=== PATIENT | female | born 1950 | race Caucasian/White ===

== ENCOUNTER → 2016-11-25 | Outpatient (CLI) | payer MEDICARE, MEDICAID ==
[~2016-11-25] MED LIST: /METO25TAB PO; /ONDA4TA OR; /OXYB10XLT PO; /PANT40TA PO; ATEN25TA PO; ATOR1TAB19 PO; BACIDCA OR; BACT800T5 PO; CALC600T7 PO; CARA1TAB2 PO; CARV3.12 PO; CHOL4PKT OR; CIPR500T3 PO; DEPA250T2 PO; DEPA500T2 PO; DIVA250T7 PO; DOXY150C PO; DRIS50002 PO; FERR325T69 PO; FLAG500T PO; FOLI1TAB2 PO; FOLI1TAB86 PO; FURO20TA2 PO; LASI20TA PO; LEVO50TA4 PO; LEVO75TA4 PO; METO100T PO; METO50TA2 PO; OXYB5SYP PO; OXYB5TA PO; PARO10TA10 PO; PAXI10TA2 PO; PRIL20CA PO; PROBCAP4 PO; SENO8.6T9 PO; SIMV80TA PO; TYLE650T30 PO; TYLE650T35 PO; ZETI10TA21 PO; levothyroxine sodium OR
== END | disposition home or self-care (01) ==
LOC: M LAB 11:39
PROVIDERS: ATTEND Physician Assistant Medical
DX: G40.909 Epilepsy, unspecified, not intractable, without status epilepticus (principal)

== ENCOUNTER → 2016-12-16 | Outpatient (CLI) | payer MEDICARE, MEDICAID ==
[~2016-12-16] MED LIST changes: +AMPI50CA PO; +VITATAB11 PO
--- NOTE | 2016-12-16 13:08 | REP ---
Clinical: Hydronephrosis. Technique: PA and lateral. Comparison: 06/05/2016. Findings: Mediastinum and cardiac silhouette are within normal limits and stable. Lung loyola demonstrate chronic stable changes primarily involving the right base. No acute consolidation, effusion, or pneumothorax. Skeletal structures are intact. Ureteral stents noted. Impression: Stable chronic changes. No acute cardiopulmonary process. Signed by Santana Minor MD 12/16/2016 01:00 P
[2016-12-16 13:43] LABS: MEAN CORPUSCULAR HEMOGLOBIN 35.2 pg (27.0-33.0); MEAN CORPUSCULAR HGB CONC 33.1 g/dl (32.0-36.5); MEAN CORPUSCULAR VOLUME 106.3 fl (80.0-96.0); RED CELL DISTRIBUTION WIDTH 12.4 % (11.5-14.5); WHITE BLOOD COUNT 5.8 K/mm3 (4.0-10.0)
[2016-12-16 13:49] LABS: INR 0.96
[2016-12-16 14:12] LABS: CALCIUM LEVEL 9.4 MG/DL (8.8-10.2); CREATININE FOR GFR 1.05 MG/DL (0.55-1.02); GLOMERULAR FILTRATION RATE 55.7 (>45); POTASSIUM SERUM 4.6 MEQ/L (3.5-5.1)
--- NOTE | 2016-12-16 16:57 | ECGEPIP ---
Stationary ECG Study [facility] Test Date: 2016-12-16 Pat Name: ERNIE COLBERT Department: Room: - Gender: F Quarter Doper: : 1950 Requested By: Norah COYNE Order Number: [id number] Reading MD: Anrde Sandhu Measurements Intervals [place] Rate: 64 P: 42 CT: 170 QRS: 28 QRSD: 90 T: 6 QT: 411 QTc: 424 Interpretive Statements Normal sinus rhythm at 64 bpm Somewhat low voltages Subtle nonspecific ST/T-wave abnormalities Not significant change from 06/05/16 Electronically Signed On 12-16-2016 16:57:15 EST by Andre Sandhu
== END ==
LOC: M LAB 11:57
PROVIDERS: ATTEND Nurse Practitioner Women's Health
DX: Z01.818 Encounter for other preprocedural examination (principal); N13.39 Other hydronephrosis; Z79.899 Other long term (current) drug therapy

== ENCOUNTER → 2016-12-24 | Day surgery (SDC) | payer MEDICARE, MEDICAID ==
[~2016-12-24] VITALS: Ht 149.9 cm; Wt 66.2 kg
[~2016-12-24] MED LIST changes: +CONRAY-60 60% 50ML VIAL (Q9961) As Ordered ONE; +CONRAY-60 60% 50ML VIAL (Q9961) XX ONE; +GENTAMICIN 100 MG in APPROPRIATE DILUENT 1 EA IV ONE; +LIDOCAINE 2% INJ 100 MG/5 ML SDV (FOR ANES.) As Ordered ONE; +LR 1,000 ML IV SCH; +MIDAZOLAM INJ 2 MG/2 ML VIAL (J2250) As Ordered ONE; +ONDANSETRON 4MG/2ML VIAL (J2405) As Ordered ONE; +ONDANSETRON 4MG/2ML VIAL (J2405) IV PRN; +PROPOFOL 200 MG/20 ML VIAL As Ordered ONE; +VANCOMYCIN 1000 MG/20 ML VIAL (J3370) As Ordered ONE; +VANCOMYCIN HCL 1,000 MG, VIAL MATE ADAPTER 1 EACH in D5W 250 ML IV ONE; +ePHEDrine SULFATE 25 MG/5 ML(5MG/ML) SYRINGE As Ordered ONE; +fentaNYL 100 MCG/2 ML INJECTION (J3010) As Ordered ONE
[2016-12-24 10:40] VITALS: BP 131/62
--- NOTE | 2016-12-24 14:29 | REP ---
RETROGRADE PYELOGRAM: 12/24/2016. Comparison: 09/25/2016. Clinical history: Bilateral hydronephrosis. Horseshoe kidney. Findings: Single image from C-arm fluoroscopy provided to Dr. Allred of the Urology division. Double pigtail stent is seen on each side with the proximal coil over the renal pelvis and the distal coil in the bladder. The cystoscope is also seen in the bladder in the midline. No other findings. Fluoroscopy time: 19 seconds. Signed by Jos Ontiveros MD 12/24/2016 05:39 P
--- NOTE | 2016-12-25 05:34 | RO ---
DATE OF PROCEDURE: 12/24/2016 PREOPERATIVE DIAGNOSES: Bilateral hydronephrosis and a horseshoe kidney. POSTOPERATIVE DIAGNOSES: Bilateral hydronephrosis and a horseshoe kidney. SURGERY PERFORMED: Cystoscopy, plus double J stent exchanges, 6-Malaysian [place] Cook. SURGEON: Kam Allred MD GRANTS OFFICER: ANESTHESIA: General. FINDINGS: Bilateral hydronephrosis and a horseshoe kidney. COMPLICATIONS: None. ESTIMATED BLOOD LOSS: N/A. HISTORY OF PRESENT ILLNESS: This is a 66-year-old female patient with a horseshoe kidney and bilateral hydronephrosis. She has bilateral kidney pain. For this reason, she has double J stents, which are exchanged every 6 months. For this reason, she has consented for a cystoscopy plus bilateral double J stent exchanges 6-Malaysian [place] Cook. PROCEDURE DESCRIPTION: In a patient under general anesthesia in supine modified low lithotomy position after prepping and draping the area of concern, which included the entire genitalia and abdomen, we introduced a cystoscope, 30-degree lens under videoendoscopic guidance. The urethra and bladder neck were totally normal. The bladder had no tumors and had bilateral stents in good position. We grabbed the left double J stent and pulled it out of the body of the patient. We then introduced a guidewire up to the kidney and then through the guidewire we actually placed a new double J stent in the right side. We then preceded to grab with endoscopic forceps the left double J stent and pulled it out of the body of the patient, and then introduced a guidewire again up to the left kidney and then introduced a new double J stent 6-Malaysian [place] Cook without any complications. Once the stent was in good position, we took the guidewire out. We could see the curl in the kidney and the curl in the bladder. Bilaterally. We then emptied the bladder and took the cystoscope out. PLAN: The patient will go home with antibiotic, Tylenol for pain and followup at [facility] [place] in about 3-4 weeks to reschedule every 3 months a cystoscopy, plus bilateral double J stent exchange.
== END | disposition home or self-care (01) ==
LOC: M SDC 07:00
PROVIDERS: ATTEND Urology
DX: N13.30 Unspecified hydronephrosis (principal); 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, fused and horseshoe kidney; Z46.6 Encounter for fitting and adjustment of urinary device; I10 Essential (primary) hypertension; Z79.899 Other long term (current) drug therapy; E03.9 Hypothyroidism, unspecified; F32.9 Major depressive disorder, single episode, unspecified; E78.5 Hyperlipidemia, unspecified
CPT/HCPCS: 52332; 74420; C2617; J0690; J1580; J2250; J2405; J3010; J3370; Q9961

== ENCOUNTER → 2017-02-18 | Outpatient (CLI) | payer MEDICARE, MEDICAID ==
[~2017-02-18] MED LIST changes: -CONRAY-60 60% 50ML VIAL (Q9961) As Ordered ONE; -CONRAY-60 60% 50ML VIAL (Q9961) XX ONE; -GENTAMICIN 100 MG in APPROPRIATE DILUENT 1 EA IV ONE; -LIDOCAINE 2% INJ 100 MG/5 ML SDV (FOR ANES.) As Ordered ONE; -LR 1,000 ML IV SCH; -MIDAZOLAM INJ 2 MG/2 ML VIAL (J2250) As Ordered ONE; -ONDANSETRON 4MG/2ML VIAL (J2405) As Ordered ONE; -ONDANSETRON 4MG/2ML VIAL (J2405) IV PRN; -PROPOFOL 200 MG/20 ML VIAL As Ordered ONE; -VANCOMYCIN 1000 MG/20 ML VIAL (J3370) As Ordered ONE; -VANCOMYCIN HCL 1,000 MG, VIAL MATE ADAPTER 1 EACH in D5W 250 ML IV ONE; -ePHEDrine SULFATE 25 MG/5 ML(5MG/ML) SYRINGE As Ordered ONE; -fentaNYL 100 MCG/2 ML INJECTION (J3010) As Ordered ONE
--- NOTE | 2017-02-18 09:11 | REPMRS ---
Patient History The patient states she has not had a clinical breast exam in over a year. Patient is postmenopausal and is nulliparous. Family history of prostate cancer in father and breast cancer in mother at age 50 or over. Digital Woman Screen Mammo: February 18, 2017 - Exam #: [id number] Bilateral CC and MLO view(s) were taken. Technologist: Elsy Keith, Technologist Prior study comparison: December 25, 2011, bilateral bilat screen digital mammo, performed at [facility] ([facility]). December 14, 2010, screening mammogram, performed at [facility] ([facility]). November 28, 2009, bilateral screening mammogram, performed at [facility] ([facility]). FINDINGS: The breast tissue is almost entirely fat. There has been no change in the appearance of the mammogram from the prior studies. There is no interval development of dominant mass, architectural distortion, or clustered microcalcification typical of malignancy. ASSESSMENT: BI-RADS/ACR category 1 mammogram. Negative. Recommendation Routine screening mammogram of both breasts in 1 year (for women over age 40). This mammogram was interpreted with the aid of an FDA-approved computer-aided dectection system. Electronically Signed By: Bart Ghotra MD 02/18/17 [id number]
--- NOTE | 2017-02-19 11:24 | DEXA ---
AP SPINE L1 - L4 1.167 -0.2 1.2 LT FEMUR TOTAL 0.874 -1.1 0.2 RT FEMUR TOTAL 0.830 -1.4 -0.2 TOTAL BODY TOTAL OTHER DUAL FEMUR FRAX* ASSESSMENT Risk factors: None. 10 year probability of fracture Major osteoporotic fracture 9.9 % Hip fracture 1.4 % COMMENTS: Normal bone densitometry of the spine. There is low bone density of the hips. The density of the spine has increased 0.5% since 11/28/2009. The density of the left hip has decreased 5.7% since 11/28/2009. The density of the right hip has decreased 3.5% since 11/28/2009. FOLLOW-UP: Recommendation for the next bone density exam: 2 years. HUSSEIN
== END ==
LOC: M WHC 07:26
PROVIDERS: ATTEND Family Medicine
DX: Z12.31 Encounter for screening mammogram for malignant neoplasm of breast (principal); Z13.820 Encounter for screening for osteoporosis; Z13.828 Encounter for screening for other musculoskeletal disorder; M85.80 Other specified disorders of bone density and structure, unspecified site; Z78.0 Asymptomatic menopausal state; Z80.3 Family history of malignant neoplasm of breast
CPT/HCPCS: 77080; G0202

== ENCOUNTER → 2017-03-17 | Outpatient (REF) | payer MEDICARE, MEDICAID ==
[~2017-03-17] MED LIST changes: +DEPA250T32 PO
== END ==
LOC: M LAB REF 17:03
PROVIDERS: ATTEND Internal Medicine Nephrology
DX: R82.71 Bacteriuria (principal)

== ENCOUNTER → 2017-04-01 | Outpatient (REF) | payer MEDICARE, MEDICAID ==
[~2017-04-01] MED LIST changes: +CIPR250T3 PO
== END ==
LOC: M SMT 12:48
PROVIDERS: ATTEND Nurse Practitioner Women's Health
DX: N39.0 Urinary tract infection, site not specified (principal)

== ENCOUNTER → 2017-04-02 | Day surgery (SDC) | payer MEDICAID, MEDICARE ==
[~2017-04-02] VITALS: Ht 149.9 cm; Wt 69.9 kg
[~2017-04-02] MED LIST changes: +CONRAY-60 60% 50ML VIAL (Q9961) As Ordered ONE; +KETOROLAC 60 MG/2 ML VIAL (J1885) As Ordered ONE; +LIDOCAINE 2% INJ 100 MG/5 ML SDV (FOR ANES.) As Ordered ONE; +LR 1,000 ML IV ONE; +LR 1,000 ML IV SCH; +MIDAZOLAM INJ 2 MG/2 ML VIAL (J2250) As Ordered ONE; +ONDANSETRON 4MG/2ML VIAL (J2405) As Ordered ONE; +ONDANSETRON 4MG/2ML VIAL (J2405) IV PRN; +PROPOFOL 200 MG/20 ML VIAL As Ordered ONE; +dexameTHASONE 4 MG/ML 1ML VIAL (J1100) As Ordered ONE; +ePHEDrine SULFATE 25 MG/5 ML(5MG/ML) SYRINGE As Ordered ONE; +fentaNYL 100 MCG/2 ML INJECTION (J3010) As Ordered ONE; +fentaNYL 100 MCG/2 ML INJECTION (J3010) IV PRN
--- NOTE | 2017-04-02 14:21 | REP ---
KUB ABDOMEN USING C-ARM: A C-arm view of the abdomen demonstrates bilateral ureteral stents. Proximal ends are coiled in the region of the kidneys and the distal ends are coiled in the region of the urinary bladder. 5 seconds of fluoroscopy time utilized. Signed by Huseyin Whiting MD 04/03/2017 07:04 P
[2017-04-02 15:35] VITALS: BP 134/75
--- NOTE | 2017-04-03 08:05 | RO ---
DATE OF PROCEDURE: 04/02/2017 PREPROCEDURE DIAGNOSIS: Horseshoe kidney, bilateral hydronephrosis. POSTPROCEDURE DIAGNOSIS: Horseshoe kidney, bilateral hydronephrosis. FINDINGS: Horseshoe kidney, bilateral hydronephrosis. PROCEDURE: Cystoscopy, plus bilateral double J stent exchange, 6-Yemeni [place] Cook. SURGEON: Kam Allred MD LPN PER DIEM: None. ANESTHESIA: General. COMPLICATIONS: None. ESTIMATED BLOOD LOSS: N/A. HISTORY OF THE PRESENT ILLNESS: This is a 67-year-old female patient that has bilateral hydronephrosis and a horseshoe kidney. For this reason she has consented for cystoscopy, plus bilateral double J stent exchange, 6-Yemeni [place] Cook. DESCRIPTION OF PROCEDURE: With the patient under general anesthesia in supine modified low lithotomy position, after prepping and draping the area of concern, which included the entire genitalia and abdomen, we introducing a 21-Yemeni cystoscopewith a 30-degree lens under videoendoscopic guidance. The urethra and bladder neck were totally normal. The bladder had no tumors, no stones, or no foreign objects. It had both double J stents in good position. With and endoscopic forcep we started by pulling out the left double J stent and then introduced a guidewire up to the kidney on the left side. We passed a new double J stent 6-Yemeni [place] Cook up to the kidney following the guidewire on the left side. Once it was in good position, we took the guidewire out, we could see the curl in the kidney and the curl in the bladder. We then grabbed another endoscopic forcep and grabbed the right double J stent and pulled it out of the body of the patient. We then passed a guidewire up to the right collecting system. When then passed a new double J stent 6-Yemeni [place] Cook stent following the guidewire. When it was in good position, we took the guidewire out, you could see the curl in the kidney and curl in the bladder. We then went up into the bladder and took the cystoscope out. PLAN: The patient will go home today with antibiotic and pain medication. She will followup in about 3 weeks at [facility] [place].
== END | disposition home or self-care (01) ==
LOC: M SDC 10:10
PROVIDERS: ATTEND Urology
DX: 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, fused and horseshoe kidney (principal); N13.30 Unspecified hydronephrosis; I12.9 Hypertensive chronic kidney disease with stage 1 through stage 4 chronic kidney disease, or unspecified chronic kidney disease; I50.9 Heart failure, unspecified; I25.2 Old myocardial infarction; N18.3 Chronic kidney disease, stage 3 (moderate); E78.00 Pure hypercholesterolemia, unspecified; E03.9 Hypothyroidism, unspecified; F32.9 Major depressive disorder, single episode, unspecified; R56.9 Unspecified convulsions; R82.71 Bacteriuria; Z88.8 Allergy status to other drugs, medicaments and biological substances; Z91.011 Allergy to milk products; Z91.018 Allergy to other foods; Z79.899 Other long term (current) drug therapy; Z79.2 Long term (current) use of antibiotics
CPT/HCPCS: 52332; 74420; C1726; C2617; J0690; J1100; J1885; J2250; J2405; J3010; Q9961

== ENCOUNTER → 2017-04-10 | Outpatient (CLI) | payer MEDICARE, MEDICAID ==
[~2017-04-10] MED LIST changes: -CONRAY-60 60% 50ML VIAL (Q9961) As Ordered ONE; -KETOROLAC 60 MG/2 ML VIAL (J1885) As Ordered ONE; -LIDOCAINE 2% INJ 100 MG/5 ML SDV (FOR ANES.) As Ordered ONE; -LR 1,000 ML IV ONE; -LR 1,000 ML IV SCH; -MIDAZOLAM INJ 2 MG/2 ML VIAL (J2250) As Ordered ONE; -ONDANSETRON 4MG/2ML VIAL (J2405) As Ordered ONE; -ONDANSETRON 4MG/2ML VIAL (J2405) IV PRN; -PROPOFOL 200 MG/20 ML VIAL As Ordered ONE; -dexameTHASONE 4 MG/ML 1ML VIAL (J1100) As Ordered ONE; -ePHEDrine SULFATE 25 MG/5 ML(5MG/ML) SYRINGE As Ordered ONE; -fentaNYL 100 MCG/2 ML INJECTION (J3010) As Ordered ONE; -fentaNYL 100 MCG/2 ML INJECTION (J3010) IV PRN
[2017-04-10 11:32] LABS: BASO # 0.1 K/mm3 (0.0-0.2); BASO % 1.1 % (0.0-1.0); EOS # 0.5 K/mm3 (0.0-0.50); EOS % 8.3 % (0.0-3.0); LARGE UNSTAINED CELL # 0.1 K/mm3 (0.0-0.4); LARGE UNSTAINED CELL % 1.9 % (0.0-4.0); LYMPH # 1.5 K/mm3 (1.5-4.5); LYMPH % 24.6 % (24.0-44.0); MEAN CORPUSCULAR HEMOGLOBIN 35.6 pg (27.0-33.0); MEAN CORPUSCULAR HGB CONC 33.5 g/dl (32.0-36.5); MEAN CORPUSCULAR VOLUME 106.3 fl (80.0-96.0); MONO # 0.4 K/mm3 (0.0-0.8); MONO % 7.3 % (0.0-5.0); NEUTROPHILS # 3.2 K/mm3 (1.8-7.7); NEUTROPHILS % 56.8 % (36.0-66.0); PLATELET COUNT, AUTOMATED 246 k/mm3 (150-450); RED CELL DISTRIBUTION WIDTH 12.5 % (11.5-14.5); WHITE BLOOD COUNT 5.7 K/mm3 (4.0-10.0)
== END ==
LOC: M LAB 10:47
PROVIDERS: ATTEND Physician Assistant Medical
DX: Z51.81 Encounter for therapeutic drug level monitoring (principal); Z79.899 Other long term (current) drug therapy; G40.909 Epilepsy, unspecified, not intractable, without status epilepticus

== ENCOUNTER → 2017-05-30 | Outpatient (REF) | payer MEDICARE ==
[~2017-05-30] MED LIST changes: +AMPI500C9 PO; -AMPI50CA PO; -FOLI1TAB2 PO; +FOLI1TAB4 PO; -OXYB5TA PO; +OXYB5TAB10 PO; +PAXI10TA12 PO; -PAXI10TA2 PO
== END ==
LOC: M SMT 13:24
PROVIDERS: ATTEND Nurse Practitioner Women's Health
DX: Z01.818 Encounter for other preprocedural examination (principal); N13.39 Other hydronephrosis; 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, fused and horseshoe kidney; Z79.899 Other long term (current) drug therapy

== ENCOUNTER → 2017-06-16 | Outpatient (CLI) | payer MEDICARE, OTHER ==
[2017-06-16 10:59] LABS: MEAN CORPUSCULAR HEMOGLOBIN 35.1 pg (27.0-33.0); MEAN CORPUSCULAR HGB CONC 32.8 g/dl (32.0-36.5); MEAN CORPUSCULAR VOLUME 107.2 fl (80.0-96.0); RED CELL DISTRIBUTION WIDTH 12.3 % (11.5-14.5); WHITE BLOOD COUNT 6.3 K/mm3 (4.0-10.0)
[2017-06-16 11:08] LABS: INR 0.9
[2017-06-16 11:23] LABS: CALCIUM LEVEL 9.7 MG/DL (8.8-10.2); GLOMERULAR FILTRATION RATE 58.7 (>45); POTASSIUM SERUM 4.6 MEQ/L (3.5-5.1)
--- NOTE | 2017-06-16 12:01 | REP ---
Chest x-ray: Two views. History: Preprocedural exam. Comparison chest x-ray: December 16, 2016. Findings: Pigtail ureteral stents are noted in place at the bottom edge of the imaging field of view in both kidneys. There is a surgical clip in the right perihilar region with post thoracotomy changes on the right as seen on the prior chest x-ray study. The lungs are well inflated and remain otherwise clear. The heart is not enlarged. Pulmonary vasculature is not increased. No pleural effusion or infiltrate is seen. No bony destructive lesion seen. Impression: Post thoracotomy pleuroparenchymal fibrosis changes on the right. Surgical clip right hilus. Otherwise no acute disease. Ureteral stents noted in place incidentally. Signed by Brooks Ghotra MD 06/16/2017 02:11 P
--- NOTE | 2017-06-16 20:47 | ECGEPIP ---
Stationary ECG Study [facility] Test Date: 2017-06-16 Pat Name: ERNIE COLBERT Department: Room: - Gender: F Force Variation Equipment Tender: ESAU : 1950 Requested By: Norah COYNE Order Number: [id number] Reading MD: Abdullahi Trevino Measurements Intervals [place] Rate: 58 P: 41 LA: 157 QRS: 30 QRSD: 88 T: 3 QT: 414 QTc: 409 Interpretive Statements SINUS BRADYCARDIA ST DEVIATION AND MODERATE T-WAVE ABNORMALITY, CONSIDER ANTERIOR ISCHEMIA SUBTLE ANTERIOR WALL T WAVE ABNORMALITIES ARE NEW SINCE 12/16/16 Electronically Signed On 06-16-2017 20:47:39 EDT by Abdullahi Trevino
== END ==
LOC: M LAB 10:30
PROVIDERS: ATTEND Nurse Practitioner Women's Health
DX: Z01.818 Encounter for other preprocedural examination (principal); N13.39 Other hydronephrosis; R00.1 Bradycardia, unspecified; R94.31 Abnormal electrocardiogram [ECG] [EKG]

== ENCOUNTER → 2017-07-18 | Outpatient (REF) | payer MEDICARE, MEDICAID ==
[2017-07-18 13:49] LABS: FERRITIN 788 NG/ML (8-252); PERCENT SATURATION 59.4 % (13.2-45.0); TOTAL IRON BINDING CAPACITY 229 UG/DL (250-450)
[2017-07-18 14:49] LABS: VITAMIN B12 LEVEL 502 PG/ML
[2017-07-18 14:51] LABS: FOLATE > 24.0 NG/ML
== END ==
LOC: M LAB REF 12:50
PROVIDERS: ATTEND Internal Medicine Nephrology
DX: D53.1 Other megaloblastic anemias, not elsewhere classified (principal)

== ENCOUNTER 2017-07-23 05:45 | Day surgery (SDC) | payer MEDICARE, MEDICAID ==
[~2017-07-23] VITALS: Ht 149.9 cm; Wt 71.2 kg
[2017-07-23] MEDS ORDERED: LR 1,000 ML IV ONE (06:00)
[2017-07-23] MEDS ORDERED: PROPOFOL 200 MG/20 ML VIAL As Ordered ONE (07:16)
[2017-07-23] MEDS ORDERED: MIDAZOLAM INJ 2 MG/2 ML VIAL (J2250) As Ordered ONE (07:16)
[2017-07-23] MEDS ORDERED: LIDOCAINE 2% INJ 100 MG/5 ML SDV (FOR ANES.) As Ordered ONE (07:16)
[2017-07-23] MEDS ORDERED: fentaNYL 100 MCG/2 ML INJECTION (J3010) As Ordered ONE (07:16)
[2017-07-23] MEDS ORDERED: CONRAY-60 60% 50ML VIAL (Q9961) As Ordered ONE (07:20)
[2017-07-23] MEDS ORDERED: LIDOCAINE 2% 5ML JELLY UROJET As Ordered ONE (07:42)
[2017-07-23 08:30] VITALS: BP 136/62
--- NOTE | 2017-07-23 08:31 | REP ---
Retrograde pyelogram: Two views. History: Bilateral hydronephrosis. 10 seconds of fluoroscopy time is reported. Findings: A sequence of two last image hold fluoroscopic spot radiographs of the abdomen document bilateral ureteral stents. Signed by Brooks Ghotra MD 07/23/2017 09:09 A
[2017-07-23] MEDS ORDERED: TYLE650T35 PO (09:59)
[2017-07-23] MEDS ORDERED: CIPR500T3 PO (09:59)
--- NOTE | 2017-07-24 07:20 | RO ---
DATE OF PROCEDURE: 07/23/2017 PREOPERATIVE DIAGNOSIS: Bilateral hydronephrosis in a horseshoe kidney. POSTOPERATIVE DIAGNOSIS: Bilateral hydronephrosis in a horseshoe kidney. SURGERY PERFORMED: Cystoscopy, plus bilateral JJ-stent exchanges 6 [place] Cook. SURGEON: Dr. Kam lAlred VOCATIONAL TRAINER: ANESTHESIA: General. FINDINGS: Same. ESTIMATED BLOOD LOSS: None. COMPLICATIONS: None. HISTORY OF PRESENT ILLNESS: This is a 67-year-old female patient that has a horseshoe kidney and bilateral hydronephrosis. For this reason, she has consented for cystoscopy, plus bilateral JJ-stent exchange. PROCEDURE DESCRIPTION: In a patient in supine modified low lithotomy position under general anesthesia after prepping and draping the area of concern which included the entire genitalia and abdomen, we introduced a #21 Kyrgyz cystoscope with a 30 degrees lens under video endoscopic guidance. The urethra and bladder neck were totally normal. The bladder had two JJ-stents in good position. With the endoscopic forceps, we grabbed the left JJ-stent out and then placed a guidewire up to the kidney. Following the guidewire, we replaced the stent with a 6 [place] Cook stent. Once that was in good position, we took the guidewire out. We could see the curl in the kidney and the curl in the bladder. We then proceeded to grab another endoscopic forceps and pull the right JJ-stent out of the body of the patient. We then proceeded to pass a guidewire up to the right portion of the horseshoe kidney and then once it was in good position we passed a stent following the guidewire. Once the stent was in good position we took the guidewire out. We could see the curl in the kidney and the curl in the bladder. We then emptied the bladder and took the cystoscope out. PLAN: The patient will go home with Tylenol for pain and antibiotic for one week. Followup at [facility] [place] in about one month to reschedule cystoscopy and bilateral double JJ-stent exchanges.
== END 2017-07-23 08:35 | disposition home or self-care (01) ==
LOC: M SDC 05:45
PROVIDERS: ATTEND Urology
DX: N13.30 Unspecified hydronephrosis (principal); 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, fused and horseshoe kidney; H40.9 Unspecified glaucoma; E03.9 Hypothyroidism, unspecified; I11.0 Hypertensive heart disease with heart failure; G40.909 Epilepsy, unspecified, not intractable, without status epilepticus; I25.2 Old myocardial infarction; E78.2 Mixed hyperlipidemia; D64.9 Anemia, unspecified; E66.3 Overweight; Z68.31 Body mass index [BMI] 31.0-31.9, adult; F41.9 Anxiety disorder, unspecified; E73.9 Lactose intolerance, unspecified; I25.10 Atherosclerotic heart disease of native coronary artery without angina pectoris; I50.42 Chronic combined systolic (congestive) and diastolic (congestive) heart failure; R94.31 Abnormal electrocardiogram [ECG] [EKG]; Z96.1 Presence of intraocular lens; Z90.710 Acquired absence of both cervix and uterus; Z88.4 Allergy status to anesthetic agent; Z88.8 Allergy status to other drugs, medicaments and biological substances; Z91.018 Allergy to other foods; Z79.899 Other long term (current) drug therapy
CPT/HCPCS: 52332; 74420; C1769; C2617; J0690; J2250; J3010; Q9961

== ENCOUNTER → 2017-09-16 | Outpatient (REF) | payer MEDICARE | LOC: M SMT 14:33 | PROVIDERS: ATTEND Nurse Practitioner Women's Health | DX: Z01.818 Encounter for other preprocedural examination (principal); 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, fused and horseshoe kidney; N13.39 Other hydronephrosis; Z79.899 Other long term (current) drug therapy | CPT/HCPCS: 81001; 87086; G0463 ==

== ENCOUNTER → 2017-10-11 | Outpatient (CLI) | payer MEDICARE, MEDICAID ==
[2017-10-11 11:11] LABS: MEAN CORPUSCULAR HEMOGLOBIN 35.2 pg (27.0-33.0); MEAN CORPUSCULAR HGB CONC 33.5 g/dl (32.0-36.5); MEAN CORPUSCULAR VOLUME 105.2 fl (80.0-96.0); PLATELET COUNT, AUTOMATED 326 10^3/uL (150-450); RED CELL DISTRIBUTION WIDTH 12.6 % (11.5-14.5); WHITE BLOOD COUNT 5.7 10^3/uL (4.0-10.0)
[2017-10-11 11:18] LABS: INR 0.84
[2017-10-11 11:24] LABS: CALCIUM LEVEL 9.8 MG/DL (8.8-10.2); CREATININE FOR GFR 1.17 MG/DL (0.55-1.02); POTASSIUM SERUM 4.5 MEQ/L (3.5-5.1)
--- NOTE | 2017-10-11 12:07 | REP ---
REASON: History of hydronephrosis. COMPARISON: 06/16/2017. Cardiomediastinal silhouette is unchanged. There is cardiomegaly. There is interstitial fibrotic change with basilar predominance, right greater than left status quo. No acute patchy parenchymal opacities or pleural effusions have developed. There is no change in the osseous structures. The upper portions of bilateral double J stent catheters are again noted status quo. IMPRESSION: Stable appearing chronic changes as described above. Signed by Anand Das DO 10/11/2017 11:18 A
--- NOTE | 2017-10-14 01:12 | ECGEPIP ---
Stationary ECG Study [facility] Test Date: 2017-10-11 Pat Name: ERNIE COLBERT Department: Room: - Gender: F Clinical Manager Home Care: LAWRENCE : 1950 Requested By: Norah COYNE Order Number: [id number] Reading MD: Randell Campa Measurements Intervals [place] Rate: 68 P: 59 MD: 157 QRS: 54 QRSD: 90 T: 22 QT: 386 QTc: 411 Interpretive Statements SINUS RHYTHM Compared to the last 3 tracings, no significant changes Electronically Signed On 10-14-2017 1:11:55 EST by Randell Campa
== END ==
LOC: M LAB 10:13
PROVIDERS: ATTEND Nurse Practitioner Women's Health
DX: Z01.818 Encounter for other preprocedural examination (principal); N13.39 Other hydronephrosis; 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, fused and horseshoe kidney; I51.7 Cardiomegaly; J98.4 Other disorders of lung; R56.9 Unspecified convulsions; Z51.81 Encounter for therapeutic drug level monitoring; Z79.899 Other long term (current) drug therapy

== ENCOUNTER → 2017-10-11 | Outpatient (CLI) | payer MEDICARE, MEDICAID ==
[2017-10-11 11:07] LABS: BASO # 0.1 10^3/uL (0.0-0.2); BASO % 1.4 % (0.0-1.0); EOS # 0.4 10^3/uL (0.0-0.50); EOS % 6.2 % (0.0-3.0); IMMATURE GRANULOCYTE % 0.9 % (0-0); LYMPH # 1.1 10^3/uL (1.5-4.5); LYMPH % 19.3 % (24.0-44.0); MEAN CORPUSCULAR HEMOGLOBIN 35.1 pg (27.0-33.0); MEAN CORPUSCULAR HGB CONC 33.2 g/dl (32.0-36.5); MEAN CORPUSCULAR VOLUME 105.4 fl (80.0-96.0); MONO # 0.5 10^3/uL (0.0-0.8); MONO % 8.8 % (0.0-5.0); NEUTROPHILS # 3.7 10^3/uL (1.8-7.7); NEUTROPHILS % 63.4 % (36.0-66.0); PLATELET COUNT, AUTOMATED 340 10^3/uL (150-450); RED CELL DISTRIBUTION WIDTH 12.7 % (11.5-14.5); WHITE BLOOD COUNT 5.8 10^3/uL (4.0-10.0)
== END ==
LOC: M LAB 10:19
PROVIDERS: ATTEND Physician Assistant Medical
DX: R56.9 Unspecified convulsions (principal); Z51.81 Encounter for therapeutic drug level monitoring; Z79.899 Other long term (current) drug therapy

== ENCOUNTER 2017-10-15 10:54 | Day surgery (SDC) | payer MEDICARE, MEDICAID ==
[~2017-10-15] VITALS: Ht 149.9 cm; Wt 76.6 kg
[2017-10-15] MEDS ORDERED: LR 1,000 ML IV ONE (11:00)
[2017-10-15] MEDS ORDERED: PROPOFOL 200 MG/20 ML VIAL As Ordered ONE ×2 (13:26→14:17)
[2017-10-15] MEDS ORDERED: MIDAZOLAM INJ 2 MG/2 ML VIAL (J2250) As Ordered ONE (13:26)
[2017-10-15] MEDS ORDERED: fentaNYL 100 MCG/2 ML INJECTION (J3010) As Ordered ONE (13:33)
[2017-10-15] MEDS ORDERED: CONRAY-60 60% 50ML VIAL (Q9961) As Ordered ONE (13:50)
[2017-10-15] MEDS ORDERED: PHENYLEPHRINE INJ 10MG/ML VIAL (J2370) As Ordered ONE (14:15)
[2017-10-15] MEDS ORDERED: BACT800T5 PO (14:38)
[2017-10-15 15:00] VITALS: BP 128/86
--- NOTE | 2017-10-15 15:07 | REP ---
C-ARM VIEWS ABDOMEN/PELVIS: Two C-arm views are performed of the abdomen/pelvis. There are bilateral ureteral stents visualized. Proximal ends are coiled in the region of the kidneys and the distal ends are coiled in the region of the urinary bladder. 6 seconds fluoroscopy time utilized. Signed by Huseyin Whiting MD 10/16/2017 09:15 A
--- NOTE | 2017-10-15 16:03 | RO ---
DATE OF PROCEDURE: 10/15/2017 PREPROCEDURE DIAGNOSIS: Bilateral hydronephrosis and a horseshoe kidney. POSTPROCEDURE DIAGNOSIS: Bilateral hydronephrosis and a horseshoe kidney. FINDINGS: Bilateral hydronephrosis and a horseshoe kidney. OPERATIVE PROCEDURE: Cystoscopy, plus bilateral double J stent exchanges, #6-Tajik [place] Cook. SURGEON: Dr. Kam Allred ROOF PLUMBER: None. ANESTHESIA: Monitored anesthesia care (MAC).. COMPLICATIONS: None. ESTIMATED BLOOD LOSS: Minimal. HISTORY OF THE PRESENT ILLNESS: This is a 67-year-old female patient with bilateral hydronephrosis and a horseshoe kidney. She just wants bilateral stent exchange every 3 months. For this reason she has consented for a cystoscopy, plus bilateral stent exchanges, #6-Tajik Peg[place] Cook. DESCRIPTION OF PROCEDURE: With the patient under general anesthesia in supine modified low lithotomy position, after prepping and draping the area of concern, which included the entire genitalia and abdomen, we introduced a #22-Tajik cystoscope with a 30 degrees lens under videoscopic guidance. The urethral meatus and bladder neck were totally normal. The bladder had no tumors, no stones. It had bilateral double J stents in good positions. With the endoscopic forceps we grabbed the right double J stent and pulled it out of the body of the patient. We loaded a guidewire up to the kidney and loaded a new stent, #6-Tajik [place] Cook. Once the stent was in good position, we took the guidewire out. We could see the curl in the kidney and the curl in the bladder. We then proceeded to grab with endoscopic forceps, the left double J stent and pulled it out of the body of the patient. We passed a guidewire up to the kidney and then passed through this guidewire another new double J stent, #6-Tajik [place] Cook. Once the stent was in good position, we took the guidewire out. We could see the stent in good position, a curl in the kidney and a curl in the bladder. We then emptied the bladder and took the cystoscope out.
== END 2017-10-15 15:22 | disposition home or self-care (01) ==
LOC: M SDC 10:54
PROVIDERS: ATTEND Urology
DX: N13.30 Unspecified hydronephrosis (principal); 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, fused and horseshoe kidney; I13.0 Hypertensive heart and chronic kidney disease with heart failure and stage 1 through stage 4 chronic kidney disease, or unspecified chronic kidney disease; I50.9 Heart failure, unspecified; H40.9 Unspecified glaucoma; N25.81 Secondary hyperparathyroidism of renal origin; G40.909 Epilepsy, unspecified, not intractable, without status epilepticus; F32.9 Major depressive disorder, single episode, unspecified; E03.9 Hypothyroidism, unspecified; E78.5 Hyperlipidemia, unspecified; I25.2 Old myocardial infarction; D64.9 Anemia, unspecified; N17.9 Acute kidney failure, unspecified; Z88.8 Allergy status to other drugs, medicaments and biological substances; Z91.018 Allergy to other foods; Z79.899 Other long term (current) drug therapy
CPT/HCPCS: 52332; 74420; C1758; C1769; C2617; J0690; J2250; J2370; J3010; Q9961

== ENCOUNTER → 2017-10-24 | Outpatient (CLI) | payer MEDICARE, MEDICAID ==
--- NOTE | 2017-10-24 14:03 | REP ---
CT ABDOMEN AND PELVIS WITHOUT IV OR ORAL CONTRAST: HISTORY: Lobulated, fused/horseshoe kidney. Hydronephrosis. Comparison CT study December 26, 2015. FINDINGS: Digital geospatial program management officer radiograph demonstrates the presence of bilateral ureteral stents. The bowel gas pattern is normal. The lung bases are clear on axial CT images. There are granulomatous calcifications scattered in the spleen and in the liver. No focal hepatic mass lesion is seen. No pancreatic abnormality is seen. No adrenal abnormality is noted. A horseshoe kidney anomaly is confirmed with moderate right-sided hydronephrosis present despite the presence of well-positioned bilateral ureteral double pigtail stents. There are four to five visible intrarenal calculi in the right renal moiety, the largest of which measures 9 mm. This is in the lower pole. No ureteral stone is seen along the course of the stent on either side. No left-sided hydronephrosis is seen. There is considerable atrophy of the left renal moiety's cortex however. The findings are actually similar to the appearance on the December 26, 2015 study. Hydronephrosis today is a little more prominent. There is some mural thickening in the renal pelvis on the right which may reflect chronic pyelitis. No bladder calculus is seen. No renal or retroperitoneal mass is observed. No pelvic mass or adenopathy is seen. The patient is status post hysterectomy. No abdominal wall defect is seen. No evidence of bony abnormality. IMPRESSION: Double pigtail ureteral stents in place. Moderate right-sided hydronephrosis is present despite the presence of the ureteral stent. Intrarenal nephrolithiasis is noted on the right. Atrophy of the left renal moiety is again seen. Signed by Brooks Ghotra MD 10/24/2017 03:58 P
== END ==
LOC: M RAD 12:53
PROVIDERS: ATTEND Nurse Practitioner Women's Health
DX: 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, fused and horseshoe kidney (principal); N13.39 Other hydronephrosis

== ENCOUNTER → 2017-11-05 | Outpatient (CLI) | payer MEDICARE, MEDICAID ==
[2017-11-05 20:37] LABS: ANION GAP 7 MEQ/L (8-16); BLOOD UREA NITROGEN 26 MG/DL (7-18); CALCIUM LEVEL 9.7 MG/DL (8.8-10.2); CARBON DIOXIDE LEVEL 29 MEQ/L (21-32); CHLORIDE LEVEL 106 MEQ/L (98-107); CREATININE FOR GFR 1.45 MG/DL (0.55-1.02); GLOMERULAR FILTRATION RATE 38.2 (>45); GLUCOSE, FASTING 76 MG/DL (80-110); SODIUM LEVEL 142 MEQ/L (136-145)
[2017-11-05 20:49] LABS: POTASSIUM SERUM 5.2 MEQ/L (3.5-5.1)
== END ==
LOC: M SMT 13:32
DX: N13.39 Other hydronephrosis (principal)
CPT/HCPCS: 80048

== ENCOUNTER → 2018-01-05 | Outpatient (CLI) | payer MEDICARE, MEDICAID ==
[2018-01-05 13:55] LABS: HEMATOCRIT 39.1 % (36.0-47.0); HEMOGLOBIN 12.7 g/dl (12.0-16.0); MEAN CORPUSCULAR HEMOGLOBIN 34.6 pg (27.0-33.0); MEAN CORPUSCULAR HGB CONC 32.5 g/dl (32.0-36.5); MEAN CORPUSCULAR VOLUME 106.5 fl (80.0-96.0); PLATELET COUNT, AUTOMATED 309 10^3/uL (150-450); RED BLOOD COUNT 3.67 10^6/uL (4.00-5.40); RED CELL DISTRIBUTION WIDTH 13.3 % (11.5-14.5)
[2018-01-05 14:03] LABS: APPEARANCE, URINE TURBID (CLEAR); BACTERIA, URINE AUTO 2+ (NEGATIVE); BILIRUBIN, URINE AUTO NEGATIVE (NEGATIVE); BLOOD, URINE BLOOD 2+ (NEGATIVE); COLOR, URINE AMBER (YELLOW); GLUCOSE, URINE (UA) AUTO NEGATIVE (NEGATIVE); KETONE, URINE AUTO NEGATIVE (NEGATIVE); LEUKOCYTE ESTERASE, URINE AUTO 3+ (NEGATIVE); MUCUS, URINE SMALL (NEGATIVE); NITRITE, URINE AUTO NEGATIVE (NEGATIVE); PROTEIN, URINE AUTO 2+ mg/dL (NEGATIVE); RBC, URINE AUTO 66 /HPF (0-3); SPECIFIC GRAVITY URINE AUTO 1.012 (1.002-1.035); SQUAMOUS EPITHELIAL CELL UR AU 3 /HPF (0-6); UROBILINOGEN, URINE AUTO 0.2 mg/dL (0.0-2.0); WBC, URINE AUTO TNTC /HPF (0-3)
[2018-01-05 14:12] LABS: PARTIAL THROMBOPLASTIN TIME 32.4 SECONDS (26.8-37.9); PROTHROMBIN TIME 13.3 SECONDS (12.4-14.5)
[2018-01-05 14:22] LABS: ANION GAP 7 MEQ/L (8-16); BLOOD UREA NITROGEN 22 MG/DL (7-18); CARBON DIOXIDE LEVEL 29 MEQ/L (21-32); CHLORIDE LEVEL 106 MEQ/L (98-107); CREATININE FOR GFR 1.21 MG/DL (0.55-1.30); GLOMERULAR FILTRATION RATE 47.1 (>45); GLUCOSE, FASTING 94 MG/DL (70-100); POTASSIUM SERUM 4.7 MEQ/L (3.5-5.1); SODIUM LEVEL 142 MEQ/L (136-145)
== END ==
LOC: M LAB 12:48
DX: Z01.818 Encounter for other preprocedural examination (principal); N13.39 Other hydronephrosis; 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, fused and horseshoe kidney; Z79.899 Other long term (current) drug therapy
CPT/HCPCS: 80048

== ENCOUNTER → 2018-01-30 | Outpatient (REF) | payer MEDICARE, MEDICAID | LOC: M SMT 16:50 | DX: N39.0 Urinary tract infection, site not specified (principal) | CPT/HCPCS: 87186 ==

== ENCOUNTER → 2018-03-09 | Outpatient (CLI) | payer MEDICARE, MEDICAID ==
[2018-03-09 14:19] LABS: ALBUMIN 3.7 GM/DL (3.2-5.2); ALBUMIN/GLOBULIN RATIO 0.95 (1.00-1.93); ALKALINE PHOSPHATASE 68 U/L (45-117); ALT/SGPT 22 U/L (12-78); AST/SGOT 13 U/L (7-37); BILIRUBIN,DIRECT < 0.1 MG/DL (0.0-0.2); BILIRUBIN,TOTAL 0.4 MG/DL (0.2-1.0); CHOLESTEROL LEVEL 218 MG/DL (<200); HDL CHOLESTEROL 40 MG/DL (>40); NON-HDL-C 178 MG/DL; TOTAL PROTEIN 7.6 GM/DL (6.4-8.2); TRIGLYCERIDES LEVEL 230 MG/DL (<150)
== END ==
LOC: M LAB 12:55
DX: E78.2 Mixed hyperlipidemia (principal)
CPT/HCPCS: 80076

== ENCOUNTER → 2018-03-13 | Outpatient (CLI) | payer MEDICARE, MEDICAID | LOC: M WHC 12:18 | DX: Z12.31 Encounter for screening mammogram for malignant neoplasm of breast (principal); N95.1 Menopausal and female climacteric states; M81.0 Age-related osteoporosis without current pathological fracture | CPT/HCPCS: 77067 ==

== ENCOUNTER → 2018-04-30 | Outpatient (CLI) | payer MEDICARE, MEDICAID ==
[2018-04-30 13:13] LABS: HEMATOCRIT 38.8 % (36.0-47.0); HEMOGLOBIN 12.8 g/dl (12.0-15.5); MEAN CORPUSCULAR HEMOGLOBIN 34.8 pg (27.0-33.0); MEAN CORPUSCULAR VOLUME 105.4 fl (80.0-96.0); PLATELET COUNT, AUTOMATED 254 10^3/uL (150-450); RED BLOOD COUNT 3.68 10^6/uL (4.00-5.40)
[2018-04-30 13:26] LABS: INR 0.95; PROTHROMBIN TIME 12.8 SECONDS (12.1-14.4)
[2018-04-30 13:45] LABS: ANION GAP 8 MEQ/L (8-16); BLOOD UREA NITROGEN 26 MG/DL (7-18); CALCIUM LEVEL 9.1 MG/DL (8.8-10.2); CARBON DIOXIDE LEVEL 28 MEQ/L (21-32); CHLORIDE LEVEL 107 MEQ/L (98-107); GLOMERULAR FILTRATION RATE 47.4 (>45); GLUCOSE, FASTING 98 MG/DL (70-100); POTASSIUM SERUM 4.4 MEQ/L (3.5-5.1); SODIUM LEVEL 143 MEQ/L (136-145)
[2018-04-30 13:46] LABS: APPEARANCE, URINE CLOUDY (CLEAR); BACTERIA, URINE AUTO 1+ (NEGATIVE); BILIRUBIN, URINE AUTO NEGATIVE (NEGATIVE); BLOOD, URINE BLOOD 2+ (NEGATIVE); COLOR, URINE YELLOW (YELLOW); GLUCOSE, URINE (UA) AUTO NEGATIVE (NEGATIVE); KETONE, URINE AUTO NEGATIVE (NEGATIVE); LEUKOCYTE ESTERASE, URINE AUTO 3+ (NEGATIVE); MUCUS, URINE SMALL (NEGATIVE); NITRITE, URINE AUTO NEGATIVE (NEGATIVE); PROTEIN, URINE AUTO 2+ mg/dL (NEGATIVE); RBC, URINE AUTO 70 /HPF (0-3); SPECIFIC GRAVITY URINE AUTO 1.012 (1.002-1.035); SQUAMOUS EPITHELIAL CELL UR AU 1 /HPF (0-6); UROBILINOGEN, URINE AUTO 0.2 mg/dL (0.0-2.0); WBC, URINE AUTO 125 /HPF (0-3)
== END ==
LOC: M LAB 12:23
DX: N13.39 Other hydronephrosis (principal); I51.7 Cardiomegaly; Z79.899 Other long term (current) drug therapy
CPT/HCPCS: 71046

== ENCOUNTER → 2018-05-10 | Outpatient (CLI) | payer MEDICARE, MEDICAID | LOC: M LAB 12:46 | DX: N39.0 Urinary tract infection, site not specified (principal) | CPT/HCPCS: 36415 ==

== ENCOUNTER 2018-05-12 14:26 | Day surgery (SDC) | payer MEDICARE, MEDICAID ==
[2018-05-12] MEDS ORDERED: LR 1,000 ML IV ×6 (14:45→19:15)
[2018-05-12] MEDS ORDERED: LIDOCAINE 1% MDV 20ML VIAL SQ ×3 (14:45)
[2018-05-12] MEDS ORDERED: fentaNYL 100 MCG/2 ML INJECTION (J3010) As Ordered ×3 (18:02)
[2018-05-12] MEDS ORDERED: PROPOFOL 200 MG/20 ML VIAL As Ordered ×3 (18:02)
[2018-05-12] MEDS ORDERED: dexameTHASONE 4 MG/ML 1ML VIAL (J1100) As Ordered ×3 (18:02)
[2018-05-12] MEDS ORDERED: MIDAZOLAM INJ 2 MG/2 ML VIAL (J2250) As Ordered ×3 (18:02)
[2018-05-12] MEDS ORDERED: ONDANSETRON 4MG/2ML VIAL (J2405) As Ordered ×3 (18:02)
[2018-05-12] MEDS ORDERED: KETOROLAC 60 MG/2 ML VIAL (J1885) As Ordered ×3 (18:02)
[2018-05-12] MEDS ORDERED: METOCLOPRAMIDE INJ 10MG/2ML VIAL (J2765) As Ordered ×3 (18:03)
[2018-05-12] MEDS: GENTAMICIN 100 MG in APPROPRIATE DILUENT 1 EA IV ×3 (18:17)
[2018-05-12] MEDS: CONRAY-60 60% 50ML VIAL (Q9961) As Ordered ×3 (18:45)
[2018-05-12] MEDS ORDERED: fentaNYL 100 MCG/2 ML INJECTION (J3010) IV ×3 (19:15)
[2018-05-12] MEDS ORDERED: ONDANSETRON 4MG/2ML VIAL (J2405) IV ×3 (19:15)
[2018-05-12] MEDS ORDERED: METOCLOPRAMIDE INJ 10MG/2ML VIAL (J2765) IV ×3 (19:15)
[2018-05-12] MEDS ORDERED: ACETAMINOPHEN 650MG ER TAB (TYLENOL ARTHRITIS) PO ×3 (19:15)
[2018-05-12] MEDS ORDERED: PERCOCET 5MG/325MG TAB PO ×3 (19:15)
== END 2018-05-12 20:13 | disposition home or self-care (01) ==
LOC: M SDC 14:26
DX: N13.30 Unspecified hydronephrosis (principal); 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, fused and horseshoe kidney; I12.9 Hypertensive chronic kidney disease with stage 1 through stage 4 chronic kidney disease, or unspecified chronic kidney disease; E78.5 Hyperlipidemia, unspecified; E03.9 Hypothyroidism, unspecified; K21.9 Gastro-esophageal reflux disease without esophagitis; F32.9 Major depressive disorder, single episode, unspecified; Z88.8 Allergy status to other drugs, medicaments and biological substances; N18.9 Chronic kidney disease, unspecified; Z79.899 Other long term (current) drug therapy
CPT/HCPCS: 52332

== ENCOUNTER → 2018-08-12 | Outpatient (CLI) | payer MEDICARE, MEDICAID ==
[2018-08-12 14:33] LABS: HEMATOCRIT 39.1 % (36.0-47.0); HEMOGLOBIN 12.9 g/dl (12.0-15.5); MEAN CORPUSCULAR HEMOGLOBIN 34.9 pg (27.0-33.0); MEAN CORPUSCULAR VOLUME 105.7 fl (80.0-96.0); PLATELET COUNT, AUTOMATED 311 10^3/uL (150-450); RED CELL DISTRIBUTION WIDTH 12.9 % (11.5-14.5); WHITE BLOOD COUNT 7.1 10^3/uL (4.0-10.0)
[2018-08-12 14:43] LABS: INR 0.92; PROTHROMBIN TIME 12.5 SECONDS (12.1-14.4)
[2018-08-12 14:44] LABS: PARTIAL THROMBOPLASTIN TIME 32.9 SECONDS (25.4-37.6)
[2018-08-12 14:56] LABS: ANION GAP 8 MEQ/L (8-16); BLOOD UREA NITROGEN 29 MG/DL (7-18); CARBON DIOXIDE LEVEL 28 MEQ/L (21-32); CHLORIDE LEVEL 108 MEQ/L (98-107); CREATININE FOR GFR 1.36 MG/DL (0.55-1.30); GLUCOSE, FASTING 91 MG/DL (70-100); POTASSIUM SERUM 4.6 MEQ/L (3.5-5.1); SODIUM LEVEL 144 MEQ/L (136-145)
[2018-08-12 15:48] LABS: APPEARANCE, URINE CLOUDY (CLEAR); BACTERIA, URINE AUTO 2+ (NEGATIVE); BILIRUBIN, URINE AUTO NEGATIVE (NEGATIVE); BLOOD, URINE BLOOD 2+ (NEGATIVE); COLOR, URINE AMBER (YELLOW); GLUCOSE, URINE (UA) AUTO NEGATIVE (NEGATIVE); KETONE, URINE AUTO NEGATIVE (NEGATIVE); LEUKOCYTE ESTERASE, URINE AUTO 3+ (NEGATIVE); MUCUS, URINE SMALL (NEGATIVE); NITRITE, URINE AUTO NEGATIVE (NEGATIVE); PROTEIN, URINE AUTO 2+ mg/dL (NEGATIVE); RBC, URINE AUTO TNTC /HPF (0-3); SPECIFIC GRAVITY URINE AUTO 1.012 (1.002-1.035); SQUAMOUS EPITHELIAL CELL UR AU 5 /HPF (0-6); TRIPLE PHOSPHATE CRYSTALS MODERATE; UROBILINOGEN, URINE AUTO 0.2 mg/dL (0.0-2.0); WBC, URINE AUTO 11 /HPF (0-3)
== END ==
LOC: M LAB 13:39
DX: Z01.818 Encounter for other preprocedural examination (principal); N13.39 Other hydronephrosis; Z79.899 Other long term (current) drug therapy
CPT/HCPCS: 80048

== ENCOUNTER 2018-08-19 08:30 | Day surgery (SDC) | payer MEDICARE, MEDICAID ==
[2018-08-19] MEDS: LR 1,000 ML IV (09:22)
[2018-08-19] MEDS ORDERED: MIDAZOLAM INJ 2 MG/2 ML VIAL (J2250) As Ordered (09:27)
[2018-08-19] MEDS ORDERED: fentaNYL 100 MCG/2 ML INJECTION (J3010) As Ordered (09:27)
[2018-08-19] MEDS ORDERED: PROPOFOL 200 MG/20 ML VIAL As Ordered (09:27)
[2018-08-19] MEDS ORDERED: LIDOCAINE 2% INJ 100 MG/5 ML SDV (FOR ANES.) As Ordered (09:27)
[2018-08-19] MEDS ORDERED: dexameTHASONE 4 MG/ML 1ML VIAL (J1100) As Ordered (09:27)
[2018-08-19] MEDS: CONRAY-60 60% 50ML VIAL (Q9961) As Ordered (10:56)
[2018-08-19] MEDS ORDERED: PERCOCET 5MG/325MG TAB PO (11:15)
[2018-08-19] MEDS ORDERED: LR 1,000 ML IV (11:15)
[2018-08-19] MEDS ORDERED: METOCLOPRAMIDE INJ 10MG/2ML VIAL (J2765) IV (11:15)
[2018-08-19] MEDS ORDERED: ONDANSETRON 4MG/2ML VIAL (J2405) IV (11:15)
[2018-08-19] MEDS ORDERED: fentaNYL 100 MCG/2 ML INJECTION (J3010) IV (11:15)
[2018-08-19] MEDS ORDERED: MEPERIDINE INJ 25 MG/ML VIAL (J2175) IV (11:15)
[2018-08-19] MEDS ORDERED: CIPROFLOXACIN 500 MG TAB PO (18:00)
== END 2018-08-19 12:36 | disposition home or self-care (01) ==
LOC: M SDC 08:30
DX: N13.39 Other hydronephrosis (principal); I25.2 Old myocardial infarction; I12.9 Hypertensive chronic kidney disease with stage 1 through stage 4 chronic kidney disease, or unspecified chronic kidney disease; E78.5 Hyperlipidemia, unspecified; E03.9 Hypothyroidism, unspecified; F32.9 Major depressive disorder, single episode, unspecified; N18.4 Chronic kidney disease, stage 4 (severe); D64.9 Anemia, unspecified; K21.9 Gastro-esophageal reflux disease without esophagitis; Z79.899 Other long term (current) drug therapy
CPT/HCPCS: 52332

== ENCOUNTER → 2018-10-19 | Outpatient (REF) | payer MEDICARE, MEDICAID ==
[~2018-10-19] MED LIST changes: +ACET1TAB55 PO; +ATOR40TA75 PO; -DRIS50002 PO; +DRIS50003 PO; +FOLI1TAB11 PO; -FOLI1TAB4 PO; +MACR100C43 PO; +PARO5TAB PO; +PROBCAP14 PO
[2018-10-19 13:34] LABS: APPEARANCE, URINE CLOUDY (CLEAR); BACTERIA, URINE AUTO 1+ (NEGATIVE); BILIRUBIN, URINE AUTO NEGATIVE (NEGATIVE); BLOOD, URINE BLOOD 2+ (NEGATIVE); COLOR, URINE YELLOW (YELLOW); GLUCOSE, URINE (UA) AUTO NEGATIVE (NEGATIVE); KETONE, URINE AUTO NEGATIVE (NEGATIVE); LEUKOCYTE ESTERASE, URINE AUTO 3+ (NEGATIVE); MUCUS, URINE SMALL (NEGATIVE); NITRITE, URINE AUTO NEGATIVE (NEGATIVE); PROTEIN, URINE AUTO 2+ mg/dL (NEGATIVE); RBC, URINE AUTO 117 /HPF (0-3); SPECIFIC GRAVITY URINE AUTO 1.012 (1.002-1.035); SQUAMOUS EPITHELIAL CELL UR AU 9 /HPF (0-6); UROBILINOGEN, URINE AUTO 0.2 mg/dL (0.0-2.0); WBC, URINE AUTO TNTC /HPF (0-3)
== END ==
LOC: M SMT 13:10
PROVIDERS: ATTEND Nurse Practitioner Women's Health
DX: Z01.818 Encounter for other preprocedural examination (principal); N13.39 Other hydronephrosis; 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, fused and horseshoe kidney
CPT/HCPCS: 81001; 87086; G0463

== ENCOUNTER 2018-10-21 20:02 | Emergency (ER) | payer MEDICARE, MEDICAID | END 2018-10-21 21:55 | disposition home or self-care (01) | LOC: M ED 20:02 | DX: M79.661 Pain in right lower leg (principal); 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, fused and horseshoe kidney; Z88.8 Allergy status to other drugs, medicaments and biological substances; Z91.018 Allergy to other foods; Z91.011 Allergy to milk products; Z88.4 Allergy status to anesthetic agent; Z79.899 Other long term (current) drug therapy | CPT/HCPCS: 93971 ==

== ENCOUNTER → 2018-10-22 | Outpatient (REF) | payer MEDICARE, MEDICAID ==
[2018-10-22 13:33] LABS: AMORPHOUS SEDIMENT SMALL (NEGATIVE); APPEARANCE, URINE CLOUDY (CLEAR); BACTERIA, URINE AUTO NEGATIVE (NEGATIVE); BILIRUBIN, URINE AUTO NEGATIVE (NEGATIVE); BLOOD, URINE BLOOD 2+ (NEGATIVE); COLOR, URINE AMBER (YELLOW); GLUCOSE, URINE (UA) AUTO NEGATIVE (NEGATIVE); KETONE, URINE AUTO NEGATIVE (NEGATIVE); LEUKOCYTE ESTERASE, URINE AUTO 3+ (NEGATIVE); MUCUS, URINE SMALL (NEGATIVE); NITRITE, URINE AUTO NEGATIVE (NEGATIVE); PROTEIN, URINE AUTO 2+ mg/dL (NEGATIVE); RBC, URINE AUTO 74 /HPF (0-3); SPECIFIC GRAVITY URINE AUTO 1.014 (1.002-1.035); SQUAMOUS EPITHELIAL CELL UR AU 0 /HPF (0-6); UROBILINOGEN, URINE AUTO 0.2 mg/dL (0.0-2.0); WBC, URINE AUTO TNTC /HPF (0-3)
== END ==
LOC: M SMT 13:09
PROVIDERS: ATTEND Urology
DX: R30.0 Dysuria (principal)

== ENCOUNTER → 2018-11-27 | Outpatient (CLI) | payer MEDICARE ==
[~2018-11-27] MED LIST changes: +CIPR-250 PO; +FERR32TA PO; +PARO10TA3 PO
--- NOTE | 2018-11-27 10:19 | REP ---
Chest two views HISTORY: Preop Comparison: 04/30/2018 A diffuse increase in interstitial markings is present in the lungs consistent with chronic interstitial fibrosis. The cardiac silhouette is enlarged. The pulmonary vasculature is normal in appearance. The bony structure is intact. Calcification is present inferior to the right coracoid process. This may represent ligamentous or tendon calcification IMPRESSION: 1. Chronic interstitial fibrosis. 2. Cardiomegaly. Electronically Signed by Juan Scruggs MD 11/27/2018 10:11 A
[2018-11-27 11:52] LABS: HEMATOCRIT 39.9 % (36.0-47.0); HEMOGLOBIN 12.9 g/dl (12.0-15.5); MEAN CORPUSCULAR HEMOGLOBIN 35.5 pg (27.0-33.0); MEAN CORPUSCULAR HGB CONC 32.3 g/dl (32.0-36.5); MEAN CORPUSCULAR VOLUME 109.9 fl (80.0-96.0); PLATELET COUNT, AUTOMATED 338 10^3/uL (150-450); RED BLOOD COUNT 3.63 10^6/uL (4.00-5.40); WHITE BLOOD COUNT 8.2 10^3/uL (4.0-10.0)
[2018-11-27 12:00] LABS: CALCIUM LEVEL 9.5 MG/DL (8.8-10.2); CREATININE FOR GFR 1.19 MG/DL (0.55-1.30); GLOMERULAR FILTRATION RATE 47.9 (>45); POTASSIUM SERUM 4.3 MEQ/L (3.5-5.1)
[2018-11-27 12:02] LABS: INR 0.96; PROTHROMBIN TIME 12.9 SECONDS (12.1-14.4)
[2018-11-27 12:03] LABS: PARTIAL THROMBOPLASTIN TIME 30.8 SECONDS (25.4-37.6)
== END ==
LOC: M SMT 09:37
PROVIDERS: ATTEND Nurse Practitioner Women's Health
DX: Z01.818 Encounter for other preprocedural examination (principal); J84.10 Pulmonary fibrosis, unspecified; I51.7 Cardiomegaly; N13.39 Other hydronephrosis; R56.9 Unspecified convulsions; Z51.81 Encounter for therapeutic drug level monitoring

== ENCOUNTER → 2018-11-27 | Outpatient (CLI) | payer MEDICARE | LOC: M SMT 09:33 | PROVIDERS: ATTEND Physician Assistant Medical | DX: R56.9 Unspecified convulsions (principal); Z51.81 Encounter for therapeutic drug level monitoring ==

== ENCOUNTER 2018-12-02 08:17 | Day surgery (SDC) | payer MEDICARE, MEDICAID ==
[~2018-12-02] VITALS: Ht 147.3 cm; Wt 68.0 kg
[~2018-12-02 08:17] MED LIST changes: +LIDOCAINE 1% MDV 20ML VIAL SQ PRN
[2018-12-02] MEDS ORDERED: PROPOFOL 200 MG/20 ML VIAL As Ordered ONE (08:55)
[2018-12-02] MEDS ORDERED: ROCURONIUM BROMIDE 50 MG/5 ML VIAL As Ordered ONE (08:55)
[2018-12-02] MEDS ORDERED: ONDANSETRON 4MG/2ML VIAL (J2405) As Ordered ONE (08:55)
[2018-12-02] MEDS ORDERED: LIDOCAINE 2% INJ 100 MG/5 ML SDV (FOR ANES.) As Ordered ONE (08:55)
[2018-12-02] MEDS ORDERED: dexameTHASONE 4 MG/ML 1ML VIAL (J1100) As Ordered ONE (08:56)
[2018-12-02] MEDS ORDERED: fentaNYL 250 MCG/5 ML INJECTION (J3010) As Ordered ONE (08:56)
[2018-12-02] MEDS ORDERED: MIDAZOLAM INJ 2 MG/2 ML VIAL (J2250) As Ordered ONE (08:57)
[2018-12-02] MEDS ORDERED: LR 1,000 ML IV ONE (09:00)
[2018-12-02] MEDS ORDERED: ceFAZolin 2 GM/D5W 50 ML IV BAG (J0690 PER 500MG) As Ordered ONE (09:09)
[2018-12-02] MEDS ORDERED: CONRAY-60 60% 50ML VIAL (Q9961) As Ordered ONE (09:17)
[2018-12-02] MEDS ORDERED: LIDOCAINE 2% 5ML JELLY UROJET As Ordered ONE (10:21)
[2018-12-02] MEDS ORDERED: PHENYLephrine HCL 500 MCG/5 ML (100MCG/ML) SYRINGE (J2370) As Ordered ONE (10:59)
[2018-12-02] MEDS ORDERED: ePHEDrine SULFATE 25 MG/5 ML(5MG/ML) SYRINGE As Ordered ONE (10:59)
[2018-12-02 11:20] VITALS: BP 113/59
--- NOTE | 2018-12-02 14:15 | REP ---
C-ARM VIEWS DURING RETROGRADE PYELOGRAM AND PLACEMENT OF BILATERAL URETERAL STENTS: Four C-arm views are performed. Contrast partially opacifies both pelvicaliceal systems. There are bilateral ureteral stents placed, proximal ends are coiled in the renal pelvis bilaterally, and the distal ends are coiled in the urinary bladder. 39 seconds of fluoroscopy time is utilized. Electronically Signed by Huseyin Whiting MD 12/03/2018 10:43 A
--- NOTE | 2018-12-02 15:07 | RO ---
DATE OF PROCEDURE: 12/02/2018 PREPROCEDURE DIAGNOSIS: Bilateral hydronephrosis POSTPROCEDURE DIAGNOSIS: Bilateral hydronephrosis. PROCEDURE: Cystoscopy, bilateral ureteral stent exchange, bilateral retrograde pyelogram with intraoperative interpretation of images. SURGEON: Lance Daniel MD TRAVEL PT: None. ANESTHESIA: MAC. OPERATIVE INDICATIONS: This is a 68-year-old female with bilateral hydronephrosis managed with chronic renal stenting. She was brought to the operating room today for routine stent exchange. DESCRIPTION OF PROCEDURE: The patient was brought to the operating room where MAC anesthesia was administered. Prophylactic antibiotics were infused. She was then placed in the dorsal lithotomy position and prepped and draped in the usual sterile fashion. A rigid cystoscope was then inserted through the urethral meatus and advanced to the bladder. The previously placed right ureteral stent was then grasped and withdrawal until the distal end was seen protruding through the urethral meatus. I then advanced the wire up the stent and then withdrew the stent completely leaving the wire in place. I then advanced an open ended ureteral catheter over the wire into the right collecting system. The wire was then removed leaving the ureteral catheter in place. A retrograde pyelogram was then performed and was notable for mild to moderate right hydronephrosis and extravasation. I then advanced the wire back up the right collecting system and then removed the ureteral catheter. I then utilized the wire to advance a #6 Qatari x 22-32 cm JJ ureteral stent up the right collecting system. The wire was then removed and there were adequate curls of the stent in the right ureteral pelvis and in the bladder. I then withdrew the previously placed left ureteral stent until the distal end was seen protruding through the urethral meatus. I then advanced a wire up the left collecting system and then removed the stent leaving the wire in place. I then advanced an open ended ureteral catheter over the wire up into the left collecting system. The wire was then removed and the ureteral catheter was utilized to shoot a retrograde pyelogram. It was notable for moderate to severe left hydronephrosis with no extravasation. I then advanced the wire back up into the ureteral catheter and into the left collecting system. The ureteral catheter was then removed leaving the wire in place. I then utilized the wire to advance a #6 Qatari x 22-32 cm JJ ureteral stent up into the left collecting system. The wire was then removed and there were adequate curls of the stent in the left renal pelvis and in the bladder. At this point, the bladder was emptied of all fluids. This marked conclusion of the procedure. The patient was then taken out of dorsal lithotomy position, awakened from anesthesia and transported to the recovery room in stable condition. ESTIMATED BLOOD LOSS: 5 mL. COMPLICATIONS: None. SPECIMENS: None. PLAN: The patient will followup in the clinic in 2 to 3 months to be set up for the next stent exchange 3 to 4 months from now. HUSSEIN
== END 2018-12-02 12:15 | disposition home or self-care (01) ==
LOC: M SDC 08:17
PROVIDERS: ATTEND Urology
DX: N13.30 Unspecified hydronephrosis (principal); I13.0 Hypertensive heart and chronic kidney disease with heart failure and stage 1 through stage 4 chronic kidney disease, or unspecified chronic kidney disease; E03.9 Hypothyroidism, unspecified; H40.9 Unspecified glaucoma; N18.4 Chronic kidney disease, stage 4 (severe); 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, fused and horseshoe kidney; I25.2 Old myocardial infarction; I50.9 Heart failure, unspecified; E78.00 Pure hypercholesterolemia, unspecified; K21.9 Gastro-esophageal reflux disease without esophagitis; D64.9 Anemia, unspecified; G40.909 Epilepsy, unspecified, not intractable, without status epilepticus; E73.9 Lactose intolerance, unspecified; Z88.4 Allergy status to anesthetic agent; Z88.8 Allergy status to other drugs, medicaments and biological substances; Z91.018 Allergy to other foods; Z79.899 Other long term (current) drug therapy; Z90.710 Acquired absence of both cervix and uterus; Z78.0 Asymptomatic menopausal state; Z87.442 Personal history of urinary calculi; Z87.440 Personal history of urinary (tract) infections
CPT/HCPCS: 52332; 74420; C1769; C2617; J0690; J1100; J2250; J2370; J2405; J3010; Q9961

== ENCOUNTER → 2019-02-01 | Outpatient (CLI) | payer MEDICARE, MEDICAID ==
[~2019-02-01] MED LIST changes: -/METO25TAB PO; -/ONDA4TA OR; -/OXYB10XLT PO; -/PANT40TA PO; +DITR1TAB PO; -LIDOCAINE 1% MDV 20ML VIAL SQ PRN; +METO1TAB87 PO; +ONDA-1 OR; +PROT1TAB2 PO
[2019-02-01 13:03] LABS: HEMATOCRIT 35.5 % (36.0-47.0); HEMOGLOBIN 11.4 g/dl (12.0-15.5); MEAN CORPUSCULAR HEMOGLOBIN 35.2 pg (27.0-33.0); MEAN CORPUSCULAR HGB CONC 32.1 g/dl (32.0-36.5); MEAN CORPUSCULAR VOLUME 109.6 fl (80.0-96.0); PLATELET COUNT, AUTOMATED 361 10^3/uL (150-450); RED BLOOD COUNT 3.24 10^6/uL (4.00-5.40); WHITE BLOOD COUNT 8.7 10^3/uL (4.0-10.0)
[2019-02-01 13:16] LABS: APPEARANCE, URINE TURBID (CLEAR); BACTERIA, URINE AUTO 2+ (NEGATIVE); BILIRUBIN, URINE AUTO NEGATIVE (NEGATIVE); BLOOD, URINE BLOOD 1+ (NEGATIVE); COLOR, URINE YELLOW (YELLOW); GLUCOSE, URINE (UA) AUTO NEGATIVE (NEGATIVE); INR 1.05; KETONE, URINE AUTO NEGATIVE (NEGATIVE); LEUKOCYTE ESTERASE, URINE AUTO 3+ (NEGATIVE); NITRITE, URINE AUTO POSITIVE (NEGATIVE); PROTEIN, URINE AUTO 2+ mg/dL (NEGATIVE); PROTHROMBIN TIME 13.8 SECONDS (12.1-14.4); RBC, URINE AUTO 147 /HPF (0-3); SQUAMOUS EPITHELIAL CELL UR AU 0 /HPF (0-6); UROBILINOGEN, URINE AUTO 0.2 mg/dL (0.0-2.0); WBC, URINE AUTO TNTC /HPF (0-3)
[2019-02-01 13:17] LABS: PARTIAL THROMBOPLASTIN TIME 32.7 SECONDS (25.4-37.6)
[2019-02-01 13:55] LABS: CALCIUM LEVEL 9.4 MG/DL (8.8-10.2); CREATININE FOR GFR 1.23 MG/DL (0.55-1.30); GLOMERULAR FILTRATION RATE 46.1 (>45); POTASSIUM SERUM 4.5 MEQ/L (3.5-5.1)
== END ==
LOC: M LAB 12:35
PROVIDERS: ATTEND Nurse Practitioner Women's Health
DX: Z01.818 Encounter for other preprocedural examination (principal); N39.0 Urinary tract infection, site not specified; N13.39 Other hydronephrosis; 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, fused and horseshoe kidney

== ENCOUNTER → 2019-02-10 | Outpatient (REF) | payer MEDICARE, MEDICAID ==
[~2019-02-10] MED LIST changes: +APAP325T4 PO
== END ==
LOC: M SMT 13:59
PROVIDERS: ATTEND Nurse Practitioner Women's Health
DX: N39.0 Urinary tract infection, site not specified (principal)

== ENCOUNTER 2019-02-26 08:46 | Day surgery (SDC) | payer MEDICARE, MEDICAID ==
[~2019-02-26] VITALS: Ht 149.9 cm; Wt 70.3 kg
[~2019-02-26 08:46] MED LIST changes: +LR 1,000 ML IV ONE
[2019-02-26] MEDS ORDERED: PROPOFOL 200 MG/20 ML VIAL As Ordered ONE ×2 (10:16→11:16)
[2019-02-26] MEDS ORDERED: fentaNYL 250 MCG/5 ML INJECTION (J3010) As Ordered ONE (10:16)
[2019-02-26] MEDS ORDERED: LIDOCAINE 2% INJ 100 MG/5 ML SDV (FOR ANES.) As Ordered ONE (10:16)
[2019-02-26] MEDS ORDERED: MIDAZOLAM INJ 2 MG/2 ML VIAL (J2250) As Ordered ONE (10:16)
[2019-02-26] MEDS ORDERED: dexameTHASONE 4 MG/ML 1ML VIAL (J1100) As Ordered ONE (10:17)
[2019-02-26] MEDS ORDERED: ONDANSETRON 4MG/2ML VIAL (J2405) As Ordered ONE (10:17)
[2019-02-26] MEDS ORDERED: CONRAY-60 60% 50ML VIAL (Q9961) As Ordered ONE (10:44)
[2019-02-26] MEDS ORDERED: LIDOCAINE 2% 5ML JELLY UROJET As Ordered ONE (11:33)
[2019-02-26] MEDS ORDERED: ePHEDrine SULFATE 25 MG/5 ML(5MG/ML) SYRINGE As Ordered ONE (11:48)
--- NOTE | 2019-02-26 12:37 | REP ---
C-ARM VIEWS DURING URETERAL STENT PLACEMENT: Three C-arm views are performed. There is placement of bilateral ureteral stents with proximal ends coiled in the renal pelvis bilaterally and the distal ends coiled in the urinary bladder. Contrast opacifies the pelvicaliceal systems bilaterally which are mildly dilated. 33 seconds fluoroscopy time utilized. Electronically Signed by Huseyin Whiting MD 03/01/2019 01:34 P
[2019-02-26 13:25] VITALS: BP 136/62
--- NOTE | 2019-03-02 07:59 | RO ---
DATE OF PROCEDURE: 02/26/2019 PREPROCEDURE DIAGNOSIS: Bilateral hydronephrosis. POSTPROCEDURE DIAGNOSIS: Bilateral hydronephrosis. PROCEDURE: Cystoscopy, bilateral retrograde pyelogram with intraoperative interpretation of images, bilateral ureteral stent exchange. SURGEON: Dr. Lance Daniel BOOTH MANAGER: None. ANESTHESIA: MAC. OPERATIVE INDICATIONS: This is a 68-year-old female with bilateral hydronephrosis which has been managed with chronic ureteral stenting. She is here today for routine stent exchange. DESCRIPTION OF PROCEDURE: The patient was brought to the operating room where MAC anesthesia was administered. Prophylactic antibiotics were infused. She was then placed in dorsal lithotomy position, prepped and draped in the usual sterile fashion. A rigid cystoscope was inserted into the urethral meatus and advanced into the bladder. Both ureteral stents were seen. The right ureteral stent was then grasped and was drawn until the distal end was seen protruded from the urethral meatus. I again advanced a wire up the right ureteral stent and then removed the stent. A ureteral catheter was then advanced over the wire into the right collecting system. The wire was then removed and a retrograde pyelogram was performed. It was notable for moderate right hydronephrosis. No extravasation. We then advanced a wire back up and removed the ureteral catheter. We then utilized the wire to advance a #6-Malawian x 22-32 cm JJ ureteral stent up into the right collecting system. We then removed the wire and there was adequate curl to the stent in the right renal pelvis and in the bladder. Next the left ureteral stent was then grasped and withdrawn until the distal end was seen protruding. We advanced a wire up the left ureteral stent and then removed the stent. We then advanced an open ended ureteral catheter over the wire into the left collecting system. The wire was removed and we then shot a retrograde pyelogram. It was notable for moderate left hydronephrosis with no extravasation. The wire was then advanced back up the ureteral catheter and then the ureteral catheter was removed. The wire was then utilized to advance a #6-Malawian x 22-32 cm JJ ureteral stent up to the left collecting system. The wire was then removed and there was adequate curl to the stent in the left renal pelvis and in the bladder. The bladder was emptied of all fluids. This marked the conclusion of the procedure. The patient was then taken out of dorsal lithotomy position, awakened from anesthesia and transported to the recovery room in stable condition. ESTIMATED BLOOD LOSS: 0 mL. COMPLICATIONS: None. SPECIMENS: None. PLAN: The patient will followup in the clinic in approximately 2 months to get her set up for her next stent exchange.
== END 2019-02-26 13:30 | disposition home or self-care (01) ==
LOC: M SDC 08:46
PROVIDERS: ATTEND Urology
DX: N13.30 Unspecified hydronephrosis (principal); I10 Essential (primary) hypertension; I25.2 Old myocardial infarction; E78.00 Pure hypercholesterolemia, unspecified; K21.9 Gastro-esophageal reflux disease without esophagitis; Z79.899 Other long term (current) drug therapy; Z88.8 Allergy status to other drugs, medicaments and biological substances
CPT/HCPCS: 52332; 74420; C1769; C2617; J0690; J1100; J2250; J2405; J3010; Q9961

== ENCOUNTER → 2019-03-24 | Outpatient (CLI) | payer MEDICARE, MEDICAID ==
[~2019-03-24] MED LIST changes: -LR 1,000 ML IV ONE
--- NOTE | 2019-03-24 16:11 | REPMRS ---
Patient History The patient states she had a clinical breast exam in 03/2019. Patient is postmenopausal and is nulliparous. Family history of breast cancer at age 50 or over in mother, prostate cancer at age 50 or over in father. 3D TOMOSYNTHESIS WAS PERFORMED. Digital Woman Screen Mammo: March 24, 2019 - Exam #: [id number] Bilateral CC and MLO view(s) were taken. Technologist: Yenni Tovar Technologist Prior study comparison: March 13, 2018, digital woman screen mammo performed at [facility] to [facility]. February 18, 2017, digital woman screen mammo performed at [facility] to [facility]. FINDINGS: There are scattered fibroglandular densities. There has been no change in the appearance of the mammogram from the prior studies. There is a mild amount of residual fibroglandular tissue which is fairly symmetric. There is no interval development of dominant mass, architectural distortion, or clustered microcalcification suggestive of malignancy. Assessment: BI-RADS/ACR category 1 mammogram. Negative Mammogram. Recommendation Routine screening mammogram in 1 year (for women over age 40). This mammogram was interpreted with the aid of an FDA-approved computer-aided dectection system. Electronically Signed By: Huseyin Whiting MD 03/24/19 [id number]
== END ==
LOC: M WHC 14:22
PROVIDERS: ATTEND Nurse Practitioner
DX: Z12.31 Encounter for screening mammogram for malignant neoplasm of breast (principal); Z78.0 Asymptomatic menopausal state; Z80.3 Family history of malignant neoplasm of breast

== ENCOUNTER → 2019-05-17 | Outpatient (CLI) | payer MEDICARE, MEDICAID ==
[~2019-05-17] MED LIST changes: +B COCAP4 PO; +CEFD1CAP8 PO
--- NOTE | 2019-05-17 13:31 | REP ---
Chest x-ray: Two views. History: Hydronephrosis. Comparison study November 27, 2018. Findings: There is a surgical clip in the right hilar region and post thoracotomy changes are noted in the right rib cage. There is no evidence of infiltrate or pleural effusion. Heart is not enlarged. Pulmonary vasculature is not increased. Impression: Post thoracotomy changes on the right. Otherwise no acute disease. Electronically Signed by Brooks Ghotra MD 05/17/2019 01:23 P
[2019-05-17 13:42] LABS: HEMATOCRIT 36.6 % (36.0-47.0); HEMOGLOBIN 11.8 g/dl (12.0-15.5); MEAN CORPUSCULAR HEMOGLOBIN 34.2 pg (27.0-33.0); MEAN CORPUSCULAR HGB CONC 32.2 g/dl (32.0-36.5); MEAN CORPUSCULAR VOLUME 106.1 fl (80.0-96.0); PLATELET COUNT, AUTOMATED 284 10^3/uL (150-450); RED BLOOD COUNT 3.45 10^6/uL (4.00-5.40); WHITE BLOOD COUNT 8.4 10^3/uL (4.0-10.0)
[2019-05-17 13:52] LABS: INR 0.97; PROTHROMBIN TIME 12.6 SECONDS (11.8-14.0)
[2019-05-17 13:53] LABS: PARTIAL THROMBOPLASTIN TIME 28.4 SECONDS (25.0-38.4)
[2019-05-17 13:59] LABS: AMORPHOUS SEDIMENT SMALL (NEGATIVE); APPEARANCE, URINE TURBID (CLEAR); BACTERIA, URINE AUTO 3+ (NEGATIVE); BILIRUBIN, URINE AUTO NEGATIVE (NEGATIVE); BLOOD, URINE BLOOD 1+ (NEGATIVE); COLOR, URINE AMBER (YELLOW); GLUCOSE, URINE (UA) AUTO NEGATIVE (NEGATIVE); KETONE, URINE AUTO NEGATIVE (NEGATIVE); LEUKOCYTE ESTERASE, URINE AUTO 3+ (NEGATIVE); NITRITE, URINE AUTO POSITIVE (NEGATIVE); PROTEIN, URINE AUTO 2+ mg/dL (NEGATIVE); RBC, URINE AUTO 99 /HPF (0-3); SQUAMOUS EPITHELIAL CELL UR AU 11 /HPF (0-6); UROBILINOGEN, URINE AUTO 0.2 mg/dL (0.0-2.0); WBC, URINE AUTO TNTC /HPF (0-3)
[2019-05-17 14:00] LABS: CALCIUM LEVEL 9.7 MG/DL (8.8-10.2); CREATININE FOR GFR 1.3 MG/DL (0.55-1.30); GLOMERULAR FILTRATION RATE 43.1 (>39); POTASSIUM SERUM 4.3 MEQ/L (3.5-5.1)
--- NOTE | 2019-05-17 18:19 | ECGEPIP ---
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
== END ==
LOC: M LAB 12:31
PROVIDERS: ATTEND Nurse Practitioner Women's Health
DX: Z01.818 Encounter for other preprocedural examination (principal); N13.39 Other hydronephrosis; N39.0 Urinary tract infection, site not specified; R30.0 Dysuria; Z79.01 Long term (current) use of anticoagulants

== ENCOUNTER 2019-05-26 06:42 | Day surgery (SDC) | payer MEDICARE, MEDICAID ==
[~2019-05-26] VITALS: Ht 147.3 cm; Wt 68.0 kg
[~2019-05-26 06:42] MED LIST changes: +LIDOCAINE 1% MDV 20ML VIAL SQ PRN; +LR 1,000 ML IV ONE
[2019-05-26] MEDS ORDERED: PROPOFOL 200 MG/20 ML VIAL As Ordered ONE (07:07)
[2019-05-26] MEDS ORDERED: LIDOCAINE 2% INJ 100 MG/5 ML SDV (FOR ANES.) As Ordered ONE (07:08)
[2019-05-26] MEDS ORDERED: ONDANSETRON 4MG/2ML VIAL (J2405) As Ordered ONE (07:09)
[2019-05-26] MEDS ORDERED: dexameTHASONE 4 MG/ML 1ML VIAL (J1100) As Ordered ONE (07:09)
[2019-05-26] MEDS ORDERED: fentaNYL 100 MCG/2 ML INJECTION (J3010) As Ordered ONE (07:11)
[2019-05-26] MEDS ORDERED: MIDAZOLAM INJ 2 MG/2 ML VIAL (J2250) As Ordered ONE (07:11)
[2019-05-26] MEDS ORDERED: CONRAY-60 60% 50ML VIAL (Q9961) As Ordered ONE (08:10)
[2019-05-26] MEDS ORDERED: LIDOCAINE 2% 5ML JELLY UROJET As Ordered ONE (08:24)
[2019-05-26] MEDS ORDERED: ePHEDrine SULFATE 25 MG/5 ML(5MG/ML) SYRINGE As Ordered ONE (08:47)
--- NOTE | 2019-05-26 09:03 | ROOPDOC ---
[facility] Report Of Operation Report of Operation DATE OF PROCEDURE: 05/26/19 PREPROCEDURE DIAGNOSIS: Bilateral hydronephrosis. POSTPROCEDURE DIAGNOSIS: Bilateral hydronephrosis. PROCEDURE: Cystoscopy, bilateral retrograde pyelogram with intraoperative interpretation of images, bilateral ureteral stent exchange. SURGEON: Dr. Malorie Malcolm END PACKER: None. ANESTHESIA: MAC. OPERATIVE INDICATIONS: This is a 69-year-old female with bilateral hydronephrosis which has been managed with chronic ureteral stenting. She is here today for routine stent exchange. DESCRIPTION OF PROCEDURE: The patient was brought to the operating room where MAC anesthesia was administered. Prophylactic antibiotics were infused. She w as then placed in dorsal lithotomy position, prepped and draped in the usual sterile fashion. A rigid cystoscope was inserted into the urethral meatus and advanced into the bladder. Both ureteral stents were seen. The right ureteral stent was then grasped and was drawn until the distal end was seen protruded from the urethral meatus. I then advanced a wire up the right ureteral stent and then removed the stent. A clear sheath was then advanced over the wire into the right collecting system. The wire was then removed and a retrograde pyelogram was performed. It was notable for mild right hydronephrosis with no extravasation. I then advanced 6 Greek x 22cm Resonance stent up the sheath into the right collecting system. Using the pusher, the sheath was then removed and there were adequate curls to the stent in the right renal pelvis and in the bladder. Next the left ureteral stent was then grasped and withdrawn until the distal end was seen protruding. I then advanced a wire up the left ureteral dorian nt and then removed the stent. I then advanced a clear sheath over the wire into the left collecting system. The wire was removed and I then shot a retrograde pyelogram. It was notable for moderate left hydronephrosis with no extravasation. A 6 Greek x 22cm Resonance stent was then advanced up the sheath and the pusher was used to advance it into the renal pelvis. The sheath was then removed and there were adequate curls to the stent in the left renal pelvis and in the bladder. The bladder was emptied of all fluids. This marked the conclusion of the procedure. The patient was then taken out of dorsal lithotomy position, awakened from anesthesia and transported to the recovery room in stable condition. ESTIMATED BLOOD LOSS: 0 mL. COMPLICATIONS: None. SPECIMENS: None. PLAN: I will get a renal US in 3 months and have the patient follow up in clinic at that time. If there is no hydronephrosis seen on the US, then we will keep the Resonance stents in longer. We will see if they can be kept in for a year before a change is required. MALORIE MALCOLM MD May 26, 2019 09:03
--- NOTE | 2019-05-26 09:20 | REP ---
C-ARM VIEWS ABDOMEN: Three C-arm views of the abdomen are performed. There are bilateral ureteral stents. Proximal ends are coiled in each renal pelvis respectively, both pelvicaliceal systems partially opacified with contrast. The distal ends are coiled within the urinary bladder. 32 seconds fluoroscopy time utilized. Electronically Signed by Huseyin Whiting MD 05/26/2019 10:11 A
[2019-05-26 09:45] VITALS: BP 137/63
== END 2019-05-26 10:04 | disposition home or self-care (01) ==
LOC: M SDC 06:42
PROVIDERS: ATTEND Urology
DX: Z46.6 Encounter for fitting and adjustment of urinary device (principal); 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, fused and horseshoe kidney; I10 Essential (primary) hypertension; E78.5 Hyperlipidemia, unspecified; E03.9 Hypothyroidism, unspecified; K21.9 Gastro-esophageal reflux disease without esophagitis; D64.9 Anemia, unspecified; Z79.899 Other long term (current) drug therapy; F32.9 Major depressive disorder, single episode, unspecified; I25.2 Old myocardial infarction; I50.9 Heart failure, unspecified; Z88.8 Allergy status to other drugs, medicaments and biological substances; G40.909 Epilepsy, unspecified, not intractable, without status epilepticus
CPT/HCPCS: 52332; 74420; C1769; C2625; J0690; J1100; J2250; J2405; J3010; Q9961

== ENCOUNTER → 2019-06-01 | Outpatient (REF) | payer MEDICARE, MEDICAID ==
[~2019-06-01] MED LIST changes: -LIDOCAINE 1% MDV 20ML VIAL SQ PRN; -LR 1,000 ML IV ONE
== END ==
LOC: M LAB REF 17:19
PROVIDERS: ATTEND Internal Medicine Nephrology
DX: R82.71 Bacteriuria (principal)

== ENCOUNTER → 2019-08-17 | Outpatient (CLI) | payer MEDICARE, MEDICAID ==
--- NOTE | 2019-08-17 18:52 | REP ---
Clinical: Hydronephrosis. Technique: Real time reynolds scale and color evaluation using curved array transducer. Comparison: 04/30/2013. 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 The right moiety measures 12.3 x 5.8 x 5.3 cm and demonstrates moderate/severe hydronephrosis along with cortical thinning and 1.3 cm mid pole nonobstructing calculus. Right ureteral stent noted. The left moiety measures 8.3 x 4.3 x 4.1 cm and demonstrates moderate hydronephrosis without nephrolithiasis. Left ureteral stent noted. Bladder demonstrates mild trabeculation and distal aspect of the left ureteral stent in satisfactory position. Impression: 1. Known horseshoe kidney with relatively stable moderate/severe hydronephrosis. 2. 1.3 cm nonobstructing right renal calculus cannot be excluded. Electronically Signed by Santana Minor MD 08/17/2019 06:44 P
== END ==
LOC: M RAD 09:51
PROVIDERS: ATTEND Urology
DX: N13.39 Other hydronephrosis (principal); 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, fused and horseshoe kidney

== ENCOUNTER → 2019-08-18 | Outpatient (CLI) | payer MEDICARE, MEDICAID | LOC: M LAB 12:28 | PROVIDERS: ATTEND Physician Assistant Medical | DX: R56.9 Unspecified convulsions (principal) ==

== ENCOUNTER → 2019-08-27 | Outpatient (CLI) | payer MEDICARE ==
[2019-08-27 13:42] LABS: HEMATOCRIT 35.7 % (36.0-47.0); HEMOGLOBIN 11.4 g/dl (12.0-15.5); MEAN CORPUSCULAR HEMOGLOBIN 35.1 pg (27.0-33.0); MEAN CORPUSCULAR HGB CONC 31.9 g/dl (32.0-36.5); MEAN CORPUSCULAR VOLUME 109.8 fl (80.0-96.0); PLATELET COUNT, AUTOMATED 302 10^3/uL (150-450); RED BLOOD COUNT 3.25 10^6/uL (4.00-5.40); WHITE BLOOD COUNT 6.9 10^3/uL (4.0-10.0)
[2019-08-27 13:54] LABS: INR 1.05; PROTHROMBIN TIME 13.4 SECONDS (11.8-14.0)
[2019-08-27 13:55] LABS: PARTIAL THROMBOPLASTIN TIME 31.8 SECONDS (25.0-38.4)
[2019-08-27 13:57] LABS: CALCIUM LEVEL 9.7 MG/DL (8.8-10.2); CREATININE FOR GFR 1.45 MG/DL (0.55-1.30); POTASSIUM SERUM 4.6 MEQ/L (3.5-5.1)
== END ==
LOC: M LAB 12:31
PROVIDERS: ATTEND Nurse Practitioner Women's Health
DX: Z01.818 Encounter for other preprocedural examination (principal); N13.39 Other hydronephrosis

== ENCOUNTER → 2019-09-08 | Outpatient (REF) | payer MEDICARE ==
[2019-09-08 12:29] LABS: AMORPHOUS SEDIMENT SMALL (NEGATIVE); APPEARANCE, URINE CLOUDY (CLEAR); BACTERIA, URINE AUTO 2+ (NEGATIVE); BILIRUBIN, URINE AUTO NEGATIVE (NEGATIVE); BLOOD, URINE BLOOD 2+ (NEGATIVE); COLOR, URINE YELLOW (YELLOW); GLUCOSE, URINE (UA) AUTO NEGATIVE (NEGATIVE); KETONE, URINE AUTO NEGATIVE (NEGATIVE); LEUKOCYTE ESTERASE, URINE AUTO 3+ (NEGATIVE); MUCUS, URINE SMALL (NEGATIVE); NITRITE, URINE AUTO NEGATIVE (NEGATIVE); PROTEIN, URINE AUTO 2+ mg/dL (NEGATIVE); RBC, URINE AUTO 95 /HPF (0-3); RENAL EPITHELIAL CELLS 2 /HPF; SPECIFIC GRAVITY URINE AUTO 1.011 (1.002-1.035); SQUAMOUS EPITHELIAL CELL UR AU 1 /HPF (0-6); UROBILINOGEN, URINE AUTO 0.2 mg/dL (0.0-2.0); WBC, URINE AUTO TNTC /HPF (0-3)
== END ==
LOC: M LAB REF 12:03
PROVIDERS: ATTEND Nurse Practitioner Women's Health
DX: N13.39 Other hydronephrosis (principal); Z01.818 Encounter for other preprocedural examination

== ENCOUNTER 2019-09-10 10:15 | Day surgery (SDC) | payer MEDICARE, MEDICAID ==
[~2019-09-10] VITALS: Ht 147.3 cm; Wt 68.0 kg
[~2019-09-10 10:15] MED LIST changes: +LR 1,000 ML IV ONE; +LevoFLOXacin IV 500 MG in IV 1 EA IV ONE
[2019-09-10] MEDS ORDERED: CIPR250T3 PO (11:17)
[2019-09-10] MEDS ORDERED: PROPOFOL 200 MG/20 ML VIAL As Ordered ONE (13:18)
[2019-09-10] MEDS ORDERED: dexameTHASONE 4 MG/ML 1ML VIAL (J1100) As Ordered ONE (13:19)
[2019-09-10] MEDS ORDERED: LIDOCAINE 2% INJ 100 MG/5 ML SDV (FOR ANES.) As Ordered ONE (13:19)
[2019-09-10] MEDS ORDERED: fentaNYL 100 MCG/2 ML INJECTION (J3010) As Ordered ONE (13:19)
[2019-09-10] MEDS ORDERED: ONDANSETRON 4MG/2ML VIAL (J2405) As Ordered ONE (13:19)
[2019-09-10] MEDS ORDERED: CONRAY-60 60% 50ML VIAL (Q9961) As Ordered ONE (13:59)
[2019-09-10] MEDS ORDERED: LIDOCAINE 2% 5ML JELLY UROJET As Ordered ONE (14:31)
[2019-09-10] MEDS ORDERED: ONDANSETRON 4MG/2ML VIAL (J2405) IV PRN (15:00)
[2019-09-10] MEDS ORDERED: oxyCODONE 5MG TAB PO PRN (15:00)
[2019-09-10] MEDS ORDERED: METOCLOPRAMIDE INJ 10MG/2ML VIAL (J2765) IV PRN (15:00)
[2019-09-10] MEDS ORDERED: fentaNYL 100 MCG/2 ML INJECTION (J3010) IV PRN (15:00)
[2019-09-10] MEDS ORDERED: LR 1,000 ML IV SCH (15:00)
--- NOTE | 2019-09-10 15:13 | REP ---
Retrograde pyelogram: Two views. History: Bilateral hydronephrosis. Horseshoe kidney. 31 seconds of fluoroscopy time is reported. Findings: A sequence of two last image hold fluoroscopically obtained spot radiographs of the abdomen document bilateral ureteral stent placement and hydronephrosis with renal collecting system opacification. Electronically Signed by Brooks Ghotra MD 09/10/2019 05:19 P
[2019-09-10] MEDS ORDERED: ACETAMINOPHEN TAB 650MG DOSE (2X325MG) PO PRN (15:30)
[2019-09-10 17:00] VITALS: BP 138/81
--- NOTE | 2019-09-10 18:09 | RO ---
DATE OF PROCEDURE: 09/10/2019 PREPROCEDURE DIAGNOSIS: Bilateral hydronephrosis. POSTPROCEDURE DIAGNOSIS: Bilateral hydronephrosis. PROCEDURE: Cystoscopy, right ureteroscopy, bilateral ureteral stent exchange, bilateral retrograde pyelograms with intraoperative interpretation of images. SURGEON: Dr. Lance Daniel ELECTROMECHANISMS DESIGN DRAFTER: None. ANESTHESIA: Monitored anesthesia care (MAC). OPERATIVE INDICATIONS: This is a 69-year-old female with bilateral hydronephrosis, managed with chronic ureteral stenting. Of note, she had bilateral Resonance ureteral stents placed 3 months ago. A followup renal ultrasound done recently was notable for bilateral moderate to severe hydronephrosis indicating that the Resonance stents were not adequately draining the kidneys. It was therefore recommended she be brought to the operating room today for stent exchange. DESCRIPTION OF PROCEDURE: The patient was brought to the operating room and monitored anesthesia care (MAC) anesthesia was administered. Prophylactic antibiotics were infused. She was then placed in the dorsal lithotomy position and prepped and draped in the usual sterile fashion. A rigid cystoscope was then inserted into the urethral meatus and advanced to the bladder. Once inside the bladder, the two previously placed Resonance stents were seen. Of note, there were calcifications on the distal ends of both stents. Those calcifications were removed and then both stents were removed. At this point, I advanced a wire up the left collecting system. I then advanced a #5-Tanzanian open-ended ureteral catheter up the left collecting system. The wire was removed. A retrograde pyelogram was performed; it was notable for severe left hydronephrosis, no extravasation. I then advanced the wire back up the left collecting system. I removed the ureteral catheter and then utilized the wire to advance a #7-Tanzanian x 22 cm black silicone stent into the left collecting system. The wire was removed, and there were adequate curls of the stent in the left renal pelvis and in the bladder. I then attempted to advance a wire up the right collecting system, but it would not go up the distal ureter. I therefore went up the distal ureter with a short semirigid ureteroscope and within the distal ureter, a moderately narrow stricture was seen. I was able to advance the wire through the stricture and into the right renal pelvis. I then advanced the scope up through the stricture and that passively dilated the stricture. I then removed the short semirigid ureteroscope and advanced a #5-Tanzanian open-ended ureteral catheter into the right collecting system. The wire was removed, and a retrograde pyelogram was performed. It was notable for severe right hydronephrosis, no extravasation. I then removed the ureteral catheter and then utilized the wire to advance a #7-Frech x 22 cm black silicone stent into the right collecting system. The wire was removed, and there were adequate curls of the stent in the right renal pelvis and in the bladder. The bladder was emptied of all fluids, and this marked the conclusion of the procedure. The patient was taken out of the dorsal lithotomy position, awakened from anesthesia, and transported to the recovery room in stable condition. Estimated blood loss: 5 mL. Complications: None. Specimens: None. PLAN: The patient will followup in the clinic in approximately 3 months. Will get a renal ultrasound at that time to see if the stents are adequately draining both kidneys. If they are, we will keep the stents in longer. If they are not, we will have to change the stents out. HUSSEIN
== END 2019-09-10 17:10 | disposition home or self-care (01) ==
LOC: M SDC 10:15
PROVIDERS: ATTEND Urology
DX: N13.30 Unspecified hydronephrosis (principal); I10 Essential (primary) hypertension; I25.10 Atherosclerotic heart disease of native coronary artery without angina pectoris; E03.9 Hypothyroidism, unspecified; E78.5 Hyperlipidemia, unspecified; F32.9 Major depressive disorder, single episode, unspecified; D64.9 Anemia, unspecified; Z79.899 Other long term (current) drug therapy
CPT/HCPCS: 52332; 74420; C1769; C2617; J1100; J1956; J2405; J3010; Q9961

== ENCOUNTER → 2019-12-08 | Outpatient (CLI) | payer MEDICARE, MEDICAID ==
[~2019-12-08] MED LIST changes: -LR 1,000 ML IV ONE; -LevoFLOXacin IV 500 MG in IV 1 EA IV ONE
--- NOTE | 2019-12-09 14:27 | REP ---
Clinical: Stent placement. Follow up hydronephrosis. Comparison: 08/17/2019. Technique: Real time reynolds scale and color evaluation using curved array transducer. Findings: Congenital horseshoe kidney again noted. The right moiety measures 12.6 x 5.8 x 5.5 cm and demonstrates mild/moderate hydronephrosis which appears improved. A right ureteral stent is in satisfactory position. Multiple renal calculi and gravel identified with stones measuring up to 12 x 9 x 12 mm. The left moiety measures 8.9 x 4.2 x 5.0 cm, appears mildly atrophic and without hydronephrosis. A left ureteral stent is in satisfactory position. Incidental mid pole simple cyst measures 1.6 cm diameter. The bladder is essentially unchanged in appearance with stents noted. Impression: 1. Bilateral ureteral stents in satisfactory position. 2. Decreased improved level of hydronephrosis to the right moiety with no residual hydronephrosis in the left moiety. Right renal calculi up to 12 mm noted. Simple left renal cyst again identified. Electronically Signed by Santana Minor MD 12/09/2019 02:19 P
== END ==
LOC: M RAD 10:21
PROVIDERS: ATTEND Urology
DX: N13.39 Other hydronephrosis (principal)

== ENCOUNTER 2020-02-18 12:24 | Inpatient (IN) | payer MEDICARE, MEDICAID ==
[~2020-02-18] VITALS: Ht 147.3 cm; Wt 61.8 kg
[2020-02-18] MEDS ORDERED: OXYB10TA23 PO (12:45)
[2020-02-18 13:34] LABS: BILIRUBIN, URINE MANUAL NEGATIVE (NEGATIVE); GLUCOSE, URINE (UA) MANUAL NEGATIVE (NEGATIVE); KETONE, URINE MANUAL NEGATIVE (NEGATIVE); UROBILINOGEN, URINE MANUAL NORMAL (NORMAL)
[2020-02-18 13:35] LABS: BACTERIA, URINE LARGE AMOUNT; MUCUS, URINE LARGE AMOUNT (NEGATIVE); RBC, URINE TNTC /hpf (0-3); SQUAMOUS EPITHELIAL CELL URINE SMALL AMOUNT /hpf (SMALL AMT)
[2020-02-18] MEDS: NS 1,000 ML IV SCH ×2 (14:15→20:35)
--- NOTE | 2020-02-18 15:30 | REP ---
CHEST, TWO VIEWS: Two views of the chest are performed and compared to a prior study of 05/17/2019. There is mild bibasilar fibrotic change without acute infiltrate. There is mild cardiomegaly. The mediastinal silhouette is unchanged. There are mild degenerative changes of the spine. IMPRESSION: Mild cardiomegaly. No acute infiltrate. Electronically Signed by Huseyin Whiting MD 02/18/2020 04:53 P
[2020-02-18 15:32] LABS: BASO # 0.1 10^3/uL (0.0-0.2); BASO % 0.7 % (0.0-1.0); EOS # 0.3 10^3/uL (0.0-0.5); EOS % 2.5 % (0.0-3.0); HEMATOCRIT 36.9 % (36.0-47.0); HEMOGLOBIN 12.3 g/dl (12.0-15.5); LYMPH # 1.2 10^3/uL (1.5-5.0); LYMPH % 9.9 % (24.0-44.0); MEAN CORPUSCULAR HEMOGLOBIN 34.7 pg (27.0-33.0); MEAN CORPUSCULAR HGB CONC 33.3 g/dl (32.0-36.5); MEAN CORPUSCULAR VOLUME 104.2 fl (80.0-96.0); MONO # 1.5 10^3/uL (0.0-0.8); MONO % 12.6 % (0.0-5.0); NEUTROPHILS # 8.6 10^3/uL (1.5-8.5); NEUTROPHILS % 70.5 % (36.0-66.0); PLATELET COUNT, AUTOMATED 382 10^3/uL (150-450); RED BLOOD COUNT 3.54 10^6/uL (4.00-5.40); WHITE BLOOD COUNT 12.2 10^3/uL (4.0-10.0)
[2020-02-18 15:44] LABS: INR 1.05; PROTHROMBIN TIME 13.4 SECONDS (11.8-14.0)
[2020-02-18 15:45] LABS: PARTIAL THROMBOPLASTIN TIME 32.1 SECONDS (25.0-38.4)
[2020-02-18 16:06] LABS: ALBUMIN 2.5 GM/DL (3.2-5.2); ALT/SGPT 10 U/L (12-78); BILIRUBIN,DIRECT 0.1 MG/DL (0.0-0.2); BILIRUBIN,TOTAL 0.3 MG/DL (0.2-1.0); BLOOD UREA NITROGEN 88 MG/DL (7-18); CALCIUM LEVEL 9.6 MG/DL (8.8-10.2); CARBON DIOXIDE LEVEL 21 MEQ/L (21-32); CHLORIDE LEVEL 105 MEQ/L (98-107); CK-MB VALUE MASS < 1.0 NG/ML (<3.6); CPK CREATINE PHOSPHOKINASE 35 U/L (26-192); CREATININE FOR GFR 2.41 MG/DL (0.55-1.30); GLOMERULAR FILTRATION RATE 21.1 (>39); GLUCOSE, FASTING 106 MG/DL (70-100); LIPASE 258 U/L (73-393); MB/CK RELATIVE INDEX 2.86 (< OR =4); POTASSIUM SERUM 4.2 MEQ/L (3.5-5.1); SODIUM LEVEL 135 MEQ/L (136-145); TOTAL PROTEIN 7.4 GM/DL (6.4-8.2); TROPONIN I < 0.02 NG/ML (< 0.10); VALPROIC ACID (DEPAKOTE) 62.9 UG/ML (50.0-100.0)
--- NOTE | 2020-02-18 17:33 | HPEPDOC ---
[facility] Medical History & Physical Date of Admission Feb 18, 2020 Date of Service: Feb 18, 2020 Attending Physician: MILES CASANOVA MD History and Physical CHIEF COMPLAINT: Sent by PCP for orthostatic hypotension HISTORY OF PRESENT ILLNESS: 69-year-old female with past medical history of coronary artery disease, NH, congestive heart failure with reduced ejection fraction, chronic kidney disease and hypothyroidism presents from primary care physician's office due to dehydration and orthostatic hypotension. Patient reports diarrhea and dry heaving for the past 2-3 days along with feeling cold a nd weakness. She presented to her primary care physician and was found to be dehydrated with positive orthostatics. In the ER, patient's orthostatics are negative, found to have acute kidney injury on blood work. She denies any shortness of breath, chest pain, abdominal pain or headache. She does report increased urinary frequency and burning with urination, has history of UTIs. 10 point review of system is negative except for above PAST MEDICAL HISTORY: 1. Congestive heart failure. 2. Chronic kidney disease. 3. NH. 4. Hyperlipidemia. 5. Hypothyroidism PAST SURGICAL HISTORY: 1. Ureteral stents. SOCIAL HISTORY: Never smoker. Denies alcohol use. Denies drug use FAMILY HISTORY: Positive for heart disease ALLERGIES: Please see below. HOME MEDICATIONS: Please see below. PHYSICAL EXAMINATION: VITAL SIGNS: Please see below. GENERAL: Frail HEENT: Normocephalic, atraumatic, moist mucous membranes NECK: Supple CARDIOVASCULAR EXAMINATION: S1, S2 RESPIRATORY EXAMINATION: Scattered rhonchi, no wheezing ABDOMINAL EXAMINATION: Soft, nontender, nondistended, positive bowel sounds EXTREMITIES: Range of motion intact SKIN: No rash NEUROLOGICAL EXAMINATION: Alert and oriented 3, no focal deficits PSYCHIATRIC EXAMINATION: Calm and cooperative LABORATORY DATA: See below. IMAGING: Chest x-ray without acute pathology MICROBIOLOGY: Please see below. ASSESSMENT: 69-year-old female with multiple medical comorbidities, is being admitted for GI distress and acute kidney injury. PLAN: 1. Acute on chronic kidney disease. Likely due to GI loss and decreased oral intake, continue IV hydration, no need for extensive workup at this time, we'll monitor. 2. UTI. Continue ceftriaxone, previous cultures have grown sensitive Klebsiella, will check C. difficile because of diarrhea and patient has history of C. difficile. 3. Congestive heart failure. Previous echo showing ejection fraction of 30%, clinically dry, will monitor with gentle IV hydration, continue Coreg with hold parameters. 4. Coronary artery disease. Continue O2 medical management 5. Hypothyroidism. Continue levothyroxine DVT prophylaxis: Heparin. GI prophylaxis: Not needed Vital Signs Vital Signs Date Time Temp Pulse Resp B/P (MAP) Pulse Ox O2 Delivery O2 Flow Rate FiO2 02/18/20 13:24 Room Air 02/18/20 13:21 80 110/58 (75) 82 107/56 (73) 86 103/58 (73) 02/18/20 12:47 96.4 17 97 Laboratory Data Labs 24H Laboratory Tests 2 02/18/20 13:21: Urine Color (MICHELLE) AMBERH, Urine Appearance (MICHELLE) TURBIDH, Urine pH (MICHELLE) 9.0, Urine Specific Jasper (MICHELLE) 1.005, Urine Protein 3+H, Bedside Urine Glucose (UA) NEGATIVE, Bedside Urine Ketones (LAB) NEGATIVE, Bedside Urine Blood POSITIVEH, Bedside Urine Nitrite (LAB) NEGATIVE, Bedside Urine Bilirubin (LAB) NEGATIVE, Bedside Urine Urobilinogen (LAB) NORMAL, Bedside Urine Leukocyte Esterase (L POSITIVEH, Urine Sediment Examination UNSPUN, Urine RBC TNTCH, Urine WBC TNTCH, Urine Squamous Epithelial Cells SMALL AMOUNT, Urine Bacteria LARGE AMOUNTH, Urine Hyaline Casts , Urine Mucus LARGE AMOUNTH 02/18/20 15:19: Immature Granulocyte % (Auto) 3.8H, Neutrophils (%) (Auto) 70.5H, Lymphocytes (%) (Auto) 9.9L, Monocytes (%) (Auto) 12.6H, Eosinophils (%) (Auto) 2.5, Basophils (%) (Auto) 0.7, Neutrophils # (Auto) 8.6H, Lymphocytes # (Auto) 1.2L, Monocytes # (Auto) 1.5H, Eosinophils # (Auto) 0.3, Basophils # (Auto) 0.1, Nucleated Red Blood Cells % (auto) 0.0, Prothrombin Time 13.4, Prothromb Time In ternational Ratio 1.05, Activated Partial Thromboplast Time 32.1, Anion Gap 9, Glomerular Filtration Rate 21.1L, Calcium Level 9.6, Total Bilirubin 0.3, Direct Bilirubin 0.1, Aspartate Amino Transf (AST/SGOT) 13, Alanine Aminotransferase (ALT/SGPT) 10L, Alkaline Phosphatase 67, Total Creatine Kinase 35, Creatine Kinase MB < 1.0, Creatine Kinase MB Relative Index 2.86, Troponin I < 0.02, Total Protein 7.4, Albumin 2.5L, Albumin/Globulin Ratio 0.51L, Lipase 258, Thyroid Stimulating Hormone (TSH) 1.730, Free Thyroxine 1.30, Valproic Acid (Depakene) Level 62.9 CBC/BMP Laboratory Tests 02/18/20 15:19 Microbiology Microbiology 02/18/20 Urine Culture, Received Pending Home Medications Scheduled Atorvastatin Calcium (Atorvastatin Calcium) 40 Mg Tab, 80 MG PO DAILY Carvedilol (Carvedilol) 3.125 Mg Tab, 3.125 MG PO BID Divalproex Sodium (Depakote ER) 250 Mg Tab, 250 MG PO BID Ferrous Gluconate (Ferrous Gluconate) 324 Mg Tab, 324 MG PO DAILY Folic Acid (Folic Acid) 1 Mg Tab, 1 MG PO DAILY Levothyroxine Sodium (Levothyroxine Sodium) 75 Mcg Tab, 75 MCG PO DAILY Paroxetine HCl (Paroxetine) 10 Mg Tab, 10 MG PO DAILY Vitamin B Complex Vit C No.3 (B Complex with Vitamin C) 1 Each Capsule, 1 CAP PO DAILY Scheduled PRN Acetaminophen (Acetaminophen) 325 Mg Tablet, 650 MG PO Q4-6HP PRN for PAIN OR FEVER Miscellaneous Medications Oxybutynin Chloride (Oxybutynin Chloride ER) 10 Mg Tab.er.24 Allergies Coded Allergies: chocolate flavor (Verified Allergy, Severe, CONGESTION AND DIFFICULTY BREATHING, 02/18/20) benzocaine (Verified Allergy, Unknown, 02/18/20) carbamazepine (Verified Allergy, Unknown, 02/18/20) phenytoin (Verified Allergy, Unknown, 02/18/20) phenobarbital (Verified Adverse Reaction, Intermediate, knocks her out, 02/18/20) lactose (Verified Adverse Reaction, Mild, GI UPSET, 02/18/20) A-FIB/CHADSVASC A-FIB History Current/History of A-Fib/PAF?: No MILES CASANOVA MD Feb 18, 2020 17:33
[2020-02-18] MEDS ORDERED: ATOR80TA59 PO (17:50)
[2020-02-18] MEDS ORDERED: DEPA250T2 PO (17:57)
[2020-02-18] MEDS ORDERED: cefTRIAXone SOD 1 GM in D5W MINI-BAG PLUS 50 ML IV ONE (18:00)
[2020-02-18] MEDS ORDERED: cefTRIAXone SOD 1 GM in D5W MINI-BAG PLUS 50 ML IV SCH (18:00)
[2020-02-18] MEDS ORDERED: ACETAMINOPHEN TAB 650MG DOSE (2X325MG) PO PRN (18:30)
[2020-02-18 20:30] VITALS: BP 133/89
[2020-02-18] MEDS: CARVedilol 3.125 MG TAB PO SCH (20:34)
[2020-02-18] MEDS: ATORVASTATIN 20 MG TAB PO SCH (20:34)
[2020-02-18] MEDS: DIVALPROEX 250MG *ER* TAB PO SCH (20:35)
[2020-02-18] MEDS: HEPARIN SOD (PORCINE) 5000UNITS/ML VIAL (J1644 PER 1000UNITS) SC SCH (20:35)
--- NOTE | 2020-02-19 00:54 | ECGEPIP ---
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
[2020-02-19 06:00] VITALS: BP 116/54
[2020-02-19] MEDS: LEVOTHYROXINE 75MCG TABLET (0.075MG) PO SCH (06:15)
[2020-02-19 06:39] LABS: HEMATOCRIT 32.1 % (36.0-47.0); HEMOGLOBIN 10.6 g/dl (12.0-15.5); MEAN CORPUSCULAR VOLUME 105.9 fl (80.0-96.0); PLATELET COUNT, AUTOMATED 320 10^3/uL (150-450); RED BLOOD COUNT 3.03 10^6/uL (4.00-5.40); WHITE BLOOD COUNT 9.2 10^3/uL (4.0-10.0)
[2020-02-19 06:43] LABS: BILIRUBIN,TOTAL 0.2 MG/DL (0.2-1.0); CALCIUM LEVEL 8.8 MG/DL (8.8-10.2); CREATININE FOR GFR 2.28 MG/DL (0.55-1.30); GLOMERULAR FILTRATION RATE 22.5 (>39); MAGNESIUM LEVEL 2.1 MG/DL (1.8-2.4); POTASSIUM SERUM 4.2 MEQ/L (3.5-5.1)
[2020-02-19] MEDS: HEPARIN SOD (PORCINE) 5000UNITS/ML VIAL (J1644 PER 1000UNITS) SC SCH ×2 (09:33→20:36)
[2020-02-19] MEDS: LR 1,000 ML IV SCH (09:34)
[2020-02-19] MEDS: DIVALPROEX 250MG *ER* TAB PO SCH ×2 (09:34→20:35)
[2020-02-19] MEDS: FOLIC ACID 1 MG TAB PO SCH (09:34)
[2020-02-19] MEDS: PARoxetine 10MG TABLET PO SCH (09:34)
[2020-02-19] MEDS: oxyBUTYnin *DITROPAN XL* 5 MG TABCR PO SCH (09:34)
[2020-02-19] MEDS: VITAMIN B COMPLEX/VIT C CAP PO SCH (09:34)
[2020-02-19] MEDS: FERROUS GLUCONATE 324 MG TAB PO SCH (09:34)
[2020-02-19] MEDS: CARVedilol 3.125 MG TAB PO SCH ×2 (09:38→20:38)
[2020-02-19 14:00] VITALS: BP 113/55
--- NOTE | 2020-02-19 17:59 | IPNPDOC ---
Date Seen The patient was seen on 02/19/20. Progress Note SUBJECTIVE: 69-year-old female with past medical history of coronary artery disease, [place], congestive heart failure with reduced ejection fraction, chronic kidney disease and hypothyroidism is currently admitted for acute kidney injury and UTI. Patient is seen in the morning, asymptomatic, reports significant improvement overnight, no complaints at this time. Patient denies any shortness of breath, chest pain, nausea, vomiting, abdominal pain, diarrhea or constipation. Patient does have decreased urine output since hospitalization, although it is improved this morning. 10 point review of system is negative except for above PHYSICAL EXAMINATION: VITAL SIGNS: Please see below. GENERAL: Frail HEENT: Normocephalic, atraumatic, moist mucous membranes NECK: Supple CARDIOVASCULAR EXAMINATION: S1, S2 RESPIRATORY EXAMINATION: Scattered rhonchi, no wheezing ABDOMINAL EXAMINATION: Soft, nontender, nondistended, positive bowel sounds EXTREMITIES: Range of motion intact SKIN: No rash NEUROLOGICAL EXAMINATION: Alert and oriented 3, no focal deficits PSYCHIATRIC EXAMINATION: Calm and cooperative ASSESSMENT: 69-year-old female with multiple medical comorbidities, is being admitted for GI distress and acute kidney injury. PLAN: 1. Acute on chronic kidney disease. Likely due to GI loss and decreased oral intake, continue IV hydration, switched to normal saline to lactated Ringer because of developing hyperchloremic acidosis. 2. UTI. Continue ceftriaxone, cultures pending, GI panel pending. 3. Congestive heart failure. Previous echo showing ejection fraction of 30%, will monitor with gentle IV hydration, decreased rate of IV fluids to 60 mL per hour, continue Coreg with hold parameters. 4. Coronary artery disease. Continue O2 medical management 5. Hypothyroidism. Continue levothyroxine 6. Seizure disorder. Continue Depakote DVT prophylaxis: Heparin. GI prophylaxis: Not needed VS, I&O, 24H, Fishbone Vital Signs/I&O Vital Signs Date Time Temp Pulse Resp B/P (MAP) Pulse Ox O2 Delivery O2 Flow Rate FiO2 02/19/20 14:00 97.9 69 15 113/55 (74) 95 Room Air I&O- Last 24 Hours up to 6 AM 02/19/20 05:59 Intake Total 1140 ml Output Total 305 ml Balance 835 ml Laboratory Data 24H LABS Laboratory Tests 2 02/19/20 06:00: Nucleated Red Blood Cells % (auto) 0.0, Anion Gap 9, Glomerular Filtration Rate 22.5L, Calcium Level 8.8, Magnesium Level 2.1, Total Bilirubin 0.2, Aspartate Amino Transf (AST/SGOT) 11, Alanine Aminotransferase (ALT/SGPT) 9L, Alkaline Phosphatase 55, Total Protein 6.0L, Albumin 2.0L, Albumin/Globulin Ratio 0.50L CBC/BMP Laboratory Tests 02/19/20 06:00 Microbiology Microbiology 02/18/20 Respiratory Virus Panel (PCR) ([facility]) - Final, Complete 02/18/20 Urine Culture, Received Pending MILES CASANOVA MD Feb 19, 2020 17:59
[2020-02-19] MEDS: cefTRIAXone SOD 1 GM in D5W MINI-BAG PLUS 50 ML IV SCH (18:14)
[2020-02-19] MEDS: ATORVASTATIN 20 MG TAB PO SCH (20:35)
[2020-02-19 22:00] VITALS: BP 120/55
[2020-02-20] MEDS: LR 1,000 ML IV SCH (02:53)
[2020-02-20] MEDS: LEVOTHYROXINE 75MCG TABLET (0.075MG) PO SCH (05:27)
[2020-02-20 06:00] VITALS: BP 104/58
[2020-02-20 06:18] LABS: HEMATOCRIT 30.2 % (36.0-47.0); HEMOGLOBIN 9.7 g/dl (12.0-15.5); MEAN CORPUSCULAR HEMOGLOBIN 34.3 pg (27.0-33.0); MEAN CORPUSCULAR HGB CONC 32.1 g/dl (32.0-36.5); MEAN CORPUSCULAR VOLUME 106.7 fl (80.0-96.0); PLATELET COUNT, AUTOMATED 288 10^3/uL (150-450); RED BLOOD COUNT 2.83 10^6/uL (4.00-5.40); WHITE BLOOD COUNT 9.1 10^3/uL (4.0-10.0)
[2020-02-20 06:37] LABS: CALCIUM LEVEL 9.1 MG/DL (8.8-10.2); CREATININE FOR GFR 2.44 MG/DL (0.55-1.30); GLOMERULAR FILTRATION RATE 20.8 (>39); POTASSIUM SERUM 3.8 MEQ/L (3.5-5.1)
[2020-02-20] MEDS: CARVedilol 3.125 MG TAB PO SCH ×2 (09:00→20:58)
[2020-02-20] MEDS: FERROUS GLUCONATE 324 MG TAB PO SCH (09:01)
[2020-02-20] MEDS: FOLIC ACID 1 MG TAB PO SCH (09:01)
[2020-02-20] MEDS: PARoxetine 10MG TABLET PO SCH (09:01)
[2020-02-20] MEDS: oxyBUTYnin *DITROPAN XL* 5 MG TABCR PO SCH (09:01)
[2020-02-20] MEDS: DIVALPROEX 250MG *ER* TAB PO SCH ×2 (09:01→20:57)
[2020-02-20] MEDS: HEPARIN SOD (PORCINE) 5000UNITS/ML VIAL (J1644 PER 1000UNITS) SC SCH ×2 (09:02→20:57)
[2020-02-20] MEDS: VITAMIN B COMPLEX/VIT C CAP PO SCH (09:05)
[2020-02-20 09:10] VITALS: BP 98/62
[2020-02-20 10:35] VITALS: BP 98/58
[2020-02-20 14:00] VITALS: BP 137/68
--- NOTE | 2020-02-20 16:48 | IPNPDOC ---
Date Seen The patient was seen on 02/20/20. Progress Note SUBJECTIVE: 69-year-old female with past medical history of coronary artery disease, [place], congestive heart failure with reduced ejection fraction, chronic kidney disease and hypothyroidism is currently admitted for acute kidney injury and UTI. Patient is seen in the morning, asymptomatic, without complaints, no acute events overnight. Patient denies any shortness of breath, chest pain, nausea, vomiting, abdominal pain, diarrhea or constipation. 10 point review of system is negative except for above PHYSICAL EXAMINATION: VITAL SIGNS: Please see below. GENERAL: Frail HEENT: Normocephalic, atraumatic, moist mucous membranes NECK: Supple CARDIOVASCULAR EXAMINATION: S1, S2 RESPIRATORY EXAMINATION: Scattered rhonchi, no wheezing ABDOMINAL EXAMINATION: Soft, nontender, nondistended, positive bowel sounds EXTREMITIES: Range of motion intact SKIN: No rash NEUROLOGICAL EXAMINATION: Alert and oriented 3, no focal deficits PSYCHIATRIC EXAMINATION: Calm and cooperative ASSESSMENT: 69-year-old female with multiple medical comorbidities, is being admitted for GI distress and acute kidney injury. PLAN: 1. Acute on chronic kidney disease. Likely due to GI loss and decreased oral intake, treated w/ gentle IV hydration, creatinine remains unchanged, clinically euvolemic, hold off on fur ther hydration for now, will monitor renal function & clinical progression and treat accordingly. 2. UTI. Continue ceftriaxone, urine cultures grew corynebacterium, GI panel pending. 3. Congestive heart failure. Previous echo showing ejection fraction of 30%, IV fluids discontinued, will monitor for need of diuresis, continue Coreg with hold parameters. 4. Coronary artery disease. Continue O2 medical management 5. Hypothyroidism. Continue levothyroxine 6. Seizure disorder. Continue Depakote DVT prophylaxis: Heparin. GI prophylaxis: Not needed VS, I&O, 24H, Fishbone Vital Signs/I&O Vital Signs Date Time Temp Pulse Resp B/P (MAP) Pulse Ox O2 Delivery O2 Flow Rate FiO2 02/20/20 14:00 97.5 75 15 137/68 (91) 98 Room Air I&O- Last 24 Hours up to 6 AM 02/20/20 06:00 Intake Total 1420 ml Output Total 1750 ml Balance -330 ml Laboratory Data 24H LABS Laboratory Tests 2 02/20/20 05:49: Nucleated Red Blood Cells % (auto) 0.0, Anion Gap 9, Glomerular Filtration Rate 20.8L, Calcium Level 9.1 CBC/BMP Laboratory Tests 02/20/20 05:49 Microbiology Microbiology 02/18/20 Respiratory Virus Panel (PCR) ([facility]) - Final, Complete 02/18/20 Urine Culture - Final, Complete Corynebacterium Species MILES CASANOVA MD Feb 20, 2020 16:48
[2020-02-20] MEDS: cefTRIAXone SOD 1 GM in D5W MINI-BAG PLUS 50 ML IV SCH (18:11)
[2020-02-20] MEDS: ATORVASTATIN 20 MG TAB PO SCH (20:57)
[2020-02-20 22:00] VITALS: BP 129/59
[2020-02-21] MEDS: LEVOTHYROXINE 75MCG TABLET (0.075MG) PO SCH (05:38)
[2020-02-21 06:00] VITALS: BP 103/49
[2020-02-21 06:12] LABS: HEMATOCRIT 29.8 % (36.0-47.0); HEMOGLOBIN 9.6 g/dl (12.0-15.5); MEAN CORPUSCULAR HEMOGLOBIN 34.4 pg (27.0-33.0); MEAN CORPUSCULAR HGB CONC 32.2 g/dl (32.0-36.5); MEAN CORPUSCULAR VOLUME 106.8 fl (80.0-96.0); PLATELET COUNT, AUTOMATED 276 10^3/uL (150-450); RED BLOOD COUNT 2.79 10^6/uL (4.00-5.40); WHITE BLOOD COUNT 8.5 10^3/uL (4.0-10.0)
[2020-02-21 06:28] LABS: CALCIUM LEVEL 9.2 MG/DL (8.8-10.2); CREATININE FOR GFR 2.44 MG/DL (0.55-1.30); GLOMERULAR FILTRATION RATE 20.8 (>39); POTASSIUM SERUM 4.1 MEQ/L (3.5-5.1)
[2020-02-21] MEDS: oxyBUTYnin *DITROPAN XL* 5 MG TABCR PO SCH (09:41)
[2020-02-21] MEDS: FERROUS GLUCONATE 324 MG TAB PO SCH (09:41)
[2020-02-21] MEDS: HEPARIN SOD (PORCINE) 5000UNITS/ML VIAL (J1644 PER 1000UNITS) SC SCH ×2 (09:41→21:35)
[2020-02-21] MEDS: PARoxetine 10MG TABLET PO SCH (09:41)
[2020-02-21] MEDS: FOLIC ACID 1 MG TAB PO SCH (09:41)
[2020-02-21] MEDS: VITAMIN B COMPLEX/VIT C CAP PO SCH (09:41)
[2020-02-21] MEDS: DIVALPROEX 250MG *ER* TAB PO SCH ×2 (09:41→21:34)
[2020-02-21] MEDS: CARVedilol 3.125 MG TAB PO SCH ×2 (09:48→21:35)
[2020-02-21] MEDS: FUROSEMIDE 40MG/4ML VIAL (J1940) IV SCH ×2 (11:33→17:58)
[2020-02-21 14:00] VITALS: BP 116/63
[2020-02-21] MEDS: cefTRIAXone SOD 1 GM in D5W MINI-BAG PLUS 50 ML IV SCH (17:59)
--- NOTE | 2020-02-21 18:21 | IPNPDOC ---
Text Note Date of Service The patient was seen on 02/21/20. NOTE SUBJECTIVE: 69-year-old female with past medical history of coronary artery d isease, [place], congestive heart failure with reduced ejection fraction, chronic kidney disease and hypothyroidism is currently admitted for acute kidney injury and UTI. Patient seen and examined this morning at bedside, continues to be asymptomatic endorsing no complaints with no acute events overnight. Presently denies any fever, chills, chest pain, difficulty breathing, nausea, vomiting, abdominal pain. PHYSICAL EXAMINATION: VITAL SIGNS: Please see below. GENERAL: Elderly-appearing female in no acute distress HEENT: Normocephalic, atraumatic, moist mucous membranes NECK: Supple CARDIOVASCULAR EXAMINATION: RRR, normal S1 and S2. Soft, 3/6 holosystolic murmur, no gallops, rubs. RESPIRATORY EXAMINATION: Clear to auscultation bilaterally. No wheezes, crackles, rhonchi. ABDOMINAL EXAMINATION: Soft, nontender, nondistended, positive bowel sounds EXTREMITIES: No lower extremity swelling or edema. SKIN: No rash NEUROLOGICAL EXAMINATION: Alert and oriented 3, no focal deficits PSYCHIATRIC EXAMINATION: Calm and cooperative ASSESSMENT: 69-year-old female with multiple medical comorbidities, is being admitted for GI distress and acute kidney injury. PLAN: 1. Acute on chronic renal failure. Likely due to GI loss and decreased oral intake, treated w/ gentle IV hydration, however creatinine remains unchanged, clinically euvolemic, will attempt to gently diurese patient to see if that improves her creatinine. If no improvement, may consider nephrology consult tomorrow. 2. UTI. Continue ceftriaxone, urine cultures grew corynebacterium, sensitivities pending. 3. Congestive heart failure. Previous echo showing EF of 30%, IV fluids discontinued, will gently diurese patient starting today, continue Coreg with hold parameters. 4. Coronary artery disease. Continue O2 medical management 5. Hypothyroidism. Continue levothyroxine 6. Seizure disorder. Continue Depakote DVT prophylaxis: Heparin. VS,Fishbone, I+O VS, Fishbone, I+O Laboratory Tests 02/21/20 05:39 Vital Signs Date Time Temp Pulse Resp B/P (MAP) Pulse Ox O2 Delivery O2 Flow Rate FiO2 02/21/20 14:00 97.7 70 20 116/63 (80) 95 Room Air I&O- Last 24 Hours up to 6 AM 02/21/20 06:00 Intake Total 805 ml Output Total 2350 ml Balance -1545 ml GME ATTESTATION GME ATTESTATION My faculty preceptor for this patient encounter was physically present during the encounter and was fully available. All aspects of the patient interview, examination, medical decision making process, and medical care plan development were reviewed and approved by the faculty preceptor. The faculty preceptor is aware and concurs with the plan as stated in the body of this note and will attest to such by his/her cosignature. JANNA KEN DO Feb 21, 2020 18:21
[2020-02-21] MEDS: ATORVASTATIN 20 MG TAB PO SCH (21:35)
[2020-02-21 22:00] VITALS: BP 118/67
[2020-02-22] MEDS: LEVOTHYROXINE 75MCG TABLET (0.075MG) PO SCH (05:35)
[2020-02-22 06:00] VITALS: BP 106/62
[2020-02-22 08:12] LABS: CALCIUM LEVEL 9.1 MG/DL (8.8-10.2); CREATININE FOR GFR 2.51 MG/DL (0.55-1.30); GLOMERULAR FILTRATION RATE 20.2 (>39); POTASSIUM SERUM 3.8 MEQ/L (3.5-5.1)
[2020-02-22] MEDS: HEPARIN SOD (PORCINE) 5000UNITS/ML VIAL (J1644 PER 1000UNITS) SC SCH ×2 (10:15→20:25)
[2020-02-22] MEDS: FUROSEMIDE 40MG/4ML VIAL (J1940) IV SCH ×2 (10:15→17:58)
[2020-02-22] MEDS: FOLIC ACID 1 MG TAB PO SCH (10:16)
[2020-02-22] MEDS: oxyBUTYnin *DITROPAN XL* 5 MG TABCR PO SCH (10:16)
[2020-02-22] MEDS: DIVALPROEX 250MG *ER* TAB PO SCH ×2 (10:16→20:25)
[2020-02-22] MEDS: FERROUS GLUCONATE 324 MG TAB PO SCH (10:16)
[2020-02-22] MEDS: PARoxetine 10MG TABLET PO SCH (10:16)
[2020-02-22] MEDS: CARVedilol 3.125 MG TAB PO SCH ×2 (10:18→20:24)
[2020-02-22] MEDS: VITAMIN B COMPLEX/VIT C CAP PO SCH (10:19)
[2020-02-22 10:36] LABS: AMORPHOUS SEDIMENT LARGE (NEGATIVE); APPEARANCE, URINE TURBID (CLEAR); BACTERIA, URINE AUTO 3+ (NEGATIVE); BILIRUBIN, URINE AUTO NEGATIVE (NEGATIVE); BLOOD, URINE BLOOD 2+ (NEGATIVE); COLOR, URINE YELLOW (YELLOW); GLUCOSE, URINE (UA) AUTO NEGATIVE (NEGATIVE); KETONE, URINE AUTO NEGATIVE (NEGATIVE); LEUKOCYTE ESTERASE, URINE AUTO 2+ (NEGATIVE); MUCUS, URINE LARGE (NEGATIVE); NITRITE, URINE AUTO NEGATIVE (NEGATIVE); PROTEIN, URINE AUTO 3+ mg/dL (NEGATIVE); RBC, URINE AUTO 140 /HPF (0-3); SQUAMOUS EPITHELIAL CELL UR AU 3 /HPF (0-6); UROBILINOGEN, URINE AUTO 0.2 mg/dL (0.0-2.0); WBC, URINE AUTO TNTC /HPF (0-3)
[2020-02-22] MEDS: DOCUSATE SODIUM 100 MG CAP PO SCH ×2 (13:57→20:24)
[2020-02-22 14:00] VITALS: BP 108/61
--- NOTE | 2020-02-22 15:23 | IPNPDOC ---
Text Note Date of Service The patient was seen on 02/22/20. NOTE SUBJECTIVE: 69-year-old female with past medical history of coronary artery d isease, [place], congestive heart failure with reduced ejection fraction, chronic kidney disease and hypothyroidism is currently admitted for acute kidney injury and UTI. Patient seen and examined this morning at bedside, continues to be asymptomatic endorsing no complaints and with no acute events overnight. Presently denies any fever, chills, chest pain, difficulty breathing, nausea, vomiting, abdominal pain. PHYSICAL EXAMINATION: VITAL SIGNS: Please see below. GENERAL: Elderly-appearing female in no acute distress HEENT: Normocephalic, atraumatic, moist mucous membranes NECK: Supple CARDIOVASCULAR EXAMINATION: RRR, normal S1 and S2. Soft, 3/6 holosystolic murmur, no gallops, rubs. RESPIRATORY EXAMINATION: Clear to auscultation bilaterally. No wheezes, crackles, rhonchi. ABDOMINAL EXAMINATION: Soft, nontender, nondistended, positive bowel sounds EXTREMITIES: No lower extremity swelling or edema. SKIN: No rash NEUROLOGICAL EXAMINATION: Alert and oriented 3, no focal deficits PSYCHIATRIC EXAMINATION: Calm and cooperative ASSESSMENT: 69-year-old female with multiple medical comorbidities, is being admitted for GI distress and acute kidney injury. PLAN: 1. Acute on chronic renal failure. Initially thought to be 2/2 GI losses and decreased PO intake and was hydrated without improvement in creatinine. Diuresed starting yesterday without improvement in his creatinine, but did demonstrate beginnings of reversal in metabolic acidosis as bicarb levels trend upward, will continue with gentle diuresis to see if patient improves. Will also order renal US, repeat UA as patient demonstrated proteinuria on initial UA. 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 May consider urology consult depending on results of ultrasound. 2. UTI. Continue Rocephin, urine cultures grew >100k CFU of corynebacterium. 3. Congestive heart failure. Previous echo showing EF of 30%, IV fluids discontinued, will gently diurese patient starting today, continue Coreg with hold parameters. 4. Coronary artery disease. Stable. Continue atorvastatin. 5. Hypothyroidism. Continue Synthroid 6. Seizure disorder. Continue Depakote DVT prophylaxis: Heparin. VS,Fishbone, I+O VS, Fishbone, I+O Laboratory Tests 02/22/20 07:37 Vital Signs Date Time Temp Pulse Resp B/P (MAP) Pulse Ox O2 Delivery O2 Flow Rate FiO2 02/22/20 14:00 98.3 68 14 108/61 (77) 97 Room Air I&O- Last 24 Hours up to 6 AM 02/22/20 06:00 Intake Total 970 ml Output Total 1050 ml Balance -80 ml GME ATTESTATION GME ATTESTATION My faculty preceptor for this patient encounter was physically present during the encounter and was fully available. All aspects of the patient interview, examination, medical decision making process, and medical care plan development were reviewed and approved by the faculty preceptor. The faculty preceptor is aware and concurs with the plan as stated in the body of this note and will attest to such by his/her cosignature. ATTENDING NOTE I have independently interviewed and examined the patient at the bedside, and agree with the aforementioned management plans and physical findings as documented by my Resident Physician. JANNA KEN DO Feb 22, 2020 15:23 LATRICE HANCOCK MD Feb 24, 2020 12:52
[2020-02-22] MEDS: cefTRIAXone SOD 1 GM in D5W MINI-BAG PLUS 50 ML IV SCH (17:58)
[2020-02-22] MEDS: ATORVASTATIN 20 MG TAB PO SCH (20:24)
[2020-02-22 22:00] VITALS: BP 119/61
--- NOTE | 2020-02-23 05:00 | REP ---
Clinical: Acute renal insufficiency. Technique: Real time reynolds scale and color evaluation using curved array transducer. Findings: The bilateral kidneys are normal in reniform shape and demonstrate generalized increased parenchymal echo texture along with scattered bilateral echogenic foci with shadowing consistent with nephrolithiasis. No evidence for hydronephrosis. No obvious renal cystic or mass lesion identified. The bladder is under distended but demonstrates presumed bilateral ureteral stents as well as possible shadowing bladder calculi. Impression: Bilateral nephrolithiasis without obvious hydronephrosis. Underlying chronic medical renal disease. Presumed ureteral stents extending into the bladder along with suspected bladder calculi. Electronically Signed by Santana Minor MD 02/23/2020 04:51 A
[2020-02-23] MEDS: LEVOTHYROXINE 75MCG TABLET (0.075MG) PO SCH (05:34)
[2020-02-23 06:00] VITALS: BP 101/54
[2020-02-23 06:38] LABS: BASO # 0.1 10^3/uL (0.0-0.2); BASO % 0.8 % (0.0-1.0); EOS # 0.4 10^3/uL (0.0-0.5); EOS % 3.5 % (0.0-3.0); HEMATOCRIT 33.5 % (36.0-47.0); HEMOGLOBIN 10.7 g/dl (12.0-15.5); LYMPH % 9.6 % (24.0-44.0); MEAN CORPUSCULAR HEMOGLOBIN 34.1 pg (27.0-33.0); MEAN CORPUSCULAR HGB CONC 31.9 g/dl (32.0-36.5); MEAN CORPUSCULAR VOLUME 106.7 fl (80.0-96.0); MONO # 1.9 10^3/uL (0.0-0.8); MONO % 17.7 % (0.0-5.0); NEUTROPHILS # 7.1 10^3/uL (1.5-8.5); NEUTROPHILS % 65.8 % (36.0-66.0); PLATELET COUNT, AUTOMATED 292 10^3/uL (150-450); RED BLOOD COUNT 3.14 10^6/uL (4.00-5.40); WHITE BLOOD COUNT 10.8 10^3/uL (4.0-10.0)
[2020-02-23 07:05] LABS: CALCIUM LEVEL 9.9 MG/DL (8.8-10.2); CREATININE FOR GFR 2.84 MG/DL (0.55-1.30); GLOMERULAR FILTRATION RATE 17.5 (>39); POTASSIUM SERUM 3.8 MEQ/L (3.5-5.1)
[2020-02-23] MEDS: DOCUSATE SODIUM 100 MG CAP PO SCH (09:00)
[2020-02-23] MEDS: FOLIC ACID 1 MG TAB PO SCH (09:47)
[2020-02-23] MEDS: PARoxetine 10MG TABLET PO SCH (09:47)
[2020-02-23] MEDS: DIVALPROEX 250MG *ER* TAB PO SCH ×2 (09:47→20:27)
[2020-02-23] MEDS: FERROUS GLUCONATE 324 MG TAB PO SCH (09:47)
[2020-02-23] MEDS: oxyBUTYnin *DITROPAN XL* 5 MG TABCR PO SCH (09:47)
[2020-02-23] MEDS: VITAMIN B COMPLEX/VIT C CAP PO SCH (09:47)
[2020-02-23] MEDS: HEPARIN SOD (PORCINE) 5000UNITS/ML VIAL (J1644 PER 1000UNITS) SC SCH ×2 (09:48→20:27)
[2020-02-23] MEDS: CARVedilol 3.125 MG TAB PO SCH ×2 (09:48→20:26)
[2020-02-23] MEDS ORDERED: NS 1,000 ML IV SCH (10:15)
[2020-02-23] MEDS ORDERED: NS 500 ML IV ONE (10:45)
--- NOTE | 2020-02-23 12:46 | CR ---
DATE OF CONSULTATION: 02/23/2020 REQUESTING PHYSICIAN: Dr. Ellyn Cornell CONSULTING PHYSICIAN: Dr. Drummond REASON FOR CONSULTATION: Management of acute renal failure superimposed on chronic kidney disease. CHIEF COMPLAINT: Patient presented to the hospital on 02/18/2020 with hypotension. HISTORY OF PRESENT ILLNESS: Mildred Blake is a 69-year-old female with past medical history of chronic kidney disease, stage III, with a baseline creatinine of around 1.4 as of August 2019, known to have horseshoe kidney with bilateral ureteral stents, history of congestive heart failure with reduced ejection fraction, multiple other comorbidities as mentioned below. She initially presented the hospital with orthostatic hypotension on 02/18/2020. She was admitted under the hospitalist service with a urinary tract infection and acute kidney injury superimposed on chronic kidney disease. Her creatinine on admission was 2.4. She was being managed by the hospitalist service. However, her renal function continues to get worse. Her creatinine has bumped up to 2.8. So, nephrology service consult was requested. I saw and evaluated the patient today morning at the bedside. She is well-known to myself because she follows up with me in the nephrology clinic. Patient reports that she is feeling very thirsty and dry. She was getting IV diuretics, which were just stopped today morning. She is otherwise afebrile and hemodynamically stable, and she is being treated with intravenous (IV) antibiotics for urinary tract infection (UTI). PAST MEDICAL HISTORY: Past medical history of chronic kidney disease, stage III, best baseline creatinine of around 1.4, chronic systolic congestive heart failure, hyperlipidemia, hypothyroidism, history of myocardial infarction ([place]) in the past. PAST SURGICAL HISTORY: Status post bilateral ureteral stent exchange multiple times in the past. ALLERGIES: She is allergic to BENZOCAINE, CARBAMAZEPINE, CHOCOLATE FLAVOR LACTOSE, PHENOBARBITAL and PHENYTOIN. FAMILY HISTORY: No significant family history of end-stage renal disease. SOCIAL HISTORY: The patient lives at home. She has one cat. She denies any illicit drug abuse or alcohol abuse. REVIEW OF SYSTEMS: Constitutional: She denies any fevers or chills. Eyes: She denies any blurry vision, double vision. ENT: She reports a dry mouth and feeling thirsty. Cardiovascular: She denies any chest pain or palpitation. Respiratory: She denies any shortness of breath. Gastrointestinal: She denies any nausea, vomiting. Genitourinary: She denies any dysuria or hematuria. Musculoskeletal: She denies any muscle aches and pains. Skin: She denies any rashes or ulcers. Central nervous system (CATTLE DRIVER): She denies any strokes or seizures. Hematology/Oncology: She denies any easy bleeding or bruising. All other review of systems is negative. PHYSICAL EXAMINATION: General: Patient is awake, alert, oriented times three, laying in bed. Vital Signs: Temperature is 96.8 degrees Fahrenheit, fundi blood pressure 101/54, pulse is 69, respiratory rate of 17, saturating 94% on room air. Intake and Output: Urine output recorded is 500 mL yesterday, 250 mL so far today since overnight. Weight in the bed scale is not available. Head and Neck Exam: Extraocular muscles intact. Pupils equally round and reactive to light. Mucous membranes are dry. She has dry tongue and dry lips. Neck is supple. There is no jugular venous distention (JVD). Cardiovascular: S1, S2, regular rate. No edema of the bilateral lower extremities. Respiratory: Chest is clear to auscultation bilaterally. Bilateral equal air entry. No rales or rhonchi. Abdomen is soft, positive bowel sounds, nontender. No organomegaly. Musculoskeletal: No clubbing or cyanosis. Pulses are 2+. Central nervous system (CATTLE DRIVER): No focal deficit. Power is 5.5 in all extremities. LAB REVIEW: CBC showed WBC of 10.8, hemoglobin 10.7, platelets are 292. Urinalysis done yesterday showed it was turbid with 3+ protein 2+ blood, 2+ leukocyte esterase, too numerous to count WBCs. BMP showed sodium 139, potassium 3.8, chloride 105, bicarbonate 23, BUN 64, creatinine is 2.8. Calcium is 9.9. Microbiology: Urine culture is growing Corynebacterium species. Respiratory viral panel is negative. Repeat urine cultures sent yesterday showed no growth. IMAGING: Renal ultrasound was done yesterday, which showed increased parenchymal echotexture on both sides of the partial kidney, bilateral nephrolithiasis, and there were presumed ureteral stents extending into the bladder along with suspected bladder calculi. CURRENT INPATIENT MEDICATIONS: The patient's medications were all reviewed by myself. She is on ceftriaxone 1 gram IV daily. She was getting Lasix 40 mg IV twice a day, which was stopped today morning. I have given the patient normal saline bolus 500 mL stat, followed by normal saline at 75 mL/h for a total of 1 liter. She is on Lipitor 80 mg at bedtime, Coreg 3.125 mg by mouth twice a day, Depakote ER 500 mg at bedtime and 250 mg in the morning. She is on iron tablet 324 mg by mouth daily, folic acid 1 mg by mouth daily, levothyroxine 75 mcg by mouth daily, oxybutynin 10 mg daily, paroxetine 10 mg daily, and vitamin B complex. ASSESSMENT: 69-year-old female with history of horseshoe kidney, bilateral ureteral stents with baseline chronic kidney disease (CKD) III, now she has acute kidney injury superimposed on chronic kidney disease along with urinary tract infection. PLAN: 1. Acute kidney injury superimposed on chronic kidney disease, stage III. Patient has significantly elevated creatinine from her baseline. Clinically, she looks dehydrated. Her diuretics were stopped today morning. I have given her normal saline bolus followed by gentle IV hydration. Continue the IV fluid at this time and continue the treatment of urinary tract infection. 2. Horseshoe kidney and bilateral ureteral stents. Patient is being treated for UTI, but if her symptoms do not get better she might need to be seen by urology service. 3. Anemia and chronic kidney disease. Hemoglobin level is 10.7, which is optimal. No need of Aranesp administration at this time. 4. Chronic systolic congestive heart failure. Patient is clinically dry at this time. No need of diuretics at this point. There is no latest echocardiogram available. Latest echo was done more than 4 years ago and at that time her left ventricular (LV) ejection fraction was 30%. Continue current dose of carvedilol. 5. Hypothyroidism. Continue current dose of levothyroxine. Thank you for involving me in the care of this patient. I shall be happy to follow the patient along with you tomorrow morning.
[2020-02-23 14:00] VITALS: BP 128/75
--- NOTE | 2020-02-23 15:20 | IPNPDOC ---
Text Note Date of Service The patient was seen on 02/23/20. NOTE SUBJECTIVE: 69-year-old female with past medical history of coronary artery d isease, [place], congestive heart failure with reduced ejection fraction, chronic kidney disease and hypothyroidism is currently admitted for acute kidney injury and UTI. Patient seen and examined this morning at bedside, continues to be asymptomatic endorsing no complaints and with no acute events overnight. Continues denies any fever, chills, chest pain, difficulty breathing, nausea, vomiting, abdominal pain. PHYSICAL EXAMINATION: VITAL SIGNS: Please see below. GENERAL: Elderly-appearing female in no acute distress HEENT: Normocephalic, atraumatic, moist mucous membranes NECK: Supple CARDIOVASCULAR EXAMINATION: RRR, normal S1 and S2. Soft, 3/6 holosystolic murmur, no gallops, rubs. RESPIRATORY EXAMINATION: Clear to auscultation bilaterally. No wheezes, crackles, rhonchi. ABDOMINAL EXAMINATION: Soft, nontender, nondistended, positive bowel sounds EXTREMITIES: No lower extremity swelling or edema. SKIN: No rash NEUROLOGICAL EXAMINATION: Alert and oriented 3, no focal deficits PSYCHIATRIC EXAMINATION: Calm and cooperative ASSESSMENT: 69-year-old female with multiple medical comorbidities, is being admitted for GI distress and acute kidney injury. PLAN: 1. Acute on chronic renal failure. Creatinine continues to rise (2.8) from 1.4 baseline, patient was initially hydrated without improvement, then diuresed without improvement. Renal US yesterday showing nephrolithiasis without signs of hydronephrosis. UA positive with urine culture pending. Consulting nephrology, recommendations appreciated. 2. UTI. Continue Rocephin, urine cultures grew >100k CFU of corynebacterium. 3. Congestive heart failure. Previous echo showing EF of 30%, IV fluids discontinued, will gently diurese patient starting today, continue Coreg with hold parameters. 4. Coronary artery disease. Stable. Continue atorvastatin. 5. Hypothyroidism. Continue Synthroid 6. Seizure disorder. Continue Depakote DVT prophylaxis: Heparin. VS,Fishbone, I+O VS, Fishbone, I+O Laboratory Tests 02/23/20 06:02 Vital Signs Date Time Temp Pulse Resp B/P (MAP) Pulse Ox O2 Delivery O2 Flow Rate FiO2 02/23/20 14:00 97.3 67 16 128/75 (92) 96 Room Air I&O- Last 24 Hours up to 6 AM 02/23/20 06:00 Intake Total 645 ml Output Total 450 ml Balance 195 ml GME ATTESTATION GME ATTESTATION My faculty preceptor for this patient encounter was physically present during the encounter and was fully available. All aspects of the patient interview, examination, medical decision making process, and medical care plan development were reviewed and approved by the faculty preceptor. The faculty preceptor is aware and concurs with the plan as stated in the body of this note and will attest to such by his/her cosignature. ATTENDING NOTE I have independently interviewed and examined the patient at the bedside, and agree with the aforementioned management plans and physical findings as documented by my Resident Physician. JANNA KEN DO Feb 23, 2020 15:20 LATRICE HANCOCK MD Feb 24, 2020 12:53
[2020-02-23] MEDS ORDERED: DOCUSATE SODIUM 100 MG CAP PO PRN (15:30)
[2020-02-23] MEDS: cefTRIAXone SOD 1 GM in D5W MINI-BAG PLUS 50 ML IV SCH (17:17)
[2020-02-23] MEDS: ATORVASTATIN 20 MG TAB PO SCH (20:25)
[2020-02-23 22:00] VITALS: BP 113/57
[2020-02-24] MEDS: LEVOTHYROXINE 75MCG TABLET (0.075MG) PO SCH (05:48)
[2020-02-24 06:00] VITALS: BP 115/61
[2020-02-24 07:30] LABS: BASO # 0.1 10^3/uL (0.0-0.2); BASO % 0.6 % (0.0-1.0); EOS # 0.3 10^3/uL (0.0-0.5); EOS % 2.8 % (0.0-3.0); HEMATOCRIT 29.8 % (36.0-47.0); HEMOGLOBIN 9.7 g/dl (12.0-15.5); LYMPH # 0.8 10^3/uL (1.5-5.0); LYMPH % 7.6 % (24.0-44.0); MEAN CORPUSCULAR HEMOGLOBIN 34.6 pg (27.0-33.0); MEAN CORPUSCULAR HGB CONC 32.6 g/dl (32.0-36.5); MEAN CORPUSCULAR VOLUME 106.4 fl (80.0-96.0); MONO # 1.8 10^3/uL (0.0-0.8); NEUTROPHILS # 7.8 10^3/uL (1.5-8.5); NEUTROPHILS % 70.6 % (36.0-66.0); PLATELET COUNT, AUTOMATED 264 10^3/uL (150-450)
[2020-02-24 07:47] LABS: CALCIUM LEVEL 9.4 MG/DL (8.8-10.2); CREATININE FOR GFR 2.61 MG/DL (0.55-1.30); GLOMERULAR FILTRATION RATE 19.3 (>39); POTASSIUM SERUM 3.4 MEQ/L (3.5-5.1)
[2020-02-24] MEDS ORDERED: POTASSIUM CHLORIDE 10 MEQ SR TABLET PO ONE (08:15)
[2020-02-24] MEDS: HEPARIN SOD (PORCINE) 5000UNITS/ML VIAL (J1644 PER 1000UNITS) SC SCH ×2 (10:39→20:13)
[2020-02-24] MEDS: FOLIC ACID 1 MG TAB PO SCH (10:40)
[2020-02-24] MEDS: VITAMIN B COMPLEX/VIT C CAP PO SCH (10:40)
[2020-02-24] MEDS: oxyBUTYnin *DITROPAN XL* 5 MG TABCR PO SCH (10:40)
[2020-02-24] MEDS: DIVALPROEX 250MG *ER* TAB PO SCH ×2 (10:40→20:12)
[2020-02-24] MEDS: FERROUS GLUCONATE 324 MG TAB PO SCH (10:41)
[2020-02-24] MEDS: PARoxetine 10MG TABLET PO SCH (10:41)
[2020-02-24] MEDS: CARVedilol 3.125 MG TAB PO SCH ×2 (10:41→20:23)
[2020-02-24] MEDS ORDERED: SODIUM BICARBONATE 75 MEQ in NS 0.45% 1,000 ML IV SCH (13:00)
--- NOTE | 2020-02-24 13:05 | IPNPDOC ---
Text Note Date of Service The patient was seen on 02/24/20. NOTE SUBJECTIVE: 69-year-old female with past medical history of coronary artery d isease, [place], congestive heart failure with reduced ejection fraction, chronic kidney disease and hypothyroidism is currently admitted for acute kidney injury and UTI. Patient seen and examined this morning at bedside, she is doing well and has no complaints. She denies any fever, chills, abdominal/back pain, nausea, or vomiting. PHYSICAL EXAMINATION: VITAL SIGNS: Please see below. GENERAL: Elderly-appearing female in no acute distress HEENT: Normocephalic, atraumatic, moist mucous membranes NECK: Supple CARDIOVASCULAR EXAMINATION: RRR, normal S1 and S2. Soft, 3/6 holosystolic murmur, no gallops, rubs. RESPIRATORY EXAMINATION: Clear to auscultation bilaterally. No wheezes, crackles, rhonchi. ABDOMINAL EXAMINATION: Soft, nontender, nondistended, positive bowel sounds EXTREMITIES: No lower extremity swelling or edema. SKIN: No rash NEUROLOGICAL EXAMINATION: Alert and oriented 3, no focal deficits PSYCHIATRIC EXAMINATION: Calm and cooperative ASSESSMENT: 69-year-old female with multiple medical comorbidities, is being admitted for GI distress and acute kidney injury. PLAN: 1. Acute on chronic renal failure. - Due to prerenal cause Creatinine improved today with overnight hydration. Renal US negative for any acute obstructive pathology, repeat UA positive, repeat Urine culture negative. Nephrology on board, recommendations appreciated. 2. UTI. Continue Rocephin (day 5), urine cultures grew >100k CFU of corynebacterium, repeat culture negative. 3. Congestive heart failure. Previous echo showing EF of 30%, IV fluids discontinued, will gently diurese patient starting today, continue Coreg with hold parameters. 4. Coronary artery disease. Stable. Continue atorvastatin. 5. Hypothyroidism. Continue Synthroid 6. Seizure disorder. Continue Depakote DVT prophylaxis: Heparin. VS,Fishbone, I+O VS, Fishbone, I+O Laboratory Tests 02/24/20 06:50 Vital Signs Date Time Temp Pulse Resp B/P (MAP) Pulse Ox O2 Delivery O2 Flow Rate FiO2 02/24/20 10:41 75 115/61 02/24/20 06:00 98.2 18 97 Room Air I&O- Last 24 Hours up to 6 AM 4/23/20 06:00 Intake Total 1750 ml Output Total 1000 ml Balance 750 ml GME ATTESTATION GME ATTESTATION My faculty preceptor for this patient encounter was physically present during the encounter and was fully available. All aspects of the patient interview, examination, medical decision making process, and medical care plan development were reviewed and approved by the faculty preceptor. The faculty preceptor is aware and concurs with the plan as stated in the body of this note and will at test to such by his/her cosignature. ATTENDING NOTE I have independently interviewed and examined the patient at the bedside, and agree with the aforementioned management plans and physical findings as documented by my Resident Physician. JANNA KEN DO Feb 24, 2020 13:05 LATRICE HANCOCK MD Feb 26, 2020 09:21
[2020-02-24 14:00] VITALS: BP 143/60
[2020-02-24] MEDS: ATORVASTATIN 20 MG TAB PO SCH (20:13)
[2020-02-24 22:00] VITALS: BP 116/64
--- NOTE | 2020-02-24 22:59 | IPN ---
DATE: 02/24/2020 SUBJECTIVE: Patient was seen and examined at the bedside today morning. She reports that she is feeling better today as compared with yesterday. She got IV fluid hydration. Renal function is slightly better today. She is otherwise afebrile and hemodynamically stable. OBJECTIVE: Vital signs: Temperature is 98.2 degrees Fahrenheit, blood pressure 115/61, pulse is 75, respiratory rate of 18, saturating 97% on room air. Intake and output: Urine output recorded is 650 mL yesterday, 1425 mL so far today since overnight. Weight in the bed scale is not available. PHYSICAL EXAMINATION: General: The patient is awake, alert, oriented times three, sitting up in the bed, in no apparent distress. Head and neck exam: Extraocular muscles intact. Pupils equally round and reactive to light. Mucous membranes are moist. Neck is supple. There is no jugular venous distention (JVD). Cardiovascular: S1, S2, regular rate. No edema of the bilateral lower extremities. Respiratory: Chest is clear to auscultation bilaterally. Bilateral equal air entry. No rales or rhonchi. Abdomen: Soft, positive bowel sounds. Nontender. No organomegaly. Musculoskeletal: No clubbing or cyanosis. Pulses are 2+. Central nervous system (AVIONICS SYSTEMS TECHNICIAN): No focal deficit. Power is 5/5 in all extremities. LAB REVIEW: CBC showed a WBC of 11, hemoglobin 9.7, platelets are 264. BMP showed sodium 140, potassium 3.4, chloride 110, bicarb 20, BUN 60, creatinine is 2.6; it was 2.8 yesterday. CURRENT INPATIENT MEDICATIONS: The patient's medications were all reviewed by myself. IV Rocephin has been stopped now. I have started the patient on sodium bicarbonate containing IV fluid at 75 mL an hour for a total of 1 liter. I also gave the patient a dose of potassium chloride 20 mEq by mouth times one dose. No other change in the medications today as compared with yesterday. ASSESSMENT/PLAN: 1. Acute kidney injury superimposed on chronic kidney disease. Patient's renal function is slightly better today as compared with yesterday. I am going to give her one more liter of bicarb containing fluid. Diuretics were stopped yesterday. 2. Horseshoe kidney with bilateral ureteral stents. The patient was recently treated for urinary tract infection (UTI). Repeat urine culture is negative. Ceftriaxone has been stopped. 3. Anemia in chronic kidney disease. Hemoglobin level is stable. 4. Chronic systolic congestive heart failure. The patient was actually clinically dry. I am going to give her one more liter of bicarb containing fluid. 5. Metabolic acidosis. It is secondary to acute renal failure. 75 mEq of bicarb in the IV fluid will hopefully improve her acidosis. 6. Hypokalemia. The patient was already given potassium chloride today morning.
[2020-02-25 05:18] VITALS: BP 122/70
[2020-02-25] MEDS: LEVOTHYROXINE 75MCG TABLET (0.075MG) PO SCH (05:33)
[2020-02-25 05:57] LABS: BASO # 0.1 10^3/uL (0.0-0.2); BASO % 0.9 % (0.0-1.0); EOS # 0.4 10^3/uL (0.0-0.5); EOS % 4.6 % (0.0-3.0); HEMOGLOBIN 8.8 g/dl (12.0-15.5); LYMPH # 1.2 10^3/uL (1.5-5.0); LYMPH % 15.1 % (24.0-44.0); MEAN CORPUSCULAR HEMOGLOBIN 34.8 pg (27.0-33.0); MEAN CORPUSCULAR HGB CONC 32.6 g/dl (32.0-36.5); MEAN CORPUSCULAR VOLUME 106.7 fl (80.0-96.0); MONO % 12.4 % (0.0-5.0); NEUTROPHILS # 5.1 10^3/uL (1.5-8.5); NEUTROPHILS % 62.7 % (36.0-66.0); PLATELET COUNT, AUTOMATED 251 10^3/uL (150-450); RED BLOOD COUNT 2.53 10^6/uL (4.00-5.40); WHITE BLOOD COUNT 8.1 10^3/uL (4.0-10.0)
[2020-02-25 06:20] LABS: CREATININE FOR GFR 2.38 MG/DL (0.55-1.30); GLOMERULAR FILTRATION RATE 21.5 (>39); POTASSIUM SERUM 3.6 MEQ/L (3.5-5.1)
[2020-02-25 08:06] LABS: PERCENT SATURATION 68.9 % (13.2-45.0)
[2020-02-25] MEDS ORDERED: DARBEPOETIN 100 MCG/0.5 ML *NON-DIALYSIS* SYRINGE (J0881) SC SCH (09:00)
[2020-02-25] MEDS: PARoxetine 10MG TABLET PO SCH (09:56)
[2020-02-25] MEDS: CARVedilol 3.125 MG TAB PO SCH ×2 (09:56→20:15)
[2020-02-25] MEDS: DIVALPROEX 250MG *ER* TAB PO SCH ×2 (09:56→20:15)
[2020-02-25] MEDS: FERROUS GLUCONATE 324 MG TAB PO SCH (09:56)
[2020-02-25] MEDS: FOLIC ACID 1 MG TAB PO SCH (09:56)
[2020-02-25] MEDS: oxyBUTYnin *DITROPAN XL* 5 MG TABCR PO SCH (09:56)
[2020-02-25] MEDS: HEPARIN SOD (PORCINE) 5000UNITS/ML VIAL (J1644 PER 1000UNITS) SC SCH ×2 (09:57→20:14)
[2020-02-25] MEDS: VITAMIN B COMPLEX/VIT C CAP PO SCH (09:59)
[2020-02-25 11:07] LABS: FOLATE 23.8 NG/ML (>5.4)
--- NOTE | 2020-02-25 13:21 | IPNPDOC ---
Text Note Date of Service The patient was seen on 02/25/20. NOTE SUBJECTIVE: 69-year-old female with past medical history of coronary artery d isease, [place], congestive heart failure with reduced ejection fraction, chronic kidney disease and hypothyroidism is currently admitted for acute kidney injury and UTI. Patient seen and examined this morning at bedside, she is doing well and continues to have no complaints. She denies any fever, chills, abdominal/back pain, nausea, or vomiting. PHYSICAL EXAMINATION: VITAL SIGNS: Please see below. GENERAL: Elderly-appearing female in no acute distress HEENT: Normocephalic, atraumatic, moist mucous membranes NECK: Supple CARDIOVASCULAR EXAMINATION: RRR, normal S1 and S2. Soft, 3/6 holosystolic mu rmur, no gallops, rubs. RESPIRATORY EXAMINATION: Clear to auscultation bilaterally. No wheezes, arts and crafts teacher ckles, rhonchi. ABDOMINAL EXAMINATION: Soft, nontender, nondistended, positive bowel sounds EXTREMITIES: No lower extremity swelling or edema. SKIN: No rash NEUROLOGICAL EXAMINATION: Alert and oriented 3, no focal deficits PSYCHIATRIC EXAMINATION: Calm and cooperative ASSESSMENT: 69-year-old female with multiple medical comorbidities, is being admitted for GI distress and acute kidney injury. PLAN: #. Acute on chronic renal failure. Creatinine continues to improve hydration. Renal US negative for any acute obstructive pathology, repeat Urine culture negative. Nephrology on board, recommendations appreciated. #. Macrocytic anemia -Iron panel with normal iron, elevated ferritin, B12, folate normal. Anemia of chronic kidney disease. #. UTI. Resolved. Rocephin DC'd. #. Congestive heart failure. Previous echo showing EF of 30%, IV fluids discontinued, will gently diurese patient starting today, continue Coreg with hold parameters. #. Coronary artery disease. Stable. Continue atorvastatin. #. Hypothyroidism. Continue Synthroid #. Seizure disorder. Continue Depakote DVT prophylaxis: Heparin. Disposition: Anticipate DC tomorrow. VS,Fishbone, I+O VS, Fishbone, I+O Laboratory Tests 02/25/20 05:41 Vital Signs Date Time Temp Pulse Resp B/P (MAP) Pulse Ox O2 Delivery O2 Flow Rate FiO2 02/25/20 09:56 72 122/70 02/25/20 05:18 96.2 18 97 Room Air I&O- Last 24 Hours up to 6 AM 02/25/20 05:59 Intake Total 2090 ml Output Total 1325 ml Balance 765 ml GME ATTESTATION GME ATTESTATION My faculty preceptor for this patient encounter was physically present during the encounter and was fully available. All aspects of the patient interview, examination, medical decision making process, and medical care plan development were reviewed and approved by the faculty preceptor. The faculty preceptor is aware and concurs with the plan as stated in the body of this note and will attest to such by his/her cosignature. ATTENDING NOTE I have independently interviewed and examined the patient at the bedside, and agree with the aforementioned management plans and physical findings as documented by my Resident Physician. JANNA KEN DO Feb 25, 2020 13:21 LATRICE HANCOCK MD Feb 26, 2020 09:27
[2020-02-25 14:00] VITALS: BP 144/85
[2020-02-25] MEDS: ATORVASTATIN 20 MG TAB PO SCH (20:14)
[2020-02-25 20:15] VITALS: BP 112/69
[2020-02-25 22:00] VITALS: BP 112/69
[2020-02-26 06:00] VITALS: BP 110/68
[2020-02-26] MEDS: LEVOTHYROXINE 75MCG TABLET (0.075MG) PO SCH (06:05)
[2020-02-26 06:09] LABS: BASO # 0.1 10^3/uL (0.0-0.2); BASO % 0.9 % (0.0-1.0); EOS # 0.5 10^3/uL (0.0-0.5); EOS % 5.7 % (0.0-3.0); HEMOGLOBIN 9.1 g/dl (12.0-15.5); LYMPH # 1.3 10^3/uL (1.5-5.0); LYMPH % 16.4 % (24.0-44.0); MEAN CORPUSCULAR HGB CONC 32.5 g/dl (32.0-36.5); MEAN CORPUSCULAR VOLUME 107.7 fl (80.0-96.0); MONO # 0.9 10^3/uL (0.0-0.8); MONO % 11.3 % (0.0-5.0); NEUTROPHILS % 62.1 % (36.0-66.0); PLATELET COUNT, AUTOMATED 290 10^3/uL (150-450); WHITE BLOOD COUNT 8.1 10^3/uL (4.0-10.0)
[2020-02-26 06:37] LABS: CALCIUM LEVEL 9.3 MG/DL (8.8-10.2); CREATININE FOR GFR 1.96 MG/DL (0.55-1.30); GLOMERULAR FILTRATION RATE 26.8 (>39); POTASSIUM SERUM 3.5 MEQ/L (3.5-5.1)
[2020-02-26] MEDS: CARVedilol 3.125 MG TAB PO SCH (07:47)
[2020-02-26] MEDS: FOLIC ACID 1 MG TAB PO SCH (07:56)
[2020-02-26] MEDS: FERROUS GLUCONATE 324 MG TAB PO SCH (07:56)
[2020-02-26] MEDS: PARoxetine 10MG TABLET PO SCH (07:56)
[2020-02-26] MEDS: DIVALPROEX 250MG *ER* TAB PO SCH (07:57)
[2020-02-26] MEDS: oxyBUTYnin *DITROPAN XL* 5 MG TABCR PO SCH (07:57)
[2020-02-26] MEDS: VITAMIN B COMPLEX/VIT C CAP PO SCH (07:57)
[2020-02-26] MEDS: HEPARIN SOD (PORCINE) 5000UNITS/ML VIAL (J1644 PER 1000UNITS) SC SCH (07:57)
--- NOTE | 2020-02-26 09:44 | IPN ---
DATE OF SERVICE: 02/25/2020 SUBJECTIVE: The patient was seen and examined at the bedside today morning. She is afebrile, hemodynamically stable. Her renal function is improving. She reports that she is feeling better today. However, she is still shaky when she walks and she reports she is still not ready to go home at this time. Clinically, otherwise the patient is improving. OBJECTIVE: Vital Signs: Temperature is 97.3 degrees Fahrenheit, blood pressure 144/85, pulse is 66, respiratory rate of 20, saturating 96% on room air. Intake and Output: Urine output recorded is 1.5 liters yesterday, 800 mL so far today since overnight. Weight in the bed scale is not available. PHYSICAL EXAMINATION: General: The patient is awake, alert, oriented x3, laying in bed, in no apparent distress. Head and Neck Exam: Extraocular muscles intact. Pupils equally round and reactive to light. Mucous membranes are moist. Neck is supple. There is no jugular venous distention (JVD). Cardiovascular: S1, S2, regular rate. No edema of the bilateral lower extremities. Respiratory: Chest is clear to auscultation bilaterally. Bilateral equal air entry. No rales or rhonchi. Abdomen: Soft, positive bowel sounds. Nontender. No organomegaly. Musculoskeletal: No clubbing or cyanosis. Pulses are 2+. RADAR TECHNICIAN: No focal deficit. Power is 5/5 in all extremities. LAB REVIEW: CBC showed a WBC of 8.1, hemoglobin 8.8, and platelets are 251. BMP done today showed sodium of 140, potassium 3.6, chloride 109, bicarb 23, BUN 57, creatinine 2.3 and it was 2.6 yesterday. Calcium is 9. CURRENT INPATIENT MEDICATIONS: The patient's medications were all reviewed by myself. She was given 1 liter of sodium bicarbonate containing fluid yesterday. No other change in the medications today. ASSESSMENT/PLAN: 1. Acute kidney injury superimposed on chronic kidney disease. Renal function is slightly improving. The patient was given IV fluid hydration. Creatinine is trending down. Continue to hold the diuretics. 2. Horseshoe kidney with bilateral ureteral stents. The patient was recently treated for urinary tract infection (UTI). Renal function is slowly improving. Repeat cultures are negative. 3. Anemia in chronic kidney disease. Iron levels are adequate. The patient was started on Aranesp 100 mcg subcutaneous once a week. 4. Chronic systolic congestive heart failure. Clinically she was weight dry and needed IV fluid. Diuretics are on hold. 5. Metabolic acidosis. It has improved with IV bicarbonate containing fluid. If bicarbonate level drops again, the patient will need oral bicarbonate administration.
--- NOTE | 2020-02-26 10:26 | DS.PDOC ---
Discharge Summary General Date of Admission Feb 18, 2020 at 17:21 Date of Discharge 02/26/2020 Attending Physician: LATRICE HANCOCK MD Specialist/Consultants Involve: MELISSA LANDERS MD Discharge Summary PRIMARY CARE PROVIDER: Sugar Grace NP PROCEDURES PERFORMED DURING STAY: None ADMITTING/DISCHARGE DIAGNOSES: UTI Acute on chronic renal failure due to prerenal cause. CKD stage 3 Horseshoe kidney with h/o bilateral hydronephrosis with bilateral ureteral stent s in place Chronic Anemia in the setting of chronic kidney disease Chronic systolic congestive heart failure Metabolic acidosis Coronary artery disease Hypothyroidism OR in the past Hyperlipidemia. Hypothyroidism COMPLICATIONS/CHIEF COMPLAINT: dehydration, sent by PCP for positive orthostatic hypotension HISTORY OF PRESENT ILLNESS/HOSPITAL COURSE: Patient is a 69-year-old female who presented from her primary care provider's office due to dehydration and orthostatic hypotension. She reported a history of chills, weakness, diarrhea, and dry heaves for the 2-3 days prior to presentation. On evaluation at her primary care provider's office she was found to be dehydrated with positive orthostatics so she was sent to the emergency department where she was found to have an acute kidney injury and UTI so the hospitalist service was called for admission. She was started empirically on Rocephin and gently hydrated for her dehydration and CARLOS. She began to develop a hyperchloremic acidosis so her fluids were switched to lactated Ringer's, however her creatinine remained unchanged the same day and she appeared clinically euvolemic so an attempt was made to to diurese her to see if there is some degree of volume overload causing her elevated creatinine. Following day her creatinine increased even more so nephrology was consulted a renal ultrasound was done and a repeat UA was done as well. Nephrology recommended gentle fluid hydration as she appeared clinically to them to be dehydrated and over the next 3-4 days her creatinine improved to the point where it was back to baseline and she was safe for discharge with follow-up outpatient. DISCHARGE MEDICATIONS: Please see below. ALLERGIES: Please see below. Vitals: (see below) GENERAL: Elderly-appearing female in no acute distress HEENT: Normocephalic, atraumatic, moist mucous membranes NECK: No JVD, lymphadenopathy. CARDIOVASCULAR EXAMINATION: RRR, normal S1 and S2. Soft, 3/6 holosystolic murmur, no gallops, rubs. RESPIRATORY EXAMINATION: Clear to auscultation bilaterally. No wheezes, crackles, rhonchi. ABDOMINAL EXAMINATION: Soft, nontender, nondistended, positive bowel sounds EXTREMITIES: No lower extremity swelling or edema. SKIN: No rash NEUROLOGICAL EXAMINATION: No focal neuro deficits. PSYCHIATRIC EXAMINATION: Appropriate mood and affect. LABORATORY DATA: Please see below. IMAGIN02/18/2020 chest x-ray: Mild cardiomegaly. No acute infiltrate. 02/18/[address]: No radiology read available, however their do not appear to be any acute intracranial findings. 02/22/2020 renal ultrasound: Bilateral nephrolithiasis without obvious hydronephrosis. Underlying chronic medical renal disease. Presumed ureteral stents extending into the bladder along with suspected bladder calculi. PROGNOSIS: stable ACTIVITY: [As tolerated]. DIET: Renal diet DISCHARGE PLAN: Home DISCHARGE INSTRUCTIONS: 1. Call [facility] and Dr. Landers's office on Friday to schedule follow-up appointments DISCHARGE CONDITION: [Stable]. TIME SPENT ON DISCHARGE: 35 minutes Vital Signs/I&Os Vital Signs Date Time Temp Pulse Resp B/P (MAP) Pulse Ox O2 Delivery O2 Flow Rate FiO2 02/26/20 07:47 63 02/26/20 06:00 96.9 18 110/68 (82) 98 Room Air I&O- Last 24 Hours up to 6 AM 02/26/20 06:00 Intake Total 1020 ml Output Total 1050 ml Balance -30 ml Laboratory Data Labs 24H Laboratory Tests 2 02/26/20 05:51: Immature Granulocyte % (Auto) 3.6H, Neutrophils (%) (Auto) 62.1, Lymphocytes (%) (Auto) 16.4L, Monocytes (%) (Auto) 11.3H, Eosinophils (%) (Auto) 5.7H, Basophils (%) (Auto) 0.9, Neutrophils # (Auto) 5.0, Lymphocytes # (Auto) 1.3L, Monocytes # (Auto) 0.9H, Eosinophils # (Auto) 0.5, Basophils # (Auto) 0.1, Nucleated Red Blood Cells % (auto) 0.0, Anion Gap 8, Glomerular Filtration Rate 26.8L, Calcium Level 9.3 CBC/BMP Laboratory Tests 02/26/20 05:51 Microbiology Microbiology 02/22/20 Urine Culture - Final, Complete 02/18/20 Respiratory Virus Panel (PCR) (SO) - Final, Complete 02/18/20 Urine Culture - Final, Complete Corynebacterium Species Discharge Medications Scheduled Atorvastatin Calcium (Atorvastatin Calcium) 80 Mg Tablet, 80 MG PO QHS, (Reported) Carvedilol (Carvedilol) 3.125 Mg Tab, 3.125 MG PO BID, (Reported) Divalproex Sodium (Depakote ER) 250 Mg Tab, 250 MG PO QAM, (Reported) Divalproex Sodium (Depakote ER) 250 Mg Tab.er.24h, 500 MG PO QHS, (Reported) Ferrous Gluconate (Ferrous Gluconate) 324 Mg Tab, 324 MG PO DAILY, (Reported) Folic Acid (Folic Acid) 1 Mg Tab, 1 MG PO DAILY, (Reported) Levothyroxine Sodium (Levothyroxine Sodium) 75 Mcg Tab, 75 MCG PO QAM, (Reported) Oxybutynin Chloride (Oxybutynin Chloride ER) 10 Mg Tab.er.24, 10 MG PO DAILY, (Reported) Paroxetine HCl (Paroxetine) 10 Mg Tab, 10 MG PO DAILY, (Reported) Vitamin B Complex Vit C No.3 (B Complex with Vitamin C) 1 Each Capsule, 1 CAP PO DAILY, (Reported) Scheduled PRN Acetaminophen (Acetaminophen) 325 Mg Tablet, 650 MG PO Q4-6HP PRN for PAIN OR FEVER, (Reported) Allergies Coded Allergies: chocolate flavor (Verified Allergy, Severe, CONGESTION AND DIFFICULTY BREATHING, 02/18/20) benzocaine (Verified Allergy, Unknown, 02/18/20) carbamazepine (Verified Allergy, Unknown, 02/18/20) phenytoin (Verified Allergy, Unknown, 02/18/20) phenobarbital (Verified Adverse Reaction, Intermediate, knocks her out, 02/18/20) lactose (Verified Adverse Reaction, Mild, GI UPSET, 02/18/20) GME ATTESTATION GME ATTESTATION My faculty preceptor for this patient encounter was physically present during the encounter and was fully available. All aspects of the patient interview, examination, medical decision making process, and medical care plan development were reviewed and approved by the faculty preceptor. The faculty preceptor is aware and concurs with the plan as stated in the body of this note and will attest to such by his/her cosignature. ATTENDING NOTE I have independently interviewed and examined the patient at the bedside, and agree with the aforementioned management plans and physical findings as documented by my Resident Physician. I have personally spent 35 minutes in counselling the patient and coordinating her discharge. JANNA KEN DO Feb 26, 2020 10:26 LATRICE HANCOCK MD Feb 27, 2020 13:11
[2020-02-26] MEDS ORDERED: POTASSIUM CHLORIDE 10 MEQ SR TABLET PO ONE (13:00)
--- NOTE | 2020-02-26 16:49 | IPN ---
DATE: 02/26/2020 Ms. Blake is seen this morning on her bedside. She reports feeling better and eating and drinking well. She denies any nausea or vomiting. Her diuretic has been on hold due to dehydration, and she denies any dyspnea, chest pain, or leg edema. She does have history of congestive heart failure, and currently intravenous (IV) fluid has been stopped. PHYSICAL EXAMINATION: Temperature 96.9 degrees Fahrenheit, heart rate 64 per minute, respiratory rate 18 per minute, blood pressure 110/68 mm of mercury, and oxygen saturation 98% on room air. Head is atraumatic. Neck supple and without jugular venous distention (JVD) or thyroid enlargement. There is no oral thrush or ulcers. Trachea is midline. Heart sounds are regular, and lungs sound clear to auscultation bilaterally. Abdomen soft and nontender, and bowel sounds are normal. Extremities without any cyanosis or clubbing. Neurologically, she is awake, alert, and oriented times three. Today's labs show WBC count 8.1, hemoglobin 9.1, and hematocrit 28.0. Sodium 140, potassium 3.5, CO2 of 22, BUN 54, and creatinine 1.96. PROBLEMS: 1. Acute renal failure superimposed on chronic kidney disease. Kidney function is gradually improving. She remains off diuretics. No IV fluids at this point, as her oral intake is adequate, and renal function will be checked again tomorrow morning. 2. Hypokalemia. Her potassium level has been borderline or low. We will give her one dose of potassium chloride 20 mEq today and recheck her electrolytes tomorrow morning. Currently diuretics are on hold. 3. Metabolic acidosis. Her acidosis has corrected, and currently she is not receiving any sodium bicarbonate. We will continue to monitor and do not anticipate any further need for sodium bicarbonate, as her kidney function is now improving. 4. Anemia. At this point, her anemia is stable and does not need a transfusion. 5. Congestive heart failure. Currently her diuretics have been on hold due to dehydration, and volume status remains well compensated. There is no need for a diuretic at present.
== END 2020-02-26 14:28 | disposition home or self-care (01) | DRG 683 ==
LOC: EDBD 12:24 → EDSEX 12:24 → M ED 12:24 → M ED INP 17:21 → ENRESERVTM 18:35 → ENRESERVDT 18:35 → M MSPAV 20:07
PROVIDERS: ADMIT Internal Medicine; ATTEND Internal Medicine Nephrology
DX: N17.9 Acute kidney failure, unspecified (principal); I50.22 Chronic systolic (congestive) heart failure; N39.0 Urinary tract infection, site not specified; E87.2 Acidosis; N18.3 Chronic kidney disease, stage 3 (moderate); I25.2 Old myocardial infarction; E78.5 Hyperlipidemia, unspecified; E03.9 Hypothyroidism, unspecified; D63.1 Anemia in chronic kidney disease; E87.6 Hypokalemia; I25.10 Atherosclerotic heart disease of native coronary artery without angina pectoris; G40.909 Epilepsy, unspecified, not intractable, without status epilepticus; Z79.899 Other long term (current) drug therapy; E73.9 Lactose intolerance, unspecified; Z88.8 Allergy status to other drugs, medicaments and biological substances; Z91.018 Allergy to other foods; Z88.4 Allergy status to anesthetic agent; B96.89 Other specified bacterial agents as the cause of diseases classified elsewhere; Z96.0 Presence of urogenital implants

== ENCOUNTER → 2020-03-02 | Outpatient (REF) | payer MEDICARE, MEDICAID ==
[~2020-03-02] MED LIST changes: +ATOR80TA59 PO; +OXYB10TA23 PO
== END ==
LOC: M LAB REF 16:35
PROVIDERS: ATTEND Internal Medicine Nephrology
DX: N39.0 Urinary tract infection, site not specified (principal)

== ENCOUNTER → 2020-03-07 | Outpatient (CLI) | payer MEDICARE, MEDICAID ==
--- NOTE | 2020-03-08 05:21 | REP ---
Clinical: Hydronephrosis. Comparison: 02/22/2020. Technique: Real time reynolds scale and color Doppler evaluation using curved array transducer. Findings: Known horseshoe kidney malformation. Right renal moiety measures 13.8 x 5.6 x 5.0 cm (RI 0.76) with hyperechoic echotexture and moderate hydroureteronephrosis as well as multiple presumed calculi measuring up to 2 cm and milk of calcium in dilated calyces. Right ureteral stent is suggested but incompletely identified. Left renal moiety measures 9.9 x 4.6 x 5.9 cm (RI 0.73) with hyperechoic echotexture and moderate hydronephrosis as well as 1.6 cm simple mid pole cyst and multiple presumed calculi measuring up to 1.6 cm. Left ureteral stent is suggested but incompletely identified. Bladder demonstrates echogenic material/debris and ureteral stents. Impression: Moderate bilateral hydronephrosis with nephrolithiasis. Ureteral stents. 1.6 cm left renal cyst. Electronically Signed by Santana Minor MD 03/08/2020 05:12 A
== END ==
LOC: M RAD 11:10
PROVIDERS: ATTEND Nurse Practitioner Women's Health
DX: N13.39 Other hydronephrosis (principal); 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, fused and horseshoe kidney; N28.1 Cyst of kidney, acquired; N20.0 Calculus of kidney; Z96.0 Presence of urogenital implants

== ENCOUNTER → 2020-03-29 | Outpatient (CLI) | payer MEDICARE, MEDICAID ==
[2020-03-29 13:43] LABS: HEMATOCRIT 34.4 % (36.0-47.0); HEMOGLOBIN 10.9 g/dl (12.0-15.5); MEAN CORPUSCULAR HEMOGLOBIN 34.8 pg (27.0-33.0); MEAN CORPUSCULAR HGB CONC 31.7 g/dl (32.0-36.5); MEAN CORPUSCULAR VOLUME 109.9 fl (80.0-96.0); PLATELET COUNT, AUTOMATED 265 10^3/uL (150-450); RED BLOOD COUNT 3.13 10^6/uL (4.00-5.40)
[2020-03-29 13:44] LABS: APPEARANCE, URINE TURBID (CLEAR); BACTERIA, URINE AUTO 2+ (NEGATIVE); BILIRUBIN, URINE AUTO NEGATIVE (NEGATIVE); BLOOD, URINE BLOOD 3+ (NEGATIVE); COLOR, URINE YELLOW (YELLOW); GLUCOSE, URINE (UA) AUTO NEGATIVE (NEGATIVE); KETONE, URINE AUTO NEGATIVE (NEGATIVE); LEUKOCYTE ESTERASE, URINE AUTO 3+ (NEGATIVE); MUCUS, URINE SMALL (NEGATIVE); NITRITE, URINE AUTO NEGATIVE (NEGATIVE); PROTEIN, URINE AUTO 1+ mg/dL (NEGATIVE); RBC, URINE AUTO 133 /HPF (0-3); SPECIFIC GRAVITY URINE AUTO 1.009 (1.002-1.035); SQUAMOUS EPITHELIAL CELL UR AU 4 /HPF (0-6); UROBILINOGEN, URINE AUTO 0.2 mg/dL (0.0-2.0); WBC, URINE AUTO TNTC /HPF (0-3)
[2020-03-29 13:53] LABS: INR 0.96; PROTHROMBIN TIME 12.5 SECONDS (11.8-14.0)
[2020-03-29 13:54] LABS: PARTIAL THROMBOPLASTIN TIME 31.7 SECONDS (25.0-38.4)
[2020-03-29 14:00] LABS: CALCIUM LEVEL 9.2 MG/DL (8.8-10.2); CREATININE FOR GFR 1.23 MG/DL (0.55-1.30); GLOMERULAR FILTRATION RATE 45.8 (>39); POTASSIUM SERUM 4.9 MEQ/L (3.5-5.1)
--- NOTE | 2020-03-30 02:21 | REP ---
Clinical: Congenital renal deformities . Comparison: 02/18/2020 . Technique: PA and lateral. Findings: The mediastinum and cardiac silhouette are stable and within normal limits. Lung loyola demonstrate chronic COPD/emphysematous changes and interstitial disease. No focal consolidation, effusion, or pneumothorax. Skeletal structures demonstrate age-related osteopenia and degenerative changes. Impression: Stable chronic changes. Electronically Signed by Santana Minor MD 03/30/2020 02:12 A
== END ==
LOC: M LAB 12:54
PROVIDERS: ATTEND Urology
DX: Z01.818 Encounter for other preprocedural examination (principal); 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, fused and horseshoe kidney; N13.39 Other hydronephrosis; R56.9 Unspecified convulsions; Z51.81 Encounter for therapeutic drug level monitoring; Z79.899 Other long term (current) drug therapy

== ENCOUNTER → 2020-04-03 | Outpatient (CLI) | payer MEDICARE, MEDICAID | LOC: M LABSMTC 10:21 | PROVIDERS: ATTEND Anesthesiology | DX: Z01.818 Encounter for other preprocedural examination (principal); Z11.59 Encounter for screening for other viral diseases | CPT/HCPCS: C9803; U0003 ==

== ENCOUNTER → 2020-04-11 | Outpatient (CLI) | payer MEDICARE, MEDICAID | LOC: M LABSMTC 10:24 | PROVIDERS: ATTEND Anesthesiology | DX: Z01.818 Encounter for other preprocedural examination (principal); Z11.59 Encounter for screening for other viral diseases | CPT/HCPCS: C9803; U0003 ==

== ENCOUNTER 2020-04-14 14:12 | Day surgery (SDC) | payer MEDICARE, MEDICAID ==
[~2020-04-14] VITALS: Ht 147.3 cm; Wt 64.0 kg
[~2020-04-14 14:12] MED LIST changes: +LR 1,000 ML IV ONE; +LevoFLOXacin IV 500 MG in IV 1 EA IV ONE
[2020-04-14] MEDS ORDERED: ONDANSETRON 4MG/2ML VIAL As Ordered ONE (15:53)
[2020-04-14] MEDS ORDERED: propofoL 200 MG/20 ML VIAL As Ordered ONE (15:53)
[2020-04-14] MEDS ORDERED: LIDOCAINE 2% 100MG/5ML SDV (FOR ANES.) As Ordered ONE (15:53)
[2020-04-14] MEDS ORDERED: fentaNYL 100 MCG/2 ML INJECTION (J3010) As Ordered ONE ×2 (15:54→16:25)
[2020-04-14] MEDS ORDERED: METOCLOPRAMIDE INJ 10MG/2ML VIAL (J2765 PER 1) As Ordered ONE (15:56)
[2020-04-14] MEDS ORDERED: dexameTHASONE 4 MG/ML 1ML VIAL (J1100 PER 1MG) As Ordered ONE (16:31)
[2020-04-14] MEDS ORDERED: MIDAZOLAM INJ 2MG/2ML VIAL (J2250 PER 1MG) As Ordered ONE (17:06)
[2020-04-14] MEDS ORDERED: ISOVUE-300 61% 50ML VIAL As Ordered ONE (17:39)
--- NOTE | 2020-04-14 18:48 | ROOPDOC ---
[facility] Report Of Operation Report of Operation DATE OF PROCEDURE: 04/14/20 PREPROCEDURE DIAGNOSIS: Bilateral hydronephrosis. POSTPROCEDURE DIAGNOSIS: Bilateral hydronephrosis. PROCEDURE: Cystoscopy, bilateral ureteral stent exchange, bilateral retrograde pyelograms with intraoperative interpretation of images. SURGEON: Dr. Malorie Malcolm SUGGESTION CLERK: None. ANESTHESIA: Monitored anesthesia care (MAC). OPERATIVE INDICATIONS: This is a 70-year-old female with bilateral hydronephrosis, managed with chronic ureteral stenting. She is here today for routine stent exchange. DESCRIPTION OF PROCEDURE: The patient was brought to the operating room and monitored anesthesia care (MAC) anesthesia was administered. Prophylactic antibiotics were infused. She was then placed in the dorsal lithotomy position and prepped and draped in the usual sterile fashion. A rigid cystoscope was then inserted into the urethral meatus and advanced to the bladder. Once inside the bladder, the two previously placed black silicone stents were seen. At this point, I advanced a wire up the left collecting system and then removed the left ureteral stent. I then advanced a #5-Nepali open-ended ureteral catheter up the left collecting system. The wire was removed. A retrograde pyelogram was performed and it was notable for severe left hydronephrosis, with no extravasation. I then advanced the wire back up the left collecting system. I removed the ureteral catheter and then utilized the wire to advance a #7-Nepali x 22 cm black silicone stent into the left collecting system. The wire was removed, and there were adequate curls of the stent in the left renal pelvis and in the bladder. I then advanced a wire up the right collecting system, and removed the right ureteral stent. I then advanced a #5-Nepali open-ended ureteral catheter into the right collecting system. The wire was removed, and a retrograde pyelogram was performed. It was notable for severe right hydronephrosis with no extravasation. I then removed the ureteral catheter and then utilized the wire to advance a #7-Frech x 22 cm black silicone stent into the right collecting system. The wire was removed, and there were adequate curls of the stent in the right renal pelvis and in the bladder. The bladder was emptied of all fluids, and this marked the conclusion of the procedure. The patient was taken out of the dorsal lithotomy position, awakened from anesthesia, and transported to the recovery room in stable condition. Estimated blood loss: 5 mL. Complications: None. Specimens: None. PLAN: The patient will followup in the clinic in approximately 3 months to get her set up for ureteral stent exchange in 4 months. MALORIE MALCOLM MD Apr 14, 2020 18:48
[2020-04-14 19:35] VITALS: BP 109/55
--- NOTE | 2020-04-17 09:29 | REP ---
RETROGRADE PYELOGRAM: Three views. HISTORY: Bilateral stent exchange. Comparison study September 10, 2019. 27 seconds of fluoroscopy time is reported. FINDINGS: A sequence of three last image hold fluoroscopically obtained spot radiographs of the abdomen document bilateral double pigtail ureteral stent placement and position. Bilateral hydronephrosis is seen. Electronically Signed by Brooks Ghotra MD 04/17/2020 02:52 P
== END 2020-04-14 19:50 | disposition home or self-care (01) ==
LOC: M SDC 14:12
PROVIDERS: ATTEND Urology
DX: N13.39 Other hydronephrosis (principal); I10 Essential (primary) hypertension; E78.00 Pure hypercholesterolemia, unspecified; K21.9 Gastro-esophageal reflux disease without esophagitis; I25.2 Old myocardial infarction; E03.9 Hypothyroidism, unspecified; F32.9 Major depressive disorder, single episode, unspecified; Z79.899 Other long term (current) drug therapy; Z88.8 Allergy status to other drugs, medicaments and biological substances; E73.9 Lactose intolerance, unspecified
CPT/HCPCS: 52332; 74420; C1769; C2617; J1100; J1956; J2250; J2405; J2765; J3010; Q9967

== ENCOUNTER → 2020-06-14 | Outpatient (CLI) | payer MEDICARE, MEDICAID ==
[~2020-06-14] MED LIST changes: +ACET650T61 PO; +ASPI81TA86 PO; -LR 1,000 ML IV ONE; -LevoFLOXacin IV 500 MG in IV 1 EA IV ONE; -TYLE650T35 PO
--- NOTE | 2020-06-29 17:51 | REPMRS ---
Patient History The patient states she had a clinical breast exam in June 2020.Patient is postmenopausal and is nulliparous. Family history of breast cancer at age 50 or over in mother, prostate cancer at age 50 or over in father. Digital Woman Screen Mammo: June 14, 2020 - Exam #: [id number] Bilateral CC and MLO view(s) were taken. Technologist: Huong Freeman, Technologist Prior study comparison: March 24, 2019, bilateral digital woman screen mammo, performed at [facility]. March 13, 2018, digital woman screen mammo, performed at [facility]. February 18, 2017, digital woman screen mammo, performed at [facility]. FINDINGS: There are scattered fibroglandular densities. The Volpara volumetric breast density category is:B. There has been no change in the appearance of the mammogram from the prior studies. There is a mild amount of scattered fibroglandular density which is fairly symmetric. There is no interval development of dominant mass, architectural distortion, or grouped microcalcification suggestive of malignancy. 3-D tomosynthesis shows no additional findings. Assessment: BI-RADS/ACR category 1 mammogram. Negative Mammogram. Recommendation Routine screening mammogram of both breasts in 1 year (for women over age 40). This patient's Lifetime Breast Cancer Risk is estimated at 10.7 %. This mammogram was interpreted with the aid of an FDA-approved computer-aided dectection system. Electronically Signed By: Bart Ghotra MD 06/29/20 0715
--- NOTE | 2020-07-25 14:59 | DEXA ---
AP SPINE L1 - L4 1.087 -0.9 0.8 LT FEMUR TOTAL 0.847 -1.3 0.3 LT NECK 0.801 -1.7 0.0 RT FEMUR TOTAL 0.786 -1.8 -0.2 RT NECK 0.751 -2.1 -0.3 TOTAL BODY TOTAL OTHER COMMENTS: Normal bone densitometry of the spine. The decreased density of the spine does represent significant change. The decreased density of the left hip does represent a significant change. The decreased density of the right hip does represent a significant change. The density of the spine has decreased 6.4% since the initial exam on 11/28/2009. The decreased 4.1% since the most recent exam on 03/13/2018. The density of the left hip has decreased 8.6% since the initial exam on 11/28/2009. The density of the left hip has decreased 3.3% since the most recent exam on 03/13/2018. The density of the right hip has decreased 8.6% since the initial exam on 11/28/2009. The density of the right hip has decreased 7.6% since the most recent exam on 03/13/2018. FOLLOW-UP: Recommendation for the next bone density exam: 2 years. HUSSEIN
== END ==
LOC: M WHC 17:24
PROVIDERS: ATTEND Nurse Practitioner
DX: Z12.31 Encounter for screening mammogram for malignant neoplasm of breast (principal); M84.9 Disorder of continuity of bone, unspecified; Z78.0 Asymptomatic menopausal state; Z80.3 Family history of malignant neoplasm of breast; M85.851 Other specified disorders of bone density and structure, right thigh; M85.852 Other specified disorders of bone density and structure, left thigh; M85.88 Other specified disorders of bone density and structure, other site

== ENCOUNTER → 2020-07-19 | Outpatient (CLI) | payer MEDICARE, MEDICAID ==
[2020-07-19 11:08] LABS: AMORPHOUS SEDIMENT MODERATE (NEGATIVE); APPEARANCE, URINE TURBID (CLEAR); BACTERIA, URINE AUTO 3+ (NEGATIVE); BILIRUBIN, URINE AUTO NEGATIVE (NEGATIVE); BLOOD, URINE BLOOD 2+ (NEGATIVE); COLOR, URINE YELLOW (YELLOW); GLUCOSE, URINE (UA) AUTO NEGATIVE (NEGATIVE); KETONE, URINE AUTO NEGATIVE (NEGATIVE); LEUKOCYTE ESTERASE, URINE AUTO 3+ (NEGATIVE); MUCUS, URINE SMALL (NEGATIVE); NITRITE, URINE AUTO NEGATIVE (NEGATIVE); PROTEIN, URINE AUTO 2+ mg/dL (NEGATIVE); RBC, URINE AUTO 104 /HPF (0-3); SQUAMOUS EPITHELIAL CELL UR AU 4 /HPF (0-6); TRANSITIONAL EPITHELIAL AUTO 3 /HPF; UROBILINOGEN, URINE AUTO 0.2 mg/dL (0.0-2.0); WBC, URINE AUTO TNTC /HPF (0-3)
[2020-07-19 11:16] LABS: HEMOGLOBIN 12.2 g/dl (12.0-15.5); MEAN CORPUSCULAR HEMOGLOBIN 35.8 pg (27.0-33.0); MEAN CORPUSCULAR HGB CONC 32.1 g/dl (32.0-36.5); MEAN CORPUSCULAR VOLUME 111.4 fl (80.0-96.0); PLATELET COUNT, AUTOMATED 333 10^3/uL (150-450); RED BLOOD COUNT 3.41 10^6/uL (4.00-5.40)
[2020-07-19 11:25] LABS: INR 1.01; PROTHROMBIN TIME 13.5 SECONDS (11.8-14.0)
[2020-07-19 11:44] LABS: CALCIUM LEVEL 9.8 MG/DL (8.8-10.2); CREATININE FOR GFR 1.49 MG/DL (0.55-1.30); GLOMERULAR FILTRATION RATE 36.7 (>39); POTASSIUM SERUM 4.6 MEQ/L (3.5-5.1)
== END ==
LOC: M LAB 09:39
PROVIDERS: ATTEND Nurse Practitioner Women's Health
DX: Z01.818 Encounter for other preprocedural examination (principal); N13.39 Other hydronephrosis; Z79.899 Other long term (current) drug therapy

== ENCOUNTER → 2020-08-06 | Outpatient (CLI) | payer MEDICARE, MEDICAID | LOC: M LABSMTC 08:04 | PROVIDERS: ATTEND Anesthesiology | DX: Z01.812 Encounter for preprocedural laboratory examination (principal); Z20.828 Contact with and (suspected) exposure to other viral communicable diseases | CPT/HCPCS: C9803; U0003 ==

== ENCOUNTER 2020-08-11 08:25 | Day surgery (SDC) | payer MEDICARE, MEDICAID ==
[~2020-08-11] VITALS: Ht 149.9 cm; Wt 62.6 kg
[~2020-08-11 08:25] MED LIST changes: +LR 1,000 ML IV ONE; +ceFAZolin SOD 2 GM in IV 1 EA IV ONE
[2020-08-11] MEDS ORDERED: propofoL 200 MG/20 ML VIAL As Ordered ONE (08:26)
[2020-08-11] MEDS ORDERED: dexameTHASONE 4 MG/ML 1ML VIAL (J1100 PER 1MG) As Ordered ONE (08:26)
[2020-08-11] MEDS ORDERED: ONDANSETRON 4MG/2ML VIAL As Ordered ONE (08:26)
[2020-08-11] MEDS ORDERED: LIDOCAINE 2% 100MG/5ML SDV (FOR ANES.) As Ordered ONE (08:26)
[2020-08-11] MEDS ORDERED: MIDAZOLAM INJ 2MG/2ML VIAL (J2250 PER 1MG) As Ordered ONE (08:27)
[2020-08-11] MEDS ORDERED: fentaNYL 100 MCG/2 ML INJECTION (J3010) As Ordered ONE (08:27)
[2020-08-11] MEDS ORDERED: CONRAY-60 60% 50ML VIAL (Q9961) As Ordered ONE (09:10)
[2020-08-11] MEDS ORDERED: LIDOCAINE 2% 5ML JELLY UROJET As Ordered ONE (10:59)
[2020-08-11] MEDS ORDERED: ACETAMINOPHEN 1000MG 100ML IV BTL (OFIRMEV) (J0131 PER 10MG) As Ordered ONE (11:09)
[2020-08-11] MEDS ORDERED: ePHEDrine SULFATE 25 MG/5 ML(5MG/ML) SYRINGE As Ordered ONE (11:10)
[2020-08-11] MEDS ORDERED: LACRILUBE (AKWA TEARS) OPHTH OINT 3.5 GM As Ordered ONE (11:33)
[2020-08-11 13:00] VITALS: BP 112/56
--- NOTE | 2020-08-11 15:51 | ROOPDOC ---
[facility] Report Of Operation Report of Operation DATE OF PROCEDURE: 08/11/20 PREPROCEDURE DIAGNOSIS: Bilateral hydronephrosis. POSTPROCEDURE DIAGNOSIS: Bilateral hydronephrosis. PROCEDURE: Cystoscopy, bilateral ureteral stent exchange, bilateral retrograde pyelograms with intraoperative interpretation of images. SURGEON: Dr. Malorie Malcolm TRANSLATOR: None. ANESTHESIA: Monitored anesthesia care (MAC). OPERATIVE INDICATIONS: This is a 70-year-old female with bilateral ureteral obstruction, managed with chronic ureteral stenting. She is here today for routine stent exchange. DESCRIPTION OF PROCEDURE: The patient was brought to the operating room and monitored anesthesia care (MAC) anesthesia was administered. Prophylactic antibiotics were infused. She was then placed in the dorsal lithotomy position and prepped and draped in the usual sterile fashion. A rigid cystoscope was then inserted into the urethral meatus and advanced to the bladder. Once inside the bladder, the two previously placed black silicone stents were seen. At this point, I advanced a wire up the left collecting system and then removed the left ureteral stent. I then advanced a #5-Slovenian open-ended ureteral catheter up the left collecting system. The wire was removed. A retrograde pyelogram was performed and it was notable for moderate left hydronephrosis, with no extravasation. I then advanced the wire back up the left collecting system. I removed the ureteral catheter and then utilized the wire to advance a #7-Slovenian x 22 cm black silicone stent into the left collecting system. The wire was removed, and there were adequate curls of the stent in the left renal pelvis and in the bladder. I then advanced a wire up the right collecting system, and removed the right ureteral stent. I then advanced a #5-Slovenian open-ended ureteral catheter into the right collecting system. The wire was removed, and a retrograde pyelogram was performed. It was notable for severe right hydronephrosis with no extravasation. I then removed the ureteral catheter and then utilized the wire to advance a #7-Frech x 22 cm black silicone stent into the right collecting system. The wire was removed, and there were adequate curls of the stent in the right renal pelvis and in the bladder. The bladder was emptied of all fluids, and this marked the conclusion of the procedure. The patient was taken out of the dorsal lithotomy position, awakened from anesthesia, and transported to the recovery room in stable condition. Estimated blood loss: 5 mL. Complications: None. Specimens: None. PLAN: The patient will followup in the clinic in 3 months to get her setup for ureteral stent exchange in 4 months. MALORIE MALCOLM MD Aug 11, 2020 15:51
--- NOTE | 2020-08-16 08:41 | REP ---
C-ARM VIEWS ABDOMEN AND PELVIS HISTORY: Ureteral stent exchange. TECHNIQUE: Three views of the abdomen and pelvis are performed during bilateral ureteral stent exchange. FINDINGS: Contrast partially opacifies both pelvicalyceal systems. On the final image, bilateral ureteral stents are noted with their proximal ends in their respective renal pelvis and distal ends in the urinary bladder. FLUROSCOPY TIME: 38 seconds utilized. MTDD
== END 2020-08-11 13:00 | disposition home or self-care (01) ==
LOC: M SDC 08:25
PROVIDERS: ATTEND Urology
DX: N13.30 Unspecified hydronephrosis (principal); I25.2 Old myocardial infarction; I10 Essential (primary) hypertension; E78.5 Hyperlipidemia, unspecified; E03.9 Hypothyroidism, unspecified; K21.9 Gastro-esophageal reflux disease without esophagitis; D64.9 Anemia, unspecified; Z88.8 Allergy status to other drugs, medicaments and biological substances; E73.9 Lactose intolerance, unspecified; Z91.018 Allergy to other foods; Z79.899 Other long term (current) drug therapy
CPT/HCPCS: 52332; 74420; C1769; C2617; J0131; J0690; J1100; J2250; J2405; J3010; Q9961

== ENCOUNTER → 2020-09-20 | Outpatient (CLI) | payer MEDICARE, MEDICAID ==
[~2020-09-20] MED LIST changes: -LR 1,000 ML IV ONE; -ceFAZolin SOD 2 GM in IV 1 EA IV ONE
[2020-09-20 10:48] LABS: CHOLESTEROL RISK RATIO 2.962 (<5)
== END ==
LOC: M LAB 09:13
PROVIDERS: ATTEND Physician Assistant
DX: E78.2 Mixed hyperlipidemia (principal); R56.9 Unspecified convulsions; Z51.81 Encounter for therapeutic drug level monitoring

== ENCOUNTER → 2020-09-20 | Outpatient (CLI) | payer MEDICARE, MEDICAID | LOC: M LAB 09:23 | PROVIDERS: ATTEND Physician Assistant Medical | DX: R56.9 Unspecified convulsions (principal); Z51.81 Encounter for therapeutic drug level monitoring ==

== ENCOUNTER → 2020-11-29 | Outpatient (CLI) | payer MEDICARE, MEDICAID ==
[~2020-11-29] MED LIST changes: +ECOT81TA5 PO
--- NOTE | 2020-11-29 11:00 | REP ---
INDICATION: OTHER HYDRONEPHROSIS, LAB 1ST THEN XR COMPARISON: 03/29/2020 TECHNIQUE: PA and lateral. FINDINGS: The mediastinum and cardiac silhouette are stable. The lung loyola demonstrate stable chronic changes without acute consolidation, effusion, or pneumothorax. The skeletal structures are intact and normal. IMPRESSION: No acute cardiopulmonary process. Stable chronic changes. <Electronically signed by Santana Minor > 11/29/20 [id number]
[2020-11-29 11:09] LABS: APPEARANCE, URINE TURBID (CLEAR); BACTERIA, URINE AUTO 1+ (NEGATIVE); BILIRUBIN, URINE AUTO NEGATIVE (NEGATIVE); BLOOD, URINE BLOOD 3+ (NEGATIVE); COLOR, URINE YELLOW (YELLOW); GLUCOSE, URINE (UA) AUTO NEGATIVE (NEGATIVE); KETONE, URINE AUTO NEGATIVE (NEGATIVE); LEUKOCYTE ESTERASE, URINE AUTO 3+ (NEGATIVE); NITRITE, URINE AUTO NEGATIVE (NEGATIVE); PROTEIN, URINE AUTO 2+ mg/dL (NEGATIVE); RBC, URINE AUTO 76 /HPF (0-3); SQUAMOUS EPITHELIAL CELL UR AU 2 /HPF (0-6); UROBILINOGEN, URINE AUTO 0.2 mg/dL (0.0-2.0); WBC, URINE AUTO TNTC /HPF (0-3)
[2020-11-29 11:15] LABS: HEMATOCRIT 37.5 % (36.0-47.0); HEMOGLOBIN 12.3 g/dl (12.0-15.5); MEAN CORPUSCULAR HEMOGLOBIN 35.2 pg (27.0-33.0); MEAN CORPUSCULAR HGB CONC 32.8 g/dl (32.0-36.5); MEAN CORPUSCULAR VOLUME 107.4 fl (80.0-96.0); PLATELET COUNT, AUTOMATED 316 10^3/uL (150-450); RED BLOOD COUNT 3.49 10^6/uL (4.00-5.40); WHITE BLOOD COUNT 6.9 10^3/uL (4.0-10.0)
[2020-11-29 11:30] LABS: INR 0.92; PROTHROMBIN TIME 12.5 SECONDS (12.5-14.3)
[2020-11-29 11:31] LABS: PARTIAL THROMBOPLASTIN TIME 33.2 SECONDS (24.2-38.5)
[2020-11-29 11:45] LABS: CALCIUM LEVEL 10.1 MG/DL (8.8-10.2); CREATININE FOR GFR 1.31 MG/DL (0.55-1.30); GLOMERULAR FILTRATION RATE 42.6 (>39); POTASSIUM SERUM 5.2 MEQ/L (3.5-5.1)
== END ==
LOC: M LAB 09:39
PROVIDERS: ATTEND Nurse Practitioner Women's Health
DX: Z01.818 Encounter for other preprocedural examination (principal); N13.39 Other hydronephrosis; Z79.899 Other long term (current) drug therapy

== ENCOUNTER → 2020-12-06 | Outpatient (CLI) | payer MEDICARE, MEDICAID | LOC: M LABSMTC 12:25 | PROVIDERS: ATTEND Anesthesiology | DX: Z01.812 Encounter for preprocedural laboratory examination (principal) ==

== ENCOUNTER 2020-12-11 06:04 | Day surgery (SDC) | payer MEDICARE, MEDICAID ==
[~2020-12-11] VITALS: Ht 149.9 cm; Wt 68.0 kg
[2020-12-11] MEDS ORDERED: ceFAZolin SOD 2 GM in IV 1 EA IV ONE (06:30)
[2020-12-11] MEDS ORDERED: propofoL 200 MG/20 ML VIAL As Ordered ONE (07:13)
[2020-12-11] MEDS ORDERED: LIDOCAINE 2% 100MG/5ML SDV (FOR ANES.) As Ordered ONE (07:13)
[2020-12-11] MEDS ORDERED: fentaNYL 100 MCG/2 ML INJECTION (J3010) As Ordered ONE (07:13)
[2020-12-11] MEDS ORDERED: MIDAZOLAM INJ 2MG/2ML VIAL (J2250 PER 1MG) As Ordered ONE (07:14)
[2020-12-11] MEDS ORDERED: CONRAY-60 60% 50ML VIAL (Q9961) As Ordered ONE ×2 (07:22→08:06)
[2020-12-11] MEDS ORDERED: KETAMINE HCL 200 MG/20 ML VIAL As Ordered ONE (07:35)
[2020-12-11] MEDS ORDERED: LIDOCAINE 2% 5ML JELLY UROJET As Ordered ONE (07:42)
--- NOTE | 2020-12-11 08:24 | REP ---
INDICATION: BILATERAL CYSTO, URETERAL STENTS. COMPARISON: August 11, 2020.. TECHNIQUE: Six views. 47 seconds of fluoroscopy time is reported. FINDINGS: A sequence of 6 last image hold fluoroscopically obtained spot radiographs of the abdomen document bilateral ureteral cannulation, contrast injection, hydronephrosis, and double-pigtail stent placement. IMPRESSION: Procedural imaging. <Electronically signed by Bart Ghotra > 12/11/20 0889
[2020-12-11] MEDS ORDERED: ONDANSETRON 4MG/2ML VIAL IV PRN (09:15)
[2020-12-11] MEDS ORDERED: LR 1,000 ML IV SCH (09:15)
[2020-12-11] MEDS ORDERED: HYDROMORPHONE HCL 0.5 MG/ 0.5 ML SYRINGE (J1170 PER 1) IV PRN (09:15)
[2020-12-11] MEDS ORDERED: fentaNYL 100 MCG/2 ML INJECTION (J3010) IV PRN (09:15)
[2020-12-11] MEDS ORDERED: oxyCODONE 5MG TAB PO PRN (09:15)
--- NOTE | 2020-12-11 10:08 | ROOPDOC ---
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 COMPLICATIONS: None REMARKS: Chronic obstruction of the left kidney with significant calyceal blunting and small malrotation of the right kidney PROCEDURE NOTE: Patient has a fused horseshoe kidney with bilateral hydronephrosis and nephrolithiasis which has been managed by a lateral ureteral stent exchanges. Her last stent exchange was August 2020. DESCRIPTION OF PROCEDURE: The patient was brought into the operating room and sequential compression devices were in place and preoperative antibiotics were given. Anesthesia was induced. She was then placed in the lithotomy position and careful attention was paid that her pressure points were well-padded and protected. She was prepped and draped in usual fashion. The 21 Honduran cystoscope was inserted. I first pulled the right ureteral stent with grasping forceps and attempted to put a wire through it but was unable to because of calcification. I then removed the right ureteral stent and did a retrograde pyelogram. This did show malrotation of the right kidney. I was able to then place a wire under fluoroscopy and then an 8 Honduran double-J ureteral stent with a good curl in the kidney and down in the bladder. Procedure was then repeated on the left-hand side. The left kidney showed more chronic [place] with blunting of the calyces. The patient tolerated the procedure well and was returned to the recovery room in stable condition. Patient has not had a renal scan so I will be ordering 1 and also a KUB to look at the stones. MARIA A VILLALOBOS MD Dec 11, 2020 10:08
[2020-12-11 10:14] VITALS: BP 143/66
== END 2020-12-11 10:20 | disposition home or self-care (01) ==
LOC: M SDC 06:04
PROVIDERS: ATTEND Specialist
DX: N13.39 Other hydronephrosis (principal); 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, fused and horseshoe kidney; N20.0 Calculus of kidney; D64.9 Anemia, unspecified; I10 Essential (primary) hypertension; I25.2 Old myocardial infarction; I50.9 Heart failure, unspecified; Z79.82 Long term (current) use of aspirin; E78.5 Hyperlipidemia, unspecified; E03.9 Hypothyroidism, unspecified; K21.9 Gastro-esophageal reflux disease without esophagitis; Z88.8 Allergy status to other drugs, medicaments and biological substances; Z91.018 Allergy to other foods; E73.9 Lactose intolerance, unspecified; F32.9 Major depressive disorder, single episode, unspecified; Z79.899 Other long term (current) drug therapy
CPT/HCPCS: 52332; 74420; C1769; C2617; J0690; J2250; J2405; J3010; Q9961

== ENCOUNTER → 2020-12-28 | Outpatient (CLI) | payer MEDICARE, MEDICAID ==
--- NOTE | 2020-12-28 14:19 | REP ---
INDICATION: LOBULABED FUSED HORSE KIDNEY. COMPARISON: Comparison nuclear renal scintigraphy is from May 26, 2013.. TECHNIQUE: 3.3 mCi of technetium 99 M DTPA is administered for the GFR portion of the study and sequential posterior flow images are acquired. Regions of interest are drawn for GFR calculation assessment. Following this, 8.8 mCi of technetium 99 M Mag 3 is injected and posterior flow and excretory phase images are acquired. Renal cortical regions of interest are drawn and time activity curves are plotted for renal function analysis. FINDINGS: The the GFR portion of the study using DTPA demonstrates differential renal function counts at 59% left and 41% right kidney. Normalized GFR for patient body surface area 52.5 mL/min. Low normal GFR 73 mL/minute. Posterior flow study shows symmetric perfusion of the renal moieties. Renal axis is more vertical in usual due to the horseshoe kidney anomaly. No intrarenal mass is observed. Excretory phase images show symmetric function without evidence of significant hydronephrosis on either side. On the Mag 3 portion of the study, differential renal function analysis is 36% of overall cortical counts coming from the left kidney and 64% from the right. Time to peak activity is less than 1 minute on the left and 4.0 minutes on the right. Time to half max activity is greater than 30 minutes bilaterally. Flat excretion curves are noted bilaterally. IMPRESSION: Bilaterally flat renal excretion curves consistent with it overall impaired renal function. The measured GFR is low at 52.1 mL/minute period no evidence of obstructive uropathy. <Electronically signed by Bart Ghotra > 12/28/20 [id number]
== END ==
LOC: M RAD 12:23
PROVIDERS: ATTEND Specialist
DX: 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, fused and horseshoe kidney (principal)
CPT/HCPCS: 78707; A9539; A9562

== ENCOUNTER → 2021-03-06 | Outpatient (CLI) | payer MEDICARE, MEDICAID | LOC: M LAB 09:26 | PROVIDERS: ATTEND Physician Assistant Medical | DX: R56.9 Unspecified convulsions (principal) ==

== ENCOUNTER → 2021-03-06 | Outpatient (CLI) | payer MEDICARE, MEDICAID ==
--- NOTE | 2021-03-06 14:28 | REP ---
INDICATION: LOBULATED, FUSED AND HORSESHOE KIDNEY COMPARISON: 11/29/2020 TECHNIQUE: PA and lateral. FINDINGS: The mediastinum and cardiac silhouette are normal. The lung loyola demonstrate stable chronic changes primarily noted at the right base without acute consolidation, effusion, or pneumothorax. The skeletal structures are intact and normal. IMPRESSION: No acute cardiopulmonary process. Chronic stable changes. <Electronically signed by Santana Minor > 03/06/21 [id number]
--- NOTE | 2021-03-06 15:24 | REP ---
INDICATION: LOBULATED, FUSED AND HORSESHOE KIDNEY COMPARISON: None. TECHNIQUE: Supine views of the abdomen and pelvis. FINDINGS: Bilateral ureteral stents are identified in satisfactory position. Bowel gas pattern is nonspecific although fecal stasis cannot be excluded. No organomegaly. No significant abnormal calcifications or foreign body. Skeletal structures demonstrate age-related degenerative changes primarily involving the bilateral hips. IMPRESSION: Bilateral ureteral stents in satisfactory position. <Electronically signed by Santana Minor > 03/06/21 [id number]
== END ==
LOC: M LAB 09:30
PROVIDERS: ATTEND Nurse Practitioner Women's Health
DX: Z01.818 Encounter for other preprocedural examination (principal); 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, fused and horseshoe kidney; N13.39 Other hydronephrosis; N20.0 Calculus of kidney; R56.9 Unspecified convulsions

== ENCOUNTER → 2021-03-11 | Outpatient (CLI) | payer MEDICARE, MEDICAID ==
[~2021-03-11] MED LIST changes: +IRON65TA2 PO
== END ==
LOC: M LABSMTC 08:11
PROVIDERS: ATTEND Anesthesiology
DX: Z01.818 Encounter for other preprocedural examination (principal); Z11.52 Encounter for screening for COVID-19

== ENCOUNTER → 2021-03-13 | Outpatient (CLI) | payer MEDICARE, MEDICAID ==
[2021-03-13 10:50] LABS: HEMATOCRIT 39.7 % (36.0-47.0); HEMOGLOBIN 12.6 g/dl (12.0-15.5); MEAN CORPUSCULAR HEMOGLOBIN 34.1 pg (27.0-33.0); MEAN CORPUSCULAR HGB CONC 31.7 g/dl (32.0-36.5); MEAN CORPUSCULAR VOLUME 107.3 fl (80.0-96.0); PLATELET COUNT, AUTOMATED 292 10^3/uL (150-450); WHITE BLOOD COUNT 5.9 10^3/uL (4.0-10.0)
[2021-03-13 10:52] LABS: APPEARANCE, URINE CLOUDY (CLEAR); BACTERIA, URINE AUTO 2+ (NEGATIVE); BILIRUBIN, URINE AUTO NEGATIVE (NEGATIVE); BLOOD, URINE BLOOD 2+ (NEGATIVE); COLOR, URINE YELLOW (YELLOW); GLUCOSE, URINE (UA) AUTO NEGATIVE (NEGATIVE); KETONE, URINE AUTO NEGATIVE (NEGATIVE); LEUKOCYTE ESTERASE, URINE AUTO 3+ (NEGATIVE); MUCUS, URINE SMALL (NEGATIVE); NITRITE, URINE AUTO NEGATIVE (NEGATIVE); PROTEIN, URINE AUTO 2+ mg/dL (NEGATIVE); RBC, URINE AUTO 83 /HPF (0-3); SQUAMOUS EPITHELIAL CELL UR AU 0 /HPF (0-6); UROBILINOGEN, URINE AUTO 0.2 mg/dL (0.0-2.0); WBC, URINE AUTO TNTC /HPF (0-3)
[2021-03-13 11:06] LABS: INR 0.87
[2021-03-13 11:07] LABS: PARTIAL THROMBOPLASTIN TIME 30.2 SECONDS (24.2-38.5)
[2021-03-13 11:22] LABS: CALCIUM LEVEL 9.7 MG/DL (8.8-10.2); CREATININE FOR GFR 1.25 MG/DL (0.55-1.30); POTASSIUM SERUM 4.8 MEQ/L (3.5-5.1)
== END ==
LOC: M LAB 10:06
PROVIDERS: ATTEND Nurse Practitioner Women's Health
DX: Z01.818 Encounter for other preprocedural examination (principal); N13.39 Other hydronephrosis; 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, fused and horseshoe kidney

== ENCOUNTER 2021-03-16 07:53 | Day surgery (SDC) | payer MEDICARE, MEDICAID ==
[~2021-03-16] VITALS: Ht 149.9 cm; Wt 73.7 kg
[~2021-03-16 07:53] MED LIST changes: +CONRAY-60 60% 50ML VIAL (Q9961) As Ordered ONE; +LR 1,000 ML IV ONE; +ceFAZolin SOD 2 GM in IV 1 EA IV ONE
[2021-03-16] MEDS ORDERED: propofoL 500 MG/50 ML VIAL As Ordered ONE (08:09)
[2021-03-16] MEDS ORDERED: MIDAZOLAM INJ 2MG/2ML VIAL (J2250 PER 1MG) As Ordered ONE (08:09)
[2021-03-16] MEDS ORDERED: fentaNYL 100 MCG/2 ML INJECTION (J3010) As Ordered ONE (08:09)
[2021-03-16] MEDS ORDERED: ONDANSETRON 4MG/2ML VIAL As Ordered ONE (08:26)
[2021-03-16] MEDS ORDERED: LIDOCAINE 2% 5ML JELLY UROJET As Ordered ONE (08:58)
--- NOTE | 2021-03-16 09:23 | REP ---
INDICATION: BILATERAL STENT PLACEMENT. COMPARISON: None. TECHNIQUE: Three AP views abdomen and pelvis. FINDINGS: Contrast partially opacifies the pelvocaliceal systems bilaterally. There are bilateral ureteral stents which appear to be in good position, the proximal ends are coiled in the region of the renal pelvis bilaterally and the distal ends in the region of the urinary bladder. IMPRESSION: 24 seconds fluoroscopy time utilized. <Electronically signed by Huseyin Whiting > 03/16/21 0995
--- NOTE | 2021-03-16 09:44 | ROOPDOC ---
[facility] Report Of Operation Report of Operation DATE OF PROCEDURE: 03/16/21 PREPROCEDURE DIAGNOSIS: Bilateral hydronephrosis. POSTPROCEDURE DIAGNOSIS: Bilateral hydronephrosis. PROCEDURE: Cystoscopy, bilateral ureteral stent exchange, bilateral retrograde pyelograms with intraoperative interpretation of images. SURGEON: Dr. Malorie Malcolm FOOD AND BEVERAGE LEAD: None. ANESTHESIA: Monitored anesthesia care (MAC). OPERATIVE INDICATIONS: This is a 71-year-old female with bilateral ureteral obstruction, managed with chronic ureteral stenting. She is here today for routine stent exchange. DESCRIPTION OF PROCEDURE: The patient was brought to the operating room and MAC anesthesia was administered. Prophylactic antibiotics were infused. She was then placed in the dorsal lithotomy position and prepped and draped in the usual sterile fashion. A rigid cystoscope was then inserted into the urethral meatus and advanced to the bladder. Once inside the bladder, the two previously placed ureteral stents were seen. At this point, I advanced a wire up the left collecting system and then removed the left ureteral stent. I then advanced a #5-Kittitian open-ended ureteral catheter up the left collecting system. The wire was removed. A retrograde pyelogram was performed and it was notable for moderate left hydronephrosis, with no extravasation. I then advanced the wire back up the left collecting system. I removed the ureteral catheter and then utilized the wire to advance a #7-Kittitian x 22 cm black silicone stent into the left collecting system. The wire was removed, and there were adequate curls of the stent in the left renal pelvis and in the bladder. I then advanced a wire up the right collecting system, and removed the right ureteral stent. I then advanced a #5-Kittitian open-ended ureteral catheter into the right collecting system. The wire was removed, and a retrograde pyelogram was performed. It was notable for severe right hydronephrosis with no extravasation. I then removed the ureteral catheter and then utilized the wire to advance a #7-Frech x 22 cm black silicone stent into the right collecting system. The wire was removed, and there were adequate curls of the stent in the right renal pelvis and in the bladder. The bladder was emptied of all fluids, and this marked the conclusion of the procedure. The patient was taken out of the dorsal lithotomy position, awakened from anesthesia, and transported to the recovery room in stable condition. Estimated blood loss: 5 mL. Complications: None. Specimens: None. PLAN: The patient will followup in the clinic in 3 months to get her setup for ureteral stent exchange in 4 months. MALORIE MALCOLM MD March 16, 2021 09:44
[2021-03-16 10:29] VITALS: BP 119/58
== END 2021-03-16 10:31 | disposition home or self-care (01) ==
LOC: M SDC 07:53
PROVIDERS: ATTEND Urology
DX: N13.39 Other hydronephrosis (principal); 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, fused and horseshoe kidney; I25.2 Old myocardial infarction; I10 Essential (primary) hypertension; E78.00 Pure hypercholesterolemia, unspecified; E03.9 Hypothyroidism, unspecified; K21.9 Gastro-esophageal reflux disease without esophagitis; H40.9 Unspecified glaucoma; F32.9 Major depressive disorder, single episode, unspecified; R51.9 Headache, unspecified; G40.909 Epilepsy, unspecified, not intractable, without status epilepticus; Z88.8 Allergy status to other drugs, medicaments and biological substances; Z91.018 Allergy to other foods; E73.9 Lactose intolerance, unspecified; Z79.899 Other long term (current) drug therapy
CPT/HCPCS: 52332; 74420; C1769; C2617; J0690; J2250; J2405; J3010; Q9961

== ENCOUNTER → 2021-04-18 | Outpatient (CLI) | payer MEDICARE, MEDICAID ==
[~2021-04-18] MED LIST changes: -CONRAY-60 60% 50ML VIAL (Q9961) As Ordered ONE; -LR 1,000 ML IV ONE; -ceFAZolin SOD 2 GM in IV 1 EA IV ONE
== END ==
LOC: M LAB 15:16
PROVIDERS: ATTEND Physician Assistant
DX: R60.0 Localized edema (principal)

== ENCOUNTER 2021-06-27 14:25 | Inpatient (IN) | payer MEDICARE, OTHER ==
[~2021-06-27] VITALS: Ht 149.9 cm; Wt 73.8 kg
[2021-06-27] MEDS ORDERED: FURO20TA2 (14:34)
[2021-06-27 19:16] LABS: BASO # 0.1 10^3/uL (0.0-0.2); BASO % 0.4 % (0.0-1.0); EOS # 0.1 10^3/uL (0.0-0.5); EOS % 0.7 % (0.0-3.0); HEMATOCRIT 41.9 % (36.0-47.0); HEMOGLOBIN 13.8 g/dl (12.0-15.5); LYMPH % 8.6 % (24.0-44.0); MEAN CORPUSCULAR HEMOGLOBIN 34.1 pg (27.0-33.0); MEAN CORPUSCULAR HGB CONC 32.9 g/dl (32.0-36.5); MEAN CORPUSCULAR VOLUME 103.5 fl (80.0-96.0); MONO # 1.4 10^3/uL (0.0-0.8); MONO % 11.5 % (2.0-8.0); NEUTROPHILS # 9.2 10^3/uL (1.5-8.5); PLATELET COUNT, AUTOMATED 354 10^3/uL (150-450); RED BLOOD COUNT 4.05 10^6/uL (4.00-5.40); WHITE BLOOD COUNT 11.8 10^3/uL (4.0-10.0)
[2021-06-27] MEDS ORDERED: NS 1,000 ML IV ONE (20:05)
--- NOTE | 2021-06-27 21:08 | REPVR ---
PROCEDURE INFORMATION: Exam: CT Abdomen And Pelvis Without Contrast Exam date and time: 06/27/2021 8:26 PM Age: 71 years old Clinical indication: Abdominal pain; Flank; Right; Additional info: Right flank pain, elevated CR. TECHNIQUE: Imaging protocol: Computed tomography of the abdomen and pelvis without contrast. Radiation optimization: All CT scans at this facility use at least one of these dose optimization techniques: automated exposure control; mA and/or kV adjustment per patient size (includes targeted exams where dose is matched to clinical indication); or iterative reconstruction. COMPARISON: CT ABD PELVIS W/O CONTRAST 03/22/2020 2:36 PM FINDINGS: Liver: Scattered calcified hepatic granulomata. Gallbladder and bile ducts: Thick-walled gallbladder containing sludge. Possible small calculus in the gallbladder neck versus a vascular calcification. Clinical correlation to exclude cholecystitis suggested. Pancreas: There is diffuse pancreatic atrophy. Spleen: The spleen demonstrates punctate calcifications, consistent with remote granulomatous organism exposure. Adrenal glands: Normal. No mass. Kidneys and ureters: Multiple bilateral nonobstructive renal calculi. Horseshoe kidney demonstrated. Status post placement of a double pigtail stent in the right collecting system with satisfactory location of the proximal distal coils. There is moderate to severe hydronephrosis in the right moiety possibly etiologic in this patient's symptoms. Left moiety demonstrates a double pigtail stent as well with satisfactory location of the proximal and distal coils. There has been adequate decompression of the left collecting system. Stomach and bowel: Unremarkable. No obstruction. No mucosal thickening. Appendix: No evidence of appendicitis. Intraperitoneal space: Unremarkable. No free air. No significant fluid collection. Vasculature: See "Kidneys and ureters" finding. Lymph nodes: Unremarkable. No enlarged lymph nodes. Urinary bladder: Unremarkable as visualized. Reproductive: There has been a hysterectomy. Bones/joints: Rib deformity right 8th rib may relate to chronic healed fracture. Mild central spinal stenosis L3-L4 and moderate central spinal stenosis L4-L5. Soft tissues: Unremarkable. IMPRESSION: 1. Thick-walled gallbladder containing sludge. Possible small calculus in the gallbladder neck versus a vascular calcification. Clinical correlation to exclude cholecystitis suggested. 2. Horseshoe kidney demonstrated. Status post placement of a double pigtail stent in the right collecting system with satisfactory location of the proximal distal coils. There is moderate to severe hydronephrosis in the right moiety possibly etiologic regarding this patient's symptomatology. Infection to be excluded as well. Left moiety demonstrates a double pigtail stent as well with satisfactory location of the proximal and distal coils. There has been adequate decompression of the left collecting system. 3. There has been a hysterectomy. 4. There is diffuse pancreatic atrophy. Electronically signed by: Sina Hilton On 06/27/2021 21:07:26 PM
[2021-06-27 21:51] LABS: ALT/SGPT 20 U/L (12-78); BILIRUBIN,DIRECT < 0.1 MG/DL (0.0-0.2); BILIRUBIN,TOTAL 0.4 MG/DL (0.2-1.0); BLOOD UREA NITROGEN 63 MG/DL (7-18); CALCIUM LEVEL 10.2 MG/DL (8.8-10.2); CARBON DIOXIDE LEVEL 23 MEQ/L (21-32); CHLORIDE LEVEL 102 MEQ/L (98-107); CREATININE FOR GFR 2.44 MG/DL (0.55-1.30); GLOMERULAR FILTRATION RATE 20.7 (>39); GLUCOSE, FASTING 121 MG/DL (70-100); LIPASE 109 U/L (73-393); POTASSIUM SERUM 4.6 MEQ/L (3.5-5.1); SODIUM LEVEL 135 MEQ/L (136-145); TOTAL PROTEIN 8.1 GM/DL (6.4-8.2)
[2021-06-27] MEDS ORDERED: cefTRIAXone SOD 1 GM in D5W MINI-BAG PLUS 50 ML IV ONE (23:35)
--- NOTE | 2021-06-27 23:58 | HPEPDOC ---
[facility] Medical History & Physical Date of Admission Jun 27, 2021 Date of Service: Jun 27, 2021 History and Physical CHIEF COMPLAINT: Right flank pain HISTORY OF PRESENT ILLNESS: 71-year-old female history of congestive heart failure, chronic kidney disease, hypothyroidism and hyperlipidemia as well as horseshoe kidney with stenting presents with a 4 day history of dysuria and right-sided flank pain. Denies fevers. Endorses some suprapubic tenderness. Found to have pyelonephritis urinalysis was positive urine cultures pending. CT suggestive of moderate to severe hydronephrosis her urologist Dr. Daniel was contacted from the emergency department who asked for patient to be admitted and kept nothing by mouth he will replace her stents in the morning. In the meantime patient will be treated with IV ceftriaxone for the pyelonephritis. Patient was also found to have acute on chronic kidney injury her hand candy dipper is Dr. Drummond. Patient denies any shortness of breath or chest pain denies any nausea or vomiting. 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 REVIEW OF SYSTEMS: 10 point review of systems complete all negative otherwise stated in HPI Neurological: No weakness. HOME MEDICATIONS: Please see below. PHYSICAL EXAMINATION: Constitutional: Awake and alert, in no apparent distress ENT: Sclera are clear. Mucosa is moist. Respiratory: Lungs CTA bilaterally. No respiratory distress. Cardiovascular: RRR S1 and S2 are normal, no murmur Gastrointestinal: Abdomen is soft, non distended, mild suprapubic tenderness. R ight-sided CVA tenderness. Musculoskeletal: Trace lower extremity pitting edema. Neurologic: No focal neurological deficit. Mental Status: A&O x3, normal affect Skin: No visible rashes LABORATORY DATA: See below. IMAGING: See chart MICROBIOLOGY: Please see below. ASSESSMENT # Acute Pyelonephritis # CARLOS on CKD # Moderate to severe hydronephrosis # Horseshoe kidney # Congestive heart failure # CAD # HLD # Hypothyroidism PLAN Visual be admitted to PCU and kept nothing by mouth for procedure tomorrow morning by Dr. Daniel urology to place her stents CT showing moderate to severe hydronephrosis. Follow-up on otitis patient will be treated with IV ceftriaxone. Given the hydronephrosis will hold off on IV fluids for now. Blood cultures are pending. Urine cultures pending. For the acute kidney injury nephrology was consulted she has a horseshoe kidney and follows with Dr Drummond in the clinic. Repeat BMP in the morning. Her chronic home medications for chronic medical problems will be resumed as appropriate. DVT prophylaxis with heparin. A [facility] Hospitalist Vital Signs Vital Signs Date Time Temp Pulse Resp B/P (MAP) Pulse Ox O2 Delivery O2 Flow Rate FiO2 06/27/21 14:25 97.6 50 16 136/72 (93) 95 Room Air Laboratory Data Labs 24H Laboratory Tests 2 06/27/21 18:59: POC Glucose (Misc Panel) 136H, POC Sodium (Misc Panel) 139, POC Potassium (Misc Panel) 4.3, POC Chloride (Misc Panel) 102, POC Total CO2 (Misc Panel) 25.0, POC Blood Urea Nitrogen (Misc Panel 62H, POC Ionized Calcium (Misc Panel) 4.9, POC Creatinine (Misc Panel) 2.7H, POC Hematocrit (Misc Panel) 42.0 06/27/21 19:03: Immature Granulocyte % (Auto) 0.8, Neutrophils (%) (Auto) 78.0H, Lymphocytes (%) (Auto) 8.6L, Monocytes (%) (Auto) 11.5H, Eosinophils (%) (Auto) 0.7, Basophils (%) (Auto) 0.4, Neutrophils # (Auto) 9.2H, Lymphocytes # (Auto) 1.0L, Monocytes # (Auto) 1.4H, Eosinophils # (Auto) 0.1, Basophils # (Auto) 0.1, Nucleated Red Blood Cells % (auto) 0.0 06/27/21 19:52: Urine Color YELLOW, Urine Appearance TURBIDH, Urine pH 7.0, Urine Specific [place] 1.010, Urine Protein 2+H, Urine Glucose (UA) NEGATIVE, Urine Ketones NEGATIVE, Urine Blood 3+H, Urine Nitrite NEGATIVE, Urine Bilirubin NEGATIVE, Urine Urobilinogen 0.2, Urine Leukocyte Esterase 3+H, Urine WBC (Auto) TNTCH, Urine RBC (Auto) 164H, Urine Hyaline Casts (Auto) 0, Urine Bacteria (Auto) 2+H, Urine Squamous Epithelial Cells 5, Urine Mucus (Auto) SMALL, Urine Sperm (Auto) 06/27/21 21:01: Anion Gap 10, Glomerular Filtration Rate 20.7L, Calcium Level 10.2, Total Bilirubin 0.4, Direct Bilirubin < 0.1, Aspartate Amino Transf (AST/SGOT) 27, Alanine Aminotransferase (ALT/SGPT) 20, Alkaline Phosphatase 68, Total Protein 8.1, Albumin 3.0L, Albumin/Globulin Ratio 0.6L, Lipase 109 CBC/BMP Laboratory Tests 06/27/21 19:03 06/27/21 21:01 Microbiology Microbiology 06/27/21 Urine Culture, Received Pending Home Medications Scheduled Aspirin (Ecotrin) 81 Mg Tablet.dr, 81 MG PO DAILY Atorvastatin Calcium (Atorvastatin Calcium) 80 Mg Tablet, 80 MG PO QHS Carvedilol (Carvedilol) 3.125 Mg Tab, 3.125 MG PO BID Cholecalciferol (Vitamin D3) (Vitamin D3) 1,250 Mcg Capsule, 1,250 MCG PO QWEEK SUNDAYS AT DINNERTIME Divalproex Sodium (Depakote ER) 250 Mg Tab, 250 MG PO DAILY Divalproex Sodium (Depakote ER) 250 Mg Tab.er.24h, 500 MG PO QHS Ferrous Sulfate (Iron) 325 Mg Tablet, 325 MG PO BID Folic Acid (Folic Acid) 1 Mg Tab, 1 MG PO DAILY Furosemide (Furosemide) 20 Mg Tablet, 20 MG PO DAILY Levothyroxine Sodium (Levothyroxine Sodium) 75 Mcg Tab, 75 MCG PO DAILY Oxybutynin Chloride (Oxybutynin Chloride ER) 10 Mg Tab.er.24, 10 MG PO DAILY Paroxetine HCl (Paroxetine) 10 Mg Tab, 10 MG PO DAILY Allergies Coded Allergies: carbamazepine (Verified Allergy, Severe, ANAPHALAXIS, 03/09/21) STATES HEART STOPPED chocolate flavor (Verified Allergy, Severe, CONGESTION AND DIFFICULTY DEE ATHING, 03/09/21) soap (Verified Allergy, Mild, "BATH BUBBLES"- ITCHING, 03/09/21) benzocaine (Verified Allergy, Unknown, UNKNOWN, 03/09/21) phenobarbital (Verified Adverse Reaction, Intermediate, knocks her out, 03/09/21) lactose (Verified Adverse Reaction, Mild, GI UPSET, 03/09/21) phenytoin (Verified Adverse Reaction, Unknown, STATES KNOCKS HER OUT, 03/09/21) CARMEN FOWLER MD Jun 27, 2021 23:58
[2021-06-28] MEDS ORDERED: VITA1CAP25 PO (01:15)
[2021-06-28] MEDS ORDERED: FURO20TA2 PO (01:15)
[2021-06-28] MEDS ORDERED: HOME MED LIST COMPLETE! XX SCH (01:20)
[2021-06-28 01:25] LABS: RSV AMPLIFICATION NEGATIVE (NEGATIVE)
[2021-06-28 03:30] VITALS: BP 117/58
[2021-06-28] MEDS: LEVOTHYROXINE 75MCG TABLET (0.075MG) PO SCH (05:37)
[2021-06-28 07:37] VITALS: BP 135/59
[2021-06-28 07:50] LABS: HEMATOCRIT 33.3 % (36.0-47.0); MEAN CORPUSCULAR HEMOGLOBIN 33.8 pg (27.0-33.0); MEAN CORPUSCULAR HGB CONC 32.4 g/dl (32.0-36.5); MEAN CORPUSCULAR VOLUME 104.1 fl (80.0-96.0); PLATELET COUNT, AUTOMATED 296 10^3/uL (150-450)
[2021-06-28 08:03] LABS: HEMOGLOBIN 10.8 g/dl (12.0-15.5)
[2021-06-28 08:25] LABS: ALBUMIN 2.3 GM/DL (3.2-5.2); BILIRUBIN,TOTAL 0.3 MG/DL (0.2-1.0); CALCIUM LEVEL 8.7 MG/DL (8.8-10.2); CREATININE FOR GFR 2.19 MG/DL (0.55-1.30); GLOMERULAR FILTRATION RATE 23.5 (>39); MAGNESIUM LEVEL 2.1 MG/DL (1.8-2.4); POTASSIUM SERUM 3.6 MEQ/L (3.5-5.1); TOTAL PROTEIN 6.7 GM/DL (6.4-8.2)
[2021-06-28] MEDS ORDERED: CONRAY-60 60% 50ML VIAL (Q9961) As Ordered ONE (09:54)
--- NOTE | 2021-06-28 09:57 | SMCUROLCON ---
Urology Consultation General Date of Consultation 06/28/21 Reason For Consultation This patient is seen for Ramiro, Horseshoe Kidney, Pyelonephritis. History of Present Illness This is a 71 y/o F w/ a PMH significant for CHF, CKD, hypothyroidism, HL, and b/l ureteral obstruction managed w/ chronic ureteral stenting, admitted to the hospital last night for RAMIRO on CKD and likely pyelonephritis. The patient notes that she was having progressively worsening RLQ abd pain, dysuria, and chills for the past few days. She also notes having nausea and retching, but no vomiting. CT A/P done in the ER last night was notable for moderate to severe right hydronephrosis. The previously placed b/l ureteral stents were in appropriate position. Her UA was notable for TNTC WBCs and bacteria, raising concern for a UTI. She was started on rocephin yesterday evening and notes that she feels better this morning. She does not feel as weak and the nausea has resolved. Past Medical History Medical History see HPI Surgical Hstory Hysterectomy Tonsillectomy Cystoscopy w/ Ureteral Stents Medications Current Medications Current Medications Medications (Trade) Dose Ordered Sig/Fabian Route PRN Reason Start Time Stop Time Status Last Admin Dose Admin Aspirin (Ecotrin) 81 mg DAILY PO 06/28/21 09:00 Atorvastatin Calcium (Lipitor) 80 mg QHS PO 06/28/21 21:00 Carvedilol (COReg) 3.125 mg BID PO 06/28/21 09:00 Ceftriaxone Sodium 1 gm/ Dextrose 50 ml @ 100 mls/hr Q24H IV 06/29/21 00:00 Divalproex Sodium (Depakote Er) 250 mg DAILY PO 06/28/21 09:00 Divalproex Sodium (Depakote Er) 500 mg QHS PO 06/28/21 21:00 Ferrous Sulfate (Ferrous Sulfate) 325 mg BID PO 06/28/21 09:00 Folic Acid (Folic Acid) 1 mg DAILY PO 06/28/21 09:00 Furosemide (Lasix) 20 mg DAILY PO 06/28/21 09:00 Heparin Sodium (Porcine) (Heparin) 5,000 units Q12H SC 06/28/21 09:00 Home Med (Home Med List Complete!) ASDIRECTED XX 06/28/21 01:20 06/28/21 01:18 DC Levothyroxine Sodium (Synthroid) 75 mcg DAILY@0600 PO 06/28/21 06:00 06/28/21 05:37 Oxybutynin Chloride (Ditropan Xl) 10 mg DAILY PO 06/28/21 09:00 Paroxetine HCl (PAXil) 10 mg DAILY PO 06/28/21 09:00 Allergies Allergies: Coded Allergies: carbamazepine (Verified Allergy, Severe, ANAPHALAXIS, 03/09/21) STATES HEART STOPPED chocolate flavor (Verified Allergy, Severe, CONGESTION AND DIFFICULTY BREATHING, 03/09/21) soap (Verified Allergy, Mild, "BATH BUBBLES"- ITCHING, 03/09/21) benzocaine (Verified Allergy, Unknown, UNKNOWN, 03/09/21) phenobarbital (Verified Adverse Reaction, Intermediate, knocks her out, 03/09/21) lactose (Verified Adverse Reaction, Mild, GI UPSET, 03/09/21) phenytoin (Verified Adverse Reaction, Unknown, STATES KNOCKS HER OUT, 03/09/21) Review of Systems Constitutional: Reports: Chills, Weakness Pulmonary: Denies: Dyspnea, Cough Cardiovascular: Denies Chest Pain, Denies Palpitations Gastrointestinal: Reports: Nausea, Abdominal Pain (RLQ) Genitourinary: Reports: Dysuria; Denies: Hematuria Psych: Reports: Mood Normal Physical Examination General Exam: Alert, Cooperative, No Acute Distress Chest Exam: Normal air movement Heart Exam: Rate Normal Abdomen Exam: Soft, Tenderness (mild RLQ) Skin Exam: Nl turgor and temperature Neuro Exam: Normal Speech Psych Exam: Mental status NL, Mood NL Vital Signs/I&O Vital Signs Date Time Temp Pulse Resp B/P (MAP) Pulse Ox O2 Delivery O2 Flow Rate FiO2 06/28/21 07:37 97.0 58 18 135/59 (84) 98 Room Air I&O- Last 24 Hours up to 6 AM 06/28/21 06:00 Intake Total 1050 ml Balance 1050 ml Laboratory Data 24H Labs Laboratory Tests 2 06/27/21 18:59: POC Glucose (Misc Panel) 136H, POC Sodium (Misc Panel) 139, POC Potassium (Misc Panel) 4.3, POC Chloride (Misc Panel) 102, POC Total CO2 (Misc Panel) 25.0, POC Blood Urea Nitrogen (Misc Panel 62H, POC Ionized Calcium (Misc Panel) 4.9, POC Creatinine (Misc Panel) 2.7H, POC Hematocrit (Misc Panel) 42.0 06/27/21 19:03: Immature Granulocyte % (Auto) 0.8, Neutrophils (%) (Auto) 78.0H, Lymphocytes (%) (Auto) 8.6L, Monocytes (%) (Auto) 11.5H, Eosinophils (%) (Auto) 0.7, Basophils (%) (Auto) 0.4, Neutrophils # (Auto) 9.2H, Lymphocytes # (Auto) 1.0L, Monocytes # (Auto) 1.4H, Eosinophils # (Auto) 0.1, Basophils # (Auto) 0.1, Nucleated Red Blood Cells % (auto) 0.0 06/27/21 19:52: Urine Color YELLOW, Urine Appearance TURBIDH, Urine pH 7.0, Urine Specific [place] 1.010, Urine Protein 2+H, Urine Glucose (UA) NEGATIVE, Urine Ketones NEGATIVE, Urine Blood 3+H, Urine Nitrite NEGATIVE, Urine Bilirubin NEGATIVE, Urine Urobilinogen 0.2, Urine Leukocyte Esterase 3+H, Urine WBC (Auto) TNTCH, Urine RBC (Auto) 164H, Urine Hyaline Casts (Auto) 0, Urine Bacteria (Auto) 2+H, Urine Squamous Epithelial Cells 5, Urine Mucus (Auto) SMALL, Urine Sperm (Auto) 06/27/21 21:01: Anion Gap 10, Glomerular Filtration Rate 20.7L, Calcium Level 10.2, Total Bilirubin 0.4, Direct Bilirubin < 0.1, Aspartate Amino Transf (AST/SGOT) 27, Alanine Aminotransferase (ALT/SGPT) 20, Alkaline Phosphatase 68, Total Protein 8.1, Albumin 3.0L, Albumin/Globulin Ratio 0.6L, Lipase 109 06/27/21 23:38: Coronavirus (COVID-19)(PCR) NEGATIVE, Influenza Type A (RT-PCR) NEGATIVE, Influenza Type B (RT-PCR) NEGATIVE, Respiratory Syncytial Virus (PCR) NEGATIVE 06/28/21 07:25: Nucleated Red Blood Cells % (auto) 0.0, Anion Gap 8, Glomerular Filtration Rate 23.5L, Calcium Level 8.7L, Magnesium Level 2.1, Total Bilirubin 0.3, Aspartate Amino Transf (AST/SGOT) 7, Alanine Aminotransferase (ALT/SGPT) 14, Alkaline Phosphatase 50, Total Protein 6.7, Albumin 2.3#L, Albumin/Globulin Ratio 0.5L CBC/BMP Laboratory Tests 06/27/21 19:03 06/27/21 21:01 06/28/21 07:25 Microbiology Microbiology 06/28/21 Blood Culture, Received Pending 06/27/21 Urine Culture, Received Pending Assessment This is a 71 y/o F w/ b/l ureteral obstruction managed w/ chronic ureteral stenting, admitted to the hospital last night for RAMIRO on CKD and likely R pyelonephritis. Her CT was notable for moderate to severe R hydro, indicating that the stent is likely clogged and not adequately draining that kidney. I recommended that we take her to the OR today for cystoscopy and b/l ureteral stent exchange. After a discussion of the risks and benefits of surgery, inf ormed consent was signed. Plan - informed consent signed for cysto and b/l ureteral stent exchange - patient received 1g rocephin IV last night - this should cover her for surgery - further care per hospitalist service - to OR this morning - NPO - may have regular diet postop - after this point we will plan to start changing the patient's stents q3 months instead of q4 months - my office will arrange her f/u after she is discharged MALORIE MALCOLM MD Jun 28, 2021 09:56
[2021-06-28] MEDS ORDERED: MIDAZOLAM INJ 2MG/2ML VIAL (J2250 PER 1MG) As Ordered ONE (10:35)
[2021-06-28] MEDS ORDERED: propofoL 500 MG/50 ML VIAL As Ordered ONE (10:35)
[2021-06-28] MEDS ORDERED: LIDOCAINE 2% 100MG/5ML SDV (FOR ANES.) As Ordered ONE (10:35)
[2021-06-28] MEDS ORDERED: fentaNYL 100 MCG/2 ML INJECTION (J3010) As Ordered ONE (10:35)
[2021-06-28] MEDS ORDERED: LIDOCAINE 2% 5ML JELLY UROJET As Ordered ONE (10:49)
[2021-06-28] MEDS ORDERED: KETOROLAC 60MG 2ML VIAL As Ordered ONE (10:57)
[2021-06-28] MEDS ORDERED: ONDANSETRON 4MG/2ML VIAL As Ordered ONE (10:57)
[2021-06-28 11:30] VITALS: BP 127/62
--- NOTE | 2021-06-28 11:50 | REP ---
INDICATION: BILATERAL STENT PLACEMENT. COMPARISON: None. TECHNIQUE: Intraoperative fluoroscopic imaging FINDINGS: Bilateral hydronephrosis noted with satisfactory bilateral ureteral stent placement. Total fluoroscopic time 37 seconds. IMPRESSION: Bilateral ureteral stents. Bilateral hydronephrosis. <Electronically signed by Santana Minor > 06/28/21 1141
[2021-06-28] MEDS ORDERED: LR 1,000 ML IV SCH (11:55)
[2021-06-28] MEDS ORDERED: ONDANSETRON 4MG/2ML VIAL IV PRN (11:55)
[2021-06-28] MEDS ORDERED: fentaNYL 100 MCG/2 ML INJECTION (J3010) IV PRN (11:55)
[2021-06-28] MEDS ORDERED: oxyCODONE 5MG TAB PO PRN (11:55)
[2021-06-28] MEDS: DIVALPROEX 250MG *ER* TAB PO SCH (12:28)
[2021-06-28] MEDS: ASPIRIN 81MG ENTERIC TABLET PO SCH (12:28)
[2021-06-28] MEDS: FOLIC ACID 1 MG TAB PO SCH (12:28)
[2021-06-28] MEDS: PARoxetine 10MG TABLET PO SCH (12:28)
[2021-06-28] MEDS: FUROSEMIDE 20 MG TAB PO SCH (12:28)
[2021-06-28] MEDS: oxyBUTYnin *DITROPAN XL* 5 MG TABCR PO SCH (12:29)
[2021-06-28] MEDS: FERROUS SULFATE 325MG TAB PO SCH ×2 (12:29→20:48)
[2021-06-28] MEDS: CARVedilol 3.125 MG TAB PO SCH ×2 (12:29→20:49)
[2021-06-28] MEDS: HEPARIN SOD (PORCINE) 5000UNITS/ML 1ML VIAL/SYRINGE SC SCH ×2 (12:29→20:50)
--- NOTE | 2021-06-28 13:30 | RO ---
OPERATIVE NOTE DATE OF OPERATION: 06/28/2021 PREOPERATIVE DIAGNOSES: Bilateral ureteral obstruction. POSTOPERATIVE DIAGNOSIS: Bilateral ureteral obstruction. PROCEDURE: Cystoscopy, bilateral ureteral stent exchange, bilateral retrograde pyelograms with intraop interpreted images. SURGEON: Lance Daniel MD KITCHEN BATH DESIGNER: None. ANESTHESIA: MAC. OPERATIVE INDICATIONS: This is a 71-year-old female with bilateral ureteral obstruction which is managed with bilateral ureteral stenting. She last had her stents changed in March of this year. She was due for a stent exchange in about one month. She came to the hospital last night with weakness, dysuria and chills as well as abdominal pain. Her CT scan was notable for severe right-sided hydronephrosis and also notable for both stents in appropriate location. Given concern that she has right-sided pyelonephritis, it was recommended that we bring her to the operating room today to just go ahead and change both her stents out. DESCRIPTION OF PROCEDURE: The patient was brought to the operating room and MAC anesthesia was administered. Broad-spectrum antibiotics had already been infused. She was then placed in the dorsal lithotomy position and prepped and draped in the usual sterile fashion. A cystoscope was inserted in the urethral meatus and advanced into the bladder. A guidewire was advanced up the right collecting system. The previously placed right ureteral stent was removed. I then advanced a 5 [place] open-ended ureteral catheter up the right collecting system. The wire was removed. I then utilized the ureteral catheter to aspirate urine from the right kidney. Approximately 90 mL of frankly purulent urine was aspirated from the right kidney. I then shot a retrograde pyelogram and it was notable for moderate to severe right hydronephrosis with no extravasation. I advanced the guidewire back up the right collecting system and then removed the ureteral catheter. I utilized the guidewire to advance a 7 [place] x 22 cm black silicone ureteral stent into the right collecting system. The wire was removed and there were adequate curls of the stent in the right renal pelvis and in the bladder. I then advanced the guidewire up the left collecting system. The left-sided ureteral stent was removed. I advanced the ureteral catheter over the wire. I removed the wire. I then tried to aspirate urine from the left kidney and only about 5-10 mL of normal appearing urine was removed. I then shot a retrograde pyelogram and it was notable for moderate left hydronephrosis with no extravasation. I advanced the guidewire back up and then removed the ureteral catheter. I utilized the guidewire to advance a 7 [place] x 22 cm black silicone ureteral stent into the left collecting system. The wire was removed and there were adequate curls of the stent in the left renal pelvis and in the bladder. At this point, I put an 18 [place] catheter into the bladder and the balloon was filled with mL of sterile water. The catheter was connected to gravity drainage. This marked the conclusion of the procedure. The patient was then awakened from anesthesia and take to the recovery room in stable condition. ESTIMATED BLOOD LOSS: 5 mL COMPLICATIONS: None. SPECIMENS: Urine from right kidney for culture. PLAN: The patient will be treated in the hospital with IV antibiotics for a few days. Regarding her stent changes, we will to have to start changing her stents every three months. HUSSEIN
--- NOTE | 2021-06-28 13:41 | IPNPDOC ---
Text Note Date of Service The patient was seen on 06/28/21. NOTE Subjective: In the morning patient stated that he feels better less abdominal pain. No fever or chills Objective: GENERAL APPEARANCE: NAD HEENT: no scleral icterus, no JVD, EOMI CARDIOVASCULAR: S1S2 LUNGS: CTA ABDOMEN: soft & not tender w palpation MUSCULOSKELETAL: no cyanosis, no swelling INTEGUMENT: no generalized pallor NEUROLOGICAL: cranial nerve function from 2-12 intact, follows commands, speech not dysarthric Assessment plan Patient is 71 years old female with past medical history of chronic kidney disease, horseshoe kidney, CHF, coronary artery disease, hyperlipidemia, hypothyroidism, b/l ureteral obstruction managed w/ chronic ureteral stenting, presented to hospital with dysuria and right flank pain. Patient was found to have bilateral severe hydronephrosis. On 06/28/2021 Dr. Daniel proceeded with Cystoscopy, bilateral ureteral stent exchange, Acute pyelonephritis Secondary to ureteral flow obstruction and severe hydronephrosis Continued ceftriaxone Dr. Daniel changed stents bilaterally Await blood culture and urine culture Acute on chronic kidney failure Secondary to hydronephrosis Continue to monitor Continue IV fluid Hypothyroidism Continue levothyroxine Coronary artery disease Continue home meds Hyperlipidemia Continue statin VS,Fishbone, I+O VS, Fishbone, I+O Laboratory Tests 06/27/21 19:03 06/27/21 21:01 06/28/21 07:25 Vital Signs Date Time Temp Pulse Resp B/P (MAP) Pulse Ox O2 Delivery O2 Flow Rate FiO2 06/28/21 12:29 63 127/62 06/28/21 11:55 16 94 Room Air 06/28/21 11:40 96.7 I&O- Last 24 Hours up to 6 AM 06/28/21 06:00 Intake Total 1050 ml Balance 1050 ml HANS CARBAJAL DO Jun 28, 2021 13:41
[2021-06-28] MEDS ORDERED: SLF 3 ML SYR IV PRN (16:05)
[2021-06-28 16:53] VITALS: BP 107/51
[2021-06-28 20:00] VITALS: BP 107/54
[2021-06-28] MEDS: DIVALPROEX 500MG *ER* TAB PO SCH (20:48)
[2021-06-28] MEDS: ATORVASTATIN 20 MG TAB PO SCH (20:49)
[2021-06-28] MEDS: SLF 3 ML SYR IV SCH (22:24)
[2021-06-28] MEDS: cefTRIAXone SOD 1 GM in D5W MINI-BAG PLUS 50 ML IV SCH (23:23)
[2021-06-29] VITALS: BP 137/63
[2021-06-29] MEDS: LEVOTHYROXINE 75MCG TABLET (0.075MG) PO SCH (05:17)
[2021-06-29] MEDS: SLF 3 ML SYR IV SCH ×3 (05:18→20:11)
[2021-06-29 05:34] LABS: BASO % 0.5 % (0.0-1.0); EOS # 0.3 10^3/uL (0.0-0.5); EOS % 4.6 % (0.0-3.0); HEMATOCRIT 34.7 % (36.0-47.0); HEMOGLOBIN 11.1 g/dl (12.0-15.5); LYMPH # 1.2 10^3/uL (1.5-5.0); LYMPH % 18.7 % (24.0-44.0); MEAN CORPUSCULAR HEMOGLOBIN 33.8 pg (27.0-33.0); MEAN CORPUSCULAR VOLUME 105.8 fl (80.0-96.0); MONO % 15.2 % (2.0-8.0); NEUTROPHILS # 3.8 10^3/uL (1.5-8.5); NEUTROPHILS % 59.9 % (36.0-66.0); PLATELET COUNT, AUTOMATED 294 10^3/uL (150-450); RED BLOOD COUNT 3.28 10^6/uL (4.00-5.40); WHITE BLOOD COUNT 6.3 10^3/uL (4.0-10.0)
[2021-06-29 05:58] LABS: ALBUMIN 2.2 GM/DL (3.2-5.2); BILIRUBIN,TOTAL 0.2 MG/DL (0.2-1.0); CALCIUM LEVEL 8.8 MG/DL (8.8-10.2); CREATININE FOR GFR 2.07 MG/DL (0.55-1.30); GLOMERULAR FILTRATION RATE 25.1 (>39); MAGNESIUM LEVEL 2.2 MG/DL (1.8-2.4); POTASSIUM SERUM 3.9 MEQ/L (3.5-5.1); TOTAL PROTEIN 6.1 GM/DL (6.4-8.2)
[2021-06-29 08:00] VITALS: BP 131/56
[2021-06-29] MEDS: oxyBUTYnin *DITROPAN XL* 5 MG TABCR PO SCH (09:10)
[2021-06-29] MEDS: HEPARIN SOD (PORCINE) 5000UNITS/ML 1ML VIAL/SYRINGE SC SCH ×2 (09:10→20:09)
[2021-06-29] MEDS: FUROSEMIDE 20 MG TAB PO SCH (09:11)
[2021-06-29] MEDS: ASPIRIN 81MG ENTERIC TABLET PO SCH (09:14)
[2021-06-29] MEDS: FERROUS SULFATE 325MG TAB PO SCH ×2 (09:15→20:10)
[2021-06-29] MEDS: FOLIC ACID 1 MG TAB PO SCH (09:15)
[2021-06-29] MEDS: CARVedilol 3.125 MG TAB PO SCH ×2 (09:15→20:10)
[2021-06-29] MEDS: DIVALPROEX 250MG *ER* TAB PO SCH (09:16)
[2021-06-29] MEDS: PARoxetine 10MG TABLET PO SCH (09:16)
[2021-06-29] MEDS ORDERED: NS 1,000 ML IV SCH (10:00)
[2021-06-29] MEDS ORDERED: CIPR-250 PO (11:13)
[2021-06-29 12:00] VITALS: BP 125/69
--- NOTE | 2021-06-29 12:05 | IPNPDOC ---
Text Note Date of Service The patient was seen on 06/29/21. NOTE Subjective: No fever or chills overnight. Flank pain resolved. Urine in the bag cloudy. Objective: GENERAL APPEARANCE: NAD HEENT: no scleral icterus, no JVD, EOMI CARDIOVASCULAR: S1S2 LUNGS: CTA ABDOMEN: soft & not tender w palpation MUSCULOSKELETAL: no cyanosis, no swelling INTEGUMENT: no generalized pallor NEUROLOGICAL: cranial nerve function from 2-12 intact, follows commands, speech not dysarthric Assessment plan Patient is 71 years old female with past medical history of chronic kidney disease, horseshoe kidney, CHF, coronary artery disease, hyperlipidemia, hypothyroidism, b/l ureteral obstruction managed w/ chronic ureteral stenting, presented to hospital with dysuria and right flank pain. Patient was found to have bilateral severe hydronephrosis. On 06/28/2021 Dr. Daniel proceeded with Cystoscopy, bilateral ureteral stent exchange, Acute pyelonephritis Secondary to ureteral flow obstruction and severe hydronephrosis Continued ceftriaxone Dr. Daniel changed stents bilaterally blood culture negative and await urine culture Continue IV fluid till urine is clear Acute on chronic kidney failure Secondary to hydronephrosis Continue to monitor Improved today Continue IV fluid Hypothyroidism Continue levothyroxine Coronary artery disease Continue home meds Hyperlipidemia Continue statin VS,Fishbone, I+O VS, Fishbone, I+O Laboratory Tests 06/29/21 04:57 Vital Signs Date Time Temp Pulse Resp B/P (MAP) Pulse Ox O2 Delivery O2 Flow Rate FiO2 06/29/21 09:15 70 131/56 06/29/21 08:00 98.5 18 97 Room Air I&O- Last 24 Hours up to 6 AM 06/29/21 06:00 Intake Total 2150 ml Output Total 865 ml Balance 1285 ml HANS CARBAJAL DO Jun 29, 2021 12:05
--- NOTE | 2021-06-29 12:59 | CR ---
CONSULTATION DATE: 06/29/2021 CONSULTATION FOR: Dr. Rodger Russo REASON FOR CONSULTATION: Acute renal failure and acute pyelonephritis. Note: I came to see the patient yesterday; however, she was in the operating room (OR) yesterday, so I could not see her. HISTORY OF PRESENT ILLNESS: Mrs. Blake is a 71-year-old female with known history of horseshoe kidneys and bilateral ureteral stents. She has history of congestive heart failure, hypothyroidism, hyperlipidemia, and stage III of chronic kidney disease. She was admitted to [facility] on June 27 due to right flank pain and nausea. She was found to have moderate to severe hydronephrosis and was admitted for possible acute pyelonephritis and obstruction. Apparently, her stents got blocked, and she was taken to the OR yesterday by urology, and her stents were changed. She still has quite cloudy urine her Mendieta catheter. Her flank pain has improved. She denies any dyspnea or chest pain at present. MEDICAL HISTORY: Significant for: 1. History of coronary artery disease. 2. History of congestive heart failure. 3. Chronic kidney disease. 4. History of hyperlipidemia. 5. Hypothyroidism. 6. Horseshoe kidney with bilateral ureteral stents. 7. History of seizure disorder. SURGICAL HISTORY: Significant for: 1. Hysterectomy. 2. Tonsillectomy. 3. Multiple procedures for ureteral stent exchanges. PERSONAL AND SOCIAL HISTORY: Patient denies any alcohol, tobacco, or drug use. 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 FAMILY HISTORY: Noncontributory for this admission. HOME MEDICATIONS - aspirin 81 mg daily - atorvastatin 80 mg daily - carvedilol 3.125 mg twice a day - vitamin D 1.25 mcg once a week - Depakote ER 250 mg in morning and 500 mg at bedtime - ferrous sulfate 325 mg twice a day - folic acid 1 mg daily - furosemide 20 mg daily - levothyroxine 75 mcg daily - oxybutynin 10 mg daily - paroxetine 10 mg daily ALLERGIES: She has multiple allergies, including CARBAMAZEPINE, BENZOCAINE, PHENOBARBITAL, PHENYTOIN, lactose, and chocolate flavor. REVIEW OF SYSTEMS: At present, patient denies any fever or chills. She did have fever and right flank pain on admission. Ears, nose, and throat are unremarkable. She denies any headache. Cardiovascular system is significant for congestive heart failure. She denies any dyspnea, chest pain, or leg edema. Respiratory system is negative for cough or hemoptysis. Gastrointestinal (GI) system is significant for nausea on admission, which has now improved. She was able to eat better this morning. Genitourinary () system is significant for horseshoe kidney with bilateral ureteral stents. She had hydronephrosis and acute pyelonephritis on admission. She still has a Mendieta catheter with very cloudy urine, which has a lot of sediment. Musculoskeletal system is significant for chronic degenerative arthritis. She has no leg edema. Endocrine system is significant for hypothyroidism. She does not have diabetes. Hematological system is significant for chronic anemia. Neurological system is significant for seizure disorder. She denies any headache at present. PHYSICAL EXAMINATION: Temperature 98.5 degrees Fahrenheit, heart rate 70 per minute, respiratory rate 18 per minute, blood pressure 130/56 mmHg, and oxygen saturation 97% on room air. Head is atraumatic. Neck supple and without jugular venous distention (JVD) or thyroid enlargement. Heart sounds are regular and lungs clear to auscultation. Abdomen soft and nontender, and bowel sounds are normal. Extremities without any cyanosis or clubbing. Neurologically she is awake, alert, and at her baseline mentation. On admission, her WBC was 11.8, hemoglobin 13.8, and hematocrit 41.9. Today WBC count down to 6.3, hemoglobin 11.1, and hematocrit 34.7. Platelets 294. BUN was 63 on admission and creatinine 2.44. Today her BUN is down to 57 and creatinine 2.0. Sodium is 140 and potassium 3.9. Total protein 6.1 and albumin 2.2. Urinalysis showed too numerous to count WBC and 164 RBC. A urine culture from this admission is reported consistent with contamination. Blood cultures have been negative so far. PROBLEMS: 1. Acute kidney injury related to obstructive, and kidney function has improved. She has no uremic symptoms at present. This is probably her baseline kidney function, or she might improve further with hydration. At this point, I have stopped her diuretic and would like to keep her off diuretic for a few days. 2. Acute pyelonephritis related to obstruction and stents. Her stents were changed yesterday. Urine is still very cloudy and has a lot of sediment. I will recommend to continue with intravenous antibiotic for next 24 hours. I am going to give her 1 liter of intravenous (IV) fluid in order to increase her urine output and clear the urinary sediment from her bladder. 3. Horseshoe kidney with bilateral ureteral stents. This is a chronic issue, and she gets her stents changed every 3 months. It is likely that she will require more frequent exchanges of her stents. 4. Congestive heart failure. At present, she is euvolemic or still slightly volume depleted. We will give her 1 liter of normal saline today in order to flush her urinary system. At discharge she can resume her chronic diuretic. DISPOSITION: I would like patient to stay for the next 24 hours, and most likely she will be ready for discharge tomorrow. She should continue with oral antibiotic for at least 10 more days. Thank you for involving me in the care of Hayden.
[2021-06-29 16:00] VITALS: BP 117/56
[2021-06-29 20:00] VITALS: BP 117/58
[2021-06-29] MEDS: ATORVASTATIN 20 MG TAB PO SCH (20:10)
[2021-06-29] MEDS: DIVALPROEX 500MG *ER* TAB PO SCH (20:11)
[2021-06-29] MEDS: cefTRIAXone SOD 1 GM in D5W MINI-BAG PLUS 50 ML IV SCH (23:21)
[2021-06-30] VITALS: BP 121/59
[2021-06-30 04:00] VITALS: BP 106/59
[2021-06-30 04:05] LABS: BASO # 0.1 10^3/uL (0.0-0.2); BASO % 1.1 % (0.0-1.0); EOS # 0.5 10^3/uL (0.0-0.5); EOS % 6.8 % (0.0-3.0); HEMOGLOBIN 9.8 g/dl (12.0-15.5); LYMPH # 1.5 10^3/uL (1.5-5.0); LYMPH % 21.4 % (24.0-44.0); MEAN CORPUSCULAR HEMOGLOBIN 34.3 pg (27.0-33.0); MEAN CORPUSCULAR HGB CONC 32.7 g/dl (32.0-36.5); MEAN CORPUSCULAR VOLUME 104.9 fl (80.0-96.0); MONO % 13.6 % (2.0-8.0); NEUTROPHILS % 55.7 % (36.0-66.0); PLATELET COUNT, AUTOMATED 295 10^3/uL (150-450); RED BLOOD COUNT 2.86 10^6/uL (4.00-5.40); WHITE BLOOD COUNT 7.2 10^3/uL (4.0-10.0)
[2021-06-30 04:58] LABS: ALBUMIN 2.1 GM/DL (3.2-5.2); BILIRUBIN,TOTAL 0.2 MG/DL (0.2-1.0); CALCIUM LEVEL 8.6 MG/DL (8.8-10.2); CREATININE FOR GFR 1.66 MG/DL (0.55-1.30); GLOMERULAR FILTRATION RATE 32.3 (>39); MAGNESIUM LEVEL 1.9 MG/DL (1.8-2.4); POTASSIUM SERUM 3.8 MEQ/L (3.5-5.1); TOTAL PROTEIN 5.9 GM/DL (6.4-8.2)
[2021-06-30] MEDS: SLF 3 ML SYR IV SCH ×2 (05:26→14:29)
[2021-06-30] MEDS: LEVOTHYROXINE 75MCG TABLET (0.075MG) PO SCH (05:26)
[2021-06-30 08:00] VITALS: BP 119/58
[2021-06-30 09:00] VITALS: BP 119/58
[2021-06-30] MEDS: CARVedilol 3.125 MG TAB PO SCH (09:00)
[2021-06-30] MEDS: ASPIRIN 81MG ENTERIC TABLET PO SCH (09:49)
[2021-06-30] MEDS: oxyBUTYnin *DITROPAN XL* 5 MG TABCR PO SCH (09:49)
[2021-06-30] MEDS: HEPARIN SOD (PORCINE) 5000UNITS/ML 1ML VIAL/SYRINGE SC SCH (09:49)
[2021-06-30] MEDS: PARoxetine 10MG TABLET PO SCH (09:49)
[2021-06-30] MEDS: FOLIC ACID 1 MG TAB PO SCH (09:49)
[2021-06-30] MEDS: FERROUS SULFATE 325MG TAB PO SCH (09:49)
[2021-06-30] MEDS: DIVALPROEX 250MG *ER* TAB PO SCH (09:49)
[2021-06-30] MEDS ORDERED: CARV3.12 PO (10:22)
--- NOTE | 2021-06-30 13:46 | DS.PDOC ---
Discharge Summary General Date of Admission Jun 27, 2021 at 14:26 Date of Discharge 06/30/21 Discharge Summary PROCEDURES PERFORMED DURING STAY: [None]. ADMITTING DIAGNOSES: DISCHARGE DIAGNOSES: 1. . COMPLICATIONS/CHIEF COMPLAINT: Ramiro, Horseshoe Kidney, Pyelonephritis. HISTORY OF PRESENT ILLNESS: is a 71-year-old female with known history of horseshoe kidneys and bilateral ureteral stents. She has history of congestive heart failure, hypothyroidism, hyperlipidemia, and stage III of chronic kidney disease. She was admitted to [facility] on June 27 due to right flank pain and nausea. She was found to have moderate to severe hydronephrosis and was admitted for possible acute pyelonephritis and obstruction. Apparently, her stents got blocked, and she was taken to the OR yesterday by urology, and her stents were changed. She still has quite cloudy urine her Mendieta catheter. Her flank pain has improved. She denies any dyspnea or chest pain at present. On 06/28/2021 Dr. Daniel proceeded with Cystoscopy, bilateral ureteral stent exchange HOSPITAL COURSE: During the hospital stay the following issue addressed Acute pyelonephritis Secondary to ureteral flow obstruction and severe hydronephrosis Patient received ceftriaxone Dr. Daniel changed stents bilaterally blood culture negative and urine culture negative Acute on chronic kidney failure Secondary to hydronephrosis Continue to monitor Improved today Hypothyroidism Continue levothyroxine Coronary artery disease Continue home meds Hyperlipidemia Continue statin DISCHARGE MEDICATIONS: Please see below. ALLERGIES: Please see below. PHYSICAL EXAMINATION ON DISCHARGE: VITAL SIGNS: Please see below. GENERAL APPEARANCE: NAD HEENT: no scleral icterus, no JVD, EOMI CARDIOVASCULAR: S1S2 LUNGS: CTA ABDOMEN: soft & not tender w palpation MUSCULOSKELETAL: no cyanosis, no swelling INTEGUMENT: no generalized pallor NEUROLOGICAL: cranial nerve function from 2-12 intact, follows commands, speech not dysarthric LABORATORY DATA: Please see below. PROGNOSIS: Fair ACTIVITY: [As tolerated]. DIET: Cardiac DISPOSITION: Home ITEMS TO FOLLOWUP ON ON OUTPATIENT: Follow-up with urologist and PCP DISCHARGE CONDITION: [Stable]. TIME SPENT ON DISCHARGE: 40 minutes. Vital Signs/I&Os Vital Signs Date Time Temp Pulse Resp B/P (MAP) Pulse Ox O2 Delivery O2 Flow Rate FiO2 06/30/21 09:00 60 119/58 06/30/21 08:00 97.5 16 96 Room Air I&O- Last 24 Hours up to 6 AM 06/30/21 06:00 Intake Total 300 ml Output Total 2075 ml Balance -1775 ml Laboratory Data Labs 24H Laboratory Tests 2 06/30/21 03:32: Immature Granulocyte % (Auto) 1.4, Neutrophils (%) (Auto) 55.7, Lymphocytes (%) (Auto) 21.4L, Monocytes (%) (Auto) 13.6H, Eosinophils (%) (Auto) 6.8H, Basophils (%) (Auto) 1.1H, Neutrophils # (Auto) 4.0, Lymphocytes # (Auto) 1.5, Monocytes # (Auto) 1.0H, Eosinophils # (Auto) 0.5, Basophils # (Auto) 0.1, Nucleated Red Blood Cells % (auto) 0.0, Anion Gap 6L, Glomerular Filtration Rate 32.3L, Calcium Level 8.6L, Magnesium Level 1.9, Total Bilirubin 0.2, Aspartate Amino Transf (AST/SGOT) 15, Alanine Aminotransferase (ALT/SGPT) 15, Alkaline Phosphatase 48, Total Protein 5.9L, Albumin 2.1L, Albumin/Globulin Ratio 0.6L CBC/BMP Laboratory Tests 06/30/21 03:32 Microbiology Microbiology 06/28/21 Urine Culture - Final, Complete 06/28/21 Blood Culture - Preliminary, Resulted No Growth after 48 hours. All Specime... 06/27/21 Urine Culture - Final, Complete Discharge Medications Scheduled Aspirin (Ecotrin) 81 Mg Tablet.dr, 81 MG PO DAILY, (Reported) Atorvastatin Calcium (Atorvastatin Calcium) 80 Mg Tablet, 80 MG PO QHS, (Report ed) Carvedilol (Carvedilol) 3.125 Mg Tab, 3.125 MG PO DAILY Cholecalciferol (Vitamin D3) (Vitamin D3) 1,250 Mcg Capsule, 1,250 MCG PO QWEEK, (Reported) SUNDAYS AT DINNERTIME Ciprofloxacin HCl (Cipro) 250 Mg Tablet, 250 MG PO BID Divalproex Sodium (Depakote ER) 250 Mg Tab, 250 MG PO DAILY, (Reported) Divalproex Sodium (Depakote ER) 250 Mg Tab.er.24h, 500 MG PO QHS, (Reported) Ferrous Sulfate (Iron) 325 Mg Tablet, 325 MG PO BID, (Reported) Folic Acid (Folic Acid) 1 Mg Tab, 1 MG PO DAILY, (Reported) Furosemide (Furosemide) 20 Mg Tablet, 20 MG PO DAILY, (Reported) Levothyroxine Sodium (Levothyroxine Sodium) 75 Mcg Tab, 75 MCG PO DAILY, (Reported) Oxybutynin Chloride (Oxybutynin Chloride ER) 10 Mg Tab.er.24, 10 MG PO DAILY, (Reported) Paroxetine HCl (Paroxetine) 10 Mg Tab, 10 MG PO DAILY, (Reported) Allergies Coded Allergies: carbamazepine (Verified Allergy, Severe, ANAPHALAXIS, 03/09/21) STATES HEART STOPPED chocolate flavor (Verified Allergy, Severe, CONGESTION AND DIFFICULTY BREATHING, 03/09/21) soap (Verified Allergy, Mild, "BATH BUBBLES"- ITCHING, 03/09/21) benzocaine (Verified Allergy, Unknown, UNKNOWN, 03/09/21) phenobarbital (Verified Adverse Reaction, Intermediate, knocks her out, 03/09/21) lactose (Verified Adverse Reaction, Mild, GI UPSET, 03/09/21) phenytoin (Verified Adverse Reaction, Unknown, STATES KNOCKS HER OUT, 03/09/21) HANS CARBAJAL DO Jun 30, 2021 13:46
--- NOTE | 2021-06-30 15:27 | IPN ---
NEPHROLOGY PROGRESS NOTE DATE: 06/30/2021 SUBJECTIVE: Mrs. Blake is seen this morning at her bedside. She is eating breakfast in her bed. She is feeling much better and denies any nausea, vomiting, dyspnea, chest pain, fever or chills. She still has a Mendieta catheter which is draining much clearer urine now. OBJECTIVE: PHYSICAL EXAMINATION: VITAL SIGNS: Temperature is 97.5 degrees Fahrenheit, heart rate 60 per minute and respiratory rate 16 per minute, blood pressure 119/58 mm of mercury and oxygen saturation is 96% on room air. HEENT: Head is atraumatic. NECK: Supple and without JVD or thyroid enlargement. HEART: Regular. LUNGS: Clear to auscultation. ABDOMEN: Soft and nontender and bowel sounds are normal. EXTREMITIES: Without any cyanosis or clubbing. NEUROLOGICAL: She is at her baseline mentation without any focal deficits. LABORATORY STUDIES: Today's labs show a WBC count of 7.2, hemoglobin 9.8 and hematocrit 30. Sodium 141, potassium 3.8, CO2 26, BUN 47 and creatinine 1.66. PROBLEMS: 1. Acute kidney injury superimposed on chronic kidney disease - kidney function has improved significantly with stopping her diuretics and giving her IV fluids yesterday. She had hydronephrosis with clogged stents in her ureter and stents have been changed. Her oral intake is now adequate and IV fluids have been stopped. 2. Acute pyelonephritis this was related to obstruction in her ureteral stent. She is afebrile and urine culture is negative. I still feel that she should be treated with oral antibiotics for at least one week after discharge. 3. Anemia her anemia is mild and stable and there is no need for any urgent intervention. 4. Disposition the patient seems to be doing very well and I think her Mendieta catheter can be removed and then she can be discharged after she is able to void.
== END 2021-06-30 15:00 | disposition home or self-care (01) | DRG 660 ==
LOC: M ED 14:25 → M ED INP 14:26 → M PCU 06-28 03:30
PROVIDERS: ADMIT Family Medicine; ATTEND Internal Medicine
PROC: 0TP98DZ Removal of Intraluminal Device from Ureter, Via Natural or Artificial Opening Endoscopic (ICD-10-PCS; 2021-06-28)
PROC: 0T788DZ Dilation of Bilateral Ureters with Intraluminal Device, Via Natural or Artificial Opening Endoscopic (ICD-10-PCS; principal; 2021-06-28 10:00)
DX: T83.192A Other mechanical complication of indwelling ureteral stent, initial encounter (principal); N13.6 Pyonephrosis; N17.9 Acute kidney failure, unspecified; I50.9 Heart failure, unspecified; N18.9 Chronic kidney disease, unspecified; E03.9 Hypothyroidism, unspecified; E78.5 Hyperlipidemia, unspecified; 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, fused and horseshoe kidney; I25.10 Atherosclerotic heart disease of native coronary artery without angina pectoris; E73.9 Lactose intolerance, unspecified; G40.909 Epilepsy, unspecified, not intractable, without status epilepticus; Z79.82 Long term (current) use of aspirin; Z79.899 Other long term (current) drug therapy; Z88.8 Allergy status to other drugs, medicaments and biological substances; Z91.018 Allergy to other foods; Z91.048 Other nonmedicinal substance allergy status; Z96.0 Presence of urogenital implants

== ENCOUNTER → 2021-07-04 | Outpatient (REF) | payer MEDICARE, OTHER ==
[~2021-07-04] MED LIST changes: -CEFD1CAP8 PO; +CEFD300C41 PO; +FURO20TA2; +VITA1CAP25 PO
== END ==
LOC: M SMT 13:05
PROVIDERS: ATTEND Urology
DX: N39.0 Urinary tract infection, site not specified (principal)

== ENCOUNTER → 2021-08-07 | Outpatient (CLI) | payer MEDICARE, OTHER ==
[~2021-08-07] MED LIST changes: +CEFD1CAP8 PO; -CEFD300C41 PO
== END ==
LOC: M LAB 10:09
PROVIDERS: ATTEND Physician Assistant Medical
DX: R56.9 Unspecified convulsions (principal); Z51.81 Encounter for therapeutic drug level monitoring

== ENCOUNTER → 2021-08-29 | Outpatient (CLI) | payer MEDICARE, MEDICAID ==
--- NOTE | 2021-08-29 11:00 | REP ---
INDICATION: LOBULATED, FUSED AND HORSESHOE KIDNEY. COMPARISON: Multiple the latest 03/06/2021 TECHNIQUE: PA and lateral FINDINGS: The heart size is borderline. Chronic changes seen throughout the lung l[place] particularly the right lung base with chronic right CP angle blunting status quo. No acute patchy parenchymal opacities or pleural effusions have developed there is no change in the osseous structures. IMPRESSION: Chronic changes as described above. <Electronically signed by Anand Das > 08/29/21 [id number]
[2021-08-29 13:32] LABS: APPEARANCE, URINE CLOUDY (CLEAR); BACTERIA, URINE AUTO 1+ (NEGATIVE); BILIRUBIN, URINE AUTO NEGATIVE (NEGATIVE); BLOOD, URINE BLOOD 1+ (NEGATIVE); COLOR, URINE YELLOW (YELLOW); GLUCOSE, URINE (UA) AUTO NEGATIVE (NEGATIVE); KETONE, URINE AUTO NEGATIVE (NEGATIVE); LEUKOCYTE ESTERASE, URINE AUTO 3+ (NEGATIVE); MUCUS, URINE SMALL (NEGATIVE); NITRITE, URINE AUTO NEGATIVE (NEGATIVE); PROTEIN, URINE AUTO 1+ mg/dL (NEGATIVE); RBC, URINE AUTO 16 /HPF (0-3); SQUAMOUS EPITHELIAL CELL UR AU 2 /HPF (0-6); UROBILINOGEN, URINE AUTO 0.2 mg/dL (0.0-2.0); WBC, URINE AUTO 123 /HPF (0-3)
[2021-08-29 13:38] LABS: HEMATOCRIT 39.9 % (36.0-47.0); HEMOGLOBIN 12.9 g/dl (12.0-15.5); MEAN CORPUSCULAR HEMOGLOBIN 35.2 pg (27.0-33.0); MEAN CORPUSCULAR HGB CONC 32.3 g/dl (32.0-36.5); PLATELET COUNT, AUTOMATED 320 10^3/uL (150-450); RED BLOOD COUNT 3.66 10^6/uL (4.00-5.40); WHITE BLOOD COUNT 6.4 10^3/uL (4.0-10.0)
[2021-08-29 13:48] LABS: INR 0.94; PROTHROMBIN TIME 12.9 SECONDS (12.7-14.5)
[2021-08-29 13:49] LABS: PARTIAL THROMBOPLASTIN TIME 31.8 SECONDS (25.9-37.0)
[2021-08-29 13:53] LABS: CALCIUM LEVEL 9.8 MG/DL (8.8-10.2); CREATININE FOR GFR 1.43 MG/DL (0.55-1.30); GLOMERULAR FILTRATION RATE 38.4 (>39); POTASSIUM SERUM 4.6 MEQ/L (3.5-5.1)
--- NOTE | 2021-09-01 16:54 | ECGEPIP ---
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 Non specific anterior ST/T abnormality was n noted Electronically Signed on 09-01-2021 16:54:32 EDT by Randell Campa
== END ==
LOC: M RAD 09:23
PROVIDERS: ATTEND Nurse Practitioner Women's Health
DX: Z01.818 Encounter for other preprocedural examination (principal); 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, fused and horseshoe kidney; N13.39 Other hydronephrosis; Z79.82 Long term (current) use of aspirin; Z79.899 Other long term (current) drug therapy

== ENCOUNTER → 2021-09-05 | Outpatient (CLI) | payer MEDICARE, OTHER | LOC: M LABSMTC 10:21 | PROVIDERS: ATTEND Anesthesiology | DX: Z01.818 Encounter for other preprocedural examination (principal); Z11.52 Encounter for screening for COVID-19 ==

== ENCOUNTER 2021-09-10 06:18 | Day surgery (SDC) | payer MEDICARE, OTHER ==
[~2021-09-10] VITALS: Ht 149.9 cm; Wt 72.6 kg
[~2021-09-10 06:18] MED LIST changes: +CIPROFLOXACIN 400 MG in IV 1 EA IV ONE; +LR 1,000 ML IV ONE
--- OUTSIDE RECORDS SUMMARY | 2021-09-10 06:22 | CCD ---
Author Author [facility] Organization 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 Ac tive confirmed 32742289 Problem Urinary tract infection, site not specified N39.0 Active confirmed 90342334 Problem Other hydronephrosis N13.39 Active confirmed 52698896 ALLERGIES Allergen (clinical drug ingredient) Drug/Non Drug Allergy do cumented on EMR Reaction Allergy Type Onset Date Status Chocolate Flavor([facility] Code:[address]-21) Sinusitis Drug A llergy Active Bubble Bath Itchiness Non Drug Allergy Active Tegretol Cardiac Arrest Drug Allergy Active ENCOUNTERS from 1950 to 2021-08-23 Encounter Location Date Provider Diagnosis [facility] [phone] [place] [address] Aug, Norah Merrill Lobulated, fused and horseshoe kidney Q6 3.1 ; Other hydronephrosis N13.39 ; Pre-op testing Z01.818 and Kidney stone N20.0 IMMUNIZATIONS Vaccine Route Administration Date Status Influenza 18 yrs & older Flublok Unknown Aug 18, 2019 Administered Influenza (High Dose 65 & up) Unknown Dec 25, 2015 Re fused Influenza 6mo & up Fluzone Unknown Sep 19, 2015 Refus ed Influenza 6mo & up Fluzone Unknown March 15, 2015 Refus ed SOCIAL HISTORY Sex Assigned At : Social History Observation Description Sex Assigned At Unknown REASON FOR REFERRAL No Information VITAL SIGNS Weight 155 lbs Aug, Weight-kg 70.31 kg Aug, Height 4'11" in Aug, BMI 31.30 kg/m2 Aug, Heart Rate 82 /min Aug, Respiratory Rate 18 /min Aug, Temperature 98.6 degrees Fahrenheit Aug, Oximetry 94% Aug, Blood pressure systolic 138 mm Hg Aug, Blood pressure diastolic 78 mm Hg Aug, MEDICATIONS Medication SIG (Take, Route, Frequency, Duration) Notes Start Da te End Date Status Aspirin 81 MG 1 tablet Orally Once a day for 30 day(s) Active Folic Acid 1 MG as directed Orally A ctive Ferrous Gluconate 324 (38 Fe) MG 1 tablet Orally Once a day Active PARoxetine HCl 10 MG 1 tablet in the morning Orally Once a day f or 30 day(s) Active Depakote 250 MG 1 tablet Orally Twice a day, one tablet in AM, two in PM for 30 day(s) Active Oxybutynin Chloride ER 10 MG TAKE ONE TABLET BY MOUTH EVERY DAY orally Once a day for 90 days Active Levothyroxine Sodium 75 MCG 1 tablet in the morning on an empty stomach Orally Once a day for 30 day(s) Active Synthroid 75 MCG 1 tablet on an empty stomach in the morning Orally Once a day for 30 day(s) Active Atorvastatin Calcium 80 MG 1 tablet Orally Once a day Active PROCEDURES No Information RESULTS No Results REASON FOR VISIT sign consent for stent exchange MEDICAL (GENERAL) HISTORY Type Description Date Medical History HTN Medical History Epilepsy Medical History hypercholesterolemia Medical History hx of acute renal failure Medical History hydronephrosis Medical History horseshoe kidney Medical History Glaucoma Medical History Hypothyroidism Medical History incontinence Medical History NE Surgical History cataract-lens implants 12/2009, 01/2010 Surgical History Ureteral Stents 1979 Surgical History Hysterectomy 1995 Surgical History Lung Surgery 1994 Surgical History Urteral Stents 04/2013 Surgical History Cysto double J Stent exchange every 3 mo [facility] Hospitalization History pyelonephritis 01/2013 Hospitalization History acute renal failure 04/2013 Hospitalization History seizure 02/2008 Hospitalization History surgical related Goals Section No Information Health Concerns No Information MEDICAL EQUIPMENT No Information MENTAL STATUS No Information FUNCTIONAL STATUS No Information ASSESSMENTS Encounter Date Diagnosis Assessment Notes Treatment Notes Treatm ent Clinical Notes Aug, Other hydronephrosis (ICD-10 - N13.39) Aug, Lobulated, fused and horseshoe kidney (ICD-10 - Q63.1) Aug, Pre-op testing (ICD-10 - Z01.818) Aug, Kidney stone (ICD-10 - N20.0) PLAN OF TREATMENT Treatment Notes Test Name Order Date PLZ CHEST 2 VIEW 2021-08-21 Electrocardiogram (EKG) 2021-08-21 Future Test Test Name Order Date Basic Metabolic Profile (BMP) [id number] CBC - Complete Blood Count [id number] PT & APTT [id number] UA URINALYSIS [id number] URINE CULTURE [id number] Insurance Providers Payer Name Payer Address Payer Phone Insured Name Patient Relati onship to Insured Coverage Start Date Coverage End Date MEDICAID [id number] [address] [facility] [id number] ERNIE COLBERT self [facility] [address] [facility] [id number] ERNIE COLBERT self 2018
--- OUTSIDE RECORDS SUMMARY | 2021-09-10 06:22 | CCD | Continuity of Care Document ---
Author Author Mildred BOWLES P.A.-C. Organization Unknown Address [address] [place] [id number] Phone [phone] Care Team Providers Care Relocation Associate Name Role Phone Rachel Haas M.D. AUTM [phone] Lopez Lares D.O. AUTM [phone] Problems Description No Information Available Social History Type Date Description Comments Sex Unknown Allergies and adverse reactions Active Allergies Criticality Reaction | Severity Comments Date Tegretol Unable to assess criticality anaphylaxis 03/15/2015 Inactive Allergies NKDA Unable to assess criticality 03/15/2014 Medications Active Medications SIG Qnty Indications Ordering Provide r Date Depakote ER 250mg Tablets ER 24HR 1 po q am and 2 po qhs 90tabs G40.001 Adryan Cornejo M.D. 09/12/2010 Immunizations Description No Information Available Vital Signs Date Vital Result Comment 05/16/2021 6:23am BP Systolic 110 mmHg BP Diastolic 80 mmHg Heart Rate 76 /min Respiratory Rate 16 /min 06/27/2020 6:27am BP Systolic 110 mmHg BP Diastolic 80 mmHg Heart Rate 76 /min Respiratory Rate 16 /min Results Test Acquired Date Facility Test Result H/L Range Note Laboratory test finding 08/07/2021 [facility] Valproic Acid (Depakote) 99.6 UG/ML Normal 50.0-100.0 Laboratory test finding 03/06/2021 [facility] Valproic Acid (Depakote) 62.5 UG/ML Normal 50.0-100.0 Procedures Date Code Description Status 05/16/2021 29888 Office/Outpatient Established Mo d MDM 30-39 Min Completed Medical Devices Description No Information Available Encounters Type Date Location Provider Dx Diagnosis Office Visit 05/16/2021 11:00a Main office - [place] Sallie hurt P.A.-C. G40.009 Local-rel idio epi w seiz of loc onst,no t ntrct,w/o stat epi Assessments Date Code Description Provider 05/16/2021 G40.009 Localization-related (focal) (pa rtial) idiopathic epilepsy a Sallie Bowles P.A.-C. Plan of Treatment Future Appointment(s):* 08/15/2021 11:30 am - Sallie Bowles P.A.-C. 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 Continue Depakote ER. * Follow up:* 3 months Functional Status Description No Information Available Mental Status Description No Information Available Referrals Description No Information Available"
--- OUTSIDE RECORDS SUMMARY | 2021-09-10 06:22 | CCD | Continuity of Care Document ---
Author Author Mildred MILES RP A Organization Unknown Address [address] [facility] [address] [place] [address] Phone [phone] Problems Active Problems Provider Date Hyperlipidemia Lopez Lares D.O., FAAFP Onset: 09/04 Seizure Lopez Lares D.O., [place] Onset: 09/04 Primary open angle glaucoma Lopez Lares D.O., FAAFP Ons et: 09/28/2010 Hypothyroidism Lopez Lares D.O., FAAFP Onset: 08/04 Depressive disorder Lopez Lares D.O., [place] Onset: 03/04 Disorder of urinary tract Lopez Lares D.O., FAAFP Onset : 03/25/2013 Note: HORSE SHOE KIDNEYS Epilepsy Lopez Lares D.O., [place] Onset: 02/2014 Impaired renal function disorder Lopez Lares D.O. FAAF P Onset: 12/07/2015 Congenital obstructive defect of renal pelvis Lopez ibanez D.O., FAAFP Onset: 12/07/2015 Secondary hyperparathyroidism Lopez Lares D.O., FAAFP O nset: 07/25/2016 Hypertensive heart disease Lopez Lares D.O., FAAFP Onse t: 08/13/2018 Note: NO HEART Failure Colonoscopy Lopez Lares D.O. FAAFP Onset: 04/04 Note: DECLINES WELL COLOGUARD Chronic kidney disease stage 3 Tramaine Miles RPA Onset: 03/30/2020 Old myocardial infarction Tramaine Miles RPA Onset: 03/04 Glaucoma Tramaine Miles RPA Onset: 03/30/2020 Congenital anomaly of the kidney Tramaine Miles RPA Onse t: 03/30/2020 Hyperparathyroidism Tramaine Miles RPA Onset: 03/30/2020 Atherosclerosis of coronary artery without angina pect nicholas Tramaine Miles RPA Onset: 03/30/2020 Epilepsy Lesly Sugar M, [facility] Onset: 08/31/2020 Essential hypertension Tramaine Miles RPA Onset: 021 Social History Type Date Description Comments Sex Unknown Tobacco Use Start: Unknown Never Smoked Cigarettes ETOH Use Alcohol use: None. Recreational Drug Use Never Used Drugs Tobacco Use Start: Unknown Patient has never smoked Smoking Status Reviewed: 05/31/21 Patient has never smoked Allergies and adverse reactions Active Allergies Criticality Reaction | Severity Comments Date Tegretol Unable to assess criticality Cardiac Even t 09/28/2010 NSAIDs Unable to assess criticality Kidney Disea se 10/21/2013 Medications Active Medications SIG Qnty Indications Ordering Provide r Date [employer] Covid-19 Vaccine 30mcg/0.3ML Suspension both Lopez Lares D.O., FAAFP 03/08/2021 Ferrous Gluconate 324(38Fe) mg Tab lets Take One Tablet By Mouth Twice A Day 60tabs Haile ElenaO., FAAFP 12/24/2018 Vitamin B Complex Tablets 1 by mouth every day OTC Lopez Lares D.O., FAAFP Prevnar 13 Suspension as directed done 1units Lopez Lares D.O., FAAFP 07/31/2017 Depend Undergarments [facility] size lrg(uses 3 per day) 100units Q63.9 Lopez Lares D.O., FAAFP 02/2016 R39.15 Levothyroxine Sodium 75mcg Tablets Take One Tablet By Mouth Every Morning On An Empty Stomach 90tabs Lopez Lares D.O., FAAFP 10/22/2013 Paroxetine HCL 10mg Tablets take one tablet by mouth every day 30tabs Lopez Lares D.O., FAAFP 03/25/2013 Depakote ER 250mg Tablets ER 24HR 1 by mouth every morning and 2 by mouth every night 90tabs Sugar Bertrand, [employer]- 09/28/2010 Folic Acid 1mg Tablets take one tablet by mouth every day 90tabs [facility] Carvedilol 3.125mg Tablets take one tablet by mouth twice a day Unknown Nystatin-Triamcinolone 604212-0.1Unit/GM-% Cream apply to rash three a day Unknown Atorvastatin Calcium 80mg Tablets take one tablet by mouth every morning 30tabs Sugar Grace [facility]- Oxybutynin Chloride ER 10mg Tablets ER 24HR 1 by mouth every day Unknown 0 000 Medications Administered in Office Medication SIG Qnty Indications Ordering Provider Date Injection (SC)/(Im) Injection Tramaine Miles, [facility] 07/21/2020 Injection (SC)/(Im) Injection [facility] D.O., [facility] 07/30/2012 Injection (SC)/(Im) Injection Lopez [facility]res D.O., [facility] 08/29/2011 Injection (SC)/(Im) Injection Lopez Lares D.O., [facility] 09/28/2010 Immunizations CPT Code Status Date Vaccine Lot # [id number] Given 07/21/2020 Influenza Virus Vaccine, Quadrivalent, Slit Virus, Im Use 3Y & Up [id number] 53812 Given 08/19/2019 Influenza Virus Vaccine, Quadrivalent, Slit Virus, Im Use 3Y & Up [id number] 78097 Given 08/13/2018 Influenza Virus Vaccine, Quadrivalent, Slit Virus, Im Use 3Y & Up [id number] 93623 Given 07/31/2017 Influenza Virus Vaccine, Quadrivalent, Slit Virus, Im Use 3Y & Up [id number] 52905 Given 07/25/2016 Influenza Vaccin e (Fluzone) 3Yrs Of Age Or Older Medicare Plans [id number] 76360 Given 08/31/2015 Influenza Vaccin e (Fluzone) 3Yrs Of Age Or Older Medicare Plans [id number] 50328 Given 11/17/2014 Pneumococcal Immunization [id number] 10503 Given 08/11/2014 Influenza Vaccin e (Fluzone) 3Yrs Of Age Or Older Medicare Plans [id number] Q2037 Given 08/11/2014 Influenza Vaccin e (Fluvirin) 3Yrs Of Age Or Older Medicare Plans 80509 Given 07/30/2012 Influenza Virus Vac. Split Virus Individuals 3 Years And Above 55848 Given 08/29/2011 Influenza Virus Vac. Split Virus Individuals 3 Years And Above [id number] 21447 Given 09/28/2010 Influenza Virus Vac. Split Virus Individuals 3 Years And Above [id number] Vital Signs Date Vital Result Comment 09/03/2021 10:58am BP Systolic 136 mmHg BP Diastolic 86 mmHg Body Temperature 97.1 F Heart Rate 67 /min Respiratory Rate 16 /min Height 59 inches 4'11" Weight 161.00 lb [place] Body Weight 100 lb BMI (Body Mass Index) 32.5 kg/m2 O2 % BldC Oximetry 96 % 05/31/2021 1:21pm BP Systolic 124 mmHg BP Diastolic 78 mmHg Body Temperature 98.0 F Heart Rate 78 /min Respiratory Rate 16 /min Height 59 inches 4'11" Weight 160.00 lb [place] Body Weight 100 lb BMI (Body Mass Index) 32.3 kg/m2 O2 % BldC Oximetry 97 % Results Test Acquired Date Facility Test Result H/L Range Note Urine Culture 08/29/2021 [facility] (I nterfa) [phone] Urine Culture FULL REPORT IN L <SEE NOTE> Normal 1 Complete Blood Count 08/29/2021 [facility] ( Interface) [phone] White Blood Count 6.4 10 Normal 4.0-10.0 Red Blood Count 3.66 10 Low 4.00-5.40 Hemoglobin 12.9 g/dL Normal 12.0-15.5 Hematocrit 39.9 % Normal 36.0-47.0 Mean Corpuscular Volume 109.0 fl High 80.0-96.0 Mean Corpuscular Hemoglobin 35.2 pg High 27.0-33.0 Mean Corpuscular HGB Conc 32.3 g/dL Normal 32.0-36.5 Red Cell Distribution Width 14.2 % Normal 11.5-14.5 Platelet Count, Automated 320 10 Normal 150-450 Nucleated Red Blood Cell % 0.0 % Normal 0-0 PT & Aptt 08/29/2021 [facility]) [phone] Prothrombin Time 12.9 seconds Normal 12.7-14.5 Inr 0.94 Normal 2 Partial Thromboplastin Time 31.8 seconds Normal 25.9-37.0 Basic Metabolic Profile 08/29/2021 [facility] (Interface) [phone] Glucose, Fasting 103 mg/dL High 70-100 Blood Urea Nitrogen 26 mg/dL High 7-18 Creatinine For GFR 1.43 mg/dL High 0.55-1.30 Glomerular Filtration Rate 38.4 Low >39 3 Sodium Level 141 mEq/L Normal 136-145 Potassium Serum 4.6 mEq/L Normal 3.5-5.1 Chloride Level 105 mEq/L Normal 98-107 Carbon Dioxide Level 30 mEq/L Normal 21-32 Anion Gap 6 mEq/L Low 8-16 Calcium Level 9.8 mg/dL Normal 8.8-10.2 Ua Routine 08/29/2021 [facility]) [phone] Appearance, Urine CLOUDY High Clear Color, Urine YELLOW Normal Yellow PH,Urine 6.0 units Normal 5.0-9.0 Specific [place] Urine Auto 1.010 Normal 1.002-1.035 Protein, Urine Auto 1+ mg/dL High Negative Glucose, Urine (Ua) Auto NEGATIVE mg/dL Normal Negative Ketone, Urine Auto NEGATIVE mg/dL Normal Negative Urobilinogen, Urine Auto 0.2 mg/dL Normal 0.0-2.0 Bilirubin, Urine Auto NEGATIVE Normal Negative Nitrite, Urine Auto NEGATIVE Normal Negative Leukocyte Esterase, Urine Auto 3+ High Negative Blood, Urine Blood 1+ High Negative WBC, Urine Auto 123 /HPF High 0-3 RBC, Urine Auto 16 /HPF High 0-3 Bacteria, Urine Auto 1+ High Negative Squamous Epithelial Cell Ur AU 2 /HPF Normal 0-6 Mucus, Urine SMALL Normal Negative Hyaline Cast, Urine Auto 0 /LPF Normal 0-1 Laboratory test finding 08/07/2021 [facility] (Interface) [phone] Valproic Acid (Depakote) 99.6 UG/ML Normal 50.0-10 0.0 Liver Profile [facility] [phone] Ast/Sgot 27 U/L Normal 7-37 Alt/SGPT 20 U/L Normal 12-78 Alkaline Phosphatase 68 U/L Normal 45-117 Bilirubin,Total 0.4 mg/dL Normal 0.2-1.0 Bilirubin,Direct < 0.1 mg/dL Normal 0.0-0.2 Total Protein 8.1 GM/DL Normal 6.4-8.2 Albumin 3.0 GM/DL Low 3.2-5.2 Albumin/Globulin Ratio 0.6 Low 1.2-2.2 Basic Metabolic Profile 06/27/2021 [facility] (Interface) [phone] Glucose, Fasting 121 mg/dL High 70-100 Blood Urea Nitrogen 63 mg/dL High 7-18 Creatinine For GFR 2.44 mg/dL High 0.55-1.30 Glomerular Filtration Rate 20.7 Low >39 4 Sodium Level 135 mEq/L Low 136-145 Potassium Serum 4.6 mEq/L Normal 3.5-5.1 Chloride Level 102 mEq/L Normal 98-107 Carbon Dioxide Level 23 mEq/L Normal 21-32 Anion Gap 10 mEq/L Normal 8-16 Calcium Level 10.2 mg/dL Normal 8.8-10.2 Laboratory test finding 06/27/2021 [facility] (Interface) [phone] Lipase 109 U/L Normal 73-393 5 Ua W/ Reflex To Culture 06/27/2021 [facility] (Interface) [phone] Appearance, Urine RFX TURBID High Clear Color, Urine RFX YELLOW Normal Yellow PH,Urine RFX 7.0 units Normal 5.0-9.0 Specific [place] Ur Auto RFX 1.010 Normal 1.002-1.035 Protein, Urine Auto RFX 2+ mg/dL High Negative Glucose, Urine (Ua) Auto RFX NEGATIVE mg/dL Normal Negative Ketone, Urine Auto RFX NEGATIVE mg/dL Normal Negative Urobilinogen, Urine Auto RFX 0.2 mg/dL Normal 0.0-2.0 Bilirubin, Urine Auto RFX NEGATIVE Normal Negative Nitrite, Urine Auto RFX NEGATIVE Normal Negative Leukocyte Esterase Ur Auto RFX 3+ High Negative Blood, Urine Blood RFX 3+ High Negative WBC, Urine Auto RFX TNTC /HPF High 0-3 RBC, Urine Auto RFX 164 /HPF High 0-3 Bacteria, Urine Auto RFX 2+ High Negative Squam Epithelial Cell Ur Aurfx 5 /HPF Normal 0-6 Mucus, Urine RFX SMALL Normal Negative Hyaline Cast, Urine Auto RFX 0 /LPF Normal 0-1 CBC With Differential 06/27/2021 [facility]) [phone] White Blood Count 11.8 10 High 4.0-10.0 Red Blood Count 4.05 10 Normal 4.00-5.40 Hemoglobin 13.8 g/dL Normal 12.0-15.5 Hematocrit 41.9 % Normal 36.0-47.0 Mean Corpuscular Volume 103.5 fl High 80.0-96.0 Mean Corpuscular Hemoglobin 34.1 pg High 27.0-33.0 Mean Corpuscular HGB Conc 32.9 g/dL Normal 32.0-36.5 Red Cell Distribution Width 12.1 % Normal 11.5-14.5 Platelet Count, Automated 354 10 Normal 150-450 Neutrophils % 78.0 % High 36.0-66.0 Lymph % 8.6 % Low 24.0-44.0 [place] % 11.5 % High 2.0-8.0 Eos % 0.7 % Normal 0.0-3.0 Baso % 0.4 % Normal 0.0-1.0 Immature Granulocyte % 0.8 % Normal 0-3.0 Nucleated Red Blood Cell % 0.0 % Normal 0-0 Neutrophils # 9.2 10 High 1.5-8.5 Lymph # 1.0 10 Low 1.5-5.0 [place] # 1.4 10 High 0.0-0.8 Eos # 0.1 10 Normal 0.0-0.5 Baso # 0.1 10 Normal 0.0-0.2 Istat Chem8+ Panel 06/27/2021 [facility] (I nterface) [phone] iSTAT HCT 42.0 % Normal 38.0-51.0 iSTAT Glucose 136 mg/dL High 70-105 iSTAT Sodium 139 mEq/L Normal 136-145 iSTAT Potassium 4.3 mEq/L Normal 3.5-5.1 iSTAT CA++ 4.9 mg/dL Normal 4.5-5.3 iSTAT Chloride 102 mEq/L Normal 98-109 iSTAT Co2 25.0 MM/L Normal 23.0-27.0 iSTAT BUN 62 mg/dL High 8-26 iSTAT Creatinine 2.7 mg/dL High 0.6-1.3 U/A DIP FPA 05/31/2021 [facility][1] Asso ciates Color Urine YELLOW Yellow Appearance HAZY Clear Specific [place] 1.010 1.00-1.03 PH Urine 8.0 5.0-8.0 Glucose Urine NEG Negative Bilirubin Urine NEG Negative Ketones NEG Negative Blood Urine 3+ High Negative Protein Urine 2+ High Negative Urobilinogen .2 EU/dl 0.2-1.0 Nitrite NEG Negative Leukocytes 3+ High Negative Urine Culture, Routine 05/31/2021 [facility] [place] Urine Culture, Routine Final report Result 1 See Comment: 6 Laboratory test finding 05/31/2021 [facility] [place] Creatine Kinase,Total 57 U/L 32-182 TSH 1.440 uIU/mL 0.450-4.500 Lipid Panel 05/31/2021 [facility] [place] Cholesterol, Total 182 mg/dL 100-199 Triglycerides 186 mg/dL High 0-149 HDL Cholesterol 42 mg/dL >39 VLDL Cholesterol Ariel 32 mg/dL 5-40 LDL Chol Calc (Nih) 108 mg/dL High 0-99 Comment: TNP Metabolic Panel (14), Comprehensive 05/31/2021 [facility] [place] Glucose 69 mg/dL 65-99 BUN 47 mg/dL High 8-27 Creatinine 1.82 mg/dL High 0.57-1.00 eGFR If NonAfricn Am 27 mL/min/1.73 Low >59 eGFR If Africn Am 32 mL/min/1.73 Low >59 7 BUN/Creatinine Ratio 26 12-28 Sodium 141 mmol/L 134-144 Potassium 4.5 mmol/L 3.5-5.2 Chloride 100 mmol/L 96-106 Carbon Dioxide, Total 24 mmol/L 20-29 Calcium 9.8 mg/dL 8.7-10.3 Protein, Total 6.9 g/dL 6.0-8.5 Albumin 3.9 g/dL 3.7-4.7 Globulin, Total 3.0 g/dL 1.5-4.5 A/G Ratio 1.3 1.2-2.2 Bilirubin, Total 0.4 mg/dL 0.0-1.2 Alkaline Phosphatase 65 IU/L 48-121 Ast (Sgot) 15 IU/L 0-40 Alt (SGPT) 12 IU/L 0-32 Laboratory test finding 04/18/2021 [facility] (Interface) [phone] NT-Pro BNP 171 pg/mL High <125 Complete Blood Count 03/13/2021 [facility]) [phone] White Blood Count 5.9 10 Normal 4.0-10.0 Red Blood Count 3.70 10 Low 4.00-5.40 Hemoglobin 12.6 g/dL Normal 12.0-15.5 Hematocrit 39.7 % Normal 36.0-47.0 Mean Corpuscular Volume 107.3 fl High 80.0-96.0 Mean Corpuscular Hemoglobin 34.1 pg High 27.0-33.0 Mean Corpuscular HGB Conc 31.7 g/dL Low 32.0-36.5 Red Cell Distribution Width 13.2 % Normal 11.5-14.5 Platelet Count, Automated 292 10 Normal 150-450 Nucleated Red Blood Cell % 0.0 % Normal 0-0 Ua Routine 03/13/2021 [facility] [phone] Appearance, Urine CLOUDY High Clear Color, Urine YELLOW Normal Yellow PH,Urine 7.0 units Normal 5.0-9.0 Specific [place] Urine Auto 1.010 Normal 1.002-1.035 Protein, Urine Auto 2+ mg/dL High Negative Glucose, Urine (Ua) Auto NEGATIVE mg/dL Normal Negative Ketone, Urine Auto NEGATIVE mg/dL Normal Negative Urobilinogen, Urine Auto 0.2 mg/dL Normal 0.0-2.0 Bilirubin, Urine Auto NEGATIVE Normal Negative Nitrite, Urine Auto NEGATIVE Normal Negative Leukocyte Esterase, Urine Auto 3+ High Negative Blood, Urine Blood 2+ High Negative WBC, Urine Auto TNTC /HPF High 0-3 RBC, Urine Auto 83 /HPF High 0-3 Bacteria, Urine Auto 2+ High Negative Squamous Epithelial Cell Ur AU 0 /HPF Normal 0-6 Mucus, Urine SMALL Normal Negative Hyaline Cast, Urine Auto 0 /LPF Normal 0-1 PT & Aptt 03/13/2021 [facility]) [phone] Prothrombin Time 12.0 seconds Normal 12.5-14.3 Inr 0.87 Normal 8 Partial Thromboplastin Time 30.2 seconds Normal 24.2-38.5 Basic Metabolic Profile 03/13/2021 [facility] (Interface) [phone] Glucose, Fasting 95 mg/dL Normal 70-100 Blood Urea Nitrogen 38 mg/dL High 7-18 Creatinine For GFR 1.25 mg/dL Normal 0.55-1.30 Glomerular Filtration Rate 45.0 Normal >39 9 Sodium Level 141 mEq/L Normal 136-145 Potassium Serum 4.8 mEq/L Normal 3.5-5.1 Chloride Level 110 mEq/L High 98-107 Carbon Dioxide Level 28 mEq/L Normal 21-32 Anion Gap 3 mEq/L Low 8-16 Calcium Level 9.7 mg/dL Normal 8.8-10.2 Urine Culture 03/13/2021 [facility]) [phone] Urine Culture FULL REPORT IN L <SEE NOTE> Normal 10 Laboratory test finding 03/06/2021 [facility] (Interface) [phone] Valproic Acid (Depakote) 62.5 UG/ML Normal 50.0-10 0.0 1 FULL REPORT IN LAB NOTES (eC W and [facility]). NO GROWTH 2 THERAPUTIC HUMAN INR VALUES INDICATIONS NORMAL RANGES PROPHYLAXIS/TREATMENT OF: VENOUS THROMBOSIS 2.0-3.0 PULMONARY EMBOLISM 2.0-3.0 PREVENTION OF SYSTEMIC EMBOLISM FROM: TISSUE HEART VALVES 2.0-3.0 ACUTE MYOCARDIAL INFARCTION 2.0-3.0 VALVULAR HEART DISEASE 2.0-3.0 ATRIAL FIBRILLATION 2.0-3.0 MECHANICAL VALVES(HIGH RISK) 2.5-3.5 RECURRENT MYOCARDIAL INFARCTION 2.5-3.5 3 Units are mL/min/1.73 m2 Chronic Kidney Disease Staging per NKF: Stage I & II GFR >=60 Normal to Mildly Decreased Stage III GFR 30-59 Moderately Decreased Stage IV GFR 15-29 Severely Decreased Stage V GFR <15 Very Little GFR Left ESRD GFR <15 on [employer] 4 Units are mL/min/1.73 m2 Chronic Kidney Disease Staging per NKF: Stage I & II GFR >=60 Normal to Mildly Decreased Stage III GFR 30-59 Moderately Decreased Stage IV GFR 15-29 Severely Decreased Stage V GFR <15 Very Little GFR Left ESRD GFR <15 on [employer] 5 COMMENT--- 6 Culture shows less than 10,0 00 colony forming units of bacteria per milliliter of urine. This colony count is not generally considered to be clinically significant. 7 [facility] currently reports eGFR in compliance with the current recommendations of the National Kidney Foundation. [facility] will update reporting as new guidelines are published from the NKF-ASN Task force. 8 THERAPUTIC HUMAN INR VALUES INDICATIONS NORMAL RANGES PROPHYLAXIS/TREATMENT OF: VENOUS THROMBOSIS 2.0-3.0 PULMONARY EMBOLISM 2.0-3.0 PREVENTION OF SYSTEMIC EMBOLISM FROM: TISSUE HEART VALVES 2.0-3.0 ACUTE MYOCARDIAL INFARCTION 2.0-3.0 VALVULAR HEART DISEASE 2.0-3.0 ATRIAL FIBRILLATION 2.0-3.0 MECHANICAL VALVES(HIGH RISK) 2.5-3.5 RECURRENT MYOCARDIAL INFARCTION 2.5-3.5 9 Units are mL/min/1.73 m2 Chronic Kidney Disease Staging per NKF: Stage I & II GFR >=60 Normal to Mildly Decreased Stage III GFR 30-59 Moderately Decreased Stage IV GFR 15-29 Severely Decreased Stage V GFR <15 Very Little GFR Left ESRD GFR <15 on [employer] 10 FULL REPORT IN LAB NOTES (Alirio Celis and Adrian). NO GROWTH CLINICAL SIGNIFICANCE 2 OR MORE ORGANISMS Procedures Date Code Description Status 09/03/2021 61994 Office/Outpatient Established Mo d MDM 30-39 Min Completed 05/31/2021 24081 Office/Outpatient Established Mo d MDM 30-39 Min Completed 03/08/2021 45884 Office/Outpatient Established Mo d MDM 30-39 Min Completed 03/08/2021 52812 Electrocardiogram Complete Compl eted 03/13/2018 [id number] Mammogram Completed Medical Devices Description No Information Available Encounters Type Date Location Provider Dx Diagnosis Office Visit 09/03/2021 11:15a [place] [facility] Tramaine Miles, RP A Z01.818 Encounter for other preprocedural examination 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, fused and horsesh oe kidney N18.30 Chronic kidney disease, stag e 3 unspecified I10 Essential (primary) hyperten hi G40.909 Epilepsy, unsp, not intracta ble, without status epilepticus E03.9 Hypothyroidism, unspecified Office Visit 05/31/2021 1:15p [place] [facility] Haile Elena, FAAFP E78.5 Hyperlipidemia, unspecified G40.909 Epilepsy, unsp, not intracta ble, without status epilepticus E03.9 Hypothyroidism, unspecified N18.30 Chronic kidney disease, stag e 3 unspecified I25.10 Athscl heart disease of [place] coronary artery w/o [facility] p[facility] F32.89 Other specified depressive e pisodes Office Visit 03/08/2021 3:00p [place] [facility] Haile Elena, FAAFP Z01.818 Encounter for other preprocedural examin ation G40.909 Epilepsy, unsp, not intracta ble, without status epilepticus E03.9 Hypothyroidism, unspecified N18.30 Chronic kidney disease, stag e 3 unspecified I25.10 Athscl heart disease of chip ve coronary artery w/o [facility] pct[facility] Assessments Date Code Description Provider 09/03/2021 Z01.818 Encounter for other preprocedura l examination Tramaine Miles, RPA 09/03/2021 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, fused and horseshoe k idney Tramaine Miles, RPA 09/03/2021 N18.30 Chronic kidney disease, stage 3 unspecified Tramaine Miles, RPA 09/03/2021 I10 Essential (primary) hypertension Tramaine Miles, RPA 09/03/2021 G40.909 Epilepsy, unspecified, not intra ctable, without status epile Tramaine Miles, RPA 09/03/2021 E03.9 Hypothyroidism, unspecified Tramaine Paul, RPA 05/31/2021 E78.5 Hyperlipidemia, unspecified Yash Lares D.O., FAAFP 05/31/2021 G40.909 Epilepsy, unspecified, not intra ctable, without status epile Lopez Lares D.O., FAAFP 05/31/2021 E03.9 Hypothyroidism, unspecified Yash Lares D.O., FAAFP 05/31/2021 N18.30 Chronic kidney disease, stage 3 unspecified Lopez Lares D.O., [facility] 05/31/2021 I25.10 Atherosclerotic hear t disease of [place] coronary artery without angina pectoris Lopez Lares D.O., [facility] 05/31/2021 F32.89 Other specified depressive episo marin Lopez Lares D.O., [facility] 03/08/2021 Z01.818 Encounter for other preprocedura l examination Lopez Lares D.O., [facility] 03/08/2021 G40.909 Epilepsy, unspecified, not intra ctable, without status epile Lopez Lares D.O., [facility] 03/08/2021 E03.9 Hypothyroidism, unspecified Yash Lares D.O., [facility] 03/08/2021 N18.30 Chronic kidney disease, stage 3 unspecified Lopez Lares D.O., [facility] 03/08/2021 I25.10 Atherosclerotic hear t disease of [place] coronary artery without angina pectoris Lopez Lares D.O., CANDIE Plan of Treatment Future Appointment(s):* 10/23/2021 2:30 pm - Lopez Lares D.O., FAAFP at [facility] * 11/20/2021 9:30 am - Lopez Lares D.O., FAAFP at [facility] Functional Status Description No Information Available Mental Status Description No Information Available Referrals Description No Information Available
--- OUTSIDE RECORDS SUMMARY | 2021-09-10 06:22 | CCD | Continuity of Care Document ---
Author Author Mildred BOWLES P.A.-C. 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 AUTM [phone] Lopez Lares D.O. AUTM [phone] Problems Description No Information Available Social History [...] H/L Range Note Laboratory test finding 08/07/2021 [facility] Valproic Acid (Depakote) 99.6 UG/ML Normal 50.0-100.0 Laboratory test finding 03/06/2021 [facility] Valproic Acid (Depakote) 62.5 UG/ML Normal 50.0-100.0 Procedures Date Code Description Status 08/15/2021 04939 Office/Outpatient Established Mo d MDM 30-39 Min Completed 05/16/2021 13772 Office/Outpatient Established Mo d MDM 30-39 Min Completed Medical Devices Description No Information Available Encounters Type Date Location Provider Dx Diagnosis Office Visit 08/15/2021 11:30a [facility] [place] Sallie hurt P.A.-C. G40.009 Local-rel idio epi w seiz of loc onst,no t ntrct,w/o stat epi Office Visit 05/16/2021 11:00a [facility] [place] Sallie hurt P.A.-C. 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 05/16/2021 G40.009 Localization-related (focal) (pa rtial) idiopathic epilepsy bhargav Bowles P.A.-C. Plan of Treatment Future Appointment(s):* 02/07/2022 11:15 am - Sallie Bowles P.A.-C. at [facility] [place] 08/15/2021 - Sallie Bowles P.A.-C.* G40.009 Localization-related (focal) (partial) idiopathic epilepsy a Functional Status Description No Information Available Mental Status Description No Information Available Referrals Description No Information Available"
--- OUTSIDE RECORDS SUMMARY | 2021-09-10 06:22 | CCD | Continuity of Care Document ---
Author Author Mildred MILES RP A Organization Unknown Address [address] [facility] [address] [place] [address] Phone [phone] Problems Active Problems Provider Date Hyperlipidemia Lopez Lares D.O., FAAFP Onset: 09/04 Seizure Lopez Lares D.O., [place] Onset: 09/04 Primary open angle glaucoma Lopez Lares D.O., FAAFP Ons et: 09/28/2010 Hypothyroidism Lopez Lares D.O., FAAFP Onset: 08/04 Depressive disorder Lopez Lares D.O., FAAFP Onset: 03/04 Disorder of urinary tract Lopez [...] RPA Onset: 03/30/2020 Epilepsy Lesly Sugar M, [facility] Onset: 08/31/2020 Essential hypertension Tramaine Miles RPA [...] SIG Qnty Indications Ordering Provide r Date [employer] Covid-19 Vaccine 30mcg/0.3ML Suspension both Lopez Lares D.O., FAAFP 03/08/2021 Ferrous Gluconate 324(38Fe) mg Tab lets Take One Tablet By Mouth Twice A Day 60tabs Haile ElenaO., FAAFP 12/24/2018 Vitamin B Complex Tablets 1 by mouth every day OTC Lopez Lares D.O., FAAFP Prevnar 13 Suspension as directed done 1units Lopez Lares D.O., FAAFP 07/31/2017 Depend Undergarments [facility] size lrg(uses 3 per day) 100units Q63.9 Lopez Lares D.O., FAAFP 02/2016 R39.15 Levothyroxine Sodium 75mcg Tablets Take One Tablet By Mouth Every Morning On An Empty Stomach 90tabs Lopze Lares D.O., FAAFP 10/22/2013 Paroxetine HCL 10mg Tablets take one tablet by mouth every day 30tabs Lopez Lares D.O., FAAFP 03/25/2013 Depakote ER 250mg Tablets ER 24HR 1 by mouth every morning and 2 by mouth every night 90tabs Sugar Bertrand, [employer]- 09/28/2010 Folic Acid 1mg Tablets take one tablet by mouth every day 90tabs [facility]., [facility] Carvedilol 3.125mg Tablets take one tablet by mouth twice a day Unknown Nystatin-Triamcinolone 157996-3.1Unit/GM-% Cream apply to rash three a day Unknown Atorvastatin Calcium 80mg Tablets take one tablet by mouth every morning 30tabs Sugar [facility]- Oxybutynin Chloride ER 10mg Tablets ER 24HR 1 by mouth every day Unknown 0 000 Medications Administered in Office Medication SIG Qnty Indications Ordering Provider Date Injection (SC)/(Im) Injection Tramaine Miles, [facility] 07/21/2020 Injection (SC)/(Im) Injection [facility] 07/30/2012 Injection (SC)/(Im) Injection [facility] 08/29/2011 Injection (SC)/(Im) Injection Lopez Lares D.O., [facility] 09/28/2010 Immunizations CPT Code Status Date Vaccine Lot # [id number] Given 07/21/2020 Influenza Virus Vaccine, Quadrivalent, Slit Virus, Im Use 3Y & Up [id number] 72923 Given 08/19/2019 Influenza Virus Vaccine, Quadrivalent, Slit Virus, Im Use 3Y & Up [id number] 06501 Given 08/13/2018 Influenza Virus Vaccine, Quadrivalent, Slit Virus, Im Use 3Y & Up [id number] 69028 Given 07/31/2017 Influenza Virus Vaccine, Quadrivalent, Slit Virus, Im Use 3Y & Up [id number] 47528 Given 07/25/2016 Influenza Vaccin e (Fluzone) 3Yrs Of Age Or Older Medicare Plans [id number] 63708 Given 08/31/2015 Influenza Vaccin e (Fluzone) 3Yrs Of Age Or Older Medicare Plans [id number] 36927 Given 11/17/2014 Pneumococcal Immunization [id number] 92260 Given 08/11/2014 Influenza Vaccin e (Fluzone) 3Yrs Of Age Or Older Medicare Plans [id number] Q2037 Given 08/11/2014 Influenza Vaccin e (Fluvirin) 3Yrs Of Age Or Older Medicare Plans 11582 Given 07/30/2012 Influenza Virus Vac. Split Virus Individuals 3 Years And Above 12828 Given 08/29/2011 Influenza Virus Vac. Split Virus Individuals 3 Years And Above [id number] 28204 Given 09/28/2010 Influenza Virus Vac. Split Virus Individuals 3 Years And Above [id number] Vital Signs Date Vital Result Comment 09/03/2021 10:58am BP Systolic 136 mmHg BP Diastolic 86 mmHg Body Temperature 97.1 F Heart Rate 67 /min Respiratory Rate 16 /min Height 59 inches 4'11" Weight 161.00 lb [facility] Body Weight 100 lb BMI (Body Mass Index) 32.5 kg/m2 O2 % BldC Oximetry 96 % 05/31/2021 1:21pm BP Systolic 124 mmHg BP Diastolic 78 mmHg Body Temperature 98.0 F Heart Rate 78 /min Respiratory Rate 16 /min Height 59 inches 4'11" Weight 160.00 lb [facility] Body Weight 100 lb BMI (Body Mass Index) 32.3 kg/m2 O2 % BldC Oximetry 97 % Results Test Acquired Date Facility Test Result H/L Range Note Urine Culture 08/29/2021 [facility] ([facility]) [phone] Urine Culture FULL REPORT IN L <SEE NOTE> Normal 1 Complete Blood Count 08/29/2021 [facility] ( Interface) [phone] White Blood Count 6.4 10 Normal 4.0-10.0 [...] % Normal 0-0 PT & Aptt 08/29/2021 [facility]) [phone] Prothrombin Time 12.9 seconds Normal 12.7-14.5 Inr 0.94 Normal 2 Partial Thromboplastin Time 31.8 seconds Normal 25.9-37.0 Basic Metabolic Profile 08/29/2021 [facility] (Interface) [phone] Glucose, Fasting 103 mg/dL High 70-100 Blood [...] 9.8 mg/dL Normal 8.8-10.2 Ua Routine 08/29/2021 [facility]) [phone] Appearance, Urine CLOUDY High Clear Color, Urine YELLOW Normal Yellow PH,Urine 6.0 units Normal 5.0-9.0 Specific Okay Urine Auto 1.010 Normal 1.002-1.035 Protein, Urine [...] /LPF Normal 0-1 Laboratory test finding 08/07/2021 [facility] (Interface) [phone] Valproic Acid (Depakote) 99.6 UG/ML Normal 50.0-10 0.0 [facility] [phone] Ast/Sgot 27 U/L Normal 7-37 Alt/SGPT 20 U/L Normal 12-78 Alkaline Phosphatase 68 U/L Normal 45-117 Bilirubin,Total 0.4 mg/dL Normal 0.2-1.0 Bilirubin,Direct < 0.1 mg/dL Normal 0.0-0.2 Total Protein 8.1 GM/DL Normal 6.4-8.2 Albumin 3.0 GM/DL Low 3.2-5.2 Albumin/Globulin Ratio 0.6 Low 1.2-2.2 Basic Metabolic Profile 06/27/2021 [facility] (Interface) [phone] Glucose, Fasting 121 mg/dL High 70-100 Blood [...] mg/dL Normal 8.8-10.2 Laboratory test finding 06/27/2021 [facility] (Interface) [phone] Lipase 109 U/L Normal 73-393 5 Ua W/ Reflex To Culture 06/27/2021 [facility] (Interface) [phone] Appearance, Urine RFX TURBID High Clear Color, Urine RFX YELLOW Normal Yellow PH,Urine RFX 7.0 units Normal 5.0-9.0 Specific Okay Ur Auto RFX 1.010 Normal 1.002-1.035 Protein, [...] /LPF Normal 0-1 CBC With Differential 06/27/2021 [facility]) [phone] White Blood Count 11.8 10 High 4.0-10.0 [...] 36.0-66.0 Lymph % 8.6 % Low 24.0-44.0 Aiken % 11.5 % High 2.0-8.0 Eos % 0.7 % Normal 0.0-3.0 Baso % 0.4 % Normal 0.0-1.0 Immature Granulocyte % 0.8 % Normal 0-3.0 Nucleated Red Blood Cell % 0.0 % Normal 0-0 Neutrophils # 9.2 10 High 1.5-8.5 Lymph # 1.0 10 Low 1.5-5.0 Aiken # 1.4 10 High 0.0-0.8 Eos # 0.1 10 Normal 0.0-0.5 Baso # 0.1 10 Normal 0.0-0.2 Istat Chem8+ Panel 06/27/2021 [facility] ([facility]) [phone] iSTAT HCT 42.0 % Normal 38.0-51.0 iSTAT Glucose 136 mg/dL High 70-105 iSTAT Sodium 139 mEq/L Normal 136-145 iSTAT Potassium 4.3 mEq/L Normal 3.5-5.1 iSTAT CA++ 4.9 mg/dL Normal 4.5-5.3 iSTAT Chloride 102 mEq/L Normal 98-109 iSTAT Co2 25.0 MM/L Normal 23.0-27.0 iSTAT BUN 62 mg/dL High 8-26 iSTAT Creatinine 2.7 mg/dL High 0.6-1.3 U/A DIP FPA 05/31/2021 [facility] Asso ciates Color Urine YELLOW Yellow Appearance HAZY Clear Specific Okay 1.010 1.00-1.03 PH Urine 8.0 5.0-8.0 Glucose [...] 12 IU/L 0-32 Laboratory test finding 04/18/2021 [facility] (Interface) [phone] NT-Pro BNP 171 pg/mL High <125 Complete Blood Count 03/13/2021 [facility]) [phone] White Blood Count 5.9 10 Normal 4.0-10.0 [...] 0.0 % Normal 0-0 Ua Routine 03/13/2021 [facility] [phone] Appearance, Urine CLOUDY High Clear Color, Urine YELLOW Normal Yellow PH,Urine 7.0 units Normal 5.0-9.0 Specific Okay Urine Auto 1.010 Normal 1.002-1.035 Protein, Urine [...] /LPF Normal 0-1 PT & Aptt 03/13/2021 [facility]) [phone] Prothrombin Time 12.0 seconds Normal 12.5-14.3 Inr 0.87 Normal 8 Partial Thromboplastin Time 30.2 seconds Normal 24.2-38.5 Basic Metabolic Profile 03/13/2021 [facility] (Interface) [phone] Glucose, Fasting 95 mg/dL Normal 70-100 Blood [...] 9.7 mg/dL Normal 8.8-10.2 Urine Culture 03/13/2021 [facility]) [phone] Urine Culture FULL REPORT IN L <SEE NOTE> Normal 10 Laboratory test finding 03/06/2021 [facility] (Interface) [phone] Valproic Acid (Depakote) 62.5 UG/ML Normal 50.0-10 [...] Little GFR Left ESRD GFR <15 on JACKSCREW MAN 4 Units are mL/min/1.73 m2 Chronic Kidney Disease Staging per NKF: Stage I & II GFR >=60 Normal to Mildly Decreased Stage III GFR 30-59 Moderately Decreased Stage IV GFR 15-29 Severely Decreased Stage V GFR <15 Very Little GFR Left ESRD GFR <15 on JACKSCREW MAN 5 COMMENT--- 6 Culture shows less than [...] Little GFR Left ESRD GFR <15 on JACKSCREW MAN 10 FULL REPORT IN LAB NOTES (Alirio Celis and Adrian). NO GROWTH CLINICAL SIGNIFICANCE 2 OR MORE ORGANISMS Procedures Date Code Description Status 09/03/2021 25411 Office/Outpatient Established Mo d MDM 30-39 Min Completed 05/31/2021 95928 Office/Outpatient Established Mo d MDM 30-39 Min Completed 03/08/2021 88060 Office/Outpatient Established Mo d MDM 30-39 Min Completed 03/08/2021 38582 Electrocardiogram Complete Compl eted 03/13/2018 [id number] Mammogram Completed Medical Devices Description No Information Available Encounters Type Date Location Provider Dx Diagnosis Office Visit 09/03/2021 11:15a [place] [facility] Tramaine Miles, RP A Z01.818 Encounter for other preprocedural examination 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, fused and horsesh oe kidney N18.30 Chronic kidney disease, stag e 3 unspecified I10 Essential (primary) hyperten hi G40.909 Epilepsy, unsp, not intracta ble, without status epilepticus E03.9 Hypothyroidism, unspecified Office Visit 05/31/2021 1:15p [place] [facility] Haile Elena, FAAFP E78.5 Hyperlipidemia, unspecified G40.909 Epilepsy, unsp, not intracta ble, without status epilepticus E03.9 Hypothyroidism, unspecified N18.30 Chronic kidney disease, stag e 3 unspecified 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 F32.89 Other specified depressive e pisodes Office Visit 03/08/2021 3:00p [place] [facility] Haile Elena, FAAFP Z01.818 Encounter for other preprocedural examin ation G40.909 Epilepsy, unsp, not intracta ble, without status epilepticus E03.9 Hypothyroidism, unspecified N18.30 Chronic kidney disease, stag e 3 unspecified 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 Assessments Date Code Description Provider 09/03/2021 [...] D.O., FAAFP 05/31/2021 E03.9 Hypothyroidism, unspecified Yash aLres D.O., FAAFP 05/31/2021 N18.30 Chronic kidney disease, stage 3 unspecified Lopez Lares D.O., [facility] 05/31/2021 I25.10 Atherosclerotic hear t disease of [place] coronary artery without angina pectoris Lopez Lares D.O., [facility] 05/31/2021 F32.89 Other specified depressive episo marin Lopez Lares D.O., [facility] 03/08/2021 Z01.818 Encounter for other preprocedura l examination Lopez Lares D.O., [facility] 03/08/2021 G40.909 Epilepsy, unspecified, not intra ctable, without status epile Lopez Lares D.O., [facility] 03/08/2021 E03.9 Hypothyroidism, unspecified Yash Lares D.O., [facility] 03/08/2021 N18.30 Chronic kidney disease, stage 3 unspecified Lopez Lares D.O., [facility] 03/08/2021 I25.10 Atherosclerotic hear t disease of [place] coronary artery without angina pectoris Lopez Lares D.O., FAAFP Plan of Treatment Future Appointment(s):* 11/20/2021 9:30 am - Lopez Lares D.O., FAAFP at [facility] * 09/06/2021 1:45 pm - Lopez Lares D.O., FAAFP at [facility] Functional Status Description No Information Available Mental Status Description No Information Available Referrals Description No Information Available
--- OUTSIDE RECORDS SUMMARY | 2021-09-10 06:22 | CCD | Continuity of Care Document ---
Author Author Mildred BOWLES P.A.-C. Organization Unknown Address [address] [place] [address] Phone [phone] Care Team Providers Care Internal Audit Director Name Role Phone Rachel Haas M.D. AUTM [phone] Lopez Lares D.O. AUTM [phone] Problems Description No Information Available Social History [...] Available Vital Signs Date Vital Result Comment 08/15/2021 7:08am BP Systolic 110 mmHg BP Diastolic 70 mmHg Heart Rate 68 /min Respiratory Rate 16 /min 05/16/2021 6:23am BP Systolic 110 mmHg BP Diastolic 80 mmHg Heart Rate 76 /min Respiratory Rate 16 /min Results Test Acquired Date Facility Test Result H/L Range Note Laboratory test finding 08/07/2021 [facility] Valproic Acid (Depakote) 99.6 UG/ML Normal 50.0-100.0 Laboratory test finding 03/06/2021 [facility] Valproic Acid (Depakote) 62.5 UG/ML Normal 50.0-100.0 Procedures Date Code Description Status 08/15/2021 45664 Office/Outpatient Established Mo d MDM 30-39 Min Completed 05/16/2021 65385 Office/Outpatient Established Mo d MDM 30-39 Min Completed Medical Devices Description No Information Available Encounters Type Date Location Provider Dx Diagnosis Office Visit 08/15/2021 11:30a [facility] office - [place] Sallie hurt P.A.-C. G40.009 Local-rel idio epi w seiz of loc onst,no t ntrct,w/o stat epi Office Visit 05/16/2021 11:00a [facility] office - [place] Sallie hurt P.A.-C. 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 05/16/2021 G40.009 Localization-related (focal) (pa rtial) idiopathic epilepsy bhargav Bowles P.A.-C. Plan of Treatment Future Appointment(s):* 02/07/2022 11:15 am - Sallie Bowles P.A.-C. at [facility] - [place] 08/15/2021 - Sallie Bowles P.A.-C.* G40.009 Localization-related (focal) (partial) idiopathic epilepsy a* Comments:* Controlled. She continues Depakote ER. * Follow up:* 6 months. Functional Status Description No Information Available Mental Status Description No Information Available Referrals Description No Information Available"
--- OUTSIDE RECORDS SUMMARY | 2021-09-10 06:22 | CCD | Continuity of Care Document ---
Author Author Mildred BOWLES P.A.-C. Organization Unknown Address [address] [place] [address] Phone [phone] Care Team Providers Care Wallpaper Installer Name Role Phone Rachel Haas M.D. AUTM [phone] Lopez Lares D.O. AUTM [phone] Problems Description No Information Available Social History [...] H/L Range Note Laboratory test finding 08/07/2021 [facility] Valproic Acid (Depakote) 99.6 UG/ML Normal 50.0-100.0 Laboratory test finding 03/06/2021 [facility] Valproic Acid (Depakote) 62.5 UG/ML Normal 50.0-100.0 Procedures Date Code Description Status 08/15/2021 56796 Office/Outpatient Established Mo d MDM 30-39 Min Completed 05/16/2021 00100 Office/Outpatient Established Mo d MDM 30-39 Min Completed Medical Devices Description No Information Available Encounters Type Date Location Provider Dx Diagnosis Office Visit 08/15/2021 11:30a [facility] office - [place] Sallie hurt P.A.-C. G40.009 Local-rel idio epi w seiz of loc onst,no t ntrct,w/o stat epi Office Visit 05/16/2021 11:00a [facility] office - [place] Sallie hurt P.A.-C. 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 05/16/2021 G40.009 Localization-related (focal) (pa rtial) idiopathic epilepsy bhargav Bowles P.A.-C. Plan of Treatment Future Appointment(s):* 02/07/2022 11:15 am - Sallie Bowles P.A.-C. at [facility] [place] 08/15/2021 - Sallie Bowles P.A.-C.* G40.009 Localization-related (focal) (partial) idiopathic epilepsy a Functional Status Description No Information Available Mental Status Description No Information Available Referrals Description No Information Available"
--- OUTSIDE RECORDS SUMMARY | 2021-09-10 06:23 | CCD ---
Author Author [facility] ems Organization [facility] ems Address Unknown Phone Unavailable Care Team Providers Care Hall Manager Name Role Phone Lance Daniel Unavailable PROBLEMS Type Condition ICD9-CM Code VPI23-VK Code Onset Dates Condition S tatus W/U Status Risk SNOMED Code Notes Problem Hydronephrosis 591 Active confirmed 60327 006 Problem UTI 599.0 Active confirmed 64088332 Problem Kidney stone N20.0 Active confirmed 7265206 7 Problem Nephrolithiasis N20.0 Active confirmed 9557 0007 Problem Dysuria R30.0 Active confirmed 31725587 Problem Lobulated, 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 Ac tive confirmed 22207752 Problem Urinary tract infection, site not specified N39.0 Active confirmed 54233170 Problem Other hydronephrosis N13.39 Active confirmed 68845237 ALLERGIES Allergen (clinical drug ingredient) Drug/Non Drug Allergy do cumented on EMR Reaction Allergy Type Onset Date Status Chocolate Flavor([facility] Code:[address]-88) Sinusitis Drug A llergy Active Bubble Bath Itchiness Drug Allergy Active Tegretol Cardiac Arrest Drug Allergy Active ENCOUNTERS from 1950 to 2021-07-11 Encounter Location Date Provider Diagnosis [facility] Urology [address] [phone] [place] [address] 02 Jul, 2021 Lance Daniel IMMUNIZATIONS Vaccine Route Administration Date Status Influenza [...] REASON FOR REFERRAL No Information VITAL SIGNS No information MEDICATIONS Medication SIG (Take, Route, Frequency, Duration) Notes Start Da te End Date Status Aspirin 81 MG 1 tablet Orally Once a day for 30 day(s) Active Depakote 250 MG 1 tablet Orally Twice a day, one tablet in AM, two in PM for 30 day(s) Active PARoxetine HCl 10 MG 1 tablet in the morning Orally Once a day f or 30 day(s) Active Synthroid 75 MCG 1 tablet on an empty stomach in the morning Orally Once a day for 30 day(s) Active Folic Acid 1 MG as directed Orally A ctive Ferrous Gluconate 324 (38 Fe) MG 1 tablet Orally Once a day Active Levothyroxine Sodium 75 MCG 1 tablet in the morning on an empty stomach Orally Once a day for 30 day(s) Active Atorvastatin Calcium 80 MG 1 tablet Orally Once a day Active Oxybutynin Chloride ER 10 MG TAKE ONE TABLET BY MOUTH EVERY DAY for 3 0 Active PROCEDURES No Information RESULTS No Results REASON FOR VISIT Urine Culture MEDICAL (GENERAL) HISTORY Type Description Date Medical History HTN Medical History Epilepsy Medical History hypercholesterolemia Medical History hx of acute renal failure Medical History hydronephrosis Medical History horseshoe kidney Medical History Glaucoma Medical History Hypothyroidism Medical History incontinence Medical History [place] Surgical History cataract-lens implants 12/2009, 01/2010 Surgical History Ureteral Stents 1979 Surgical History Hysterectomy 1995 Surgical History Lung Surgery 1994 Surgical History Urteral Stents 04/2013 Surgical History Cysto double J Stent exchange every 3 mo [facility] Hospitalization History pyelonephritis 01/2013 Hospitalization History acute renal failure 04/2013 Hospitalization History seizure 02/2008 Hospitalization History surgical related Goals Section No Information Health Concerns No Information MEDICAL EQUIPMENT No Information MENTAL STATUS No Information FUNCTIONAL STATUS No Information ASSESSMENTS No Information PLAN OF TREATMENT Medication Medication Name Sig Start Date Stop Date Oxybutynin Chloride ER 10 MG TAKE ONE TABLET BY MOUTH EVERY DAY for 30 Next Appt Details Provider Name:Norah Merrill, 2021-08- 9 09:30:00 AM, [address], , [place], [address], Insurance Providers Payer Name Payer Address Payer Phone Insured Name Patient Relati onship to Insured Coverage Start Date Coverage End Date MEDICAID [employer] [address] [facility] [id number] ERNIE BLAKE self [facility] [address] [facility] [phone] ERNIE BLAKE self 2017
--- OUTSIDE RECORDS SUMMARY | 2021-09-10 06:23 | CCD ---
Author Author [facility] em[facility] Organization [facility] ems Address Unknown Phone Unavailable Care Team Providers Care Supervisor Wound Name Role Phone Norah Merrill Unavailable PROBLEMS Type Condition ICD9-CM Code [id number] Code Onset Dates Condition S tatus W/U Status Risk SNOMED Code Notes Problem Hydronephrosis 591 Active confirmed 83715 006 Problem UTI 599.0 Active confirmed 53054857 Problem Kidney stone N20.0 Active confirmed 6284022 7 Problem Nephrolithiasis N20.0 Active confirmed 9557 0007 Problem Dysuria R30.0 Active confirmed 87345199 Problem Lobulated, 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 Ac tive confirmed 54087652 Problem Urinary tract infection, site not specified N39.0 Active confirmed 39299852 Problem Other hydronephrosis N13.39 Active confirmed 86499586 ALLERGIES Allergen (clinical drug ingredient) Drug/Non Drug Allergy do cumented on EMR Reaction Allergy Type Onset Date Status Chocolate Flavor([facility] Code:[address]-69) Sinusitis Drug A llergy Active Bubble Bath Itchiness Drug Allergy Active Tegretol Cardiac Arrest Drug Allergy Active ENCOUNTERS from 1950 to 2021-06-28 Encounter Location Date Provider Diagnosis [facility] Urology [address] [phone] [place] [address] Jun, Norah Merrill IMMUNIZATIONS Vaccine Route Administration Date Status Influenza [...] Information RESULTS No Results REASON FOR VISIT No Information MEDICAL (GENERAL) HISTORY Type Description Date Medical History HTN Medical History Epilepsy Medical History hypercholesterolemia Medical History hx of acute renal failure Medical History hydronephrosis Medical History horseshoe kidney Medical History Glaucoma Medical History Hypothyroidism Medical History incontinence Medical History [place] Surgical History cataract-lens implants 12/2009, 01/2010 Surgical History Ureteral Stents 1979 Surgical History Hysterectomy 1995 Surgical History Lung Surgery 1994 Surgical History Urteral Stents 04/2013 Surgical History Cysto double J Stent exchange every 3 mo [facility] Hospitalization History pyelonephritis 01/2013 Hospitalization History [...] TABLET BY MOUTH EVERY DAY for 30 Insurance Providers Payer Name Payer Address Payer Phone Insured Name Patient Relati onship to Insured Coverage Start Date Coverage End Date [facility] [address] [facility] [phone] ERNIE COLBERT self 2017 MEDICAID [employer] [address] [facility] [id number] ERNIE COLBERT self
--- OUTSIDE RECORDS SUMMARY | 2021-09-10 06:23 | CCD ---
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 Ac tive confirmed 57448157 Problem Urinary tract infection, site not specified N39.0 Active confirmed 49259160 Problem Other hydronephrosis N13.39 Active confirmed 04617446 ALLERGIES Allergen (clinical drug ingredient) Drug/Non Drug Allergy do cumented on EMR Reaction Allergy Type Onset Date Status Chocolate Flavor([facility] [place] Code:[address]-18) Sinusitis Drug A llergy Active Bubble Bath Itchiness Drug Allergy Active Tegretol Cardiac Arrest Drug Allergy Active ENCOUNTERS from 1950 to 2021-07-03 Encounter Location Date Provider Diagnosis [facility] [id number] [phone] [place] [address] Jun, Lance Daniel IMMUNIZATIONS Vaccine Route Administration Date [...] Information RESULTS No Results REASON FOR VISIT F/U, Urine Culture MEDICAL (GENERAL) HISTORY Type Description Date Medical History HTN Medical History Epilepsy Medical History hypercholesterolemia Medical History hx of acute renal failure Medical History hydronephrosis Medical History horseshoe kidney Medical History Glaucoma Medical History Hypothyroidism Medical History incontinence Medical History [place] Surgical History cataract-lens implants 12/2009, 01/2010 Surgical History Ureteral Stents 1979 Surgical History Hysterectomy 1995 Surgical History Lung Surgery 1994 Surgical History Urteral Stents 04/2013 Surgical History Cysto double J Stent exchange every 3 mo [facility] Hospitalization History pyelonephritis 01/2013 Hospitalization History [...] 30 Next Appt Details Provider Name:Norah Merrill, 10-1 9 09:30:00 AM, [address], , [place], [address], Insurance Providers Payer Name Payer Address Payer Phone Insured Name Patient Relati onship to Insured Coverage Start Date Coverage End Date [facility] [id number] [facility] [phone] ERNIE BLAKE self 2017 MEDICAID [employer] [address] [facility] [id number] ERNIE BLAKE self
--- OUTSIDE RECORDS SUMMARY | 2021-09-10 06:23 | CCD ---
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 28552563 Problem Urinary tract infection, site not specified N39.0 Active confirmed 31626783 Problem Other hydronephrosis N13.39 Active confirmed 38157109 ALLERGIES Allergen (clinical drug ingredient) Drug/Non Drug Allergy do cumented on EMR Reaction Allergy Type Onset Date Status Chocolate Flavor([facility] Code:[address]-73) Sinusitis Drug A llergy Active Bubble Bath Itchiness Drug Allergy Active Tegretol Cardiac Arrest Drug Allergy Active ENCOUNTERS from 1950 to 2021-07-04 Encounter Location Date Provider Diagnosis [facility] Urology [address] [phone] [place] [address] Jul, Lance Daniel Urinary tract infection, site not specif ied N39.0 IMMUNIZATIONS Vaccine Route Administration Date Status Influenza [...] Information RESULTS No Results REASON FOR VISIT urine culture MEDICAL (GENERAL) HISTORY Type Description Date Medical History HTN Medical History Epilepsy Medical History hypercholesterolemia Medical History hx of acute renal failure Medical History hydronephrosis Medical History horseshoe kidney Medical History Glaucoma Medical History Hypothyroidism Medical History incontinence Medical History [place] Surgical History cataract-lens implants 12/2009, 01/2010 Surgical History Ureteral Stents 1980 Surgical History Hysterectomy 1995 Surgical History Lung Surgery 1994 Surgical History Urteral Stents 04/2013 Surgical History Cysto double J Stent exchange every 3 mo [facility] Hospitalization History pyelonephritis 01/2013 Hospitalization History acute renal failure 04/2013 Hospitalization History seizure 02/2008 Hospitalization History surgical related Goals Section No Information Health Concerns No Information MEDICAL EQUIPMENT No Information MENTAL STATUS No Information FUNCTIONAL STATUS No Information ASSESSMENTS Encounter Date Diagnosis Assessment Notes Treatment Notes Treatm ent Clinical Notes Jul, Urinary tract infection, site not specified (ICD -10 - N39.0) PLAN OF TREATMENT Medication Medication Name Sig Start Date Stop Date Oxybutynin Chloride ER 10 MG TAKE ONE TABLET BY MOUTH EVERY DAY for 30 Treatment Notes Test Name Order Date URINE CULTURE 2021-07-04 Next Appt Details Provider Name:Norah Merrill, 2021-08-03 9 09:30:00 AM, [address], , [place], [address], Insurance Providers Payer Name Payer Address Payer Phone Insured Name Patient Relati onship to Insured Coverage Start Date Coverage End Date MEDICA[employer] [address] [facility] [id number] ERNIE COLBERT self [facility] [id number] [facility] [phone] ERNIE COLBERT self 2017
--- OUTSIDE RECORDS SUMMARY | 2021-09-10 06:23 | CCD ---
Author Author Diaz Dubois MD [facility] Organization Diaz Dubois MD [facility] Address [address] [address] Phone Care Team Providers Care Associate Professor Of Art History Name Role Phone Sherly RAMIREZ, ENOC, Diaz Gama Unavailable [phone] Arnaud Lopez [place] PP [phone] Reason for Referral No Reason for Referral Recorded Problems Includes: Active, inactive, and resolved Problems All Visits Onset Date - Time Resolved Date - Time Provider Co ndition Status Essential Hypertension 09/09/2017 - 12:00AM Diaz Munguia MD, FACS Active Glaucoma Open-angle Primary Left Eye 04/11/2016 - 12:00AM Diaz Dubois MD, FACS Active Glaucoma Open-angle Primary Right Eye 04/11/2016 - 12:00AM Diaz Dubois MD, FACS Active Iris Atrophy - Left Eye 08/30/2014 - 12:00AM Diaz Dubois MD, FACS Inactive Note: Unchanged Iris Atrophy Iatrogenic 08/30/2014 - :00AM Diaz Dubois MD, FACS Active Note: Unchanged - of the lef t eye Glaucoma Open-angle Primary Both Eyes 08/30/2014 - :00AM Diaz Dubois MD, FACS Inactive Note: Unchanged Blepharitis Both Eyelids 02/11/2014 - :00AM Diaz Dubois MD, FACS Inactive Note: Unchanged Glaucoma Open-angle Both Eyes 02/11/2014 - :00AM Diaz Dubois MD, FACS Inactive Note: Unchanged Dry Eye Syndrome Both Eyes 02/11/2014 - :00AM Diaz Dubois MD, FACS Active Note: Worsening Vitreous Floaters Both Eyes 02/11/2014 - 12:00AM Diaz Dubois MD, FACS Active Note: Unchanged Glaucoma Stage Moderate 08/16/2013 - :00AM Diaz Dubois MD, FACS Inactive Note: Unchanged Macular Puckering Left Eye 08/16/2013 - :00AM Diaz Dubois MD, FACS Active Note: Unchanged Astigmatism - Regular 02/03/2013 - :00AM Diaz Freitas MD, FACS Active Note: Unchanged Dry Eye Syndrome 02/03/2013 - :00AM Diaz lanza MD, FACS Inactive Note: Unchanged Glaucoma Open-angle 02/03/2013 - :00AM Diaz Muller MD, FACS Inactive Note: Unchanged Refractive Error - Myopia 02/03/2013 - :00AM Diaz Dubois MD, FACS Active Note: Unchanged Vitreous Floaters 02/03/2013 - :00AM Diaz Crook MD, FACS Inactive Note: Unchanged Plan of Treatment Pending Tests Order Diagnosis Results Due Ordering Provi tory Testing Ordered - OCT OCT DISC Primary open-angle glaucoma, right eye, mild stage 07/12/21 Diaz Dubois MD, FACS Future Appointments Date Time Location Provider 6 Month Follow-Up 01/10/2022 9:05AM [facility] Findings Encounter Date Ordered optical coherence tomography : A n optical coherence tomography scan of the disc for primary open angle glaucoma is indicated to determine if there are any structural changes to the optic nerve 9 Month Follow-Up with Diaz Crook MD, FACS 04/11/2016 Assessments Includes: Assessments for all patient encounters Findings Encounter Date Assessment of macular puckering was observed in the le ft eye 9 Month Minor Follow-Up with Diaz Dubois MD, FACS 10/03/2020 Dry eye syndrome of both eyes 9 Month Minor Follow-Up with Diaz Dubois MD, FACS 10/03/2020 Essential hypertension 9 Month Minor Follow-Up with Diaz Dubois MD, FACS 10/03/2020 Primary open-angle glaucoma of left eye 9 Month Minor Follow-Up with Diaz Dubois MD, FACS 10/03/2020 Primary open-angle glaucoma of right eye 9 Month Minor Follow-Up with Diaz Dubois MD, FACS 10/03/2020 Assessment of macular puckering was observed in the le ft eye 9 Month Follow-Up with Diaz Dubois MD, FACS 01/13/2020 Dry eye syndrome of both eyes 9 Month Follow-Up with Jozef Dubois MD, FACS 01/13/2020 Essential hypertension 9 Month Follow-Up with Diaz Carpenter MD, FACS 01/13/2020 Primary open-angle glaucoma of left eye 9 Month Follow -Up with Diaz Crook MD, FACS 01/13/2020 Primary open-angle glaucoma of right eye 9 Month Follo w-Up with Diaz Crook MD, FACS 01/13/2020 Assessment of macular puckering was observed in the le ft eye 9 Month Follow-Up with Diaz Dubois MD, FACS 04/09/2019 Dry eye syndrome of both eyes 9 Month Follow-Up with Jozef Dubois MD, FACS 04/09/2019 Essential hypertension 9 Month Follow-Up with Diaz Carpenter MD, FACS 04/09/2019 Primary open-angle glaucoma of left eye 9 Month Follow -Up with Diaz Crook MD, FACS 04/09/2019 Primary open-angle glaucoma of right eye 9 Month Follo w-Up with Diaz Crook MD, FACS 04/09/2019 Dry eye syndrome of both eyes 9 Month Follow-Up with T esting with Diaz Dubois MD, FACS 07/09/2018 Essential hypertension 9 Month Follow-Up with Testi ng with Diaz Dubois MD, FACS 07/09/2018 Macular puckering of the left eye 9 Month Follow-Up wi th Testing with Diaz Dubois MD, FACS 07/09/2018 Primary open-angle glaucoma of left eye 9 Month Follow -Up with Testing with Diaz Dubois MD, FACS 07/09/2018 Primary open-angle glaucoma of right eye 9 Month Follo w-Up with Testing with Diaz Dubois MD, FACS 07/09/2018 Dry eye syndrome of both eyes 7 Month Follow-Up with Jozef Dubois MD, FACS 09/09/2017 Essential hypertension 7 Month Follow-Up with Diaz Carpenter MD, FACS 09/09/2017 Macular puckering of the left eye 7 Month Follow-Up wi th Diaz Dubois MD, FACS 09/09/2017 Primary open-angle glaucoma of both eyes 7 Month Follo w-Up with Diaz Crook MD, FACS 09/09/2017 Dry eye syndrome of both eyes 9 Month Follow-Up with T esting with Diaz Dubois MD, FACS 01/06/2017 Essential hypertension 9 Month Follow-Up with Testi ng with Diaz Dubois MD, FACS 01/06/2017 Macular puckering of the left eye 9 Month Follow-Up wi th Testing with Diaz Dubois MD, FACS 01/06/2017 Primary open-angle glaucoma of both eyes 9 Month Follo w-Up with Testing with Diza Dubois MD, FACS 01/06/2017 Assessment of macular puckering was observed in the le ft eye 9 Month Follow-Up with Diaz Dubois MD, FACS 04/11/2016 Dry eye syndrome of both eyes 9 Month Follow-Up with Jozef Dubois MD, FACS 04/11/2016 Essential hypertension 9 Month Follow-Up with Diaz Carpenter MD, FACS 04/11/2016 Primary open-angle glaucoma, mild stage of the right eye 9 Month Follow-Up with Diaz Dubois MD, FACS 04/11/2016 Primary open-angle glaucoma, moderate stage of the le ft eye 9 Month Follow-Up with Diaz Dubois MD, FACS 04/11/2016 Assessment of macular puckering was observed in the le ft eye 9 Month Follow-Up with Testing with Diaz Dubois MD, FACS 05/15/2015 Blepharitis in both eyes 9 Month Follow-Up with Testi ng with Diaz Dubois MD, FACS 05/15/2015 Dry eye syndrome of both eyes 9 Month Follow-Up with T esting with Diaz Dubois MD, FACS 05/15/2015 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 9 Month Follo w-Up with Testing with Diaz Dubois MD, FACS 05/15/2015 Moderate stage glaucoma 9 Month Follow-Up with Testi ng with Diaz Dubois MD, FACS 05/15/2015 Primary open-angle glaucoma in both eyes 9 Month Follo w-Up with Testing with Diaz Dubois MD, FACS 05/15/2015 Vitreous floaters in both eyes 9 Month Follow-Up with Testing with Diaz Dubois MD, FACS 05/15/2015 Primary open-angle glaucoma in both eyes VISUAL FIELD 24-2 with Diaz Crook MD, FACS 01/25/2015 Blepharitis in both eyes 6 Month Follow-Up with Diaz Soliman MD, FACS 08/30/2014 Dry eye syndrome of both eyes 6 Month Follow-Up with Jozef Dubois MD, FACS 08/30/2014 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 6 Month Follo w-Up with Diaz Crook MD, FACS 08/30/2014 Macular puckering of the left eye 6 Month Follow-Up wi Diaz Dubois MD, FACS 08/30/2014 Moderate stage glaucoma 6 Month Follow-Up with Diaz Muller MD, FACS 08/30/2014 Primary open-angle glaucoma in both eyes 6 Month Follo w-Up with Diaz Crook MD, FACS 08/30/2014 Vitreous floaters in both eyes 6 Month Follow-Up with Diaz Dubois MD, FACS 08/30/2014 Blepharitis in both eyes 6 Month Follow-Up with Diaz Soliman MD, FACS 02/11/2014 Dry eye syndrome of both eyes 6 Month Follow-Up with Jozef Dubois MD, FACS 02/11/2014 Macular puckering of the left eye 6 Month Follow-Up wi Diaz Dubois MD, FACS 02/11/2014 Moderate stage glaucoma 6 Month Follow-Up with Diaz Muller MD, FACS 02/11/2014 Open-angle glaucoma in both eyes 6 Month Follow-Up wit Diaz Dubois MD, FACS 02/11/2014 Vitreous floaters in both eyes 6 Month Follow-Up with Diaz Dubois MD, FACS 02/11/2014 Dry eye syndrome of both eyes 6 Month Follow-Up with Jozef Dubois MD, FACS 08/16/2013 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, 2:00-3:00 po sition 6 Month Follow-Up with Diaz Dubois MD, FACS 08/16/2013 Macular puckering of the left eye 6 Month Follow-Up wi Diaz Dubois MD, FACS 08/16/2013 Moderate stage glaucoma 6 Month Follow-Up with Diaz Muller MD, FACS 08/16/2013 Open-angle glaucoma in both eyes 6 Month Follow-Up wit h Diaz Dubois MD, FACS 08/16/2013 Vitreous floaters in both eyes 6 Month Follow-Up with Diaz Dubois MD, FACS 08/16/2013 Dry eye syndrome 4 Month Follow-Up with Diaz miller MD, FACS 02/03/2013 Iris atrophy in the left eye 4 Month Follow-Up with Kt Dubois MD, FACS 02/03/2013 Myopia 4 Month Follow-Up with Diaz miller MD, FACS 02/03/2013 Open-angle glaucoma 4 Month Follow-Up with Diaz miller MD, FACS 02/03/2013 Regular astigmatism 4 Month Follow-Up with Diaz miller MD, FACS 02/03/2013 Vitreous floaters 4 Month Follow-Up with Diaz miller MD, FACS 02/03/2013 Instructions Instructions not supported for this document typeNo Instructions Recorded Medical Equipment - Implanted Devices Includes: Current and historical DevicesNo Medical Equipment Recorded Medications Includes: Current and historical Medications Current Medications (continue as prescribed) Atorvastatin Calcium 80MG Oral Tablet 07/09/2018 Pr ovider: Diagnosis: Divalproex Sodium 250 MG Tablet, enteric coated 04/11/2016 Provider: Diagnosis: Depakote ER 250 MG OR TB24 02/11/2014 Provider: Diagnosis: 1 in the morning and 2 at night Ferrous Gluconate 325 (36 Fe) MG OR TABS 02/11/2014 Provider: Diagnosis: Levothyroxine Sodium 75 MCG OR TABS 02/11/2014 Prov ider: Diagnosis: Folic Acid 1 MG OR TABS 02/11/2014 Provider: Diagnosis: Oxybutynin Chloride 5 MG OR TABS 02/11/2014 Provide r: Diagnosis: PARoxetine HCl 10 MG OR TABS 08/16/2013 Provider: Diagnosis: Past Medications on file Atorvastatin Calcium 10 MG Tablet 04/11/2016 - 07/09/2018 Pr ovider: Diagnosis: Atorvastatin Calcium 10 MG OR TABS 02/11/2014 - 02/11/2014 P rovider: Diagnosis: Depakote 500 MG OR TBEC 02/11/2014 - 02/11/2014 Provider: Diagnosis: Metrogel 1% EX GEL 02/11/2014 - 02/11/2014 Provider: Diagnosis: Furosemide 20 MG OR TABS 02/11/2014 - 04/11/2016 Provider: Diagnosis: Cipro 250 MG OR TABS 02/11/2014 - 01/13/2020 Provider: Diagnosis: Depakote 500 MG OR TBEC 02/03/2013 - 02/11/2014 Provider: Diagnosis: Atorvastatin Calcium 10 MG OR TABS 02/03/2013 - 02/11/2014 P baldemarder: Diagnosis: Metrogel 1% EX GEL 02/03/2013 - 02/11/2014 Provider: Diagnosis: Medications Administered Includes: Administered Medications in patient's chartNo Administered Medications Recorded Vital Signs Includes: Vital Signs from 07/25/2020 through 07/25/2021No Vital Signs Recorded For Specified Dates Results Includes: Results from 07/25/2020 through 07/25/2021No Results Recorded For Specified Dates History of Present Illness History of Present Illness not supported for this document typeNo History of Present Illness Recorded Social History Description Last Updated No consumption of alcohol 10/03/2020 No tobacco use 10/03/2020 Not using drugs 10/03/2020 Smoking status : Never smoker 10/03/2020 Never smoked 01/13/2020 Bachelors degree completed 08/16/2013 Owns home 08/16/2013 Retired 08/16/2013 Single 08/16/2013 Procedures and Surgical History Includes: Procedures from 07/25/2020 through 07/25/2021 Procedures Code Diagnosis Performing Provider Service Location Service Date Intermediate Eye Exam Established Patient [id number] Primary open-angle glaucoma, right eye, mild stage, Primary open-angle glaucoma, left eye, moderate stage, Puckering of macula, left eye, Dry eye syndrome of bilateral lacrimal glands iDaz Dubois MD, FACS Diaz Dubois MD [facility] 10/03/2020 Surgical History Last Updated Surgical / procedural history : Stents i n Kidneys January 2014 Stents for Fused Kidneys 08/20, 11/21, 02/19, 02/20, 04/2210/03/2020 History of iridectomy of the right eye 11/09/2014 History of discission of secondary membr anous cataract by laser of the right eye 08/30/2014 History of cataract extraction PCIOL with ECP OU 08/04 Medical History Includes: Medical History in patient's chart Description Last Updated Currently wearing eyeglasses OTC Readers +2.50 2019 Reported medical history : Kidney Damage - Stage 4 Renal Failure, Seizures, Silent Heart Attack 01/16, CHF 01/16, 01/13/2020 History of essential hypertension 01/13/2020 No recent change in medical history 08/30/2014 History of hyperlipidemia 08/16/2013 History of hypothyroidism 08/16/2013 History of hypertension 08/16/2013 History of glaucoma in both eyes 02/03/2013 History of cataract removal 2 years ago 02/03/2013 Family History Includes: Family History in patient's chart Description Last Updated Maternal history of cataract 10/03/2020 Maternal history of family history of cancer 0 Paternal history of cataract 10/03/2020 Paternal history of diabetes mellitus 10/03/2020 Paternal history of family history of cancer 0 Paternal history of glaucoma 10/03/2020 Paternal history of heart disease 10/03/2020 Paternal history of stroke/cerebrovascular accident 0 children 08/16/2013 1 brother(s) living 08/16/2013 1 siblings born 08/16/2013 Father - Disease 08/16/2013 Mother - Cancer 08/16/2013 Review of Systems Review of Systems not supported for this document typeNo Review of Systems Recorded Mental Status Mental Status not supported for this document typeNo Mental Status Recorded Functional Status Functional Status not supported for this document typeNo Functional Status Recorded Physical Exam Physical Exam not supported for this document typeNo Physical Exam Recorded Immunizations Includes: Immunizations in patient's chartNo Immunizations Recorded Allergies Includes: Active, inactive, and resolved Allergies Substance Type Reaction Onset Date - Time Resolved Date - Ti me Status TEGretol Allergy 08/30/2014 - 12:00AM Acti ve Chocolate Allergy 08/30/2014 - 12:00AM Acti ve Encounters Includes: Encounters from 07/25/2020 through 07/25/2021 Encounter Provider Location Date Check-In Time Check-Out Time D iagnosis 9 Month Follow-Up with Testing Diaz Dubois MD [facility] 8:54AM 9:57AM 9 Month Minor Follow-Up Diaz Dubois MD, FACS Diaz Carpenter MD [facility] 10/03/2020 8:17AM 9:02AM Essential Hypertensi on, Assessment of Macular Puckering Left Eye, Dry Eye Syndrome Both Eyes, Glaucoma Open-angle Primary Right Eye, Glaucoma Open-angle Primary Left Eye Insurance Includes: Active Insurance Policies No Insurance Coverage Recorded Guarantor Relationship Effective Dates Guarantor Phone Mildred Blake Self [id number] Advance Directives Includes: Current Advance DirectivesNo Advance Directives Recorded Health Concerns Includes: Active Health ConcernsNo Active Health Concerns Recorded Goals Includes: Active GoalsNo Active Goals Recorded Interventions Includes: Interventions for active GoalsNo Interventions Recorded Evaluations & Outcomes Includes: Evaluations & Outcomes for active GoalsNo Outcomes Recorded
--- OUTSIDE RECORDS SUMMARY | 2021-09-10 06:24 | CCD ---
Author Author [facility] Organization [facility] Address Unknown Phone Unavailable Care Team Providers Care Airways Control Specialist Name Role Phone Gabbi, Iman Emma PA Unavailable Unavailable Barraclough, M Emma PA Unavailable Unavailable Barraclough, M Emma PA Unavailable Unavailable Barraclough, M Emma PA Unavailable Unavailable Barraclough, M Emma PA Unavailable Unavailable Barraclough, M Emma PA Unavailable Unavailable Barraclough, M Emma PA Unavailable Unavailable Rounds, M NIC HERPETOLOGIST Unavailable Unavailable Rounds, M NIC HERPETOLOGIST Unavailable Unavailable Rounds, M NIC HERPETOLOGIST Unavailable Unavailable Rounds, M NIC HERPETOLOGIST Unavailable Unavailable Rounds, M NIC HERPETOLOGIST Unavailable Unavailable Rounds, M NIC HERPETOLOGIST Unavailable Unavailable Rounds, M NIC HERPETOLOGIST Unavailable Unavailable Rounds, M NIC HERPETOLOGIST Unavailable Unavailable Rounds, M NIC HERPETOLOGIST Unavailable Unavailable Rounds, M NIC HERPETOLOGIST Unavailable Unavailable Rounds, M NIC HERPETOLOGIST Unavailable Unavailable Rounds, M NIC HERPETOLOGIST Unavailable Unavailable Rounds, M NIC HERPETOLOGIST Unavailable Unavailable Rounds, M NIC HERPETOLOGIST Unavailable Unavailable Rounds, M NIC HERPETOLOGIST Unavailable Unavailable Rounds, M NIC HERPETOLOGIST Unavailable Unavailable Rounds, M NIC HERPETOLOGIST Unavailable Unavailable Rounds, M NIC HERPETOLOGIST Unavailable Unavailable Rounds, M NIC HERPETOLOGIST Unavailable Unavailable Rounds, M NIC HERPETOLOGIST Unavailable Unavailable Rounds, M NIC HERPETOLOGIST Unavailable Unavailable Rounds, M NIC HERPETOLOGIST Unavailable Unavailable Rounds, M NIC HERPETOLOGIST Unavailable Unavailable Rounds, M NIC HERPETOLOGIST Unavailable Unavailable Rounds, M NIC HERPETOLOGIST Unavailable Unavailable Rounds, M NIC HERPETOLOGIST Unavailable Unavailable Rounds, M NIC HERPETOLOGIST Unavailable Unavailable Rounds, M NIC HERPETOLOGIST Unavailable Unavailable Rounds, M NIC HERPETOLOGIST Unavailable Unavailable Rounds, M NIC HERPETOLOGIST Unavailable Unavailable Rounds, M NIC HERPETOLOGIST Unavailable Unavailable Rounds, M NIC HERPETOLOGIST Unavailable Unavailable Rounds, M NIC HERPETOLOGIST Unavailable Unavailable Rounds, M NIC HERPETOLOGIST Unavailable Unavailable Rounds, M NIC HERPETOLOGIST Unavailable Unavailable Rounds, M NIC HERPETOLOGIST Unavailable Unavailable Rounds, M NIC HERPETOLOGIST Unavailable Unavailable Rounds, M NIC HERPETOLOGIST Unavailable Unavailable Rounds, M NIC HERPETOLOGIST Unavailable Unavailable Rounds, M NIC HERPETOLOGIST Unavailable Unavailable Rounds, M NIC HERPETOLOGIST Unavailable Unavailable Rounds, M NIC HERPETOLOGIST Unavailable Unavailable Rounds, M NIC HERPETOLOGIST Unavailable Unavailable Rounds, M NIC HERPETOLOGIST Unavailable Unavailable Rounds, M NIC HERPETOLOGIST Unavailable Unavailable Rounds, M NIC HERPETOLOGIST Unavailable Unavailable Rounds, M NIC HERPETOLOGIST Unavailable Unavailable Rounds, M NIC HERPETOLOGIST Unavailable Unavailable Rounds, M NIC HERPETOLOGIST Unavailable Unavailable Rounds, M NIC HERPETOLOGIST Unavailable Unavailable Rounds, M NIC HERPETOLOGIST Unavailable Unavailable Rounds, M NIC HERPETOLOGIST Unavailable Unavailable Rounds, M NIC HERPETOLOGIST Unavailable Unavailable Rounds, M NIC HERPETOLOGIST Unavailable Unavailable Rounds, M NIC HERPETOLOGIST Unavailable Unavailable Rounds, M NIC HERPETOLOGIST Unavailable Unavailable Rounds, M NIC HERPETOLOGIST Unavailable Unavailable Rounds, M NIC HERPETOLOGIST Unavailable Unavailable Rounds, M NIC HERPETOLOGIST Unavailable Unavailable Rounds, M NIC HERPETOLOGIST Unavailable Unavailable Rounds, M NIC HERPETOLOGIST Unavailable Unavailable Rounds, M NIC HERPETOLOGIST Unavailable Unavailable Rounds, M NIC HERPETOLOGIST Unavailable Unavailable Trickey, J Sallie PA Unavailable Unavailable Trickey, J Sallie PA Unavailable Unavailable Trickey, J Sallie PA Unavailable Unavailable Trickey, J Sallie PA Unavailable Unavailable Trickey, J Sallie PA Unavailable Unavailable Trickey, J Sallie PA Unavailable Unavailable Trickey, J Sallie PA Unavailable Unavailable Trickey, J Sallie PA Unavailable Unavailable Trickey, J Sallie PA Unavailable Unavailable Trickey, J Sallie PA Unavailable Unavailable Trickey, J Sallie PA Unavailable Unavailable Trickey, J Sallie PA Unavailable Unavailable Trickey, J Sallie PA Unavailable Unavailable Trickey, J Sallie PA Unavailable Unavailable Trickey, J Sallie PA Unavailable Unavailable Trickey, J Sallie PA Unavailable Unavailable Trickey, J Sallie PA Unavailable Unavailable Trickey, J Sallie PA Unavailable Unavailable Trickey, J Sallie PA Unavailable Unavailable Trickey, J Sallie PA Unavailable Unavailable Trickey, J Sallie PA Unavailable Unavailable Trickey, J Sallie PA Unavailable Unavailable Trickey, J Sallie PA Unavailable Unavailable Trickey, J Sallie PA Unavailable Unavailable Trickey, J Sallie PA Unavailable Unavailable Trickey, J Sallie PA Unavailable Unavailable Trickey, J Slalie PA Unavailable Unavailable Trickey, J Sallie PA Unavailable Unavailable Trickey, J Sallie PA Unavailable Unavailable Trickey, J Sallie PA Unavailable Unavailable Trickey, J Sallie PA Unavailable Unavailable Trickey, J Sallie PA Unavailable Unavailable Trickey, J Sallie PA Unavailable Unavailable Trickey, J Sallie PA Unavailable Unavailable Trickey, J Sallie PA Unavailable Unavailable Trickey, J Sallie PA Unavailable Unavailable Trickey, J Sallie PA Unavailable Unavailable Trickey, J Sallie PA Unavailable Unavailable Trickey, J Sallie PA Unavailable Unavailable Trickey, J Sallie PA Unavailable Unavailable Trickey, J Sallie PA Unavailable Unavailable Trickey, J Sallie PA Unavailable Unavailable Trickey, J Sallie PA Unavailable Unavailable Trickey, J Sallie PA Unavailable Unavailable Trickey, J Sallie PA Unavailable Unavailable Trickey, J Sallie PA Unavailable Unavailable Trickey, J Sallie PA Unavailable Unavailable Trickey, J Sallie PA Unavailable Unavailable Trickey, J Sallie PA Unavailable Unavailable MATTHEW, L CIERRA PA Unavailable Unavailable MATTHEW, L CIERRA PA Unavailable Unavailable MATTHEW, L CIERRA PA Unavailable Unavailable MATTHEW, L CIERRA PA Unavailable Unavailable MATTHEW, L CIERRA PA Unavailable Unavailable MATTHEW, L CIERRA PA Unavailable Unavailable MATTHEW, L CIERRA PA Unavailable Unavailable MATTHEW, L CIERRA PA Unavailable Unavailable MATTHEW, L CIERRA PA Unavailable Unavailable MATTHEW, L CIERRA PA Unavailable Unavailable MATTHEW, L CIERRA PA Unavailable Unavailable MATTHEW, L CIERRA PA Unavailable Unavailable MATTHEW, L CIERRA PA Unavailable Unavailable MATTHEW, L CIERRA PA Unavailable Unavailable MATTHEW, L CIERRA PA Unavailable Unavailable MATTHEW, L CIERRA PA Unavailable Unavailable Jozef Miles PA Unavailable Unavailable Jozef Miles PA Unavailable Unavailable Jozef Miles PA Unavailable Unavailable Jozef Miles PA Unavailable Unavailable Jozef Miles PA Unavailable Unavailable Jozef Miles PA Unavailable Unavailable Jozef Miles PA Unavailable Unavailable Jozef Miles PA Unavailable Unavailable Jozef Miles PA Unavailable Unavailable Jozef Miles PA Unavailable Unavailable Ginger, D Tramaine PA Unavailable Unavailable Ginger, D Tramaine PA Unavailable Unavailable Ginger, D Tramaine PA Unavailable Unavailable Ginger, D Tramaine PA Unavailable Unavailable Ginger, D Tramaine PA Unavailable Unavailable Ginger, D Tramaine PA Unavailable Unavailable Ginger, D Tramaine PA Unavailable Unavailable Ginger, D Tramaine PA Unavailable Unavailable Ginger, D Tramaine PA Unavailable Unavailable Ginger, D Tramaine PA Unavailable Unavailable Ginger, D Tramaine PA Unavailable Unavailable Ginger, D Tramaine PA Unavailable Unavailable Ginger, D Tramaine PA Unavailable Unavailable Ginger, D Tramaine PA Unavailable Unavailable Ginger, D Tramaine PA Unavailable Unavailable Ginger, D Tramaine PA Unavailable Unavailable Ginger, D Tramaine PA Unavailable Unavailable Ginger, D Tramaine PA Unavailable Unavailable Ginger, D Tramaine PA Unavailable Unavailable Ginger, D Tramaine PA Unavailable Unavailable Ginger, D Tramaine PA Unavailable Unavailable Ginger, D Tramaine PA Unavailable Unavailable Ginger, D Tramaine PA Unavailable Unavailable Ginger, D Tramaine PA Unavailable Unavailable Ginger, D Tramaine PA Unavailable Unavailable Ginger, D Tramaine PA Unavailable Unavailable Ginger, D Tramaine PA Unavailable Unavailable Ginger, D Tramaine PA Unavailable Unavailable Ginger, D Tramaine PA Unavailable Unavailable Ginger, D Tramaine PA Unavailable Unavailable Ginger, D Tramaine PA Unavailable Unavailable Ginger, D Tramaine PA Unavailable Unavailable Ginger, D Tramaine PA Unavailable Unavailable Ginger, D Tramaine PA Unavailable Unavailable Ginger, D Tramaine PA Unavailable Unavailable Ginger, D Tramaine PA Unavailable Unavailable Ginger, D Tramaine PA Unavailable Unavailable Ginger, D Tramaine PA Unavailable Unavailable Ginger, D Tramaine PA Unavailable Unavailable Ginger, D Tramaine PA Unavailable Unavailable Ginger, D Tramaine PA Unavailable Unavailable Ginger, D Tramaine PA Unavailable Unavailable Ginger, D Tramaine PA Unavailable Unavailable Ginger, D Tramaine PA Unavailable Unavailable Ginger, D Tramaine PA Unavailable Unavailable Ginger, D Tramaine PA Unavailable Unavailable Ginger, D Tramaine PA Unavailable Unavailable Ginger, D Tramaine PA Unavailable Unavailable Ginger, D Tramaine PA Unavailable Unavailable Ginger, D Tramaine PA Unavailable Unavailable Ginger, D Tramaine PA Unavailable Unavailable Ginger, D Tramaine PA Unavailable Unavailable Ginger, D Tramaine PA Unavailable Unavailable Ginger, D Tramaine PA Unavailable Unavailable Ginger, D Tramaine PA Unavailable Unavailable Ginger, D Tramaine PA Unavailable Unavailable Ginger, Jozef Redd PA Unavailable Unavailable Ginger, Jozef Redd PA Unavailable Unavailable Bonilla Crook, Maricarmen Perales MD, FACS Unavailable Unavailable Bonilla Crook, Maricarmen Perales MD, FACS Unavailable Unavailable Bonilla Crook, Maricarmen Perales MD, FACS Unavailable Unavailable Bonilla Crook, Maricarmen Perales MD, FACS Unavailable Unavailable Bonilla Crook, Maricarmen Perales MD, FACS Unavailable Unavailable Bonilla Crook, Maricarmen Perales MD, FACS Unavailable Unavailable Bonilla Crook, Maricarmen Perales MD, FACS Unavailable Unavailable Bonilla Crook, Maricarmen Perales MD, FACS Unavailable Unavailable Bonilla Crook, Maricarmen Perales MD, FACS Unavailable Unavailable Bonilla Crook, Maricarmen Perales MD, FACS Unavailable Unavailable Bonilla Crook, Maricarmen Perales MD, FACS Unavailable Unavailable Bonilla Crook, Maricarmen Perales MD, FACS Unavailable Unavailable Bonilla Crook, Maricarmen Perales MD, FACS Unavailable Unavailable Bonilla Crook, Maricarmen Perales MD, FACS Unavailable Unavailable Bonilla Crook, Maricarmen Perales MD, FACS Unavailable Unavailable Bonilla Crook, Maricarmen Perales MD, FACS Unavailable Unavailable Bonilla Crook, Maricarmen Perales MD, FACS Unavailable Unavailable Bonilla Crook, Maricarmen Perales MD, FACS Unavailable Unavailable Bonilla Crook, Maricarmen Perales MD, FACS Unavailable Unavailable Bonilla Crook, Maricarmen Perales MD, FACS Unavailable Unavailable Bonilla Crook, Maricarmen Perales MD, FACS Unavailable Unavailable Bonilla Crook, Maricarmen Perales MD, FACS Unavailable Unavailable Bonilla Crook, Maricarmen Perales MD, FACS Unavailable Unavailable Bonilla Crook, Maricarmen Perales MD, FACS Unavailable Unavailable Bonilla Crook, Maricarmen Perales MD, FACS Unavailable Unavailable Bonilla Crook, Maricarmen Perales MD, FACS Unavailable Unavailable Bonilla Crook, Maricarmen Perales MD, FACS Unavailable Unavailable Bonilla Crook, Maricarmen Perlaes MD, FACS Unavailable Unavailable Bonilla Crook, Maricarmen Perales MD, FACS Unavailable Unavailable Bonilla Crook, Maricarmen Perales MD, FACS Unavailable Unavailable Bonilla Crook, Maricarmen Perales MD, FACS Unavailable Unavailable Bonilla Crook, Maricarmen Perales MD, FACS Unavailable Unavailable Bonilla Crook, Maricarmen Perales MD, FACS Unavailable Unavailable Bonilla Crook, Maricarmen Perales MD, FACS Unavailable Unavailable Bonilla Crook, Maricarmen Perales MD, FACS Unavailable Unavailable Bonilla Crook, Maricarmen Perales MD, FACS Unavailable Unavailable Bonilla Crook, Maricarmen Perales MD, FACS Unavailable Unavailable Bonilla Crook, Maricarmen Perales MD, FACS Unavailable Unavailable Bonilla Crook, Maricarmen Perales MD, FACS Unavailable Unavailable Fish, J Lopez Unavailable Unavailable Fish, J Lopez Unavailable Unavailable Fish, J Lopez Unavailable Unavailable Fish, J Lopez Unavailable Unavailable Fish, J Lopez Unavailable Unavailable Fish, J Lopez Unavailable Unavailable Fish, J Lopez Unavailable Unavailable Fish, J Lopez Unavailable Unavailable Fish, J Lopez Unavailable Unavailable Fish, J Lopez Unavailable Unavailable Fish, J Lopez Unavailable Unavailable Fish, J Lopez Unavailable Unavailable Fish, J Lopez Unavailable Unavailable Fish, J Lopez Unavailable Unavailable Fish, J Lopez Unavailable Unavailable Fish, J Lopez Unavailable Unavailable Fish, J Lopez Unavailable Unavailable Fish, J Lopez Unavailable Unavailable Fish, J Lopez Unavailable Unavailable Fish, J Lopez Unavailable Unavailable Fish, J Lopez Unavailable Unavailable Fish, J Lopez Unavailable Unavailable Fish, J Lopez Unavailable Unavailable Fish, J Lopez Unavailable Unavailable Fish, J Lopez Unavailable Unavailable Fish, J Lopez Unavailable Unavailable Fish, J Lopez Unavailable Unavailable Fish, J Lopez Unavailable Unavailable Fish, J Lopez Unavailable Unavailable Fish, J Lopez Unavailable Unavailable Fish, J Lopez Unavailable Unavailable Fish, J Lopez Unavailable Unavailable Fish, J Lopez Unavailable Unavailable Fish, J Lopez Unavailable Unavailable Fish, J Lopez Unavailable Unavailable Fish, J Lopez Unavailable Unavailable Fish, J Lopez Unavailable Unavailable Fish, J Lopez Unavailable Unavailable Fish, J Lopez Unavailable Unavailable Fish, J Lopez Unavailable Unavailable Fish, J Lopez Unavailable Unavailable Fish, J Lopez Unavailable Unavailable Fish, J Lopez Unavailable Unavailable Fish, J Lopez Unavailable Unavailable Fish, J Lopez Unavailable Unavailable Fish, J Lopez Unavailable Unavailable Fish, J Lopez Unavailable Unavailable Fish, J Lopez Unavailable Unavailable Fish, J Lopez Unavailable Unavailable Fish, J Lopez Unavailable Unavailable Fish, J Lopez Unavailable Unavailable Fish, J Lopez Unavailable Unavailable Fish, J Lopez Unavailable Unavailable Fish, J Lopez Unavailable Unavailable Fish, J Lopez Unavailable Unavailable Fish, J Lopez Unavailable Unavailable Fish, J Lopez Unavailable Unavailable Fish, J Lopez Unavailable Unavailable Fish, J Lopez Unavailable Unavailable Fish, J Lopez Unavailable Unavailable Fish, J Lopez Unavailable Unavailable Fish, J Lopez Unavailable Unavailable Fish, J Lopez Unavailable Unavailable Fish, J Lopez Unavailable Unavailable Fish, J Lopez Unavailable Unavailable Fish, J Lopez Unavailable Unavailable Fish, J Lopez Unavailable Unavailable Fish, J Lopez Unavailable Unavailable Fish, J Lopez Unavailable Unavailable Fish, J Lopez Unavailable Unavailable Fish, J Lopez Unavailable Unavailable Fish, J Lopez Unavailable Unavailable Fish, J Lopez Unavailable Unavailable Fish, J Lopez Unavailable Unavailable Fish, J Lopez Unavailable Unavailable Fish, J Lopez Unavailable Unavailable Fish, J Lopez Unavailable Unavailable Fish, J Lopez Unavailable Unavailable Fish, J Lopez Unavailable Unavailable Fish, J Lopez Unavailable Unavailable Fish, J Lopez Unavailable Unavailable Fish, J Lopez Unavailable Unavailable Fish, J Lopez Unavailable Unavailable Fish, J Lopez Unavailable Unavailable Fish, J Lopez Unavailable Unavailable Re-disclosure Warning The records that you are about to access may contain information from federally-assisted alcohol or drug abuse programs. If such information is present, then the following federally mandated warning applies: This information has been disclosed to you from records protected by federal confidentiality rules (42 CFR part 2). The federal rules prohibit you from making any further disclosure of this information unless further disclosure is expressly permitted by the written consent of the person to whom it pertains or as otherwise permitted by 42 CFR part 2. A general authorization for the release of medical or other information is NOT sufficient for this purpose. The Federal rules restrict any use of the information to criminally investigate or prosecute any alcohol or drug abuse patient.The records that you are about to access may contain highly sensitive health information, the redisclosure of which is protected by Article 27-F of the [facility] Public Health law. If you continue you may have access to information: Regarding HIV / AIDS; Provided by facilities licensed or operated by the [facility] Office of Mental Health; or Provided by the [facility] Office for People With Developmental Disabilities. If such information is present, then the following [facility] mandated warning applies: This information has been disclosed to you from confidential records which are protected by state law. State law prohibits you from making any further disclosure of this information without the specific written consent of the person to whom it pertains, or as otherwise permitted by law. Any unauthorized further disclosure in violation of state law may result in a fine or prison sentence or both. A general authorization for the release of medical or other information is NOT sufficient authorization for further disc losure. Family History Family Member Name Family Member Gender Family Member Status Date o f Status Description Data Source(s) Unknown Male Problem [facility] ([facility] Unknown Unknown Problem [facility] ([facility]) Unknown Female Problem [facility] ([facility]) Encounters Encounter Providers Location Date Indications Data Source(s ) Outpatient Attender: Tramaine MARTEL [place] [facility] 11/2020 11:15:00 AM EDT [facility] ([facility] [place] [address] [place] [id number] 08/21/2021 12:00:00 AM EDT [facility] Outpatient Attender: Sallie MARTEL [facility] 08/15/2021 11:30:00 AM EDT MED[facility] ([facility], ) Outpatient<td ID="encounterTypeDescripti onID0">9 Month Follow-Up with Testing</td><td></td><td>Diaz Dubois MD [facility]</td><td>07/12/2021</td><td>8:54AM</td><td>9:57AM</td><td></td> Diaz Dubois MD [facility] 07/12/2021 08:54:00 AM EDT - 07/12/2021 09:57:00 AM EDT [place] (Diaz Crook MD [facility]) Unknown [address] [place] [id number] 07/05/2021 12:00:00 AM EDT [facility] [place] [address] [place] [id number] 07/04/2021 12:00:00 AM EDT [facility] [place] [address] [place] [id number] 06/29/2021 12:00:00 AM EDT [facility] [place] [address] [place] [id number] 06/28/2021 12:00:00 AM EDT [facility] Outpatient Attender: Lopez Lares [place] [facility] 05/31/2021 01:15:0 0 PM EDT [facility] ([facility] Outpatient Attender: Sallie MARTEL Main office - [facility] 05/16/2021 11:00:00 AM EDT [facility] ([facility] Outpatient Attender: CIERRA MARTEL Main Office 04/10/2021 0 1:00:00 PM EDT [facility] ([facility]) Outpatient Attender: [facility] 03/08/2021 03:00:0 0 PM EDT [facility] ([facility] Outpatient Attender: [facility] 02/22/2021 01:15:0 0 PM EDT [facility] ([facility] [place] [address] [id number] 02/08/2021 12:00:00 AM EDT [facility]CW1 [facility] [place] [address] [place] [id number] 02/08/2021 12:00:00 AM EDT [facility]CW1 [facility]) Office Visit Attender: Sallie MARTEL [facility] 01/30/2021 09:00:00 AM EDT MED[facility] ([facility]) Unknown [address] [place] [id number] 12/11/2020 12:00:00 AM EST eCW1 ([facility]) Outpatient Attender: Emma MARTEL [facility] 11/30/2020 08:00:00 AM EST [facility] ([facility] [place] [address] [place] [id number] 11/21/2020 12:00:00 AM EST [facility]CW1 [facility] 12:00:0 0 PM EST [facility] ([facility] Outpatient Attender: CIERRA MARTEL Main Office 10/10/2020 1 2:30:00 PM EST [facility] ([facility]) <td ID="encounterTypeDescriptionID1">9 M onth Minor Follow-Up</td><td>Diaz Dubois MD, FACS</td><td>Diaz Dubois MD [facility]</td><td>10/03/2020</td><td>8:17AM</td><td>9:02AM</td><td><content ID="encounterDiagnosisID1-0">Essential Hypertension</content>, <content ID="encounterDiagnosisID1-1">Assessment of Macular Puckering Left Eye</content>, <content ID="encounterDiagnosisID1-2">Dry Eye Syndrome Both Eyes</content>, <content ID="encounterDiagnosisID1-3">Glaucoma Open-angle Primary Right Eye</content>, <content ID="encounterDiagnosisID1-4">Glaucoma Open-angle Primary Left Eye</content></td>Outpatient Attender: Diaz Crook MD, FACS Diaz Dubois MD [facility] 10/03/2020 08:17:00 AM EST - 10/03/2020 09:02:00 AM ES T Essential HypertensionGlaucoma Open-angle Primary Left EyeGlaucoma Open-angle Primary Right EyeDry Eye Syndrome Both EyesAssessment of Macular Puckering Left Eye [place] (Diaz Crook MD [facility]) Essential Hypertension Glaucoma Open-angle Primary Left Eye Glaucoma Open-angle Primary Right Eye Dry Eye Syndrome Both Eyes Assessment of Macular Puckering Left Eye Office Visit Attender: Sallie MARTEL Main [facility] 09/27/2020 12:45:00 PM EST MED[facility] ([facility] ) Outpatient Attender: NIC Grace NP [place] [facility] 08/28/2020 0 2:30:00 PM EDT [facility] ([facility] ) Outpatient Attender: Lopez Lares [place] [facility] 08/10/2020 01:15:0 0 PM EDT [facility] ([facility] [place] [address] [id number] 08/07/2020 12:00:00 AM EDT eCW1 ([facility]) Outpatient Attender: Tramaine MARTEL [place] [facility] 03:00:00 PM EDT [facility] ([facility] Immunizations Vaccine Date Status Description Data Source(s) COVID-19 VACCINE Pfizer 12/23/2020 12:00:00 AM EST completed [facility] Vaccine Series Complete: YESThis Data wa s Submitted to [facility] Via [employer]. COVID-19 VACCINE Pfizer 12/02/2020 12:00:00 AM EST completed [facility] Vaccine Series Complete: NOThis Data was Submitted to [facility] Via [employer]. New in 2012. IIV4 07/21/2020 02:48:00 PM EDT completed [facility] ([facility] Medications Medication Brand Name Start Date Product Form Dose Route Admi nistrative Instructions Pharmacy Instructions Status Indications Reaction Description Data Source(s) Paroxetine Hydrochloride 10 MG Oral Tablet PAROXETINE HCL 09/05/2021 12:00:00 AM EDT tablet 30 TAKE ONE TABLET BY MOUTH GILDA DAY TAKE ONE TABLET BY MOUTH EVERY DAY SOLD: 09/06/2021 [facility] 10 mg 08/15/2021 12:00:00 AM EDT tablet extended release 24hr 90 TAKE ONE TABLET BY MOUTH EVERY DAY TAKE ONE TABLET BY MOUTH EVERY DAY SOLD: 08/19/2021 [facility] 1 mg 07/11/2021 12:00:00 AM EDT tablet 90 TAKE ONE TABLET BY MOUTH EVERY DAY TAKE ONE TABLET BY MOUTH EVERY DAY SOLD: 07/15/2021 [facility] carvedilol 3.125 MG Oral Tablet CARVEDILOL 07/01/2021 12:00:00 AM EDT tablet 30 TAKE ONE TABLET BY MOUTH EVERY DAY TAKE ONE TABLET BY MOUTH EVERY DAY SOLD: 07/05/2021 [facility] Ciprofloxacin 250 MG Oral Tablet CIPROFLOXACIN HCL 06/29/2021 12 :00:00 AM EDT tablet 14 TAKE ONE TABLET BY MOUTH TWICE A DAY TAKE ONE TABLET BY MOUTH TWICE A DAY SOLD: 06/29/2021 [facility] 250 mg 06/27/2021 12:00:00 AM EDT tablet extended release 24 hr 90 TAKE ONE TABLET BY MOUTH EVERY DAY IN THE MORNING AND TAKE TWO TABLETS BY MOUTH AT BEDTIME TAKE ONE TABLET BY MOUTH EVERY DAY IN MORNING AND TAKE TWO TABLETS BY MOUTH AT BEDTIME SOLD: 07/31/2021 [facility] 250 mg 06/27/2021 12:00:00 AM EDT tablet extended release 24 hr 90 TAKE ONE TABLET BY MOUTH EVERY DAY IN THE MORNING AND TAKE TWO TABLETS BY MOUTH AT BEDTIME TAKE ONE TABLET BY MOUTH EVERY DAY IN E MORNING AND TAKE TWO TABLETS BY MOUTH AT BEDTIME SOLD: 08/29/2021 [facility] 250 mg 06/27/2021 12:00:00 AM EDT tablet extended release 24 hr 90 TAKE ONE TABLET BY MOUTH EVERY DAY IN THE MORNING AND TAKE TWO TABLETS BY MOUTH AT BEDTIME TAKE ONE TABLET BY MOUTH EVERY DAY IN MORNING AND TAKE TWO TABLETS BY MOUTH AT BEDTIME SOLD: 06/29/2021 [facility] 75 mcg 06/08/2021 12:00:00 AM EDT tablet 90 TAKE ONE TABLET BY MOUTH EVERY MORNING ON AN EMPTY STOMACH TAKE ONE TABLET BY MOUTH EVERY MORNING O N AN EMPTY STOMACH SOLD: 06/11/2021 [facility] 1,250 mcg (50,000 unit) 04/26/2021 12:00:00 AM EDT capsule 12 TAKE ONE TABLET BY MOUTH ONCE WEEKLY ON FRIDAY TAKE ONE TABLET BY MOUTH ONCE WEEKLY ON FRIDAY SOLD: 04/28/2021 [facility] 20 mg 04/13/2021 12:00:00 AM EDT tablet 90 TAKE ONE TABLET BY MOUTH EVERY DAY TAKE ONE TABLET BY MOUTH EVERY DAY SOLD: 04/13/2021 [facility] 20 mg 04/13/2021 12:00:00 AM EDT tablet 90 TAKE ONE TABLET BY MOUTH EVERY DAY TAKE ONE TABLET BY MOUTH EVERY DAY SOLD: 07/05/2021 [facility] Furosemide 20 MG Oral Tablet Furosemide 04/12/2021 12:00:00 AM EDT ORAL active [facility] ([facility] 10 mg 04/09/2021 12:00:00 AM EDT tablet extended release 24hr 30 TAKE ONE TABLET BY MOUTH EVERY DAY TAKE ONE TABLET BY MOUTH EVERY DAY SOLD: 05/08/2021 [facility] 10 mg 04/09/2021 12:00:00 AM EDT tablet extended release 24hr 30 TAKE ONE TABLET BY MOUTH EVERY DAY TAKE ONE TABLET BY MOUTH EVERY DAY SOLD: 07/15/2021 [facility] 10 mg 04/09/2021 12:00:00 AM EDT tablet extended release 24hr 30 TAKE ONE TABLET BY MOUTH EVERY DAY TAKE ONE TABLET BY MOUTH EVERY DAY SOLD: 06/11/2021 [facility] 10 mg 04/09/2021 12:00:00 AM EDT tablet extended release 24hr 30 TAKE ONE TABLET BY MOUTH EVERY DAY TAKE ONE TABLET BY MOUTH EVERY DAY SOLD: 04/11/2021 [facility] Pfizer-[facility] Covid-19 Vaccine Pfizer-[employer] Covid-19 [facility] ccine 03/08/2021 12:00:00 AM EDT active Iman PE[facility] ([facility] Paroxetine Hydrochloride 10 MG Oral Tablet PAROXETINE HCL 03/01/2021 12:00:00 AM EDT tablet 30 TAKE ONE TABLET BY MOUTH GILDA RY DAY TAKE ONE TABLET BY MOUTH EVERY DAY SOLD: 04/28/2021 [facility] Paroxetine Hydrochloride 10 MG Oral Tablet PAROXETINE HCL 03/01/2021 12:00:00 AM EDT tablet 30 TAKE ONE TABLET BY MOUTH GILDA RY DAY TAKE ONE TABLET BY MOUTH EVERY DAY SOLD: 07/05/2021 [facility] Paroxetine Hydrochloride 10 MG Oral Tablet PAROXETINE HCL 03/01/2021 12:00:00 AM EDT tablet 30 TAKE ONE TABLET BY MOUTH GILDA RY DAY TAKE ONE TABLET BY MOUTH EVERY DAY SOLD: 03/04/2021 [facility] Paroxetine Hydrochloride 10 MG Oral Tablet PAROXETINE HCL 03/01/2021 12:00:00 AM EDT tablet 30 TAKE ONE TABLET BY MOUTH GILDA RY DAY TAKE ONE TABLET BY MOUTH EVERY DAY SOLD: 06/05/2021 [facility] Paroxetine Hydrochloride 10 MG Oral Tablet PAROXETINE HCL 03/01/2021 12:00:00 AM EDT tablet 30 TAKE ONE TABLET BY MOUTH GILDA RY DAY TAKE ONE TABLET BY MOUTH EVERY DAY SOLD: 04/01/2021 [facility] Paroxetine Hydrochloride 10 MG Oral Tablet PAROXETINE HCL 03/01/2021 12:00:00 AM EDT tablet 30 TAKE ONE TABLET BY MOUTH GILDA RY DAY TAKE ONE TABLET BY MOUTH EVERY DAY SOLD: 07/31/2021 [facility] 80 mg 01/04/2021 12:00:00 AM EST tablet 30 TAKE ONE TABLET BY MOUTH AT BEDTIME TAKE ONE TABLET BY MOUTH AT BEDTIME SOLD: 06/05/2021 [facility] 80 mg 01/04/2021 12:00:00 AM EST tablet 30 TAKE ONE TABLET BY MOUTH AT BEDTIME TAKE ONE TABLET BY MOUTH AT BEDTIME SOLD: 04/07/2021 [facility] 80 mg 01/04/2021 12:00:00 AM EST tablet 30 TAKE ONE TABLET BY MOUTH AT BEDTIME TAKE ONE TABLET BY MOUTH AT BEDTIME SOLD: 07/31/2021 [facility] 80 mg 01/04/2021 12:00:00 AM EST tablet 30 TAKE ONE TABLET BY MOUTH AT BEDTIME TAKE ONE TABLET BY MOUTH AT BEDTIME SOLD: 02/11/2021 [facility] 80 mg 01/04/2021 12:00:00 AM EST tablet 30 TAKE ONE TABLET BY MOUTH AT BEDTIME TAKE ONE TABLET BY MOUTH AT BEDTIME SOLD: 05/08/2021 [facility] 80 mg 01/04/2021 12:00:00 AM EST tablet 30 TAKE ONE TABLET BY MOUTH AT BEDTIME TAKE ONE TABLET BY MOUTH AT BEDTIME SOLD: 03/10/2021 [facility] 80 mg 01/04/2021 12:00:00 AM EST tablet 30 TAKE ONE TABLET BY MOUTH AT BEDTIME TAKE ONE TABLET BY MOUTH AT BEDTIME SOLD: 07/05/2021 [facility] 80 mg 01/04/2021 12:00:00 AM EST tablet 30 TAKE ONE TABLET BY MOUTH AT BEDTIME TAKE ONE TABLET BY MOUTH AT BEDTIME SOLD: 01/05/2021 [facility] 250 mg 01/01/2021 12:00:00 AM EST tablet extended release 24 hr 90 TAKE ONE TABLET BY MOUTH EVERY DAY IN THE MORNING AND 2 AT BEDTIME TAKE ONE TABLET BY MOUTH EVERY DAY IN THE MORNING AND 2 AT BEDTIME SOLD: 05/27/2021 [facility] 250 mg 01/01/2021 12:00:00 AM EST tablet extended release 24 hr 90 TAKE ONE TABLET BY MOUTH EVERY DAY IN THE MORNING AND 2 AT BEDTIME TAKE ONE TABLET BY MOUTH EVERY DAY IN THE MORNING AND 2 AT BEDTIME SOLD: 03/27/2021 [facility] 250 mg 01/01/2021 12:00:00 AM EST tablet extended release 24 hr 90 TAKE ONE TABLET BY MOUTH EVERY DAY IN THE MORNING AND 2 AT BEDTIME TAKE ONE TABLET BY MOUTH EVERY DAY IN THE MORNING AND 2 AT BEDTIME SOLD: 03/01/2021 [facility] 250 mg 01/01/2021 12:00:00 AM EST tablet extended release 24 hr 90 TAKE ONE TABLET BY MOUTH EVERY DAY IN THE MORNING AND 2 AT BEDTIME TAKE ONE TABLET BY MOUTH EVERY DAY IN THE MORNING AND 2 AT BEDTIME SOLD: 04/28/2021 [facility] 250 mg 01/01/2021 12:00:00 AM EST tablet extended release 24 hr 90 TAKE ONE TABLET BY MOUTH EVERY DAY IN THE MORNING AND 2 AT BEDTIME TAKE ONE TABLET BY MOUTH EVERY DAY IN THE MORNING AND 2 AT BEDTIME SOLD: 01/05/2021 [facility] 250 mg 01/01/2021 12:00:00 AM EST tablet extended release 24 hr 90 TAKE ONE TABLET BY MOUTH EVERY DAY IN THE MORNING AND 2 AT BEDTIME TAKE ONE TABLET BY MOUTH EVERY DAY IN THE MORNING AND 2 AT BEDTIME SOLD: 01/31/2021 [facility] 75 mcg 11/30/2020 12:00:00 AM EST tablet 90 TAKE ONE TABLET BY MOUTH EVERY MORNING ON AN EMPTY STOMACH TAKE ONE TABLET BY MOUTH EVERY MORNING O N AN EMPTY STOMACH SOLD: 03/10/2021 [facility] Folic Acid 1 MG Oral Tablet FOLIC ACID 11/30/2020 12:00:00 AM EST tabl et 90 TAKE ONE TABLET BY MOUTH EVERY DAY TAKE ONE TABLET BY MOUTH EVERY DAY SOLD: 12/01/2020 [facility] 1 mg 11/30/2020 12:00:00 AM EST tablet 90 TAKE ONE TABLET BY MOUTH EVERY DAY TAKE ONE TABLET BY MOUTH EVERY DAY SOLD: 04/13/2021 [facility] 75 mcg 11/30/2020 12:00:00 AM EST tablet 90 TAKE ONE TABLET BY MOUTH EVERY MORNING ON AN EMPTY STOMACH TAKE ONE TABLET BY MOUTH EVERY MORNING O N AN EMPTY STOMACH SOLD: 12/01/2020 [facility] 10 mg 11/08/2020 12:00:00 AM EST tablet extended release 24hr 30 TAKE ONE TABLET BY MOUTH EVERY DAY TAKE ONE TABLET BY MOUTH EVERY DAY SOLD: 03/10/2021 [facility] 10 mg 11/08/2020 12:00:00 AM EST tablet extended release 24hr 30 TAKE ONE TABLET BY MOUTH EVERY DAY TAKE ONE TABLET BY MOUTH EVERY DAY SOLD: 01/05/2021 [facility] 10 mg 11/08/2020 12:00:00 AM EST tablet extended release 24hr 30 TAKE ONE TABLET BY MOUTH EVERY DAY TAKE ONE TABLET BY MOUTH EVERY DAY SOLD: 11/09/2020 [facility] 10 mg 11/08/2020 12:00:00 AM EST tablet extended release 24hr 30 TAKE ONE TABLET BY MOUTH EVERY DAY TAKE ONE TABLET BY MOUTH EVERY DAY SOLD: 12/11/2020 [facility] 10 mg 11/08/2020 12:00:00 AM EST tablet extended release 24hr 30 TAKE ONE TABLET BY MOUTH EVERY DAY TAKE ONE TABLET BY MOUTH EVERY DAY SOLD: 02/11/2021 [facility] carvedilol 3.125 MG Oral Tablet CARVEDILOL 10/11/2020 12:00:00 AM EST tablet 60 TAKE ONE TABLET BY MOUTH TWICE A DAY TAKE ONE TABLET BY MOUT H TWICE A DAY SOLD: 05/08/2021 [facility] carvedilol 3.125 MG Oral Tablet CARVEDILOL 10/11/2020 12:00:00 AM EST tablet 60 TAKE ONE TABLET BY MOUTH TWICE A DAY TAKE ONE TABLET BY MOUT H TWICE A DAY SOLD: 03/10/2021 [facility] carvedilol 3.125 MG Oral Tablet CARVEDILOL 10/11/2020 12:00:00 AM EST tablet 60 TAKE ONE TABLET BY MOUTH TWICE A DAY TAKE ONE TABLET BY MOUT H TWICE A DAY SOLD: 01/05/2021 [facility] carvedilol 3.125 MG Oral Tablet CARVEDILOL 10/11/2020 12:00:00 AM EST tablet 60 TAKE ONE TABLET BY MOUTH TWICE A DAY TAKE ONE TABLET BY MOUT H TWICE A DAY SOLD: 11/08/2020 [facility] carvedilol 3.125 MG Oral Tablet CARVEDILOL 10/11/2020 12:00:00 AM EST tablet 60 TAKE ONE TABLET BY MOUTH TWICE A DAY TAKE ONE TABLET BY MOUT H TWICE A DAY SOLD: 08/29/2021 [facility] carvedilol 3.125 MG Oral Tablet CARVEDILOL 10/11/2020 12:00:00 AM EST tablet 60 TAKE ONE TABLET BY MOUTH TWICE A DAY TAKE ONE TABLET BY MOUT H TWICE A DAY SOLD: 07/31/2021 [facility] carvedilol 3.125 MG Oral Tablet CARVEDILOL 10/11/2020 12:00:00 AM EST tablet 60 TAKE ONE TABLET BY MOUTH TWICE A DAY TAKE ONE TABLET BY MOUT H TWICE A DAY SOLD: 06/11/2021 [facility] carvedilol 3.125 MG Oral Tablet CARVEDILOL 10/11/2020 12:00:00 AM EST tablet 60 TAKE ONE TABLET BY MOUTH TWICE A DAY TAKE ONE TABLET BY MOUT H TWICE A DAY SOLD: 04/07/2021 [facility] carvedilol 3.125 MG Oral Tablet CARVEDILOL 10/11/2020 12:00:00 AM EST tablet 60 TAKE ONE TABLET BY MOUTH TWICE A DAY TAKE ONE TABLET BY MOUT H TWICE A DAY SOLD: 01/31/2021 [facility] carvedilol 3.125 MG Oral Tablet CARVEDILOL 10/11/2020 12:00:00 AM EST tablet 60 TAKE ONE TABLET BY MOUTH TWICE A DAY TAKE ONE TABLET BY MOUT H TWICE A DAY SOLD: 12/11/2020 [facility] carvedilol 3.125 MG Oral Tablet CARVEDILOL 10/11/2020 12:00:00 AM EST tablet 60 TAKE ONE TABLET BY MOUTH TWICE A DAY TAKE ONE TABLET BY MOUT H TWICE A DAY SOLD: 10/13/2020 [facility] atorvastatin 80 MG Oral Tablet ATORVASTATIN CALCIUM 09/22/2020 1 2:00:00 AM EST tablet 30 TAKE ONE TABLET BY MOUTH EVERY M ORNING TAKE ONE TABLET BY MOUTH EVERY MORNING SOLD: 11/08/2020 [facility] atorvastatin 80 MG Oral Tablet ATORVASTATIN CALCIUM 09/22/2020 1 2:00:00 AM EST tablet 30 TAKE ONE TABLET BY MOUTH EVERY M ORNING TAKE ONE TABLET BY MOUTH EVERY MORNING SOLD: 09/27/2020 [facility] atorvastatin 80 MG Oral Tablet ATORVASTATIN CALCIUM 09/22/2020 1 2:00:00 AM EST tablet 30 TAKE ONE TABLET BY MOUTH EVERY M ORNING TAKE ONE TABLET BY MOUTH EVERY MORNING SOLD: 12/11/2020 [facility] carvedilol 3.125 MG Oral Tablet CARVEDILOL 09/01/2020 12:00:00 AM EDT tablet 90 TAKE ONE TABLET BY MOUTH EVERY DAY TAKE ONE TABLET BY MOUTH EVERY DAY SOLD: 09/02/2020 [facility] Paroxetine Hydrochloride 10 MG Oral Tablet PAROXETINE HCL 08/02/2020 12:00:00 AM EDT tablet 30 TAKE ONE TABLET BY MOUTH GILDA RY DAY TAKE ONE TABLET BY MOUTH EVERY DAY SOLD: 08/04/2020 [facility] Paroxetine Hydrochloride 10 MG Oral Tablet PAROXETINE HCL 08/02/2020 12:00:00 AM EDT tablet 30 TAKE ONE TABLET BY MOUTH GILDA RY DAY TAKE ONE TABLET BY MOUTH EVERY DAY SOLD: 02/05/2021 [facility] Paroxetine Hydrochloride 10 MG Oral Tablet PAROXETINE HCL 08/02/2020 12:00:00 AM EDT tablet 30 TAKE ONE TABLET BY MOUTH GILDA RY DAY TAKE ONE TABLET BY MOUTH EVERY DAY SOLD: 12/01/2020 [facility] Paroxetine Hydrochloride 10 MG Oral Tablet PAROXETINE HCL 08/02/2020 12:00:00 AM EDT tablet 30 TAKE ONE TABLET BY MOUTH GILDA RY DAY TAKE ONE TABLET BY MOUTH EVERY DAY SOLD: 09/02/2020 [facility] Paroxetine Hydrochloride 10 MG Oral Tablet PAROXETINE HCL 08/02/2020 12:00:00 AM EDT tablet 30 TAKE ONE TABLET BY MOUTH GILDA RY DAY TAKE ONE TABLET BY MOUTH EVERY DAY SOLD: 11/05/2020 [facility] Paroxetine Hydrochloride 10 MG Oral Tablet PAROXETINE HCL 08/02/2020 12:00:00 AM EDT tablet 30 TAKE ONE TABLET BY MOUTH GILDA RY DAY TAKE ONE TABLET BY MOUTH EVERY DAY SOLD: 12/31/2020 [facility] Paroxetine Hydrochloride 10 MG Oral Tablet PAROXETINE HCL 08/02/2020 12:00:00 AM EDT tablet 30 TAKE ONE TABLET BY MOUTH GILDA TAKE ONE TABLET BY MOUTH EVERY DAY SOLD: 10/03/2020 [facility] Injection (SC)/(Im) 07/21/2020 12:00:00 AM EDT completed [facility] ([facility] Medication administered onsite 1 mg 07/11/2020 12:00:00 AM EDT tablet 90 TAKE ONE TABLET BY MOUTH EVERY DAY TAKE ONE TABLET BY MOUTH EVERY DAY SOLD: 10/10/2020 [facility] 1 mg 07/11/2020 12:00:00 AM EDT tablet 90 TAKE ONE TABLET BY MOUTH EVERY DAY TAKE ONE TABLET BY MOUTH EVERY DAY SOLD: 07/13/2020 [facility] 250 mg 06/27/2020 12:00:00 AM EDT tablet extended release 24 hr 90 TAKE ONE TABLET BY MOUTH EVERY MORNING AND TAKE TWO TABLETS AT BEDTIME TAKE ONE TABLET BY MOUTH EVERY MORNING AND TAKE TWO TABLETS AT BEDTIME SOLD: 10/03/2020 [facility] 250 mg 06/27/2020 12:00:00 AM EDT tablet extended release 24 hr 90 TAKE ONE TABLET BY MOUTH EVERY MORNING AND TAKE TWO TABLETS AT BEDTIME TAKE ONE TABLET BY MOUTH EVERY MORNING AND TAKE TWO TABLETS AT BEDTIME SOLD: 08/09/2020 [facility] 250 mg 06/27/2020 12:00:00 AM EDT tablet extended release 24 hr 90 TAKE ONE TABLET BY MOUTH EVERY MORNING AND TAKE TWO TABLETS AT BEDTIME TAKE ONE TABLET BY MOUTH EVERY MORNING AND TAKE TWO TABLETS AT BEDTIME SOLD: 12/01/2020 [facility] 250 mg 06/27/2020 12:00:00 AM EDT tablet extended release 24 hr 90 TAKE ONE TABLET BY MOUTH EVERY MORNING AND TAKE TWO TABLETS AT BEDTIME TAKE ONE TABLET BY MOUTH EVERY MORNING AND TAKE TWO TABLETS AT BEDTIME SOLD: 09/08/2020 [facility] 250 mg 06/27/2020 12:00:00 AM EDT tablet extended release 24 hr 90 TAKE ONE TABLET BY MOUTH EVERY MORNING AND TAKE TWO TABLETS AT BEDTIME TAKE ONE TABLET BY MOUTH EVERY MORNING AND TAKE TWO TABLETS AT BEDTIME SOLD: 11/05/2020 [facility] 75 mcg 06/07/2020 12:00:00 AM EDT tablet 90 TAKE ONE TABLET BY MOUTH EVERY MORNING ON AN EMPTY STOMACH TAKE ONE TABLET BY MOUTH EVERY MORNING O N AN EMPTY STOMACH SOLD: 09/13/2020 [facility] 10 mg 05/09/2020 12:00:00 AM EDT tablet extended release 24hr 30 TAKE ONE TABLET BY MOUTH EVERY DAY TAKE ONE TABLET BY MOUTH EVERY DAY SOLD: 10/11/2020 [facility] 10 mg 05/09/2020 12:00:00 AM EDT tablet extended release 24hr 30 TAKE ONE TABLET BY MOUTH EVERY DAY TAKE ONE TABLET BY MOUTH EVERY DAY SOLD: 08/09/2020 [facility] 10 mg 05/09/2020 12:00:00 AM EDT tablet extended release 24hr 30 TAKE ONE TABLET BY MOUTH EVERY DAY TAKE ONE TABLET BY MOUTH EVERY DAY SOLD: 09/13/2020 [facility] Insurance Providers Payer name Policy type / Coverage type Policy ID Covered constitution party ID Covered constitution party's relationship to figueroa Policy [place] Plan Information Medicare (Part B) Medicare Primary [id number] Self MEDICARE [id number] SP [id number] Medicare (Part B) Medicare Primary [id number] Self [id number] Medicare (Part B) Medicare Primary [id number] Self [id number] Medicare (Part B) Medicare Primary [id number] Self [id number] Medicare Medicare Primary [id number] Self Medicare (Part B) Medicare Primary [id number] Self [id number] Medicare (Part B) Medicare Primary [id number] Self [id number] UN COMMUNITY PLAN MCDHMO [id number] SP [id number] UN COMMUNITY PLAN MCDHMO [id number] SP [id number] [facility] Dual Complete Commercial [id number] Self [id number] [facility] MCRHMO [id number] SP [id number] UNITED HEALTHCARE MCRHMO [id number] SP [id number] UNITED HEALTHCARE MCRHMO [id number] SP [id number] UNITED [employer]CARE MCRHMO [id number] SP [id number] MEDICAID [id number] SP [id number] MEDICAID [id number] SP [id number] MEDICAID [id number] SP [id number] MEDICAID [id number] SP [id number] [place] [id number] SP [id number] UNITED HEALTHCARE MCRHMO [id number] SP [id number] [facility] [id number] SP [id number] [facility] [id number] SP [id number] Medicare Part B Medicare Primary [id number] Self [id number] Medicaid Medigap Part B [id number] Self [id number] Medicaid Medigap Part B [id number] 5.0 Self [id number] [facility] [id number] Self [id number] ANSI-Not a Secondary Insurance [id number] Medicaid [facility] Part B [id number] 5.0 Self [id number] ANSI-Not a Secondary Insurance [id number] ANSI-Not a Secondary Insurance [id number] ANSI-Not a Secondary Insurance [id number] ANSI-Not a Secondary Insurance [id number] ANSI-Not a Secondary Insurance [id number] ANSI-Not a Secondary Insurance [id number] ANSI-Not a Secondary Insurance [id number] ANSI-Not a Secondary Insurance [id number] Medicaid Medigap Part B [id number] .0 Self [id number] Medicaid Medigap Part B [id number] .0 Self [id number] [facility] Dual Cov Plan Commercial [id number] .[id number] Self [id number] Medicaid Medigap Part B [id number] .0 Self [id number] Medicaid Medigap Part B [id number] .[id number] Self [id number] [facility] Dual Cov Plan Commercial [id number] .[id number] Self [id number] Medicare Part B Medicare Primary [id number] Self [id number] Medicaid Medigap Part B [id number] 8.0 Self [id number] Medicaid Medigap Part B [id number] 5.0 Self [id number] ANSI-Not a Secondary Insurance [id number] Medicaid Medigap Part B [id number] .0 Self [id number] Medicaid Medigap Part B [id number] .0 Self [id number] [facility] Dual Cov Plan Commercial [id number] .[id number] Self [id number] Medicare Part B Medicare Primary [id number] Self [id number] [facility] [id number] SP [id number] MEDICARE [id number] SP [id number] A Medicaid Medigap Part B [id number] 5.0 Self [id number] Medicare Part B Medicare Primary [id number] Self [id number] Medicaid Medigap Part B [id number] 8.0 Self [id number] Medicaid Medigap Part B [id number] .0 Self [id number] Medicaid Medigap Part B [id number] .0 Self [id number] [facility] Dual Cov Plan Commercial [id number] .[id number] Self [id number] [facility] COMMUNITY PLAN [facility] [id number] SP [id number] [facility] COMMUNITY PLAN [facility] [id number] SP [id number] MEDICARE [id number] SP [id number] A Medicaid Medigap Part B [id number] 8.0 Self [id number] Medicare Part B Medicare Primary [id number] Self [id number] MEDICARE C [id number] S [id number] A MEDICAID [id number] SP [id number] MEDICAID [id number] SP [id number] Medicaid Medigap Part B [id number] 5.0 Self Medicaid Medigap Part B 1 1 [id number] 8.0 Self 1 1 Medicare Part B Medicare Primary [id number] Self [facility] Medigap Part B [id number] Self Medicaid Medigap Part B [id number] Self [employer] Commercial [id number] Self Medicare Medicare Primary [id number] Self BS [place] o Blue Option Commercial [id number] Self UNITED HEALTHCARE [id number] SP [id number] MEDICARE COMPLETE [id number] SP [id number] [place] P[place] 302/307 [id number] SP [id number] HMO BLUE [id number] SP [id number] EXCELLUS BCBS P [id number] S [id number] HMO BLUE [id number] SP [id number] Medicaid Medigap Part B [id number] 8.0 Self [id number] UNITED HEALTHCARE MCRO [id number] SP [id number] [place] [id number] SP [id number] UNITED HEALTHCARE MCRO [id number] SP [id number] MARIO [id number] SP [id number] [place]ED[place] [id number] SP [id number] [facility] O [id number] S [id number] MEDICAID [id number] S [id number] MEDICARE [id number] SP [id number] MEDICAID [id number] SP [id number] [facility] [id number] SP [id number] [facility] [id number] SP [id number] MEDICARE COMPLETE [id number] SP [id number] [facility] O [id number] S [id number] MEDICARE COMPLETE [id number] SP [id number] ANSI-Not a Secondary Insurance [id number] ANSI-Not a Secondary Insurance [id number] ANSI-Not a Secondary Insurance [id number] ANSI-Not a Secondary Insurance [id number] Medicaid Medigap Part B [id number] Self [id number] Medicaid Medigap Part B [id number] Self [id number] [facility] Dual Cov Plan Commercial [id number] Self [id number] [facility] Part B [id number] Self [id number] Problems, Conditions, and Diagnoses Code Display Name Description Problem Type Effective Dates Data Source(s) I10 Essential hypertension Essential hypertension Problem 09/03/2021 12:00:00 AM EDT [facility] ([facility] ) E66.8 Obesity Obesity Problem 04/10/2021 12:00:00 AM ED T [facility] ([facility]) R60.0 Edema Edema Problem 04/10/2021 12:00:00 AM ED T [facility] ([facility]) N20.0 Nephrolithiasis Nephrolithiasis Problem 12/11/2020 12:0 0:00 AM EST eCW1 ([facility]) [id number] Epilepsy Epilepsy Problem 08/31/2020 12:00:00 AM ED T [facility] ([facility] Surgeries/Procedures Procedure Description Date Indications Data Source(s) OFFICE OUTPATIENT VISIT 25 MINUTES 09/03/2021 12:00:00 AM EDT [facility] ([facility] OFFICE OUTPATIENT VISIT 25 MINUTES 08/15/2021 12:00:00 AM EDT [facility] ([facility], ) OFFICE OUTPATIENT VISIT 25 MINUTES 05/31/2021 12:00:00 AM EDT [facility] ([facility] OFFICE OUTPATIENT VISIT 25 MINUTES 05/16/2021 12:00:00 AM EDT [facility] ([facility], ) ECG ROUTINE ECG W/LEAST 12 LDS W/I&R 04/10/2021 12:00: 00 AM EDT [facility] ([facility]) OFFICE OUTPATIENT VISIT 25 MINUTES 04/10/2021 12:00:00 AM EDT [facility] ([facility]) Electrocardiogram Complete 03/08/2021 12:00:00 AM EDT [facility] ([facility] OFFICE OUTPATIENT VISIT 25 MINUTES 03/08/2021 12:00:00 AM EDT [facility] ([facility] OFFICE OUTPATIENT VISIT 25 MINUTES 02/22/2021 12:00:00 AM EDT [facility] ([facility] PHYSICIAN TELEPHONE EVALUATION 11-20 MIN 01/30/2021 12 :00:00 AM EDT [facility] ([facility]) ECG ROUTINE ECG W/LEAST 12 LDS W/I&R 10/10/2020 12:00: 00 AM EST [facility] ([facility]) Surgical / procedural history : Stents i n Kidneys January 2014 Stents for Fused Kidneys 08/20, 11/21, 02/19, 02/20, 04/22 Surgical / procedural history : Stents in Kidneys January 2014 Stents for Fused Kidneys 08/20, 11/21, 02/19, 02/20, 04/2210/03/2020 12:00:00 AM EST PEDRO (Diaz jose MD [facility]) Intermediate Eye Exam Established Patient Intermediate Eye Exam Established Patient 10/03/2020 12:00:00 AM EST PEDRO (Philipp Crook MD [facility]) Injection (SC)/(Im) 07/21/2020 12:00:00 AM EDT [facility] ([facility] Results ID Date Data Source [id number] 08/29/2021 10:15:00 AM EDT [facility] ([facility] Name Value Range Interpretation Code Description Data Brandi rce(s) Supporting Document(s) Appearance, Urine Laboratory test result Above high normal [facility] ([facility] Color, Urine Laboratory test result Normal (applies to non -numeric results) [facility] ([facility] Protein, Urine Auto Laboratory test result Above high norm al [facility] ([facility] PH,Urine 6.0 units 5.0-9.0 Normal (applies to non-numeric resul ts) [facility] ([facility] Specific [place] Urine Auto 1.010 1.002-1.035 Norm al (applies to non-numeric results) [facility] ([facility] ) Glucose, Urine (Ua) Auto Laboratory test result Normal (applies to non-numeric results) [facility] ([facility] ) Ketone, Urine Auto Laboratory test result Normal (applies to non-numeric results) [facility] ([facility] ) Nitrite, Urine Auto Laboratory test result Deanna l (applies to non-numeric results) [facility] ([facility] ) Urobilinogen, Urine Auto 0.2 mg/dL 0.0-2.0 Normal (applies to non-numeric results) [facility] ([facility] ) Bilirubin, Urine Auto Laboratory test result Nor mal (applies to non-numeric results) [facility] ([facility] ) Leukocyte Esterase, Urine Auto Laboratory test result Abov e high normal [facility] ([facility] Blood, Urine Blood Laboratory test result Above high deanna l [facility] ([facility] WBC, Urine Auto 123 /HPF 0-3 Above high normal [facility] ([facility] RBC, Urine Auto 16 /HPF 0-3 Above high normal [facility] ([facility] Bacteria, Urine Auto Laboratory test result Above high nor mal [facility] ([facility] Squamous Epithelial Cell Ur AU 2 /HPF 0-6 N ormal (applies to non-numeric results) [facility] ([facility] ) Hyaline Cast, Urine Auto 0 /LPF 0-1 Normal (applies to non -numeric results) [facility] ([facility] Mucus, Urine Laboratory test result Normal (applies to non -numeric results) [facility] ([facility] ID Date Data Source [id number] 08/29/2021 10:15:00 AM EDT [facility] ([facility] Name Value Range Interpretation Code Description Data Brandi rce(s) Supporting Document(s) Urine Culture Laboratory test result Normal (applies t o non-numeric results) [facility] ([facility] FULL REPORT IN LAB NOTES (e[facility] and [facility] ). NO GROWTH ID Date Data Source [id number] 08/29/2021 10:09:00 AM EDT [facility] Name Value Range Interpretation Code Description Data Brandi rce(s) Supporting Document(s) Glucose, Fasting 103 mg/dL 70-100 Above high normal M [facility] ([facility] Blood Urea Nitrogen 26 mg/dL 7-18 Above high normal [facility] ([facility] Creatinine For GFR 1.43 mg/dL 0.55-1.30 Above high normal [facility] ([facility] Glomerular Filtration Rate 38.4 Below low normal [facility] ([facility] <content>Units are mL/min/1.73 m2</content>
<content></content>
<content>Chronic Kidney Disease Staging per NKF:</content>
<content></content>
<content>Stage I & II GFR >=60 Normal to Mildly Decreased</content>
<content>Stage III GFR 30-59 Moderately Decreased</content>
<content>Stage IV GFR 15-29 Severely Decreased</content>
<content>Stage V GFR <15 Very Little GFR Left</content>
<content>ESRD GFR <15 on STOCK CRANE OPERATOR</content>
<content></content> Sodium Level 141 meq/L 136-145 Normal (applies to non-numeric res ults) [facility] ([facility] Potassium Serum 4.6 meq/L 3.5-5.1 Normal (applies to non-numeric results) [facility] ([facility] Carbon Dioxide Level 30 meq/L 21-32 Normal (applies to non-num nate results) [facility] ([facility] Chloride Level 105 meq/L 98-107 Normal (applies to non-numeric r esults) [facility] ([facility] Anion Gap 6 meq/L 8-16 Below low normal [facility] ( [facility] Calcium Level 9.8 mg/dL 8.8-10.2 Normal (applies to non-numeric re sults) [facility] ([facility] ID Date Data Source [id number] 08/29/2021 10:09:00 AM EDT [facility] ([facility] Name Value Range Interpretation Code Description Data Brandi rce(s) Supporting Document(s) Prothrombin Time 12.9 s 12.7-14.5 Normal (applies to non-numeric results) [facility] ([facility] Inr 0.94 Normal (applies to non-numeric resul ts) [facility] ([facility] THERAPUTIC HUMAN INR VALUES INDICATIONS NORMAL RANGES PROPHYLAXIS/TREATMENT OF: VENOUS THROMBOSIS 2.0-3.0 PULMONARY EMBOLISM 2.0-3.0 PREVENTION OF SYSTEMIC EMBOLISM FROM: TISSUE HEART VALVES 2.0-3.0 ACUTE MYOCARDIAL INFARCTION 2.0-3.0 VALVULAR HEART DISEASE 2.0-3.0 ATRIAL FIBRILLATION 2.0-3.0 MECHANICAL VALVES(HIGH RISK) 2.5-3.5 RECURRENT MYOCARDIAL INFARCTION 2.5-3.5 Partial Thromboplastin Time 31.8 s 25.9-37.0 Norm al (applies to non-numeric results) [facility] ) ID Date Data Source [id number] 08/29/2021 10:09:00 AM EDT [facility] ([facility] Name Value Range Interpretation Code Description Data Brandi rce(s) Supporting Document(s) White Blood Count 6.4 10 4.0-10.0 Normal (applies to non-numeri c results) [facility] ([facility] Red Blood Count 3.66 10 4.00-5.40 Below low normal [facility] ([facility] Hematocrit 39.9 % 36.0-47.0 Normal (applies to non-numeric resul ts) [facility] ([facility] Hemoglobin 12.9 g/dL 12.0-15.5 Normal (applies to non-numeric resul ts) [facility] ([facility] Mean Corpuscular Hemoglobin 35.2 pg 27.0-33.0 Above high normal [facility] Mean Corpuscular Volume 109.0 fl 80.0-96.0 Above high normal [facility] Mean Corpuscular HGB Conc 32.3 g/dL 32.0-36.5 Normal (applies to non-numeric results) [facility] ([facility] ) Platelet Count, Automated 320 10 150-450 Normal (applies to non-numeric results) [facility] ([facility] ) Red Cell Distribution Width 14.2 % 11.5-14.5 Norm al (applies to non-numeric results) [facility] ([facility] ) Nucleated Red Blood Cell % 0.0 % 0-0 Normal (applies to n on-numeric results) [facility] ([facility] ID Date Data Source [id number] 08/07/2021 10:27:00 AM EDT [facility] ([facility] Name Value Range Interpretation Code Description Data Brandi rce(s) Supporting Document(s) Valproate [Mass/volume] in Serum or Plasma 99.6 UG/ML 50.0- 100.0 Normal (applies to non-numeric results) [facility] ([facility] ID Date Data Source [id number] 08/07/2021 10:27:00 AM EDT [facility] Name Value Range Interpretation Code Description Data Brandi rce(s) Supporting Document(s) Valproate [Mass/volume] in Serum or Plasma 99.6 UG/ML 50.0-100.0 [facility] ID Date Data Source [id number] 06/27/2021 11:38:00 PM EDT [facility] Name Value Range Interpretation Code Description Data Brandi rce(s) Supporting Document(s) SARS coronavirus 2 RNA [Presence] in Res piratory specimen by JOYCELYN with probe detection NEGATIVE [facility] This lab was ordered by [facility] a nd reported by [facility]. ID Date Data Source [id number] 06/27/2021 09:01:00 PM EDT [facility] ([facility] Name Value Range Interpretation Code Description Data Brandi rce(s) Supporting Document(s) Lipoprotein lipase [Enzymatic activity/volume] in Serum or P lasma 109 U/L 73-393 Normal (applies to non-numeric results) [facility] ([facility] COMMENT--- ID Date Data Source [id number] 06/27/2021 09:01:00 PM EDT [facility] ([facility] Name Value Range Interpretation Code Description Data Brandi rce(s) Supporting Document(s) Glucose, Fasting 121 mg/dL 70-100 Above high normal M [facility] ([facility] Blood Urea Nitrogen 63 mg/dL 7-18 Above high normal [facility] ([facility] Creatinine For GFR 2.44 mg/dL 0.55-1.30 Above high normal [facility] ([facility] Glomerular Filtration Rate 20.7 Below low normal [facility] ([facility] <content>Units are mL/min/1.73 m2</content>
<content></content>
<content>Chronic Kidney Disease Staging per NKF:</content>
<content></content>
<content>Stage I & II GFR >=60 Normal to Mildly Decreased</content>
<content>Stage III GFR 30-59 Moderately Decreased</content>
<content>Stage IV GFR 15-29 Severely Decreased</content>
<content>Stage V GFR <15 Very Little GFR Left</content>
<content>ESRD GFR <15 on STOCK CRANE OPERATOR</content>
<content></content> Sodium Level 135 meq/L 136-145 Below low normal [facility] ([facility] Chloride Level 102 meq/L 98-107 Normal (applies to non-numeric r esults) [facility] ([facility] Carbon Dioxide Level 23 meq/L 21-32 Normal (applies to non-num nate results) [facility] ([facility] Potassium Serum 4.6 meq/L 3.5-5.1 Normal (applies to non-numeric results) [facility] ([facility] Anion Gap 10 meq/L 8-16 Normal (applies to non-numeric resul ts) [facility] ([facility] Calcium Level 10.2 mg/dL 8.8-10.2 Normal (applies to non-numeric re sults) [facility] ([facility] ID Date Data Source [id number] 06/27/2021 09:01:00 PM EDT [facility] ([facility] Name Value Range Interpretation Code Description Data Brandi rce(s) Supporting Document(s) Ast/Sgot 27 U/L 7-37 Normal (applies to non-numeric resul ts) [facility] ([facility] Alkaline Phosphatase 68 U/L 45-117 Normal (applies to non-num nate results) [facility] ([facility] Alt/SGPT 20 U/L 12-78 Normal (applies to non-numeric resul ts) [facility] ([facility] Bilirubin,Total 0.4 mg/dL 0.2-1.0 Normal (applies to non-numeric results) [facility] ([facility] Bilirubin,Direct Laboratory test result 0.0-0.2 Normal ( applies to non-numeric results) [facility] ([facility] ) Total Protein 8.1 GM/DL 6.4-8.2 Normal (applies to non-numeric re sults) [facility] ([facility] Albumin 3.0 GM/DL 3.2-5.2 Below low normal [facility] ( [facility] Albumin/Globulin Ratio 0.6 1.2-2.2 Below low normal [facility] ([facility] ID Date Data Source [id number] 06/27/2021 07:52:00 PM EDT [facility] ([facility] Name Value Range Interpretation Code Description Data Brandi e(s) Supporting Document(s) Appearance, Urine RFX Laboratory test result Above high no rmal [facility] ([facility] Color, Urine RFX Laboratory test result Normal ( applies to non-numeric results) [facility] ([facility] ) Specific [place] Ur Auto RFX 1.010 1.002-1.035 Nor mal (applies to non-numeric results) [facility] ([facility] ) PH,Urine RFX 7.0 units 5.0-9.0 Normal (applies to non-numeric res ults) [facility] ([facility] Protein, Urine Auto RFX Laboratory test result Above high normal [facility] ([facility] Glucose, Urine (Ua) Auto RFX Laboratory test result Normal (applies to non- numeric results) [facility] ([facility] ) Ketone, Urine Auto RFX Laboratory test result No rmal (applies to non-numeric results) [facility] ([facility] ) Urobilinogen, Urine Auto RFX 0.2 mg/dL 0.0-2.0 Nor mal (applies to non-numeric results) [facility] ([facility] ) Leukocyte Esterase Ur Auto RFX Laboratory test result Abov e high normal [facility] ([facility] Nitrite, Urine Auto RFX Laboratory test result N ormal (applies to non-numeric results) [facility] ([facility] ) Bilirubin, Urine Auto RFX Laboratory test result Normal (applies to non- numeric results) [facility] ([facility] ) Blood, Urine Blood RFX Laboratory test result Above high n ormal [facility] ([facility] WBC, Urine Auto RFX Laboratory test result 0-3 Above high norm al [facility] ([facility] RBC, Urine Auto RFX 164 /HPF 0-3 Above high normal [facility] ([facility] Bacteria, Urine Auto RFX Laboratory test result Above high normal [facility] ([facility] Squam Epithelial Cell Ur Aurfx 5 /HPF 0-6 N ormal (applies to non-numeric results) [facility] ([facility] ) Mucus, Urine RFX Laboratory test result Normal ( applies to non-numeric results) [facility] ([facility] ) Hyaline Cast, Urine Auto RFX 0 /LPF 0-1 Normal (appl ies to non-numeric results) [facility] ([facility] ID Date Data Source [id number] 06/27/2021 07:03:00 PM EDT [facility] ([facility] Name Value Range Interpretation Code Description Data Brandi rce(s) Supporting Document(s) White Blood Count 11.8 10 4.0-10.0 Above high normal [facility] ([facility] Red Blood Count 4.05 10 4.00-5.40 Normal (applies to non-numeric results) [facility] ([facility] Mean Corpuscular Volume 103.5 fl 80.0-96.0 Above high normal [facility] ([facility] Hematocrit 41.9 % 36.0-47.0 Normal (applies to non-numeric resul ts) [facility] ([facility] Hemoglobin 13.8 g/dL 12.0-15.5 Normal (applies to non-numeric resul ts) [facility] ([facility] Mean Corpuscular HGB Conc 32.9 g/dL 32.0-36.5 Normal (applies to non-numeric results) [facility] ([facility] ) Mean Corpuscular Hemoglobin 34.1 pg 27.0-33.0 Above high normal [facility] ([facility] Platelet Count, Automated 354 10 150-450 Normal (applies to non-numeric results) [facility] ([facility] ) Red Cell Distribution Width 12.1 % 11.5-14.5 Norm al (applies to non-numeric results) [facility] ([facility] ) Neutrophils % 78.0 % 36.0-66.0 Above high normal [facility] ([facility] Lymph % 8.6 % 24.0-44.0 Below low normal [facility] ( [facility] [place] % 11.5 % 2.0-8.0 Above high normal [facility] ([facility] Eos % 0.7 % 0.0-3.0 Normal (applies to non-numeric resul ts) [facility] ([facility] Baso % 0.4 % 0.0-1.0 Normal (applies to non-numeric resul ts) [facility] ([facility] Immature Granulocyte % 0.8 % 0-3.0 Normal (applies to non-n umeric results) [facility] ([facility] Neutrophils # 9.2 10 1.5-8.5 Above high normal [facility] ([facility] Nucleated Red Blood Cell % 0.0 % 0-0 Normal (applies to n on-numeric results) [facility] ([facility] Lymph # 1.0 10 1.5-5.0 Below low normal [facility] ( [facility] [place] # 1.4 10 0.0-0.8 Above high normal [facility] ([facility] Eos # 0.1 10 0.0-0.5 Normal (applies to non-numeric resul ts) [facility] ([facility] Baso # 0.1 10 0.0-0.2 Normal (applies to non-numeric resul ts) [facility] ([facility] ID Date Data Source [id number] 06/27/2021 06:59:00 PM EDT [facility] ([facility] Name Value Range Interpretation Code Description Data Brandi rce(s) Supporting Document(s) Laboratory test finding (navigational concept) 42.0 % 3 8.0-51.0 Normal (applies to non-numeric results) [facility] ([facility] Laboratory test finding (navigational concept) 136 mg/dL 7 0-105 Above high normal [facility] ([facility] ) Laboratory test finding (navigational concept) 139 meq/L 1 36-145 Normal (applies to non-numeric results) [facility] ([facility] Laboratory test finding (navigational concept) 4.3 meq/L 3 .5-5.1 Normal (applies to non-numeric results) [facility] ([facility] Laboratory test finding (navigational concept) 102 meq/L 9 8-109 Normal (applies to non-numeric results) [facility] ([facility] Laboratory test finding (navigational concept) 25.0 MM/L 2 3.0-27.0 Normal (applies to non-numeric results) [facility] Laboratory test finding (navigational concept) 4.9 mg/dL 4 .5-5.3 Normal (applies to non-numeric results) [facility] ([facility] Laboratory test finding (navigational concept) 2.7 mg/dL 0 .6-1.3 Above high normal [facility] ([facility] Laboratory test finding (navigational concept) 62 mg/dL 8-26 Above high normal [facility] ([facility] ID Date Data Source [id number] 05/31/2021 03:08:00 PM EDT [facility] Name Value Range Interpretation Code Description Data Brandi rce(s) Supporting Document(s) Appearance of Urine Laboratory test result [facility] ([facility] Specific [place] 1.010 1.00-1.03 [facility] ([facility] Color Urine Laboratory test result M [facility] ([facility] PH Urine 8.0 5.0-8.0 [facility] ([facility] Glucose Urine Laboratory test result [facility] ([facility] Blood Urine Laboratory test result Above high normal [facility] ([facility] Bilirubin.total [Presence] in Urine by Test strip Laboratory test res ult [facility] ([facility] Ketones Laboratory test result [facility] ([facility] Protein Urine Laboratory test result Above high normal [facility] ([facility] Urobilinogen 0.2 EU/dl 0.2-1.0 [facility] ([facility] Nitrite Laboratory test result [facility] ([facility] Leukocytes Laboratory test result Above high normal [facility] ([facility] ID Date Data Source [id number] 05/31/2021 03:07:00 PM EDT [facility] ([facility] Name Value Range Interpretation Code Description Data Brandi rce(s) Supporting Document(s) Glucose [Mass/volume] in Serum or Plasma 69 mg/dL 65-99 [facility] ([facility] eGFR If NonAfricn Am 27 mL/min/1.73 Below low normal [facility] ([facility] Creatinine [Mass/volume] in Serum or Plasma 1.82 mg/dL 0.57 -1.00 Above high normal [facility] ([facility] ) BUN 47 mg/dL 8-27 Above high normal [facility] ([facility] eGFR If Africn Am 32 mL/min/1.73 Below low normal [facility] ([facility] currently reports eGFR in comp liance with the current recommendations of the National Kidney Foundation. [facility] will update reporting as new guidelines are published from the NKF-ASN Task force. Urea nitrogen/Creatinine [Mass Ratio] in Serum or Plasma 26 1 2-28 [facility] ([facility] Sodium [Moles/volume] in Serum or Plasma 141 mmol/L 134-144 [facility] ([facility] Chloride [Moles/volume] in Serum or Plasma 100 mmol/L 96-106 [facility] ([facility] Carbon dioxide, total [Moles/volume] in Serum or Plasma 24 mmol/L 20 -29 [facility] ([facility] Potassium [Moles/volume] in Serum or Plasma 4.5 mmol/L 3.5-5.2 [facility] ([facility] Albumin [Mass/volume] in Serum or Plasma 3.9 g/dL 3.7-4.7 [facility] ([facility] Calcium [Mass/volume] in Serum or Plasma 9.8 mg/dL 8.7-10.3 [facility] ([facility] Protein [Mass/volume] in Serum or Plasma 6.9 g/dL 6.0-8.5 [facility] ([facility] Bilirubin.total [Mass/volume] in Serum or Plasma 0.4 mg/dL 0.0-1.2 [facility] ([facility] Globulin [Mass/volume] in Serum by calculation 3.0 g/dL 1.5-4.5 [facility] ([facility] Albumin/Globulin [Mass Ratio] in Serum or Plasma 1.3 1.2-2.2 [facility] ([facility] Alanine aminotransferase [Enzymatic activity/volume] in Seru m or Plasma 12 IU/L 0-32 [facility] Alkaline phosphatase [Enzymatic activity/volume] in Serum or Plasma 65 IU/L 48-121 [facility] ([facility] Aspartate aminotransferase [Enzymatic activity/volume] in Serum or Plasma 15 IU/L 0-40 [facility] ([facility] ID Date Data Source [id number] 05/31/2021 03:07:00 PM EDT [facility] ([facility] Name Value Range Interpretation Code Description Data Brandi rce(s) Supporting Document(s) Cholesterol [Mass/volume] in Serum or Plasma 182 mg/dL 100-199 [facility] ([facility] Triglyceride [Mass/volume] in Serum or Plasma 186 mg/dL 0-149 Above high normal [facility] ([facility] Cholesterol in HDL [Mass/volume] in Serum or Plasma 42 mg/dL [facility] ([facility] Comment: Laboratory test result [facility] ([facility] Laboratory test finding (navigational concept) 32 mg/dL 5-40 [facility] ([facility] Laboratory test finding (navigational concept) 108 mg/dL 0-99 Above high normal [facility] ([facility] ID Date Data Source [id number] 05/31/2021 03:07:00 PM EDT [facility] ([facility] Name Value Range Interpretation Code Description Data Brandi rce(s) Supporting Document(s) Creatine kinase [Enzymatic activity/volume] in Serum or Plasma 57 U /L 32-182 [facility] ([facility] Thyrotropin [Units/volume] in Serum or Plasma 1.440 uIU/mL 0.450-4.50 0 [facility] ([facility] ID Date Data Source [id number] 05/31/2021 03:07:00 PM EDT [facility] ([facility] Name Value Range Interpretation Code Description Data Brandi rce(s) Supporting Document(s) Urine Culture, Routine Laboratory test result [facility] ([facility] Bacteria identified in Urine by Culture Laboratory test result [facility] ([facility] Culture shows less than 10,000 colony fo rming units of bacteria per milliliter of urine. This colony count is not generally considered to be clinically significant. ID Date Data Source [id number] 05/18/2021 02:05:00 PM EDT [facility] ([facility]) Name Value Range Interpretation Code Description Data Brandi rce(s) Supporting Document(s) White Blood Count 6.2 4.0-10.0 [facility] ([facility]) Red Blood Count 3.67 4.00-5.40 [facility] ([facility]) Platelets 289 172-450 [facility] ([facility]) Hemoglobin 12.5 12.0-16.0 [facility] ([facility]) Hematocrit 38.7 36.0-47.0 [facility] ([facility]) ID Date Data Source [id number] 05/18/2021 02:05:00 PM EDT [facility] Name Value Range Interpretation Code Description Data Brandi rce(s) Supporting Document(s) Calcitriol [Mass/volume] in Serum or Plasma 31.2 30-100 [facility] ([facility]) ID Date Data Source [id number] 05/18/2021 02:05:00 PM EDT [facility] ([facility]) Name Value Range Interpretation Code Description Data Brandi rce(s) Supporting Document(s) Glucose 163 70-106 [facility] ([facility]) Glomerular filtration rate/1.73 sq M.pre dicted [Volume Rate/Area] in Serum or Plasma by Creatinine-based formula (MDRD) 32 [facility] ([facility]) Blood Urea Nitrogen 33.7 7-18 [facility] ([facility]) Creatinine 1.6 0.55-1.3 [facility] ([facility]) Chloride 104 94-110 [facility] ([facility]) Sodium 141.4 135-145 [facility] ([facility]) Potassium 4.14 3.5-5.5 [facility] ([facility]) Carbon Dioxide 29.2 21-32 [facility] ([facility]iol [facility]) Calcium 10.0 8.5-10.1 [facility] ([facility] [place] Phosphorus 3.2 2.5-4.9 [facility] [place]) Albumin 3.8 3.2-5.2 [facility] ([facility] [place] ID Date Data Source [id number] 04/26/2021 11:22:00 AM EDT [facility] ([facility] Name Value Range Interpretation Code Description Data Brandi rce(s) Supporting Document(s) Uric Acid 7.3 2.6-6 [facility] ([facility] [place] ID Date Data Source [id number] 04/26/2021 11:22:00 AM EDT [facility] ([facility]) Name Value Range Interpretation Code Description Data Brandi rce(s) Supporting Document(s) White Blood Count 6.7 4.0-10.0 [facility] Red Blood Count 3.86 4.0-5.40 [facility] Hematocrit 40.7 36.0-47.0 [facility] ([facility] [place]) Platelets 292 172-450 [facility] ([facility] [place] Hemoglobin 12.9 12.0-16.0 [facility] ([facility] [place]) ID Date Data Source [id number] 04/26/2021 11:22:00 AM EDT [facility] ([facility]) Name Value Range Interpretation Code Description Data Brandi rce(s) Supporting Document(s) Glucose 185 70-106 [facility] ([facility] [place] Blood Urea Nitrogen 40.1 7-18 [facility] ([facility] Creatinine 1.5 0.55-1.3 [facility] ([facility] [place]) Glomerular filtration rate/1.73 sq M.pre dicted [Volume Rate/Area] in Serum or Plasma by Creatinine-based formula (MDRD) 34 [facility] ([facility] [place]) Sodium 142 135-145 [facility] ([facility] [place] Potassium 4.51 3.5-5.5 [facility] ([facility] [place] Chloride 104 94-110 [facility] ([facility] [place] Calcium 9.5 8.5-10.1 [facility] ([facility]) Carbon Dioxide 27.9 21-32 [facility] ([facility]iol [facility]) Phosphorus 3.6 2.5-4.9 [facility] ([facility]) Albumin 3.9 3.2-5.2 [facility] ([facility]) ID Date Data Source [id number] 04/18/2021 03:26:00 PM EDT [facility] ([facility] Name Value Range Interpretation Code Description Data Brandi rce(s) Supporting Document(s) Natriuretic peptide.B prohormone N-Terminal [Mass/volu me] in Serum or Plasma 171 pg/mL Above high normal [facility] ([facility] ID Date Data Source [id number] 04/18/2021 03:26:00 PM EDT [facility] ([facility]) Name Value Range Interpretation Code Description Data Brandi rce(s) Supporting Document(s) Natriuretic peptide.B prohormone N-Terminal [Mass/volu me] in Serum or Plasma 171 pg/mL [facility] ([employer] [facility]) ID Date Data Source [id number] 03/13/2021 10:21:00 AM EDT [facility] ([facility] Name Value Range Interpretation Code Description Data Brandi rce(s) Supporting Document(s) Appearance, Urine Laboratory test result Above high normal [facility] ([facility] Color, Urine Laboratory test result Normal (applies to non -numeric results) [facility] ([facility] Specific [place] Urine Auto 1.010 1.002-1.035 Norm al (applies to non-numeric results) [facility] ([facility] PH,Urine 7.0 units 5.0-9.0 Normal (applies to non-numeric resul ts) [facility] ([facility] Glucose, Urine (Ua) Auto Laboratory test result Normal (applies to non-numeric results) [facility] ([facility] ) Ketone, Urine Auto Laboratory test result Normal (applies to non-numeric results) [facility] ([facility] ) Protein, Urine Auto Laboratory test result Above high norm al [facility] ([facility] Bilirubin, Urine Auto Laboratory test result Nor mal (applies to non-numeric results) [facility] ([facility] ) Urobilinogen, Urine Auto 0.2 mg/dL 0.0-2.0 Normal (applies to non-numeric results) [facility] ([facility] ) Leukocyte Esterase, Urine Auto Laboratory test result Abov e high normal [facility] ([facility] Blood, Urine Blood Laboratory test result Above high deanna l [facility] ([facility] Nitrite, Urine Auto Laboratory test result Deanna l (applies to non-numeric results) [facility] ([facility] ) WBC, Urine Auto Laboratory test result 0-3 Above high normal [facility] ([facility] RBC, Urine Auto 83 /HPF 0-3 Above high normal [facility] ([facility] Bacteria, Urine Auto Laboratory test result Above high nor mal [facility] ([facility] Squamous Epithelial Cell Ur AU 0 /HPF 0-6 N ormal (applies to non-numeric results) [facility] ([facility] ) Mucus, Urine Laboratory test result Normal (applies to non -numeric results) [facility] ([facility] Hyaline Cast, Urine Auto 0 /LPF 0-1 Normal (applies to non -numeric results) [facility] ([facility] ID Date Data Source [id number] 03/13/2021 10:21:00 AM EDT [facility] ([facility] Name Value Range Interpretation Code Description Data Brandi rce(s) Supporting Document(s) White Blood Count 5.9 10 4.0-10.0 Normal (applies to non-numeri c results) [facility] ([facility] Red Blood Count 3.70 10 4.00-5.40 Below low normal [facility] ([facility] Hemoglobin 12.6 g/dL 12.0-15.5 Normal (applies to non-numeric resul ts) [facility] ([facility] Mean Corpuscular Volume 107.3 fl 80.0-96.0 Above high normal [facility] ([facility] Hematocrit 39.7 % 36.0-47.0 Normal (applies to non-numeric resul ts) [facility] ([facility] Mean Corpuscular Hemoglobin 34.1 pg 27.0-33.0 Above high normal [facility] ([facility] Mean Corpuscular HGB Conc 31.7 g/dL 32.0-36.5 Below low normal [facility] ([facility] Nucleated Red Blood Cell % 0.0 % 0-0 Normal (applies to n on-numeric results) [facility] ([facility] Red Cell Distribution Width 13.2 % 11.5-14.5 Norm al (applies to non-numeric results) [facility] ([facility] ) Platelet Count, Automated 292 10 150-450 Normal (applies to non-numeric results) [facility] ( [facility] ) ID Date Data Source [id number] 03/13/2021 10:21:00 AM EDT [facility] ([facility] Name Value Range Interpretation Code Description Data Brandi rce(s) Supporting Document(s) Urine Culture Laboratory test result Normal (applies t o non-numeric results) [facility] FULL REPORT IN LAB NOTES (eCW and [facility] ). NO GROWTH CLINICAL SIGNIFICANCE 2 OR MORE ORGANISMS ID Date Data Source [id number] 03/13/2021 10:21:00 AM EDT [facility] ([facility] Name Value Range Interpretation Code Description Data Brandi rce(s) Supporting Document(s) Glucose, Fasting 95 mg/dL 70-100 Normal (applies to non-numeric results) [facility] ( [facility] Creatinine For GFR 1.25 mg/dL 0.55-1.30 Normal (applies to non -numeric results) [facility] ([facility] Glomerular Filtration Rate 45.0 Normal (applies to n on-numeric results) [facility] ([facility] <content>Units are mL/min/1.73 m2</content>
<content></content>
<content>Chronic Kidney Disease Staging per NKF:</content>
<content></content>
<content>Stage I & II GFR >=60 Normal to Mildly Decreased</content>
<content>Stage III GFR 30- 59 Moderately Decreased</content>
<content>Stage IV GFR 15-29 Severely Decreased</content>
<content>Stage V GFR <15 Very Little GFR Left</content>
<content>ESRD GFR <15 on STOCK CRANE OPERATOR</content>
<content></content> Blood Urea Nitrogen 38 mg/dL 7-18 Above high normal [facility] ([facility] Sodium Level 141 meq/L 136-145 Normal (applies to non-numeric res ults) [facility] ([facility] Potassium Serum 4.8 meq/L 3.5-5.1 Normal (applies to non-numeric results) [facility] ([facility] Carbon Dioxide Level 28 meq/L 21-32 Normal (applies to non-num nate results) [facility] ([facility] Chloride Level 110 meq/L 98-107 Above high normal [facility] ([facility] Anion Gap 3 meq/L 8-16 Below low normal [facility] ( [facility] Calcium Level 9.7 mg/dL 8.8-10.2 Normal (applies to non-numeric re sults) [facility] ID Date Data Source [id number] 03/13/2021 10:21:00 AM EDT [facility] ([facility] Name Value Range Interpretation Code Description Data Brandi rce(s) Supporting Document(s) Prothrombin Time 12.0 s 12.5-14.3 Normal (applies to non-numeric results) [facility] ([facility] Partial Thromboplastin Time 30.2 s 24.2-38.5 Norm al (applies to non-numeric results) [facility] ([facility] ) Inr 0.87 Normal (applies to non-numeric resul ts) [facility] ([facility] THERAPUTIC HUMAN INR VALUES INDICATIONS NORMAL RANGES PROPHYLAXIS/TREATMENT OF: VENOUS THROMBOSIS 2.0-3.0 PULMONARY EMBOLISM 2.0-3.0 PREVENTION OF SYSTEMIC EMBOLISM FROM: TISSUE HEART VALVES 2.0-3.0 ACUTE MYOCARDIAL INFARCTION 2.0-3.0 VALVULAR HEART DISEASE 2.0-3.0 ATRIAL FIBRILLATION 2.0-3.0 MECHANICAL VALVES(HIGH RISK) 2.5-3.5 RECURRENT MYOCARDIAL INFARCTION 2.5-3.5 ID Date Data Source [id number] 03/13/2021 10:11:00 AM EDT [facility] Name Value Range Interpretation Code Description Data Brandi rce(s) Supporting Document(s) White Blood Count 5.9 4.0-10.0 [facility] ([facility]) Red Blood Count 3.70 4.00-5.40 [facility] ([facility]) Hemoglobin 12.6 12.0-15.5 [facility] ([facility]) Platelets 292 150-450 [facility] ([facility]) Hematocrit 39.7 36.0-47.0 [facility] ([facility]) ID Date Data Source [id number] 03/13/2021 10:11:00 AM EDT [facility] ([facility] Name Value Range Interpretation Code Description Data Brandi rce(s) Supporting Document(s) Carbon dioxide, total [Moles/volume] in Serum or Plasma 28 [facility] ([facility]) Calcium [Mass/volume] in Serum or Plasma 9.7 [facility] ([facility]) Sodium 141 [facility] ([facility]) Potassium [Moles/volume] in Serum or Plasma 4.8 [facility] ([facility]) Glucose 95 70-100 [facility] ([facility]) Chloride [Moles/volume] in Serum or Plasma 110 [facility] ([facility]) Creatinine 1.25 0.55-1.30 [facility] ([facility]) Blood Urea Nitrogen 38 7-18 [facility] ([facility]) Glomerular filtration rate/1.73 sq M.pre dicted [Volume Rate/Area] in Serum or Plasma by Creatinine-based formula (MDRD) 45.0 [facility] ([facility]) ID Date Data Source [id number] 03/11/2021 08:20:00 AM EDT [facility] Name Value Range Interpretation Code Description Data Brandi rce(s) Supporting Document(s) SARS-CoV-2 (COVID-19) RNA [Presence] in Respiratory specimen by JOYCELYN with probe detection Not Detected [facility] This lab was ordered by [facility] and reported by [email or web address]. ID Date Data Source [id number] 03/06/2021 09:43:00 AM EDT [facility] ([facility], ) Name Value Range Interpretation Code Description Data Brandi rce(s) Supporting Document(s) Valproate [Mass/volume] in Serum or Plasma 62.5 UG/ML 50.0-100.0 [facility] ([facility], ) ID Date Data Source [id number] 03/06/2021 09:43:00 AM EDT [facility] ([facility] Name Value Range Interpretation Code Description Data Brandi rce(s) Supporting Document(s) Valproate [Mass/volume] in Serum or Plasma 62.5 UG/ML 50.0- 100.0 Normal (applies to non-numeric results) [facility] ([facility] ID Date Data Source [id number] 02/22/2021 02:29:00 PM EDT [facility] ([facility] Name Value Range Interpretation Code Description Data Brandi rce(s) Supporting Document(s) Specific gravity of Urine 1.013 1.005-1.030 [facility] ([facility] pH of Urine by Test strip 7.0 5.0-7.5 [facility] ([facility] Appearance of Urine Laboratory test result Abnor mal (applies to non-numeric results) [facility] ([facility] ) Color of Urine Laboratory test result [facility] ([facility] Leukocyte esterase [Presence] in Urine by Test strip Laboratory test result Abnormal (applies to non-numeric results) [facility] ([facility] Protein [Presence] in Urine by Test strip Laboratory test result Abnormal (applies to non-numeric results) [facility] ([facility] Glucose [Presence] in Urine Laboratory test result [facility] ([facility] Hemoglobin [Presence] in Urine by Test strip Laboratory test res ult Abnormal (applies to non-numeric results) [facility] ([facility] Ketones [Presence] in Urine by Test strip Laboratory test result [facility] ([facility] Bilirubin.total [Presence] in Urine by Test strip Laboratory test res ult [facility] ([facility] Urobilinogen [Mass/volume] in Urine by Test strip 0.2 mg/dL 0.2-1.0 [facility] ([facility] Nitrite, Urine Laboratory test result [facility] ([facility] ID Date Data Source [id number] 02/22/2021 02:29:00 PM EDT [facility] ([facility] Name Value Range Interpretation Code Description Data Brandi rce(s) Supporting Document(s) Creatine kinase [Enzymatic activity/volume] in Serum or Plasma 55 U /L 32-182 [facility] ([facility] Thyrotropin [Units/volume] in Serum or Plasma 3.000 uIU/mL 0.450-4.50 0 [facility] ([facility] ID Date Data Source [id number] 02/22/2021 02:29:00 PM EDT [facility] ([facility] Name Value Range Interpretation Code Description Data Brandi rce(s) Supporting Document(s) Triglyceride [Mass/volume] in Serum or Plasma 170 mg/dL 0-149 Above high normal [facility] ([facility] Cholesterol [Mass/volume] in Serum or Plasma 194 mg/dL 100-199 [facility] ([facility] Cholesterol in HDL [Mass/volume] in Serum or Plasma 45 mg/dL [facility] ([facility] Laboratory test finding (navigational concept) 30 mg/dL 5-40 [facility] ([facility] Comment: Laboratory test result [facility] ([facility] Laboratory test finding (navigational concept) 119 mg/dL 0-99 Above high normal [facility] ([facility] ID Date Data Source [id number] 02/22/2021 02:29:00 PM EDT [facility] ([facility] Name Value Range Interpretation Code Description Data Brandi rce(s) Supporting Document(s) Glucose [Mass/volume] in Serum or Plasma 73 mg/dL 65-99 [facility] ([facility] BUN 28 mg/dL 8-27 Above high normal [facility] eGFR If NonAfricn Am 46 mL/min/1.73 Below low normal [facility] ([facility] Creatinine [Mass/volume] in Serum or Plasma 1.20 mg/dL 0.57 -1.00 Above high normal [facility] ([facility] ) eGFR If Africn Am 53 mL/min/1.73 Below low normal [facility] ([facility] Sodium [Moles/volume] in Serum or Plasma 142 mmol/L 134-144 [facility] ([facility] Urea nitrogen/Creatinine [Mass Ratio] in Serum or Plasma 23 1 2-28 [facility] ([facility] Potassium [Moles/volume] in Serum or Plasma 5.1 mmol/L 3.5-5.2 [facility] ([facility] Chloride [Moles/volume] in Serum or Plasma 104 mmol/L 96-106 [facility] ([facility] Carbon dioxide, total [Moles/volume] in Serum or Plasma 26 mmol/L 20 -29 [facility] ([facility] Calcium [Mass/volume] in Serum or Plasma 9.8 mg/dL 8.7-10.3 [facility] ([facility] Albumin [Mass/volume] in Serum or Plasma 3.9 g/dL 3.7-4.7 [facility] ([facility] Protein [Mass/volume] in Serum or Plasma 6.9 g/dL 6.0-8.5 [facility] ([facility] Globulin [Mass/volume] in Serum by calculation 3.0 g/dL 1.5-4.5 [facility] ([facility] Alkaline phosphatase [Enzymatic activity/volume] in Serum or Plasma 66 IU/L 39-117 [facility] ([facility] Bilirubin.total [Mass/volume] in Serum or Plasma 0.4 mg/dL 0.0-1.2 [facility] ([facility] Albumin/Globulin [Mass Ratio] in Serum or Plasma 1.3 1.2-2.2 [facility] ([facility] Alanine aminotransferase [Enzymatic activity/volume] in Seru m or Plasma 15 IU/L 0-32 [facility] ([facility] Aspartate aminotransferase [Enzymatic activity/volume] in Serum or Plasma 18 IU/L 0-40 [facility] ([facility] ID Date Data Source [id number] 02/22/2021 02:29:00 PM EDT [facility] ([facility] Name Value Range Interpretation Code Description Data Brandi rce(s) Supporting Document(s) Leukocytes [#/volume] in Blood by Automated count 5.5 x10E3/uL 3.4-10 .8 [facility] ([facility] Hemoglobin [Mass/volume] in Blood 12.2 g/dL 11.1-15.9 [facility] ([facility] Erythrocytes [#/volume] in Blood by Automated count 3.60 x10E6/u L 3.77-5.28 Below low normal [facility] ([facility] Hematocrit [Volume Fraction] of Blood by Automated count 36.2 % 3 4.0-46.6 [facility] ([facility] Erythrocyte mean corpuscular volume [Entitic volume] by Auto mated count 101 fL 79-97 Above high normal [facility] ([facility] Erythrocyte mean corpuscular hemoglobin [Entitic mass] by Automated count 33.9 pg 26.6-33.0 Above high normal [facility] ([facility] Erythrocyte mean corpuscular hemoglobin concentration [Mass/volume] by Automated count 33.7 g/dL 31.5-35.7 [facility] ([facility] Erythrocyte distribution width [Ratio] by Automated count 13.2 % 11.7-15.4 [facility] ([facility] Lymphs 30 % [facility] Neutrophils 48 % [facility] ([facility] Platelets [#/volume] in Blood by Automated count 315 x10E3/uL 150-450 [facility] ([facility] Eosinophils/100 leukocytes in Blood by Automated count 9 % [facility] ([facility] Monocytes/100 leukocytes in Blood by Automated count 10 % [facility] ([facility] Neutrophils [#/volume] in Blood by Automated count 2.8 x10E3/uL 1.4-7 .0 [facility] ([facility] Basophils/100 leukocytes in Blood by Automated count 2 % [facility] ([facility] Immature cells [#/volume] in Blood Laboratory test result [facility] ([facility] Monocytes [#/volume] in Blood 0.5 x10E3/uL 0.1-0.9 [facility] ([facility] [facility] Lymphocytes [#/volume] in Blood 1.6 x10E3/uL 0.7-3.1 [facility] ([facility] Eosinophils [#/volume] in Blood by Automated count 0.5 x10E3/uL 0.0-0.4 Above high normal [facility] ([facility] ) Basophils [#/volume] in Blood by Automated count 0.1 x10E3/uL 0.0-0.2 [facility] ([facility] Immature granulocytes/100 leukocytes in Blood by Automated count 1 % [facility] ([facility] Nucleated erythrocytes/100 leukocytes [Ratio] in Blood by Automated count Laboratory test result [facility] ([facility] Immature granulocytes [#/volume] in Blood by Automated count 0.0 x10E3/uL 0.0-0.1 [facility] ([facility] Morphology [Interpretation] in Blood Narrative Laboratory test result [facility] ([facility] ID Date Data Source [id number] 12/06/2020 12:45:00 PM EST [facility] Name Value Range Interpretation Code Description Data Brandi rce(s) Supporting Document(s) SARS coronavirus 2 RNA Not Detected [facility] [place] This lab was ordered by [facility] and reported by [facility]. ID Date Data Source [id number] 11/29/2020 10:27:00 AM EST [facility] ([facility] Name Value Range Interpretation Code Description Data Brandi rce(s) Supporting Document(s) Urine Culture Laboratory test result Normal (applies t o non-numeric results) [facility] ([facility] FULL REPORT IN LAB NOTES ([facility] and [facility] ). NO GROWTH ID Date Data Source [id number] 11/29/2020 10:27:00 AM EST [facility] ([facility] Name Value Range Interpretation Code Description Data Brandi rce(s) Supporting Document(s) Appearance, Urine Laboratory test result Above high normal [facility] ([facility] Color, Urine Laboratory test result Normal (applies to non -numeric results) [facility] ([facility] PH,Urine 7.0 units 5.0-9.0 Normal (applies to non-numeric resul ts) [facility] ([facility] Specific [place] Urine Auto 1.010 1.002-1.035 Norm al (applies to non-numeric results) [facility] ([facility] ) Protein, Urine Auto Laboratory test result Above high norm al [facility] ([facility] Ketone, Urine Auto Laboratory test result Normal (applies to non-numeric results) [facility] ([facility] ) Glucose, Urine (Ua) Auto Laboratory test result Normal (applies to non-numeric results) [facility] ([facility] ) Urobilinogen, Urine Auto 0.2 mg/dL 0.0-2.0 Normal (applies to non-numeric results) [facility] ([facility] Nitrite, Urine Auto Laboratory test result Deanna l (applies to non-numeric results) [facility] ([facility] ) Bilirubin, Urine Auto Laboratory test result Nor mal (applies to non-numeric results) [facility] ([facility] ) Leukocyte Esterase, Urine Auto Laboratory test result Abov e high normal [facility] ([facility] Blood, Urine Blood Laboratory test result Above high deanna l [facility] ([facility] WBC, Urine Auto Laboratory test result 0-3 Above high normal [facility] ([facility] RBC, Urine Auto 76 /HPF 0-3 Above high normal [facility] ([facility] Bacteria, Urine Auto Laboratory test result Above high nor mal [facility] ([facility] Squamous Epithelial Cell Ur AU 2 /HPF 0-6 N ormal (applies to non-numeric results) [facility] ([facility] ) Hyaline Cast, Urine Auto 0 /LPF 0-1 Normal (applies to non -numeric results) [facility] ([facility] ID Date Data Source [id number] 11/29/2020 10:22:00 AM EST [facility] ([facility] Name Value Range Interpretation Code Description Data Brandi rce(s) Supporting Document(s) Glucose, Fasting 91 mg/dL 70-100 Normal (applies to non-numeric results) [facility] ([facility] Creatinine For GFR 1.31 mg/dL 0.55-1.30 Above high normal [facility] ([facility] Blood Urea Nitrogen 35 mg/dL 7-18 Above high normal [facility] ([facility] Glomerular Filtration Rate 42.6 Normal (applies to n on-numeric results) [facility] ([facility] <content>Units are mL/min/1.73 m2</content>
<content></content>
<content>Chronic Kidney Disease Staging per NKF:</content>
<content></content>
<content>Stage I & II GFR >=60 Normal to Mildly Decreased</content>
<content>Stage III GFR 30- 59 Moderately Decreased</content>
<content>Stage IV GFR 15-29 Severely Decreased</content>
<content>Stage V GFR <15 Very Little GFR Left</content>
<content>ESRD GFR <15 on STOCK CRANE OPERATOR</content>
<content></content> Sodium Level 143 meq/L 136-145 Normal (applies to non-numeric res ults) [facility] ([facility] Potassium Serum 5.2 meq/L 3.5-5.1 Above high normal [facility] ([facility] Chloride Level 106 meq/L 98-107 Normal (applies to non-numeric r esults) [facility] ([facility] Carbon Dioxide Level 29 meq/L 21-32 Normal (applies to non-num nate results) [facility] ([facility] Anion Gap 8 meq/L 8-16 Normal (applies to non-numeric resul ts) [facility] ([facility] Calcium Level 10.1 mg/dL 8.8-10.2 Normal (applies to non-numeric re sults) [facility] ([facility] ID Date Data Source [id number] 11/29/2020 10:22:00 AM EST [facility] Name Value Range Interpretation Code Description Data Brandi rce(s) Supporting Document(s) Inr 0.92 Normal (applies to non-numeric resul ts) [facility] THERAPUTIC HUMAN INR VALUES INDICATIONS NORMAL RANGES PROPHYLAXIS/TREATMENT OF: VENOUS THROMBOSIS 2.0-3.0 PULMONARY EMBOLISM 2.0-3.0 PREVENTION OF SYSTEMIC EMBOLISM FROM: TISSUE HEART VALVES 2.0-3.0 ACUTE MYOCARDIAL INFARCTION 2.0-3.0 VALVULAR HEART DISEASE 2.0-3.0 ATRIAL FIBRILLATION 2.0-3.0 MECHANICAL VALVES(HIGH RISK) 2.5-3.5 RECURRENT MYOCARDIAL INFARCTION 2.5-3.5 Prothrombin Time 12.5 s 12.5-14.3 Normal (applies to non-numeric results) [facility] ([facility] Partial Thromboplastin Time 33.2 s 24.2-38.5 Norm al (applies to non-numeric results) [facility] ([facility] ID Date Data Source [id number] 11/29/2020 10:22:00 AM EST [facility] ([facility] Name Value Range Interpretation Code Description Data Brandi rce(s) Supporting Document(s) White Blood Count 6.9 10 4.0-10.0 Normal (applies to non-numeri c results) [facility] ([facility] Red Blood Count 3.49 10 4.00-5.40 Below low normal [facility] ([facility] Hemoglobin 12.3 g/dL 12.0-15.5 Normal (applies to non-numeric resul ts) [facility] ([facility] Hematocrit 37.5 % 36.0-47.0 Normal (applies to non-numeric resul ts) [facility] ([facility] Mean Corpuscular Volume 107.4 fl 80.0-96.0 Above high normal [facility] ([facility] Mean Corpuscular HGB Conc 32.8 g/dL 32.0-36.5 Normal (applies to non-numeric results) [facility] ([facility] ) Mean Corpuscular Hemoglobin 35.2 pg 27.0-33.0 Above high normal [facility] ([facility] Red Cell Distribution Width 12.6 % 11.5-14.5 Norm al (applies to non-numeric results) [facility] ([facility] ) Nucleated Red Blood Cell % 0.0 % 0-0 Normal (applies to n on-numeric results) [facility] ([facility] Platelet Count, Automated 316 10 150-450 Normal (applies to non-numeric results) [facility] ([facility] ID Date Data Source [id number] 11/16/2020 02:00:00 PM EST [facility] ([facility] Name Value Range Interpretation Code Description Data Brandi rce(s) Supporting Document(s) Creatine kinase [Enzymatic activity/volume] in Serum or Plasma 45 U /L 32-182 [facility] ([facility] Thyrotropin [Units/volume] in Serum or Plasma 1.500 uIU/mL 0.450-4.50 0 [facility] ([facility] ID Date Data Source [id number] 11/16/2020 02:00:00 PM EST [facility] ([facility] Name Value Range Interpretation Code Description Data Brandi rce(s) Supporting Document(s) Creatinine [Mass/volume] in Serum or Plasma 1.15 mg/dL 0.57 -1.00 Above high normal [facility] ([facility] ) Glucose [Mass/volume] in Serum or Plasma 78 mg/dL 65-99 [facility] ([facility] BUN 37 mg/dL 8-27 Above high normal [facility] ([facility] eGFR If Africn Am 55 mL/min/1.73 Below low normal [facility] ([facility] eGFR If NonAfricn Am 48 mL/min/1.73 Below low normal [facility] ([facility] Potassium [Moles/volume] in Serum or Plasma 5.2 mmol/L 3.5-5.2 [facility] ([facility] Urea nitrogen/Creatinine [Mass Ratio] in Serum or Plasma 32 12-28 Above high normal [facility] ([facility] ) Sodium [Moles/volume] in Serum or Plasma 141 mmol/L 134-144 [facility] ([facility] Chloride [Moles/volume] in Serum or Plasma 106 mmol/L 96-106 [facility] ([facility] Carbon dioxide, total [Moles/volume] in Serum or Plasma 23 mmol/L 20 -29 [facility] ([facility] Protein [Mass/volume] in Serum or Plasma 6.5 g/dL 6.0-8.5 [facility] ([facility] Albumin [Mass/volume] in Serum or Plasma 3.7 g/dL 3.7-4.7 [facility] ([facility] Calcium [Mass/volume] in Serum or Plasma 9.3 mg/dL 8.7-10.3 [facility] ([facility] Globulin [Mass/volume] in Serum by calculation 2.8 g/dL 1.5-4.5 [facility] ([facility] Albumin/Globulin [Mass Ratio] in Serum or Plasma 1.3 1.2-2.2 [facility] ([facility] Alkaline phosphatase [Enzymatic activity/volume] in Serum or Plasma 61 IU/L 39-117 [facility] Bilirubin.total [Mass/volume] in Serum or Plasma 0.3 mg/dL 0.0-1.2 [facility] ([facility] Aspartate aminotransferase [Enzymatic activity/volume] in Serum or Plasma 20 IU/L 0-40 [facility] ([facility] Alanine aminotransferase [Enzymatic activity/volume] in Seru m or Plasma 23 IU/L 0-32 [facility] ([facility] ID Date Data Source [id number] 11/16/2020 02:00:00 PM EST [facility] ([facility] Name Value Range Interpretation Code Description Data Brandi rce(s) Supporting Document(s) Leukocytes [#/volume] in Blood by Automated count 7.2 x10E3/uL 3.4-10 .8 [facility] ([facility] Erythrocytes [#/volume] in Blood by Automated count 3.55 x10E6/u L 3.77-5.28 Below low normal [facility] ([facility] ) Erythrocyte mean corpuscular volume [Entitic volume] by Auto mated count 104 fL 79-97 Above high normal [facility] ([facility] Hemoglobin [Mass/volume] in Blood 12.2 g/dL 11.1-15.9 [facility] ([facility] Hematocrit [Volume Fraction] of Blood by Automated count 36.8 % 3 4.0-46.6 [facility] ([facility] Erythrocyte mean corpuscular hemoglobin concentration [Mass/volume] by Automated count 33.2 g/dL 31.5-35.7 [facility] ([facility] Erythrocyte mean corpuscular hemoglobin [Entitic mass] by Automated count 34.4 pg 26.6-33.0 Above high normal [facility] ([facility] Neutrophils 59 % [facility] ([facility] Erythrocyte distribution width [Ratio] by Automated count 12.2 % 11.7-15.4 [facility] ([facility] Platelets [#/volume] in Blood by Automated count 323 x10E3/uL 150-450 [facility] ([facility] Monocytes/100 leukocytes in Blood by Automated count 11 % [facility] ([facility] Lymphs 23 % [facility] ([facility] Eosinophils/100 leukocytes in Blood by Automated count 5 % [facility] ([facility] Immature cells [#/volume] in Blood Laboratory test result [facility] ([facility] Basophils/100 leukocytes in Blood by Automated count 1 % [facility] ([facility] Monocytes [#/volume] in Blood 0.8 x10E3/uL 0.1-0.9 [facility] ([facility] Lymphocytes [#/volume] in Blood 1.7 x10E3/uL 0.7-3.1 [facility] ([facility] Neutrophils [#/volume] in Blood by Automated count 4.2 x10E3/uL 1.4-7 .0 [facility] ([facility] Eosinophils [#/volume] in Blood by Automated count 0.4 x10E3/uL 0.0-0 .4 [facility] ([facility] Basophils [#/volume] in Blood by Automated count 0.1 x10E3/uL 0.0-0.2 [facility] ([facility] Immature granulocytes [#/volume] in Blood by Automated count 0.1 x10E3/uL 0.0-0.1 [facility] ([facility] Immature granulocytes/100 leukocytes in Blood by Automated count 1 % [facility] ([facility] Nucleated erythrocytes/100 leukocytes [Ratio] in Blood by Automated count Laboratory test result [facility] Morphology [Interpretation] in Blood Narrative Laboratory test result [facility] ([facility] ID Date Data Source [id number] 09/20/2020 09:32:00 AM EST [facility] ([facility] Name Value Range Interpretation Code Description Data Brandi rce(s) Supporting Document(s) Valproate [Mass/volume] in Serum or Plasma 71.2 UG/ML 50.0- 100.0 Normal (applies to non-numeric results) [facility] ([facility] ID Date Data Source [id number] 09/20/2020 09:32:00 AM EST [facility] ([facility], ) Name Value Range Interpretation Code Description Data Brandi rce(s) Supporting Document(s) Valproate [Mass/volume] in Serum or Plasma 71.2 UG/ML 50.0-100.0 [facility] ([facility], ) ID Date Data Source [id number] 09/20/2020 09:30:00 AM EST [facility] ([facility] Name Value Range Interpretation Code Description Data Brandi rce(s) Supporting Document(s) Triglycerides Level 115 mg/dL Normal (applies to non-nume jeovany results) [facility] ([facility] Cholesterol Level 157 mg/dL Normal (applies to non-numeri c results) [facility] ([facility] HDL Cholesterol 53 mg/dL Normal (applies to non-numeric results) [facility] ([facility] LDL Cholesterol 81 mg/dL Normal (applies to non-numeric results) [facility] ([facility] Non-HDL-C 104 mg/dL Normal (applies to non-numeric resul ts) [facility] ([facility] Cholesterol Risk Ratio 2.962 Normal (applies to non-n umeric results) [facility] ([facility] ID Date Data Source [id number] 09/20/2020 09:30:00 AM EST [facility] ([facility]) Name Value Range Interpretation Code Description Data Brandi rce(s) Supporting Document(s) Triglycerides Level 115 mg/dL [facility] ([facility]) Cholesterol Level 157 mg/dL [facility] ([facility]) Non-HDL-C 104 mg/dL [facility] ([facility]) LDL Cholesterol 81 mg/dL [facility] ([facility]) HDL Cholesterol 53 mg/dL [facility] ([facility]) Cholesterol Risk Ratio 2.962 [facility] ([facility]) ID Date Data Source [id number] 08/06/2020 09:00:00 AM EDT [facility] Name Value Range Interpretation Code Description Data Brandi rce(s) Supporting Document(s) SARS coronavirus 2 RNA [facility] This lab was ordered by [facility] and reported by [facility]. ID Date Data Source [id number] 07/19/2020 09:56:00 AM EDT [facility] ([facility] Name Value Range Interpretation Code Description Data Brandi rce(s) Supporting Document(s) Urine Culture Laboratory test result Normal (applies t o non-numeric results) [facility] ([facility] FULL REPORT IN LAB NOTES ([facility] and [facility] ). ORGANISM 1: LACTOBACILLUS SPECIES COLONY COUNT 30,000 Most Lactobacillus species recovered from clinical specimens are rarely pathogenic. Penicillin or ampicillin with or without gentamicin is recommended for treatment. Clindamycin and erythromycin are alternative treatments. Vancomycin resistance has been reported. ORGANISM 1: LACTOBACILLUS SPECIES ID Date Data Source [id number] 07/19/2020 09:56:00 AM EDT [facility] ([facility] Name Value Range Interpretation Code Description Data Brandi rce(s) Supporting Document(s) Appearance, Urine Laboratory test result Above high normal [facility] ([facility] Color, Urine Laboratory test result Normal (applies to non -numeric results) [facility] ([facility] Specific [place] Urine Auto 1.010 1.002-1.035 Norm al (applies to non-numeric results) [facility] ([facility] ) PH,Urine 7.0 units 5.0-9.0 Normal (applies to non-numeric resul ts) [facility] ([facility] Ketone, Urine Auto Laboratory test result Normal (applies to non-numeric results) [facility] ([facility] ) Protein, Urine Auto Laboratory test result Above high norm al [facility] ([facility] Glucose, Urine (Ua) Auto Laboratory test result Normal (applies to non-numeric results) [facility] ([facility] ) Nitrite, Urine Auto Laboratory test result Deanna l (applies to non-numeric results) [facility] ([facility] ) Bilirubin, Urine Auto Laboratory test result Nor mal (applies to non-numeric results) [facility] ([facility] ) Urobilinogen, Urine Auto 0.2 mg/dL 0.0-2.0 Normal (applies to non-numeric results) [facility] ([facility] ) WBC, Urine Auto Laboratory test result 0-3 Above high normal [facility] ([facility] Blood, Urine Blood Laboratory test result Above high deanna l [facility] ([facility] Leukocyte Esterase, Urine Auto Laboratory test result Abov e high normal [facility] ([facility] Squamous Epithelial Cell Ur AU 4 /HPF 0-6 N ormal (applies to non-numeric results) [facility] ([facility] ) Bacteria, Urine Auto Laboratory test result Above high nor mal [facility] ([facility] RBC, Urine Auto 104 /HPF 0-3 Above high normal [facility] ([facility] Transitional Epithelial Auto 3 /HPF Normal (applies to non-numeric results) [facility] ([facility] Mucus, Urine Laboratory test result Normal (applies to non -numeric results) [facility] ([facility] Hyaline Cast, Urine Auto 0 /LPF 0-1 Normal (applies to non -numeric results) [facility] ([facility] Amorphous Sediment Laboratory test result Above high deanna l [facility] ([facility] ID Date Data Source [id number] 07/19/2020 09:51:00 AM EDT [facility] ([facility] Name Value Range Interpretation Code Description Data Brandi rce(s) Supporting Document(s) Blood Urea Nitrogen 31 mg/dL 7-18 Above high normal [facility] ([facility] Glucose, Fasting 94 mg/dL 70-100 Normal (applies to non-numeric results) [facility] ([facility] Potassium Serum 4.6 meq/L 3.5-5.1 Normal (applies to non-numeric results) [facility] ([facility] Sodium Level 142 meq/L 136-145 Normal (applies to non-numeric res ults) [facility] ([facility] Creatinine For GFR 1.49 mg/dL 0.55-1.30 Above high normal [facility] ([facility] Glomerular Filtration Rate 36.7 Below low normal [facility] ([facility] <content>Units are mL/min/1.73 m2</content>
<content></content>
<content>Chronic Kidney Disease Staging per NKF:</content>
<content></content>
<content>Stage I & II GFR >=60 Normal to Mildly Decreased</content>
<content>Stage III GFR 30- 59 Moderately Decreased</content>
<content>Stage IV GFR 15-29 Severely Decreased</content>
<content>Stage V GFR <15 Very Little GFR Left</content>
<content>ESRD GFR <15 on STOCK CRANE OPERATOR</content>
<content></content> Chloride Level 107 meq/L 98-107 Normal (applies to non-numeric r esults) [facility] ([facility] Carbon Dioxide Level 27 meq/L 21-32 Normal (applies to non-num nate results) [facility] ([facility] Anion Gap 8 meq/L 8-16 Normal (applies to non-numeric resul ts) [facility] ([facility] Calcium Level 9.8 mg/dL 8.8-10.2 Normal (applies to non-numeric re sults) [facility] ([facility] ID Date Data Source [id number] 07/19/2020 09:51:00 AM EDT [facility] ([facility] Name Value Range Interpretation Code Description Data Brandi rce(s) Supporting Document(s) Prothrombin Time 13.5 s 11.8-14.0 Normal (applies to non-numeric results) [facility] ([facility] Inr 1.01 Normal (applies to non-numeric resul ts) [facility] ([facility] THERAPUTIC HUMAN INR VALUES INDICATIONS NORMAL RANGES PROPHYLAXIS/TREATMENT OF: VENOUS THROMBOSIS 2.0-3.0 PULMONARY EMBOLISM 2.0-3.0 PREVENTION OF SYSTEMIC EMBOLISM FROM: TISSUE HEART VALVES 2.0-3.0 ACUTE MYOCARDIAL INFARCTION 2.0-3.0 VALVULAR HEART DISEASE 2.0-3.0 ATRIAL FIBRILLATION 2.0-3.0 MECHANICAL VALVES(HIGH RISK) 2.5-3.5 RECURRENT MYOCARDIAL INFARCTION 2.5-3.5 ID Date Data Source [id number] 07/19/2020 09:51:00 AM EDT [facility] ([facility] Name Value Range Interpretation Code Description Data Brandi e(s) Supporting Document(s) White Blood Count 8.0 10 4.0-10.0 Normal (applies to non-numeri c results) [facility] ([facility] Red Blood Count 3.41 10 4.00-5.40 Below low normal [facility] ([facility] Hemoglobin 12.2 g/dL 12.0-15.5 Normal (applies to non-numeric resul ts) [facility] ([facility] Mean Corpuscular Volume 111.4 fl 80.0-96.0 Above high normal [facility] ([facility] Hematocrit 38.0 % 36.0-47.0 Normal (applies to non-numeric resul ts) [facility] ([facility] Mean Corpuscular Hemoglobin 35.8 pg 27.0-33.0 Above high normal [facility] Mean Corpuscular HGB Conc 32.1 g/dL 32.0-36.5 Normal (applies to non-numeric results) [facility] ([facility] ) Red Cell Distribution Width 12.9 % 11.5-14.5 Norm al (applies to non-numeric results) [facility] [facility] Platelet Count, Automated 333 10 150-450 Normal (applies to non-numeric results) MEDENT ([facility] ) Nucleated Red Blood Cell % 0.0 % 0-0 Normal (applies to n on-numeric results) MEDENT ([facility] Procedure Social History Code Duration Value Status Description Data Source(s ) Smoking 07/25/2021 07:03:29 AM EDT Never smoked tobacco (findi ng) completed Never smoked tobacco (finding) PEDRO (Diaz Crook MD [facility]) Smoking 05/31/2021 12:00:00 AM EDT Patient has never smoked co mpleted Patient has never smoked MEDENT ([facility] ) Smoking 04/10/2021 12:00:00 AM EDT Patient has never smoked co mpleted Patient has never smoked MEDENT ([facility]) Vital Signs ID Date Data Source UNK Name Value Range Interpretation Code Description Data Source(s) Respiratory rate 16 /min 16 /min MEDENT ( [facility] Body height 59 [in_i] 59 [in_i] MEDENT ([facility] 4'11" Systolic blood pressure 136 mm[Hg] 136 mm[Hg] M EDENT ([facility] Diastolic blood pressure 86 mm[Hg] 86 mm[Hg] MEDENT ([facility] Body temperature 97.1 [degF] 97.1 [degF] MEDENT ([facility] Heart rate 67 /min 67 /min MEDENT ([facility] Body mass index (BMI) [Ratio] 32.5 kg/m2 32.5 k g/m2 MEDENT ([facility] Oxygen saturation in Arterial blood by Pulse oximetry 96 % 96 % MEDENT ([facility] Body weight 161.00 [lb_av] 161.00 [lb_av] MEDEN T ([facility] Lenore body weight 100 [lb_av] 100 [lb_av] MEDEN T ([facility] Respiratory rate 18 /min 18 /min eCW1 ([facility]) Body temperature 98.6 [degF] 98.6 [degF] eCW1 ( [facility]) Systolic blood pressure 138 mm[Hg] 138 mm[Hg] e CW1 ([facility]) Diastolic blood pressure 78 mm[Hg] 78 mm[Hg] eCW1 ([facility]) Body weight 155 [lb_av] 155 [lb_av] eCW1 ([facility]) Body weight 70.31 kg 70.31 kg eCW1 ([facility]) Body height [in_i] eCW1 ([facility]) Body mass index (BMI) [Ratio] 31.30 kg/m2 31.30 kg/m2 eCW1 ([facility]) Heart rate 82 /min 82 /min eCW1 ([facility]) Heart rate 68 /min 68 /min MEDENT ([facility], ) Respiratory rate 16 /min 16 /min MEDENT ( [facility], ) Systolic blood pressure 110 mm[Hg] 110 mm[Hg] M EDENT ([facility], ) Diastolic blood pressure 70 mm[Hg] 70 mm[Hg] MEDENT ([facility], ) Respiratory rate 16 /min 16 /min MEDENT ( [facility] Body temperature 98.0 [degF] 98.0 [degF] MEDENT ([facility] Heart rate 78 /min 78 /min MEDENT ([facility] Systolic blood pressure 124 mm[Hg] 124 mm[Hg] M EDENT ([facility] Diastolic blood pressure 78 mm[Hg] 78 mm[Hg] MEDENT ([facility] Body height 59 [in_i] 59 [in_i] MEDENT ([facility] 4'11" Lenore body weight 100 [lb_av] 100 [lb_av] MEDEN T ([facility] Body mass index (BMI) [Ratio] 32.3 kg/m2 32.3 k g/m2 MEDENT ([facility] Oxygen saturation in Arterial blood by Pulse oximetry 97 % 97 % MEDENT ([facility] Body weight 160.00 [lb_av] 160.00 [lb_av] MEDEN T ([facility] Systolic blood pressure 110 mm[Hg] 110 mm[Hg] M EDENT ([facility], ) Diastolic blood pressure 80 mm[Hg] 80 mm[Hg] MEDENT ([facility], ) Heart rate 76 /min 76 /min MEDENT ([facility], ) Respiratory rate 16 /min 16 /min MEDENT ( [facility], ) Diastolic blood pressure--sitting 78 mm[Hg] 78 mm[Hg] MEDENT ([facility]) Ra, medium cuff Body weight 163.00 [lb_av] 163.00 [lb_av] MEDEN T ([facility]) Body height 59 [in_i] 59 [in_i] [facility] 4'11" Body mass index (BMI) [Ratio] 32.9 kg/m2 32.9 k g/m2 MEDENT ([facility]) Systolic blood pressure--sitting 128 mm[Hg] 128 mm[Hg] MEDENT ([facility]) Ra, medium cuff Systolic blood pressure 130 mm[Hg] 130 mm[Hg] M EDENT ([facility] Heart rate 74 /min 74 /min MEDENT ([facility] Respiratory rate 16 /min 16 /min MEDENT ( [facility] Body height 59 [in_i] 59 [in_i] MEDENT ([facility] 4'11" Body weight 164.00 [lb_av] 164.00 [lb_av] MEDEN T ([facility] Lenore body weight 100 [lb_av] 100 [lb_av] MEDEN T ([facility] Body temperature 97.5 [degF] 97.5 [degF] MEDENT ([facility] Diastolic blood pressure 72 mm[Hg] 72 mm[Hg] MEDENT ([facility] Body mass index (BMI) [Ratio] 33.1 kg/m2 33.1 k g/m2 MEDENT ([facility] Oxygen saturation in Arterial blood by Pulse oximetry 97 % 97 % MEDENT ([facility] Oxygen saturation in Arterial blood by Pulse oximetry 98 % 98 % MEDENT ([facility] Systolic blood pressure 110 mm[Hg] 110 mm[Hg] M EDENT ([facility] Diastolic blood pressure 80 mm[Hg] 80 mm[Hg] MEDENT ([facility] Body temperature 98.2 [degF] 98.2 [degF] MEDENT ([facility] Heart rate 70 /min 70 /min MEDENT ([facility] Respiratory rate 16 /min 16 /min MEDENT ( [facility] Body height 59 [in_i] 59 [in_i] MEDENT ([facility] 4'11" Body weight 160.00 [lb_av] 160.00 [lb_av] MEDEN T ([facility] Lenore body weight 100 [lb_av] 100 [lb_av] MEDEN T ([facility] Body mass index (BMI) [Ratio] 32.3 kg/m2 32.3 k g/m2 MEDENT ([facility] Body mass index (BMI) [Ratio] 31.91 kg/m2 31.91 kg/m2 eCW1 ([facility]) Heart rate 84 /min 84 /min eCW1 ([facility]) Respiratory rate 18 /min 18 /min eCW1 ([facility]) Body temperature 97.3 [degF] 97.3 [degF] eCW1 ( [facility]) Systolic blood pressure 126 mm[Hg] 126 mm[Hg] e CW1 ([facility]) Diastolic blood pressure 71 mm[Hg] 71 mm[Hg] eCW1 ([facility]) Body weight 158 [lb_av] 158 [lb_av] eCW1 ([facility]) Body height [in_i] eCW1 ([facility]) Lenore body weight 100 [lb_av] 100 [lb_av] MEDEN T ([facility] Body weight 154.00 [lb_av] 154.00 [lb_av] MEDEN T ([facility] Systolic blood pressure 130 mm[Hg] 130 mm[Hg] M EDENT ([facility] Diastolic blood pressure 50 mm[Hg] 50 mm[Hg] MEDENT ([facility] Body temperature 97.8 [degF] 97.8 [degF] MEDENT ([facility] Heart rate 62 /min 62 /min MEDENT ([facility] Respiratory rate 16 /min 16 /min MEDENT ( [facility] Body height 59 [in_i] 59 [in_i] MEDENT ([facility] 4'11" Body mass index (BMI) [Ratio] 31.1 kg/m2 31.1 k g/m2 MEDENT ([facility] Oxygen saturation in Arterial blood by Pulse oximetry 97 % 97 % MEDENT ([facility] Body weight 150 [lb_av] 150 [lb_av] eCW1 ([facility]) Body height [in_i] eCW1 ([facility]) Body mass index (BMI) [Ratio] 30.29 kg/m2 30.29 kg/m2 eCW1 ([facility]) Heart rate 75 /min 75 /min eCW1 ([facility]) Respiratory rate 18 /min 18 /min eCW1 ([facility]) Body temperature 96.6 [degF] 96.6 [degF] eCW1 ( [facility]) Systolic blood pressure 138 mm[Hg] 138 mm[Hg] e CW1 ([facility]) Diastolic blood pressure 78 mm[Hg] 78 mm[Hg] eCW1 ([facility]) Lenore body weight 100 [lb_av] 100 [lb_av] MEDEN T ([facility] Body mass index (BMI) [Ratio] 30.7 kg/m2 30.7 k g/m2 MEDENT ([facility] Oxygen saturation in Arterial blood by Pulse oximetry 96 % 96 % MEDENT ([facility] Systolic blood pressure 128 mm[Hg] 128 mm[Hg] M EDENT ([facility] Diastolic blood pressure 80 mm[Hg] 80 mm[Hg] MEDENT ([facility] Body temperature 97.2 [degF] 97.2 [degF] MEDENT ([facility] Heart rate 82 /min 82 /min MEDENT ([facility] Respiratory rate 16 /min 16 /min MEDENT ( [facility] Body height 59 [in_i] 59 [in_i] MEDENT ([facility] 4'11" Body weight 152.00 [lb_av] 152.00 [lb_av] MEDEN T ([facility] Diastolic blood pressure--supine 82 mm[Hg] 82 mm[Hg] MEDENT ([facility]) Ra, large cuff Body weight 143.00 [lb_av] 143.00 [lb_av] MEDEN T ([facility]) Body height 59 [in_i] 59 [in_i] MEDENT ([facility]) 4'11" Body mass index (BMI) [Ratio] 28.9 kg/m2 28.9 k g/m2 MEDENT ([facility]) Heart rate 84 /min 84 /min MEDENT ([facility]) regular Respiratory rate 16 /min 16 /min MEDENT ( [facility]) nonlabored Systolic blood pressure--sitting 118 mm[Hg] 118 mm[Hg] MEDENT ([facility]) Ra, large cuff Diastolic blood pressure--sitting 78 mm[Hg] 78 mm[Hg] MEDENT ([facility]) Ra, large cuff Systolic blood pressure--supine 124 mm[Hg] 124 mm[Hg] MEDENT ([facility]) Ra, large cuff Respiratory rate 16 /min 16 /min MEDENT ( [facility] Body height 59 [in_i] 59 [in_i] MEDENT ([facility] 4'11" Systolic blood pressure 116 mm[Hg] 116 mm[Hg] M EDENT ([facility] Body temperature 97.4 [degF] 97.4 [degF] MEDENT ([facility] Heart rate 72 /min 72 /min MEDENT ([facility] Diastolic blood pressure 68 mm[Hg] 68 mm[Hg] MEDENT ([facility] Body weight 142.00 [lb_av] 142.00 [lb_av] MEDEN T ([facility] Lenore body weight 100 [lb_av] 100 [lb_av] MEDEN T ([facility] Body mass index (BMI) [Ratio] 28.7 kg/m2 28.7 k g/m2 MEDENT ([facility] Oxygen saturation in Arterial blood by Pulse oximetry 97 % 97 % MEDENT ([facility] Systolic blood pressure 118 mm[Hg] 118 mm[Hg] M EDENT ([facility] Oxygen saturation in Arterial blood by Pulse oximetry 97 % 97 % MEDENT ([facility] Body weight 138.00 [lb_av] 138.00 [lb_av] MEDEN T ([facility] Lenore body weight 100 [lb_av] 100 [lb_av] MEDEN T ([facility] Body mass index (BMI) [Ratio] 27.9 kg/m2 27.9 k g/m2 MEDENT ([facility] Diastolic blood pressure 80 mm[Hg] 80 mm[Hg] MEDENT ([facility] Body temperature 97.9 [degF] 97.9 [degF] MEDENT ([facility] Heart rate 74 /min 74 /min MEDENT ([facility] Respiratory rate 16 /min 16 /min MEDENT ( [facility] Body height 59 [in_i] 59 [in_i] MEDENT ([facility] 4'11" Heart rate 77 /min 77 /min MEDENT ([facility] Respiratory rate 16 /min 16 /min MEDENT ( [facility] Body height 59 [in_i] 59 [in_i] MEDENT ([facility] 4'11" Body weight 139.00 [lb_av] 139.00 [lb_av] MEDEN T ([facility] Lenore body weight 100 [lb_av] 100 [lb_av] MEDEN T ([facility] Body mass index (BMI) [Ratio] 28.1 kg/m2 28.1 k g/m2 MEDSATINDER ([facility] Systolic blood pressure 124 mm[Hg] 124 mm[Hg] M EDENT ([facility] Diastolic blood pressure 80 mm[Hg] 80 mm[Hg] MEDSATINDER ([facility] Body temperature 97.6 [degF] 97.6 [degF] MEDSATINDER ([facility] Oxygen saturation in Arterial blood by Pulse oximetry 96 % 96 % [place] ([facility]
[2021-09-10] MEDS ORDERED: CONRAY-60 60% 50ML VIAL (Q9961) As Ordered ONE (07:08)
[2021-09-10] MEDS ORDERED: LIDOCAINE 2% 100MG/5ML SDV (FOR ANES.) As Ordered ONE (07:13)
[2021-09-10] MEDS ORDERED: dexameTHASONE 4 MG/ML 1ML VIAL (J1100 PER 1MG) As Ordered ONE (07:13)
[2021-09-10] MEDS ORDERED: propofoL 200 MG/20 ML VIAL As Ordered ONE (07:13)
[2021-09-10] MEDS ORDERED: ONDANSETRON 4MG/2ML VIAL As Ordered ONE (07:13)
[2021-09-10] MEDS ORDERED: MIDAZOLAM INJ 2MG/2ML VIAL (J2250 PER 1MG) As Ordered ONE (07:14)
[2021-09-10] MEDS ORDERED: fentaNYL 100 MCG/2 ML INJECTION (J3010) As Ordered ONE (07:14)
[2021-09-10] MEDS ORDERED: LIDOCAINE 2% 5ML JELLY UROJET As Ordered ONE (07:29)
[2021-09-10] MEDS ORDERED: KETOROLAC 60MG 2ML VIAL As Ordered ONE (07:39)
--- NOTE | 2021-09-10 08:19 | REP ---
INDICATION: BILATERAL STENT EXCHANGE. COMPARISON: 06/28/2021. TECHNIQUE: Three C-arm views abdomen and pelvis. FINDINGS: Contrast partially opacifies the pelvocaliceal systems bilaterally. Bilateral ureteral stents are seen on the final image, the proximal end of each stent is in the respective renal pelvis, the distal end in the urinary bladder. IMPRESSION: 38 seconds fluoroscopy time utilized. <Electronically signed by Huseyin Whiting > 09/10/21 0815
--- NOTE | 2021-09-10 08:28 | ROOPDOC ---
[facility] Report Of Operation Report of Operation DATE OF PROCEDURE: 09/10/21 PREOPERATIVE DIAGNOSES: Bilateral ureteral obstruction. POSTOPERATIVE DIAGNOSIS: Bilateral ureteral obstruction. PROCEDURE: Cystoscopy, bilateral ureteral stent exchange, bilateral retrograde pyelograms with intraop interpreted images. SURGEON: Malorie Malcolm MD SHEET HEATER HELPER: None. ANESTHESIA: MAC. OPERATIVE INDICATIONS: This is a 71-year-old female with bilateral ureteral obstruction which is managed with bilateral ureteral stenting. She is here today for routine stent exchange. DESCRIPTION OF PROCEDURE: The patient was brought to the operating room and MAC anesthesia was administered. Prophylactic antibiotics were infused. She was then then placed in the dorsal lithotomy position and prepped and draped in the usual sterile fashion. A cystoscope was inserted in the urethral meatus and advanced into the bladder. A guidewire was advanced up the right collecting system. The previously placed right ureteral stent was removed. I then advanced a 5 Wolof open-ended ureteral catheter up the right collecting system. The wire was removed. I then shot a retrograde pyelogram and it was notable for moderate right hydronephrosis with no extravasation. I advanced the guidewire back up the right collecting system and then removed the ureteral catheter. I utilized the guidewire to advance a 7 Wolof x 22 cm black silicone ureteral stent into the right collecting system. The wire was removed and there were adequate curls of the stent in the right renal pelvis and in the bladder. I then advanced the guidewire up the left collecting system. The left-sided ureteral stent was removed. I advanced the ureteral catheter over the wire. I removed the wire. I then shot a retrograde pyelogram and it was notable for moderate left hydronephrosis with no extravasation. I advanced the guidewire back up and then removed the ureteral catheter. I utilized the guidewire to advance a 7 Wolof x 22 cm black silicone ureteral stent into the left collecting system. The wire was removed and there were adequate curls of the stent in the left renal pelvis and in the bladder. The bladder as then emptied of all fluid and this marked the conclusion of the procedure. The patient was then taken out of the dorsal lithotomy position, awakened from anesthesia, and taken to the recovery room in stable condition. ESTIMATED BLOOD LOSS: 5 mL COMPLICATIONS: None. SPECIMENS: None. PLAN: The patient will be brought back to the OR for stent exchange in 3 months. MALORIE MALCOLM MD Sep 10, 2021 08:28
[2021-09-10] MEDS ORDERED: LR 1,000 ML IV SCH (08:30)
[2021-09-10] MEDS ORDERED: oxyCODONE 5MG TAB PO PRN (08:30)
[2021-09-10] MEDS ORDERED: ONDANSETRON 4MG/2ML VIAL IV PRN (08:30)
[2021-09-10] MEDS ORDERED: fentaNYL 100 MCG/2 ML INJECTION (J3010) IV PRN (08:30)
[2021-09-10 08:35] VITALS: BP 120/59
== END 2021-09-10 09:14 | disposition home or self-care (01) ==
LOC: M SDC 06:18
PROVIDERS: ATTEND Urology
DX: N13.1 Hydronephrosis with ureteral stricture, not elsewhere classified (principal); 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, fused and horseshoe kidney; I25.2 Old myocardial infarction; I12.9 Hypertensive chronic kidney disease with stage 1 through stage 4 chronic kidney disease, or unspecified chronic kidney disease; Z86.79 Personal history of other diseases of the circulatory system; E78.00 Pure hypercholesterolemia, unspecified; E03.9 Hypothyroidism, unspecified; K52.9 Noninfective gastroenteritis and colitis, unspecified; R32 Unspecified urinary incontinence; H40.9 Unspecified glaucoma; Z87.19 Personal history of other diseases of the digestive system; K21.9 Gastro-esophageal reflux disease without esophagitis; D64.9 Anemia, unspecified; F32.9 Major depressive disorder, single episode, unspecified; R51.9 Headache, unspecified; G40.909 Epilepsy, unspecified, not intractable, without status epilepticus; N18.30 Chronic kidney disease, stage 3 unspecified; Z90.2 Acquired absence of lung [part of]; Z87.440 Personal history of urinary (tract) infections; Z88.6 Allergy status to analgesic agent; Z88.8 Allergy status to other drugs, medicaments and biological substances; Z91.018 Allergy to other foods; Z91.011 Allergy to milk products; Z91.048 Other nonmedicinal substance allergy status; Z79.899 Other long term (current) drug therapy; Z79.82 Long term (current) use of aspirin
CPT/HCPCS: 52332; 52351; 74420; C1769; C2617; J0744; J1100; J1885; J2250; J2405; J3010; Q9961

== ENCOUNTER → 2021-09-19 | Outpatient (REF) | payer MEDICARE, OTHER ==
[~2021-09-19] MED LIST changes: -CIPROFLOXACIN 400 MG in IV 1 EA IV ONE; -LR 1,000 ML IV ONE
== END ==
LOC: M LAB REF 17:03
PROVIDERS: ATTEND Nurse Practitioner Family
DX: N18.32 Chronic kidney disease, stage 3b (principal)

== ENCOUNTER → 2021-11-23 | Outpatient (CLI) | payer MEDICARE, OTHER, MEDICAID ==
[~2021-11-23] MED LIST changes: -CEFD1CAP8 PO; +CEFD300C41 PO
[2021-11-23 12:34] LABS: HEMATOCRIT 40.2 % (36.0-47.0); MEAN CORPUSCULAR HEMOGLOBIN 34.8 pg (27.0-33.0); MEAN CORPUSCULAR HGB CONC 32.3 g/dl (32.0-36.5); MEAN CORPUSCULAR VOLUME 107.5 fl (80.0-96.0); PLATELET COUNT, AUTOMATED 284 10^3/uL (150-450); RED BLOOD COUNT 3.74 10^6/uL (4.00-5.40); WHITE BLOOD COUNT 7.6 10^3/uL (4.0-10.0)
[2021-11-23 12:42] LABS: INR 0.9; PROTHROMBIN TIME 12.6 SECONDS (12.7-14.5)
[2021-11-23 12:43] LABS: PARTIAL THROMBOPLASTIN TIME 32.2 SECONDS (25.9-37.0)
[2021-11-23 12:50] LABS: CALCIUM LEVEL 10.1 MG/DL (8.8-10.2); CREATININE FOR GFR 1.61 MG/DL (0.55-1.30); GLOMERULAR FILTRATION RATE 33.5 (>39); POTASSIUM SERUM 3.8 MEQ/L (3.5-5.1)
== END ==
LOC: M LAB 10:45
PROVIDERS: ATTEND Nurse Practitioner Women's Health
DX: Z01.818 Encounter for other preprocedural examination (principal); N13.39 Other hydronephrosis

== ENCOUNTER 2021-11-26 11:10 | Emergency (ER) | payer MEDICARE, OTHER, MEDICAID ==
[~2021-11-26] VITALS: Ht 149.9 cm; Wt 73.4 kg
[2021-11-26 11:11] VITALS: BP 135/68
[2021-11-26 18:04] LABS: CALCIUM LEVEL 10.2 MG/DL (8.8-10.2); CREATININE FOR GFR 1.92 MG/DL (0.55-1.30); GLOMERULAR FILTRATION RATE 27.3 (>39)
[2021-11-26 18:08] LABS: BASO # 0.1 10^3/uL (0.0-0.2); BASO % 0.5 % (0.0-1.0); EOS # 0.1 10^3/uL (0.0-0.5); EOS % 1.2 % (0.0-3.0); HEMATOCRIT 41.4 % (36.0-47.0); HEMOGLOBIN 13.5 g/dl (12.0-15.5); LYMPH # 1.3 10^3/uL (1.5-5.0); LYMPH % 12.1 % (24.0-44.0); MEAN CORPUSCULAR HEMOGLOBIN 35.1 pg (27.0-33.0); MEAN CORPUSCULAR HGB CONC 32.6 g/dl (32.0-36.5); MEAN CORPUSCULAR VOLUME 107.5 fl (80.0-96.0); NEUTROPHILS # 7.7 10^3/uL (1.5-8.5); NEUTROPHILS % 70.8 % (36.0-66.0); PLATELET COUNT, AUTOMATED 295 10^3/uL (150-450); RED BLOOD COUNT 3.85 10^6/uL (4.00-5.40); WHITE BLOOD COUNT 10.9 10^3/uL (4.0-10.0)
[2021-11-26 19:26] LABS: MONO # 1.6 10^3/uL (0.0-0.8)
[2021-11-26] MEDS ORDERED: CIPROFLOXACIN 500MG TABLET PO ONE (22:05)
[2021-11-26] MEDS ORDERED: CIPR-249 PO (22:05)
== END 2021-11-26 23:02 | disposition home or self-care (01) ==
LOC: M ED 11:10
DX: N39.0 Urinary tract infection, site not specified (principal); N13.2 Hydronephrosis with renal and ureteral calculous obstruction; I25.2 Old myocardial infarction; I10 Essential (primary) hypertension; E78.5 Hyperlipidemia, unspecified; R56.9 Unspecified convulsions; K21.9 Gastro-esophageal reflux disease without esophagitis; Z87.442 Personal history of urinary calculi; Z87.448 Personal history of other diseases of urinary system; 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, fused and horseshoe kidney; Z96.0 Presence of urogenital implants; K57.30 Diverticulosis of large intestine without perforation or abscess without bleeding; Z79.82 Long term (current) use of aspirin; Z79.899 Other long term (current) drug therapy; Z88.8 Allergy status to other drugs, medicaments and biological substances; Z91.89 Other specified personal risk factors, not elsewhere classified; Z91.018 Allergy to other foods

== ENCOUNTER → 2021-11-28 | Outpatient (CLI) | payer MEDICARE, OTHER, MEDICAID ==
[~2021-11-28] MED LIST changes: +CIPR-249 PO
== END ==
LOC: M LABSMTC 09:55
PROVIDERS: ATTEND Anesthesiology
DX: Z01.812 Encounter for preprocedural laboratory examination (principal); Z20.822 Contact with and (suspected) exposure to COVID-19

== ENCOUNTER 2021-11-30 08:48 | Day surgery (SDC) | payer MEDICARE, OTHER ==
[~2021-11-30] VITALS: Ht 147.3 cm; Wt 72.0 kg
[~2021-11-30 08:48] MED LIST changes: +LR 1,000 ML IV ONE; +ceFAZolin SOD 2 GM in IV 1 EA IV ONE
[2021-11-30] MEDS ORDERED: CIPR500T39 PO (09:03)
[2021-11-30] MEDS ORDERED: LIDOCAINE 2% 100MG/5ML SDV (FOR ANES.) As Ordered ONE (09:29)
[2021-11-30] MEDS ORDERED: ONDANSETRON 4MG/2ML VIAL As Ordered ONE (09:29)
[2021-11-30] MEDS ORDERED: dexameTHASONE 4 MG/ML 1ML VIAL (J1100 PER 1MG) As Ordered ONE (09:29)
[2021-11-30] MEDS ORDERED: propofoL 200 MG/20 ML VIAL As Ordered ONE (09:29)
[2021-11-30] MEDS ORDERED: fentaNYL 100 MCG/2 ML INJECTION As Ordered ONE (09:29)
[2021-11-30] MEDS ORDERED: MIDAZOLAM INJ 2MG/2ML VIAL (J2250 PER 1MG) As Ordered ONE (09:29)
[2021-11-30] MEDS ORDERED: CONRAY-60 60% 50ML VIAL (Q9961) As Ordered ONE (10:05)
[2021-11-30] MEDS ORDERED: LIDOCAINE 2% 5ML JELLY UROJET As Ordered ONE (10:05)
[2021-11-30] MEDS ORDERED: ACETAMINOPHEN 1000MG 100ML IV BTL (OFIRMEV) (J0131 PER 10MG) As Ordered ONE (10:29)
[2021-11-30] MEDS ORDERED: ePHEDrine SULFATE 25 MG/5 ML(5MG/ML) SYRINGE As Ordered ONE (10:42)
[2021-11-30] MEDS ORDERED: PHENYLephrine 500MCG 5ML (100MCG/ML) SYRINGE As Ordered ONE (10:42)
[2021-11-30 11:49] VITALS: BP 128/66
== END 2021-11-30 12:06 | disposition home or self-care (01) ==
LOC: M SDC 08:48
PROVIDERS: ATTEND Urology
DX: N13.1 Hydronephrosis with ureteral stricture, not elsewhere classified (principal); N39.0 Urinary tract infection, site not specified; 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, fused and horseshoe kidney; I25.2 Old myocardial infarction; I12.0 Hypertensive chronic kidney disease with stage 5 chronic kidney disease or end stage renal disease; N17.8 Other acute kidney failure; Z86.79 Personal history of other diseases of the circulatory system; E78.00 Pure hypercholesterolemia, unspecified; E03.9 Hypothyroidism, unspecified; K21.9 Gastro-esophageal reflux disease without esophagitis; G40.909 Epilepsy, unspecified, not intractable, without status epilepticus; R51.9 Headache, unspecified; R32 Unspecified urinary incontinence; Z87.440 Personal history of urinary (tract) infections; Z88.8 Allergy status to other drugs, medicaments and biological substances; Z88.6 Allergy status to analgesic agent; Z91.018 Allergy to other foods; Z91.011 Allergy to milk products; Z91.048 Other nonmedicinal substance allergy status; Z79.899 Other long term (current) drug therapy; Z79.2 Long term (current) use of antibiotics; Z79.82 Long term (current) use of aspirin
CPT/HCPCS: 52332; 74420; C1769; C2617; J0131; J0690; J1100; J2250; J2370; J2405; J3010; Q9961

== ENCOUNTER → 2022-01-29 | Outpatient (CLI) | payer MEDICARE, OTHER, MEDICAID ==
[~2022-01-29] MED LIST changes: +CIPR500T39 PO; -LR 1,000 ML IV ONE; -ceFAZolin SOD 2 GM in IV 1 EA IV ONE
[2022-01-29 10:43] LABS: HEMATOCRIT 38.5 % (36.0-47.0); HEMOGLOBIN 12.6 g/dl (12.0-15.5); MEAN CORPUSCULAR HEMOGLOBIN 35.4 pg (27.0-33.0); MEAN CORPUSCULAR HGB CONC 32.7 g/dl (32.0-36.5); MEAN CORPUSCULAR VOLUME 108.1 fl (80.0-96.0); PLATELET COUNT, AUTOMATED 310 10^3/uL (150-450); RED BLOOD COUNT 3.56 10^6/uL (4.00-5.40); WHITE BLOOD COUNT 6.6 10^3/uL (4.0-10.0)
[2022-01-29 10:53] LABS: INR 0.85
[2022-01-29 11:19] LABS: CALCIUM LEVEL 9.8 MG/DL (8.8-10.2); CREATININE FOR GFR 1.5 MG/DL (0.55-1.30); GLOMERULAR FILTRATION RATE 36.3 (>39); POTASSIUM SERUM 4.1 MEQ/L (3.5-5.1)
== END ==
LOC: M LAB 09:50
PROVIDERS: ATTEND Nurse Practitioner Women's Health
DX: Z01.818 Encounter for other preprocedural examination (principal); 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, fused and horseshoe kidney; N13.39 Other hydronephrosis; Z79.01 Long term (current) use of anticoagulants

== ENCOUNTER → 2022-02-22 | Outpatient (CLI) | payer MEDICARE, OTHER, MEDICAID ==
[~2022-02-22] MED LIST changes: +LATA0.0015
[2022-02-22 10:18] LABS: APPEARANCE, URINE TURBID (CLEAR); BACTERIA, URINE AUTO 2+ (NEGATIVE); BILIRUBIN, URINE AUTO NEGATIVE (NEGATIVE); BLOOD, URINE BLOOD 2+ (NEGATIVE); COLOR, URINE AMBER (YELLOW); GLUCOSE, URINE (UA) AUTO NEGATIVE (NEGATIVE); KETONE, URINE AUTO NEGATIVE (NEGATIVE); LEUKOCYTE ESTERASE, URINE AUTO 2+ (NEGATIVE); MUCUS, URINE LARGE (NEGATIVE); NITRITE, URINE AUTO NEGATIVE (NEGATIVE); PROTEIN, URINE AUTO 3+ mg/dL (NEGATIVE); RBC, URINE AUTO TNTC /HPF (0-3); SPECIFIC GRAVITY URINE AUTO 1.012 (1.002-1.035); SQUAMOUS EPITHELIAL CELL UR AU 0 /HPF (0-6); UROBILINOGEN, URINE AUTO 0.2 mg/dL (0.0-2.0); WBC, URINE AUTO TNTC /HPF (0-3)
== END ==
LOC: M LAB 09:23
PROVIDERS: ATTEND Nurse Practitioner Women's Health
DX: Z01.818 Encounter for other preprocedural examination (principal); 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, fused and horseshoe kidney; N13.39 Other hydronephrosis

== ENCOUNTER → 2022-02-22 | Outpatient (CLI) | payer MEDICARE, OTHER, MEDICAID | LOC: M LABSMTC 09:55 | PROVIDERS: ATTEND Anesthesiology | DX: Z01.818 Encounter for other preprocedural examination (principal); Z11.52 Encounter for screening for COVID-19 ==

== ENCOUNTER → 2022-02-25 | Outpatient (REF) | payer MEDICARE, OTHER, MEDICAID ==
[2022-02-25 17:48] LABS: APPEARANCE, URINE CLOUDY (CLEAR); BACTERIA, URINE AUTO 2+ (NEGATIVE); BILIRUBIN, URINE AUTO NEGATIVE (NEGATIVE); BLOOD, URINE BLOOD 3+ (NEGATIVE); COLOR, URINE YELLOW (YELLOW); GLUCOSE, URINE (UA) AUTO NEGATIVE (NEGATIVE); KETONE, URINE AUTO NEGATIVE (NEGATIVE); LEUKOCYTE ESTERASE, URINE AUTO 3+ (NEGATIVE); NITRITE, URINE AUTO NEGATIVE (NEGATIVE); PROTEIN, URINE AUTO 2+ mg/dL (NEGATIVE); RBC, URINE AUTO 171 /HPF (0-3); SQUAMOUS EPITHELIAL CELL UR AU 0 /HPF (0-6); UROBILINOGEN, URINE AUTO 0.2 mg/dL (0.0-2.0); WBC, URINE AUTO TNTC /HPF (0-3)
== END ==
LOC: M SMT 16:54
PROVIDERS: ATTEND Nurse Practitioner Women's Health
DX: N39.0 Urinary tract infection, site not specified (principal)

== ENCOUNTER 2022-02-27 06:09 | Day surgery (SDC) | payer MEDICARE, OTHER ==
[~2022-02-27] VITALS: Ht 147.3 cm; Wt 72.0 kg
[~2022-02-27 06:09] MED LIST changes: +LR 1,000 ML IV ONE; +ceFAZolin SOD 2 GM in IV 1 EA IV ONE
[2022-02-27] MEDS ORDERED: MIDAZOLAM INJ 2MG/2ML VIAL (J2250 PER 1MG) As Ordered ONE (07:14)
[2022-02-27] MEDS ORDERED: ONDANSETRON 4MG/2ML VIAL As Ordered ONE (07:14)
[2022-02-27] MEDS ORDERED: propofoL 200 MG/20 ML VIAL As Ordered ONE (07:14)
[2022-02-27] MEDS ORDERED: fentaNYL 100 MCG/2 ML INJECTION As Ordered ONE (07:14)
[2022-02-27] MEDS ORDERED: dexameTHASONE 4 MG/ML 1ML VIAL (J1100 PER 1MG) As Ordered ONE (07:14)
[2022-02-27] MEDS ORDERED: LIDOCAINE 2% 100MG/5ML SDV (FOR ANES.) As Ordered ONE (07:14)
[2022-02-27] MEDS ORDERED: ISOVUE-300 61% 50ML VIAL As Ordered ONE (07:16)
[2022-02-27] MEDS ORDERED: LIDOCAINE 2% 5ML JELLY UROJET As Ordered ONE (07:44)
[2022-02-27] MEDS ORDERED: ACETAMINOPHEN 1000MG 100ML IV BTL (OFIRMEV) (J0131 PER 10MG) As Ordered ONE (07:49)
[2022-02-27] MEDS ORDERED: ePHEDrine SULFATE 25 MG/5 ML(5MG/ML) SYRINGE As Ordered ONE (07:56)
[2022-02-27] MEDS ORDERED: PHENYLephrine 500MCG 5ML (100MCG/ML) SYRINGE As Ordered ONE (07:56)
[2022-02-27] MEDS ORDERED: LevoFLOXacin 500MG/100ML IV BAG (J1956 PER 250MG) As Ordered ONE (08:13)
[2022-02-27] MEDS ORDERED: LR 1,000 ML IV SCH (08:40)
[2022-02-27] MEDS ORDERED: oxyCODONE 5MG TAB PO PRN (08:40)
[2022-02-27] MEDS ORDERED: fentaNYL 100 MCG/2 ML INJECTION IV PRN (08:40)
[2022-02-27] MEDS ORDERED: ONDANSETRON 4MG/2ML VIAL IV PRN (08:40)
[2022-02-27 09:00] VITALS: BP 119/55
== END 2022-02-27 10:15 | disposition home or self-care (01) ==
LOC: M SDC 06:09
PROVIDERS: ATTEND Urology
DX: N13.1 Hydronephrosis with ureteral stricture, not elsewhere classified (principal); 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, fused and horseshoe kidney; I12.9 Hypertensive chronic kidney disease with stage 1 through stage 4 chronic kidney disease, or unspecified chronic kidney disease; I25.2 Old myocardial infarction; Z86.79 Personal history of other diseases of the circulatory system; E78.00 Pure hypercholesterolemia, unspecified; E03.9 Hypothyroidism, unspecified; K21.9 Gastro-esophageal reflux disease without esophagitis; G40.909 Epilepsy, unspecified, not intractable, without status epilepticus; F32.A Depression, unspecified; R51.9 Headache, unspecified; D64.9 Anemia, unspecified; Z87.440 Personal history of urinary (tract) infections; Z79.899 Other long term (current) drug therapy; Z79.2 Long term (current) use of antibiotics; Z79.82 Long term (current) use of aspirin; Z88.8 Allergy status to other drugs, medicaments and biological substances; Z88.6 Allergy status to analgesic agent; Z91.011 Allergy to milk products; Z91.048 Other nonmedicinal substance allergy status
CPT/HCPCS: 52332; 74420; C1769; C2617; J0131; J0690; J1100; J1956; J2250; J2370; J2405; J3010; Q9967

== ENCOUNTER → 2022-05-22 | Outpatient (CLI) | payer MEDICAID, MEDICARE, OTHER ==
[~2022-05-22] MED LIST changes: -LATA0.0015; +LATA0.0015 OU; -LR 1,000 ML IV ONE; -ceFAZolin SOD 2 GM in IV 1 EA IV ONE
[2022-05-22 08:54] LABS: HEMATOCRIT 36.3 % (36.0-47.0); HEMOGLOBIN 11.8 g/dl (12.0-15.5); MEAN CORPUSCULAR HEMOGLOBIN 37.3 pg (27.0-33.0); MEAN CORPUSCULAR HGB CONC 32.5 g/dl (32.0-36.5); PLATELET COUNT, AUTOMATED 207 10^3/uL (150-450); RED BLOOD COUNT 3.16 10^6/uL (4.00-5.40); WHITE BLOOD COUNT 6.2 10^3/uL (4.0-10.0)
[2022-05-22 09:00] LABS: APPEARANCE, URINE TURBID (CLEAR); BACTERIA, URINE AUTO 2+ (NEGATIVE); BILIRUBIN, URINE AUTO NEGATIVE (NEGATIVE); BLOOD, URINE BLOOD 2+ (NEGATIVE); COLOR, URINE YELLOW (YELLOW); GLUCOSE, URINE (UA) AUTO NEGATIVE (NEGATIVE); KETONE, URINE AUTO NEGATIVE (NEGATIVE); LEUKOCYTE ESTERASE, URINE AUTO 3+ (NEGATIVE); MEAN CORPUSCULAR VOLUME 114.9 fl (80.0-96.0); NITRITE, URINE AUTO POSITIVE (NEGATIVE); PROTEIN, URINE AUTO 2+ mg/dL (NEGATIVE); RBC, URINE AUTO 54 /HPF (0-3); SPECIFIC GRAVITY URINE AUTO 1.011 (1.002-1.035); SQUAMOUS EPITHELIAL CELL UR AU 25 /HPF (0-6); UROBILINOGEN, URINE AUTO 0.2 mg/dL (0.0-2.0); WBC, URINE AUTO TNTC /HPF (0-3)
[2022-05-22 09:25] LABS: CALCIUM LEVEL 9.5 MG/DL (8.8-10.2); CREATININE FOR GFR 1.5 MG/DL (0.55-1.30); GLOMERULAR FILTRATION RATE 36.2 (>39); POTASSIUM SERUM 4.8 MEQ/L (3.5-5.1)
[2022-05-22 09:35] LABS: INR 0.93; PROTHROMBIN TIME 12.9 SECONDS (12.7-14.5)
[2022-05-22 09:36] LABS: PARTIAL THROMBOPLASTIN TIME 26.3 SECONDS (25.9-37.0)
== END ==
LOC: M RAD 07:20
PROVIDERS: ATTEND Nurse Practitioner Women's Health
DX: J94.2 Hemothorax (principal); N13.39 Other hydronephrosis; Z01.818 Encounter for other preprocedural examination

== ENCOUNTER → 2022-05-23 | Outpatient (REF) | payer MEDICARE, MEDICAID ==
[~2022-05-23] MED LIST changes: +BACTDSTA
[2022-05-23 18:47] LABS: APPEARANCE, URINE CLOUDY (CLEAR); BACTERIA, URINE AUTO 1+ (NEGATIVE); BILIRUBIN, URINE AUTO NEGATIVE (NEGATIVE); BLOOD, URINE BLOOD 2+ (NEGATIVE); COLOR, URINE YELLOW (YELLOW); GLUCOSE, URINE (UA) AUTO NEGATIVE (NEGATIVE); KETONE, URINE AUTO NEGATIVE (NEGATIVE); LEUKOCYTE ESTERASE, URINE AUTO 3+ (NEGATIVE); MUCUS, URINE SMALL (NEGATIVE); NITRITE, URINE AUTO POSITIVE (NEGATIVE); PROTEIN, URINE AUTO 2+ mg/dL (NEGATIVE); RBC, URINE AUTO 40 /HPF (0-3); SPECIFIC GRAVITY URINE AUTO 1.011 (1.002-1.035); SQUAMOUS EPITHELIAL CELL UR AU 0 /HPF (0-6); UROBILINOGEN, URINE AUTO 0.2 mg/dL (0.0-2.0); WBC, URINE AUTO TNTC /HPF (0-3)
== END ==
LOC: M SMT 16:55
PROVIDERS: ATTEND Nurse Practitioner Women's Health
DX: N39.0 Urinary tract infection, site not specified (principal)

== ENCOUNTER → 2022-05-26 | Outpatient (CLI) | payer MEDICAID, MEDICARE | LOC: M LABSMTC 11:28 | PROVIDERS: ATTEND Anesthesiology | DX: Z01.812 Encounter for preprocedural laboratory examination (principal) ==

== ENCOUNTER 2022-05-29 10:38 | Day surgery (SDC) | payer MEDICAID, MEDICARE ==
[~2022-05-29] VITALS: Ht 149.9 cm; Wt 67.6 kg
[~2022-05-29 10:38] MED LIST changes: -BACTDSTA; +ceFAZolin SOD 2 GM in IV 1 EA IV ONE
[2022-05-29] MEDS ORDERED: LR 1,000 ML IV SCH (10:45)
[2022-05-29] MEDS ORDERED: BACTDSTA (11:07)
[2022-05-29] MEDS ORDERED: MIDAZOLAM INJ 2MG/2ML VIAL (J2250 PER 1MG) As Ordered ONE (11:38)
[2022-05-29] MEDS ORDERED: LIDOCAINE 2% 100MG/5ML SDV (FOR ANES.) As Ordered ONE (11:38)
[2022-05-29] MEDS ORDERED: propofoL 200 MG/20 ML VIAL As Ordered ONE (11:38)
[2022-05-29] MEDS ORDERED: fentaNYL 100 MCG/2 ML INJECTION As Ordered ONE (11:38)
[2022-05-29] MEDS ORDERED: LIDOCAINE 2% 5ML JELLY UROJET As Ordered ONE (12:57)
[2022-05-29] MEDS ORDERED: ISOVUE-300 61% 50ML VIAL As Ordered ONE (12:58)
[2022-05-29] MEDS ORDERED: ONDANSETRON 4MG 2ML VIAL As Ordered ONE ×2 (13:23→14:30)
[2022-05-29] MEDS ORDERED: PHENYLephrine 500MCG 5ML (100MCG/ML) SYRINGE As Ordered ONE (13:35)
[2022-05-29 14:20] VITALS: BP 130/61
[2022-05-29] MEDS ORDERED: ACETAMINOPHEN 1000MG 100ML IV BTL (OFIRMEV) (J0131 PER 10MG) As Ordered ONE (14:30)
[2022-05-29] MEDS ORDERED: dexameTHASONE 4 MG/ML 1ML VIAL (J1100 PER 1MG) As Ordered ONE (14:30)
== END 2022-05-29 14:20 | disposition home or self-care (01) ==
LOC: M SDC 10:38
PROVIDERS: ATTEND Urology
DX: N13.2 Hydronephrosis with renal and ureteral calculous obstruction (principal)
CPT/HCPCS: 52332; 74420; C1769; C2617; J0131; J0690; J1100; J2250; J2370; J2405; J3010; Q9967

== ENCOUNTER → 2022-08-02 | Outpatient (REF) | payer MEDICARE, MEDICAID ==
[~2022-08-02] MED LIST changes: +BACTDSTA; -ceFAZolin SOD 2 GM in IV 1 EA IV ONE
== END ==
LOC: M WUC 19:40
PROVIDERS: ATTEND Student in an Organized Health Care Education/Training Program
DX: R30.0 Dysuria (principal)

== ENCOUNTER 2022-08-05 11:43 | Inpatient (IN) | payer MEDICARE, MEDICAID ==
[~2022-08-05] VITALS: Ht 149.9 cm; Wt 66.2 kg
[2022-08-05 13:27] LABS: BASO # 0.1 10^3/uL (0.0-0.2); BASO % 1.1 % (0.0-1.0); EOS # 0.2 10^3/uL (0.0-0.5); EOS % 2.3 % (0.0-3.0); HEMATOCRIT 43.3 % (36.0-47.0); HEMOGLOBIN 13.9 g/dl (12.0-15.5); LYMPH # 1.2 10^3/uL (1.5-5.0); LYMPH % 11.6 % (24.0-44.0); MEAN CORPUSCULAR HEMOGLOBIN 34.4 pg (27.0-33.0); MEAN CORPUSCULAR HGB CONC 32.1 g/dl (32.0-36.5); MEAN CORPUSCULAR VOLUME 107.2 fl (80.0-96.0); MONO # 1.3 10^3/uL (0.0-0.8); MONO % 12.4 % (2.0-8.0); NEUTROPHILS # 7.1 10^3/uL (1.5-8.5); NEUTROPHILS % 69.1 % (36.0-66.0); PLATELET COUNT, AUTOMATED 515 10^3/uL (150-450); RED BLOOD COUNT 4.04 10^6/uL (4.00-5.40); WHITE BLOOD COUNT 10.3 10^3/uL (4.0-10.0)
[2022-08-05] MEDS ORDERED: NS 500 ML IV ONE (14:10)
[2022-08-05] MEDS ORDERED: cefTRIAXone SOD 1 GM in D5W MINI-BAG PLUS 50 ML IV ONE ×2 (14:10→17:45)
[2022-08-05 14:11] LABS: ALBUMIN 2.6 GM/DL (3.2-5.2); ALT/SGPT 21 U/L (12-78); BILIRUBIN,DIRECT < 0.1 MG/DL (0.0-0.2); BILIRUBIN,TOTAL 0.5 MG/DL (0.2-1.0); LIPASE 87 U/L (73-393); TOTAL PROTEIN 8.4 GM/DL (6.4-8.2)
[2022-08-05] MEDS ORDERED: HOME MED LIST COMPLETE! XX SCH (14:40)
[2022-08-05 14:48] LABS: CALCIUM LEVEL 10.7 MG/DL (8.8-10.2); CREATININE FOR GFR 2.34 MG/DL (0.55-1.30); GLOMERULAR FILTRATION RATE 21.7 (>39); POTASSIUM SERUM 4.5 MEQ/L (3.5-5.1)
[2022-08-05 16:58] LABS: RSV AMPLIFICATION NEGATIVE (NEGATIVE)
[2022-08-05 20:15] VITALS: BP 135/62
[2022-08-05] MEDS: FERROUS SULFATE 325MG TAB PO SCH (21:18)
[2022-08-05] MEDS: DIVALPROEX 500MG *ER* TAB PO SCH (21:18)
[2022-08-05] MEDS: CARVedilol 3.125 MG TAB PO SCH (21:20)
[2022-08-06] VITALS: BP 143/65
[2022-08-06] MEDS ORDERED: LIDOCAINE 5% (LIDODERM) PATCH TD ONE (01:00)
[2022-08-06] MEDS: ACETAMINOPHEN TAB 650MG DOSE (2X325MG) PO PRN ×2 (01:07→11:56)
[2022-08-06 04:00] VITALS: BP 127/58
[2022-08-06] MEDS: LEVOTHYROXINE 75MCG TABLET (0.075MG) PO SCH (05:27)
[2022-08-06 06:25] LABS: HEMATOCRIT 37.8 % (36.0-47.0); MEAN CORPUSCULAR HGB CONC 31.7 g/dl (32.0-36.5); MEAN CORPUSCULAR VOLUME 110.2 fl (80.0-96.0); PLATELET COUNT, AUTOMATED 450 10^3/uL (150-450); RED BLOOD COUNT 3.43 10^6/uL (4.00-5.40); WHITE BLOOD COUNT 9.2 10^3/uL (4.0-10.0)
[2022-08-06 06:48] LABS: CALCIUM LEVEL 10.1 MG/DL (8.8-10.2); CREATININE FOR GFR 2.06 MG/DL (0.55-1.30); GLOMERULAR FILTRATION RATE 25.1 (>39); POTASSIUM SERUM 4.9 MEQ/L (3.5-5.1)
[2022-08-06] MEDS ORDERED: ISOVUE-300 61% 50ML VIAL As Ordered ONE (08:06)
[2022-08-06] MEDS ORDERED: fentaNYL 100 MCG/2 ML INJECTION As Ordered ONE (08:06)
[2022-08-06] MEDS ORDERED: diphenhydrAMINE 50MG/ML VIAL (J1200) As Ordered ONE (08:06)
[2022-08-06] MEDS ORDERED: MIDAZOLAM INJ 2MG/2ML VIAL (J2250 PER 1MG) As Ordered ONE (08:07)
[2022-08-06 08:10] VITALS: BP 146/65
[2022-08-06] MEDS ORDERED: ceFAZolin 1GM VIAL (J0690 PER 500MG) As Ordered ONE (08:19)
[2022-08-06] MEDS ORDERED: LIDOCAINE 1% MDV 20ML VIAL As Ordered ONE (08:36)
[2022-08-06] MEDS ORDERED: ceFAZolin 2 GM/D5W 50 ML IV BAG (J0690 PER 500MG) As Ordered ONE (08:50)
[2022-08-06] MEDS ORDERED: ceFAZolin SOD 2 GM in D5W MINI-BAG PLUS 50 ML IV ONE (09:00)
[2022-08-06] MEDS: CARVedilol 3.125 MG TAB PO SCH ×2 (10:41→20:08)
[2022-08-06] MEDS: FOLIC ACID 1MG TAB PO SCH (10:42)
[2022-08-06] MEDS: DIVALPROEX 250MG *ER* TAB PO SCH (10:42)
[2022-08-06] MEDS: PARoxetine 10MG TABLET PO SCH (10:42)
[2022-08-06] MEDS: FERROUS SULFATE 325MG TAB PO SCH ×2 (10:43→20:08)
[2022-08-06] MEDS: ATORVASTATIN 20 MG TAB PO SCH (10:44)
[2022-08-06 10:56] VITALS: BP 167/72
[2022-08-06] MEDS: NS 1,000 ML IV SCH ×3 (11:01→23:07)
[2022-08-06 12:00] VITALS: BP 168/75
[2022-08-06] MEDS ORDERED: **NOTE PATIENT COMMENT** MISC XX ONE (13:00)
[2022-08-06] MEDS ORDERED: cefTRIAXone SOD 2 GM in D5W MINI-BAG PLUS 50 ML IV SCH (14:00)
[2022-08-06] MEDS ORDERED: cefTRIAXone SOD 1 GM in D5W MINI-BAG PLUS 50 ML IV SCH (14:00)
[2022-08-06 20:00] VITALS: BP 140/80
[2022-08-06] MEDS: DIVALPROEX 500MG *ER* TAB PO SCH (20:08)
[2022-08-07 05:23] LABS: BASO # 0.1 10^3/uL (0.0-0.2); BASO % 0.7 % (0.0-1.0); EOS # 0.1 10^3/uL (0.0-0.5); EOS % 1.5 % (0.0-3.0); HEMATOCRIT 37.7 % (36.0-47.0); HEMOGLOBIN 11.9 g/dl (12.0-15.5); LYMPH # 0.5 10^3/uL (1.5-5.0); LYMPH % 5.6 % (24.0-44.0); MEAN CORPUSCULAR HEMOGLOBIN 34.6 pg (27.0-33.0); MEAN CORPUSCULAR HGB CONC 31.6 g/dl (32.0-36.5); MEAN CORPUSCULAR VOLUME 109.6 fl (80.0-96.0); MONO # 1.4 10^3/uL (0.0-0.8); MONO % 14.5 % (2.0-8.0); NEUTROPHILS % 73.9 % (36.0-66.0); PLATELET COUNT, AUTOMATED 412 10^3/uL (150-450); RED BLOOD COUNT 3.44 10^6/uL (4.00-5.40); WHITE BLOOD COUNT 9.5 10^3/uL (4.0-10.0)
[2022-08-07 05:55] LABS: CALCIUM LEVEL 9.3 MG/DL (8.8-10.2); CREATININE FOR GFR 1.88 MG/DL (0.55-1.30); GLOMERULAR FILTRATION RATE 27.9 (>39); POTASSIUM SERUM 3.7 MEQ/L (3.5-5.1)
[2022-08-07] MEDS: NS 1,000 ML IV SCH ×3 (06:15→21:11)
[2022-08-07] MEDS: LEVOTHYROXINE 75MCG TABLET (0.075MG) PO SCH (06:16)
[2022-08-07 08:00] VITALS: BP 158/68
[2022-08-07] MEDS: cefTRIAXone SOD 1 GM in D5W MINI-BAG PLUS 50 ML IV SCH (09:03)
[2022-08-07] MEDS: FERROUS SULFATE 325MG TAB PO SCH ×2 (09:03→20:32)
[2022-08-07] MEDS: DIVALPROEX 250MG *ER* TAB PO SCH (09:03)
[2022-08-07] MEDS: PARoxetine 10MG TABLET PO SCH (09:04)
[2022-08-07] MEDS: CARVedilol 3.125 MG TAB PO SCH ×2 (09:04→20:32)
[2022-08-07] MEDS: ATORVASTATIN 20 MG TAB PO SCH (09:04)
[2022-08-07] MEDS: FOLIC ACID 1MG TAB PO SCH (09:04)
[2022-08-07 16:00] VITALS: BP 144/65
[2022-08-07 20:00] VITALS: BP 134/62
[2022-08-07] MEDS: DIVALPROEX 500MG *ER* TAB PO SCH (20:33)
[2022-08-08 04:00] VITALS: BP 165/75
[2022-08-08] MEDS: LEVOTHYROXINE 75MCG TABLET (0.075MG) PO SCH (05:14)
[2022-08-08] MEDS: NS 1,000 ML IV SCH ×2 (05:14→15:02)
[2022-08-08 08:08] LABS: HEMATOCRIT 32.2 % (36.0-47.0); HEMOGLOBIN 10.9 g/dl (12.0-15.5); MEAN CORPUSCULAR HEMOGLOBIN 37.2 pg (27.0-33.0); MEAN CORPUSCULAR HGB CONC 33.9 g/dl (32.0-36.5); MEAN CORPUSCULAR VOLUME 109.9 fl (80.0-96.0); PLATELET COUNT, AUTOMATED 358 10^3/uL (150-450); RED BLOOD COUNT 2.93 10^6/uL (4.00-5.40); WHITE BLOOD COUNT 8.8 10^3/uL (4.0-10.0)
[2022-08-08 08:33] VITALS: BP 158/69
[2022-08-08 08:46] LABS: CALCIUM LEVEL 8.7 MG/DL (8.8-10.2); CREATININE FOR GFR 1.33 MG/DL (0.55-1.30); GLOMERULAR FILTRATION RATE 41.6 (>39); POTASSIUM SERUM 3.7 MEQ/L (3.5-5.1)
[2022-08-08] MEDS: DIVALPROEX 250MG *ER* TAB PO SCH (09:04)
[2022-08-08] MEDS: FOLIC ACID 1MG TAB PO SCH (09:04)
[2022-08-08] MEDS: cefTRIAXone SOD 1 GM in D5W MINI-BAG PLUS 50 ML IV SCH (09:04)
[2022-08-08] MEDS: PARoxetine 10MG TABLET PO SCH (09:04)
[2022-08-08] MEDS: CARVedilol 3.125 MG TAB PO SCH ×2 (09:05→20:42)
[2022-08-08] MEDS: ATORVASTATIN 20 MG TAB PO SCH (09:05)
[2022-08-08] MEDS: FERROUS SULFATE 325MG TAB PO SCH ×2 (09:05→20:40)
[2022-08-08] MEDS ORDERED: diphenhydrAMINE 50MG/ML VIAL (J1200) As Ordered ONE (10:35)
[2022-08-08] MEDS ORDERED: LIDOCAINE 1% MDV 20ML VIAL As Ordered ONE (10:35)
[2022-08-08] MEDS ORDERED: MIDAZOLAM INJ 2MG/2ML VIAL (J2250 PER 1MG) As Ordered ONE (10:35)
[2022-08-08] MEDS ORDERED: fentaNYL 100 MCG/2 ML INJECTION As Ordered ONE (10:35)
[2022-08-08 12:34] VITALS: BP_SYST 150; BP_SYST 175; BP_DIAS 78
[2022-08-08 13:04] VITALS: BP 146/74
[2022-08-08 15:20] VITALS: BP 138/76
[2022-08-08] MEDS: ACETAMINOPHEN TAB 650MG DOSE (2X325MG) PO PRN (18:36)
[2022-08-08] MEDS: DIVALPROEX 500MG *ER* TAB PO SCH (20:40)
[2022-08-08 22:00] VITALS: BP 137/71
[2022-08-09] MEDS: NS 1,000 ML IV SCH ×3 (01:31→23:33)
[2022-08-09] MEDS: LEVOTHYROXINE 75MCG TABLET (0.075MG) PO SCH (05:30)
[2022-08-09 06:08] VITALS: BP 132/71
[2022-08-09 06:38] LABS: HEMATOCRIT 30.6 % (36.0-47.0); HEMOGLOBIN 9.6 g/dl (12.0-15.5); MEAN CORPUSCULAR HEMOGLOBIN 34.7 pg (27.0-33.0); MEAN CORPUSCULAR HGB CONC 31.4 g/dl (32.0-36.5); MEAN CORPUSCULAR VOLUME 110.5 fl (80.0-96.0); PLATELET COUNT, AUTOMATED 321 10^3/uL (150-450); RED BLOOD COUNT 2.77 10^6/uL (4.00-5.40); WHITE BLOOD COUNT 10.2 10^3/uL (4.0-10.0)
[2022-08-09 07:09] LABS: CALCIUM LEVEL 8.4 MG/DL (8.8-10.2); CREATININE FOR GFR 1.19 MG/DL (0.55-1.30); GLOMERULAR FILTRATION RATE 47.3 (>39); POTASSIUM SERUM 3.6 MEQ/L (3.5-5.1)
[2022-08-09 07:28] LABS: ATYPICAL LYMPH 2 % (0-5); EOSINOPHILS 4 % (0-3); LYMPHOCYTES 17 % (16-44); METAMYELOCYTES 1 % (0-0); MONOCYTES 10 % (0-5); MYELOCYTES 2 % (0-0); NEUTROPHILS 61 % (28-66); PROMYELOCYTES 1 % (0-0)
[2022-08-09 07:30] LABS: PLATELET ESTIMATE NORMAL (NORMAL)
[2022-08-09] MEDS: cefTRIAXone SOD 1 GM in D5W MINI-BAG PLUS 50 ML IV SCH (08:24)
[2022-08-09] MEDS: CARVedilol 3.125 MG TAB PO SCH ×2 (08:25→20:27)
[2022-08-09] MEDS: FERROUS SULFATE 325MG TAB PO SCH ×2 (08:25→20:25)
[2022-08-09] MEDS: PARoxetine 10MG TABLET PO SCH (08:25)
[2022-08-09] MEDS: DIVALPROEX 250MG *ER* TAB PO SCH (08:25)
[2022-08-09] MEDS: ATORVASTATIN 20 MG TAB PO SCH (08:25)
[2022-08-09] MEDS: FOLIC ACID 1MG TAB PO SCH (08:25)
[2022-08-09] MEDS ORDERED: CEPH500C PO (10:14)
[2022-08-09 14:00] VITALS: BP 132/71
[2022-08-09] MEDS: DIVALPROEX 500MG *ER* TAB PO SCH (20:29)
[2022-08-09 22:00] VITALS: BP 138/71
[2022-08-10] MEDS: LEVOTHYROXINE 75MCG TABLET (0.075MG) PO SCH ×2 (05:29→05:30)
[2022-08-10 06:00] VITALS: BP 154/76
[2022-08-10 09:05] VITALS: BP 156/75
[2022-08-10] MEDS: CARVedilol 3.125 MG TAB PO SCH (09:05)
[2022-08-10] MEDS: cefTRIAXone SOD 1 GM in D5W MINI-BAG PLUS 50 ML IV SCH (09:06)
[2022-08-10] MEDS: ATORVASTATIN 20 MG TAB PO SCH (09:06)
[2022-08-10] MEDS: NS 1,000 ML IV SCH (09:06)
[2022-08-10] MEDS: FERROUS SULFATE 325MG TAB PO SCH (09:06)
[2022-08-10] MEDS: PARoxetine 10MG TABLET PO SCH (09:06)
[2022-08-10] MEDS: FOLIC ACID 1MG TAB PO SCH (09:06)
[2022-08-10] MEDS: DIVALPROEX 250MG *ER* TAB PO SCH (09:06)
[2022-08-10] MEDS ORDERED: CEPHALEXIN 500 MG CAP PO SCH (14:00)
== END 2022-08-10 13:37 | disposition home health service (06) | DRG 699 ==
LOC: M ED 11:43 → M ED INP 16:39 → ENRESERV 18:42 → M PCU 20:10 → M MSPAV 08-08 15:08
PROVIDERS: ADMIT Internal Medicine; ATTEND Family Medicine
PROC: 0T9030Z Drainage of Right Kidney with Drainage Device, Percutaneous Approach (ICD-10-PCS; 2022-08-06)
PROC: 0T9130Z Drainage of Left Kidney with Drainage Device, Percutaneous Approach (ICD-10-PCS; principal; 2022-08-06 08:00)
DX: N13.9 Obstructive and reflux uropathy, unspecified (principal); N17.9 Acute kidney failure, unspecified; I50.22 Chronic systolic (congestive) heart failure; N13.30 Unspecified hydronephrosis; N39.0 Urinary tract infection, site not specified; 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, fused and horseshoe kidney; E03.9 Hypothyroidism, unspecified; E78.5 Hyperlipidemia, unspecified; N18.30 Chronic kidney disease, stage 3 unspecified; G40.909 Epilepsy, unspecified, not intractable, without status epilepticus; B96.20 Unspecified Escherichia coli [E. coli] as the cause of diseases classified elsewhere; N99.538 Other complication of continent stoma of urinary tract; F32.A Depression, unspecified; Z98.49 Cataract extraction status, unspecified eye; Z79.82 Long term (current) use of aspirin; Z79.890 Hormone replacement therapy; Z79.899 Other long term (current) drug therapy; Z88.8 Allergy status to other drugs, medicaments and biological substances; Z91.018 Allergy to other foods; Z91.048 Other nonmedicinal substance allergy status; Y83.1 Surgical operation with implant of artificial internal device as the cause of abnormal reaction of the patient, or of later complication, without mention of misadventure at the time of the procedure

== ENCOUNTER → 2022-10-01 | Outpatient (REF) | payer MEDICARE, MEDICAID ==
[~2022-10-01] MED LIST changes: +CEPH500C PO
== END ==
LOC: M LAB REF 17:10
PROVIDERS: ATTEND Nurse Practitioner Family
DX: N39.0 Urinary tract infection, site not specified (principal)

== ENCOUNTER → 2022-11-05 | Outpatient (CLI) | payer MEDICARE, MEDICAID ==
[~2022-11-05] MED LIST changes: -PAXI10TA12 PO; +PAXI10TA13 PO
== END ==
LOC: M LABSMTC 09:12
PROVIDERS: ATTEND Anesthesiology
DX: Z01.818 Encounter for other preprocedural examination (principal)

== ENCOUNTER → 2022-11-11 | Outpatient (CLI) | payer MEDICAID, MEDICARE ==
[~2022-11-11] MED LIST changes: +CEPHALEXIN 500 MG CAP As Ordered ONE; +CEPHALEXIN 500 MG CAP PO ONE; +ISOVUE-300 61% 50ML VIAL As Ordered ONE; +LIDOCAINE 1% MDV 20ML VIAL As Ordered ONE; +MIDAZOLAM INJ 2MG/2ML VIAL As Ordered ONE; +diphenhydrAMINE 50MG/ML VIAL As Ordered ONE; +fentaNYL 100 MCG/2 ML INJECTION As Ordered ONE
[2022-11-11 15:00] VITALS: BP 110/56
== END ==
LOC: M IRPRO 10:38
PROVIDERS: ATTEND Radiology Diagnostic Radiology
DX: N13.9 Obstructive and reflux uropathy, unspecified (principal)
CPT/HCPCS: 50435; 99152; 99153; C1729; C1769; Q9967